=== PATIENT | female | born 1980 | race Caucasian/White ===

== ENCOUNTER 2019-11-26 17:20 | Inpatient (IN) | payer BC, SELFPAY ==
[2019-11-26 17:28] VITALS: BP 163/97; PULSE 96; RESP 16; TEMP 36.8; O2SAT 98; BMI 27.4
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
--- NOTE | 2019-11-26 18:23 | PC.NURSE ---
nurse oriented to ER room. Sitter at bedside
[2019-11-26 18:30] LABS: Basophils % 0.5 %; Eosinophils # 0.1 10^3/uL (0.0-0.8); Eosinophils % 1.7 %; Hematocrit 43.5 % (37.0-47.0); Hemoglobin 14.2 g/dL (11.5-15.3); Lymphocytes # 2.4 10^3/uL (0.8-4.8); Lymphocytes % 30.9 %; Mean Corpuscular HGB Conc 32.6 g/dL (30.0-36.0); Mean Corpuscular Hemoglobin 28.6 pg (28.0-34.0); Mean Corpuscular Volume 87.5 fL (81-99); Mean Platelet Volume 10.1 fL (7.4-10.4); Monocytes # 0.8 10^3/uL (0.2-0.9); Monocytes % 9.7 %; Neutrophils # 4.5 10^3/uL (1.8-7.7); Neutrophils % 57.1 %; Nucleated Red Blood Cells % 0 %; Platelet Count 377 10^3/cmm (130-400); Red Blood Count 4.97 10^6/uL (4.1-5.3); Red Cell Distribution Width 13.1 % (12.1-15.1); White Blood Count 7.9 10^3/uL (4.0-10.0)
[2019-11-26 18:53] LABS: Alanine Aminotransferase 25 U/L (0-33); Albumin Level 4.2 g/dL (3.5-5.2); Alkaline Phosphatase 94 IU/L (35-105); Anion Gap 16.6 (5-19); Aspartate Amino Transferase 22 U/L (0-32); Blood Urea Nitrogen 7 mg/dL (6-20); Calcium 9.9 mg/Dl (8.6-10.0); Carbon Dioxide 24 mmol/L (22-29); Chloride 104 mmol/L (98-107); Globulin 3.6 g/dL (1.3-4.6); Glomerular Filtration Rate 80.3 mL/min (90-130); Glucose 95 mg/dL (74-109); Potassium 3.6 mmol/L (3.5-5.1); Sodium 141 mmol/L (136-145); Thyroid Stimulating Hormone 2.33 uIU/mL (0.27-4.20); Total Bilirubin 0.2 mg/dL (0.15-1.2); Total Protein 7.8 g/dL (6.6-8.7)
[2019-11-26 18:58] LABS: Add Urine Microscopic? YES; Bilirubin Urine Neg (NEGATIVE); Blood Urine 2+ (Negative); Glucose Urine UA Norm (Normal); HCG Qualitative Urine. Negative (Negative); Ketones Urine Negative (Negative); Leukocyte Esterase Urine Negative (Negative); Nitrate Urine Positive (Negative); Protein Urine Neg (Negative); Sulfosalicylic Acid Urine Trace; Urine Appearance Cloudy (CLEAR); Urine Color Brown (Yellow); Urobilinogen Urine Norm (Negative); pH Urine 8 (5-7)
[2019-11-26 19:00] LABS: Bacteria Urine 2+; Mucus Urine 1+; RBC Urine 15-25 /hpf (0-2); WBC Urine 0-4 /hpf (0-5)
[2019-11-26 19:00] LABS: Acetaminophen < 5.0 ug/mL (10-30); Alcohol Level < 10 mg/dL (0-10); Salicylate < 0.3 mg/dL (3-10)
[2019-11-26 19:12] LABS: Barbiturates Screen Urine Positive (Negative); Benzodiazepines Screen Urine Negative (Negative); Cocaine Screen Urine Negative (Negative); Opiate Screen Urine Negative (Negative); PCP Screen Urine Negative (Negative); THC Screen Urine Positive (Negative)
--- NOTE | 2019-11-26 19:24 | PC.NURSE ---
REPORT RECEIVED FROM TORITO MANZO AND CARE TRANSFERRED TO TORITO JACK
[2019-11-26 19:27] VITALS: RESP 14
--- NOTE | 2019-11-26 19:27 | PC.NURSE ---
1:1 SITTER AT DOORWAY
[2019-11-26 19:28] VITALS: RESP 14
--- NOTE | 2019-11-26 19:29 | PC.NURSE ---
HCP PROVIDER IN ROOM FOR EVALUATION
[2019-11-26 19:30] LABS: Amphetamines Screen Urine Positive (Negative)
[2019-11-26 20:07] VITALS: BP 167/99; PULSE 81; RESP 16; O2SAT 100
--- NOTE | 2019-11-26 22:47 | PC.NURSE ---
PHARMACY BRINGING MEDICATIONS FOR PATIENT
[2019-11-26] MEDS: nitrofurantoin SR (BID) 100 mg Capsule PO (23:17)
[2019-11-26] MEDS: gabapentin 400 mg Capsule PO (23:17)
[2019-11-26] MEDS: metoprolol succinate ER (24 HR) 50 mg Tablet PO (23:17)
[2019-11-26 23:20] VITALS: BP 168/110; PULSE 84; RESP 16; O2SAT 100
[2019-11-26 23:56] VITALS: BP 162/102; PULSE 78; RESP 22; TEMP 36.9; O2SAT 100
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
[2019-11-27] MEDS: gabapentin 400 mg Capsule PO ×5 (06:38→21:57)
[2019-11-27] MEDS: nitrofurantoin SR (BID) 100 mg Capsule PO ×2 (09:35→17:31)
[2019-11-27] MEDS: metoprolol succinate ER (24 HR) 50 mg Tablet PO (09:37)
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
[2019-11-27] MEDS: nicotine 21 mg Patch 1 PATCH TRANSDERMA (12:41)
[2019-11-27 13:58] VITALS: BP 145/94; PULSE 73; RESP 18; TEMP 37; O2SAT 100
[2019-11-27 20:41] VITALS: BP 129/83; PULSE 66; RESP 16; TEMP 36.9; O2SAT 100
[2019-11-28] MEDS: gabapentin 400 mg Capsule PO ×2 (05:37→11:18)
[2019-11-28 06:00] VITALS: BP 107/69; PULSE 85; RESP 19; TEMP 36.6; O2SAT 100
[2019-11-28] MEDS: nitrofurantoin SR (BID) 100 mg Capsule PO (08:37)
[2019-11-28] MEDS: metoprolol succinate ER (24 HR) 50 mg Tablet PO (08:38)
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
--- NOTE | 2019-11-28 11:15 | P.CONIM_ITS ---
Providers/Reason for Consult Attending Physician: Art Stephen MD Primary Care Provider: Sammy Desai APN Psych Consult HPI History of Present Illness Sejal Lance is a 39 year old female Meds Current Medications: Current Medications Generic Name Dose Route Start Last Admin Trade Name Freq PRN Reason Stop Dose Admin Gabapentin 400 mg 11/26/19 22:00 11/28/19 05:37 Neurontin PO 400 mg 5XD JORGE Administration Metoprolol Succina te 50 mg 11/26/19 22:00 11/28/19 08:38 Toprol Xl PO 50 mg DAILY JORGE Administration Nicotine 1 patch 11/26/19 19:40 11/27/19 12:41 Nicoderm 21 Mg P atch TRANSDERMA 1 patch DAILY PRN Administration NICOTINE WITHDRAW AL Nitrofurantoin Mac rocrystals 100 mg 11/26/19 22:00 11/28/19 08:37 Macrobid PO 100 mg BID JORGE Administration PFSH NPU PFSH: Statuses (acute, chronic, etc) shown below reflect problem list status as previously entered and may not be historically accurate Medical History (Updated 11/26/19 @ 19:49 by Katarina Palacio MD, [facility] [place]) Chronic back pain (Acute) Chronic headache (Acute) Depression (Acute) Surgical History (Updated 11/26/19 @ 18:26 by Veronica Crowder) H/O oophorectomy (Acute) History of hysterectomy (Acute) Social History Smoking and tobacco status: current every day smoker Vitals/I&O/Wt Last Vital Signs Temp 97.8 F 11/28/19 06:00 Pulse 85 11/28/19 06:00 Resp 19 H 11/28/19 06:00 BP 107/69 11/28/19 06:00 Pulse Ox 100 11/28/19 06:00 Weight last 48 hrs Weight 74.843 kg Involuntary Hold Information 96 Hour Hold: 96 Hour Involuntary Admission: Yes Coding Level of Care Code Acute English Composition Teacher for Efren Lebron
[2019-11-28] MEDS: buPROPion XL (24 HR) 300 mg Tablet PO (11:17)
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
== END 2019-11-28 12:15 | disposition home or self-care (01) | DRG 881 ==
LOC: ER 19:52 → NP 20:43
PROVIDERS: Admitting Provider Psychiatry & Neurology Psychiatry; Emergency Provider Family Medicine; Family Provider Nurse Practitioner Family; PCP Nurse Practitioner Family; Visit Provider Psychiatry & Neurology Psychiatry
DX: F32.9 Major depressive disorder, single episode, unspecified (principal); G89.29 Other chronic pain; F17.210 Nicotine dependence, cigarettes, uncomplicated; M54.9 Dorsalgia, unspecified; R51 Headache
CPT/HCPCS: 12345; 36415; 80053; 80307; 81003; 81025; 84443; 85025; 99284; A9270

== ENCOUNTER 2020-04-20 17:29 | Emergency (ER) | payer MEDICAID, SELFPAY ==
[2020-04-20 17:51] VITALS: BP 107/68; PULSE 82; RESP 14; TEMP 36.8; O2SAT 99; BMI 26.6
--- NOTE | 2020-04-20 18:03 | XR_ITS ---
WS: [id number] XR shoulder RT min 2V* [id number] REASON FOR EXAM: fall FINDINGS: The clavicle is found to be intact no definite fractures are seen. The acromioclavicular joint was normal. The glenoid humeral articulations normal. The body of the scapula is normal. XR/XR shoulder RT min 2V* [id number] IMPRESSION: Negative right shoulder.
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
== END 2020-04-20 19:26 | disposition home or self-care (01) ==
PROVIDERS: Emergency Provider Nurse Practitioner Family; PCP Nurse Practitioner Family
DX: S43.491A Other sprain of right shoulder joint, initial encounter (principal); X50.9XXA Other and unspecified overexertion or strenuous movements or postures, initial encounter
CPT/HCPCS: 12345; 73030; 99281; 99282

== ENCOUNTER → 2020-11-08 12:45 | Outpatient (BNVA) | payer MEDICAID, SELFPAY | PROVIDERS: PCP Nurse Practitioner Family; Visit Provider Nurse Practitioner Family | DX: Z20.828 Contact with and (suspected) exposure to other viral communicable diseases (principal) | CPT/HCPCS: 87635 ==

== ENCOUNTER 2021-06-25 15:09 | Emergency (ER) | payer BC, MEDICAID, SELFPAY ==
[2021-06-25 15:29] VITALS: BP 159/82; PULSE 72; RESP 18; TEMP 37.1; O2SAT 99; BMI 24.1
--- NOTE | 2021-06-25 15:41 | W.ED.COVID ---
HPI - COVID General: Chief Complaint: Chest Pain Stated Complaint: CHEST PAIN Time Seen by Provider: 06/25/21 15:40 Source: patient Mode of arrival: ambulatory Limitations: no limitations Triage information: Has fever, cough or shortness of breath. Exposure to COVID + person last 14 days History of Present Illness: HPI Narrative: Patient is a 40-year-old female who presents to ED today on day 8 of COVID. Patient states she tested positive on 06/17 at [facility]. She states since that time she has had intermittent episodes of shortness of breath, difficulty breathing, and chest tightness. She feels like she gets winded easily. She is not running fevers. Has had a mild cough. She has been treated with Levaquin and steroids. MD complaint: known COVID positive Prior covid testing: yes, results known Prior testing date: 06/17/21 COVID 19 common symptoms: positive non-productive cough, dyspnea, loss of sense of smell and/or taste and chest tightness; negative fever(s), chills, fatigue, body aches, headache(s), throat pain, nasal congestion, nausea, vomiting or diarrhea COVID 19 other sytmptoms: positive chest pain Onset (ago): day(s) Severity: moderate Treatment prior to arrival: antibiotics and steroids COVID Results: SARS-CoV-2 RNA (RT-PCR) Not detected (NOT DETECTED) 11/08/20 12:45 11/08/20 Review of Systems Const: Denies: fever(s), chills, body aches, fatigue or malaise Eyes: Denies: change in vision or blurry vision ENMT: Denies: throat pain, odynophagia, nasal discharge or nasal congestion Card: Reports: chest pain and dyspnea on exertion; Denies: palpitations, irregular heart rhythm, edema, swelling of feet/ankles, lightheadedness, syncope, pre-syncope, orthopnea, leg pain with exertion or acrocyanosis Resp: Reports: dyspnea, non-productive cough and pain on inspiration; Denies: wheezing, stridor, hemoptysis or chest congestion GI: Denies: abdominal pain, nausea, vomiting or diarrhea Musc: Denies: neck pain or back pain Neuro: Denies: headache(s), numbness in extremities, weakness in extremities or sensory changes PFSH ED PFSH: Medical History Chronic back pain Chronic headache Depression Surgical History H/O oophorectomy History of hysterectomy Social History Smoking and tobacco status: never smoked Female Reproductive History: Spontaneous abortions: No Physical Exam Const: COMMON NORMALS: no acute distress, patient oriented x3, no limitations and alert HENMT: COMMON NORMALS: normocephalic and atraumatic HEAD & SCALP: normocephalic and atraumatic Resp: COMMON NORMALS: normal respiratory effort and clear to auscultation bilaterally AUSCULTATION: clear to auscultation bilaterally Cardio: COMMON NORMALS: regular rate and regular rhythm RATE: regular rate RHYTHM: regular rhythm Extremity: COMMON NORMALS: capillary refill normal, no clubbing, cyanosis or edema, no calf tenderness and no pedal edema Neuro: COMMON NORMALS: patient oriented x3 SENSORIUM/ORIENTATION: Yes alert Skin: COMMON NORMALS: no rashes or lesions noted GENERAL SKIN EXAM: no rashes or lesions noted Course Vital Signs: Vital signs: Vital Signs Temperature 98.7 F 06/25/21 15:29 Pulse Rate 72 06/25/21 15:29 Respiratory Rate 18 06/25/21 15:29 Blood Pressure 159/82 06/25/21 15:29 Pulse Oximetry 98 06/25/21 16:29 MDM - COVID MDM Narrative: Medical decision making narrative: Patient is non-ill and nontoxic appearing. Her vital signs are stable. She is satting normal on room air. Home O2 evaluation performed and she satted at 98% the entire time. CXR normal. EKG normal. At this time patient is stable for DC. She is on day 8. She's got no risk factors for severe progression and wouldn't qualify for MCA. By the time we got her information placed with CM and they got scheduled she would be past day 10 anyway and unlikely to get any benefit from it. Recommend continuing to treat conservatively at home-patient is agreeable to this plan. Return to ED precautions given. EKG Data: EKG 1: EKG interpretation date: 06/25/21 EKG interpretation time: 15:44 Interpretation: Sinus rhythm Rate [address] elevation or depression changes noted COVID Results: SARS-CoV-2 RNA (RT-PCR) Not detected (NOT DETECTED) 11/08/20 12:45 11/08/20 Monoclonal Antibody - ED Inclusion/Exclusion Criteria age >/= 12 years, weight >/= 40kg /88lbs, symptom onset less than 10 days ago and + direct Sars-Cov-2 test less than 7-10 days ago not requiring hospitalization, not requiring oxygen (if not chronically on oxygen) and no increase oxygen requirement (if chronically on oxygen) Plan for treatment Does not meet criteria (DO NOT GIVE) Discharge Plan Discharge Patient Disposition: Home Clinical Impression: COVID-19 Condition: Stable Prescriptions: No Action albuterol sulfate [ProAir HFA] 90 mcg/actuation HFA aerosol inhaler 2 puff inhalation Q6H PRNRF: 0 pseudoephedrine-acetaminophen 30-325 mg capsule PO RF: 0 Discharge Orders: Discharge ED (Routine); Ordered 06/25/21 Ordered By: Teresita Gao Referrals: Giselle Christianson APN [Primary Care Provider] - Activity Restrictions/Additional Instructions: As we discussed continue to treat conservatively at home. You may return to the emergency department for severe shortness of breath or difficulty breathing. I hope you begin to feel better soon. Coding Level of Care Code ED High Density Press Operator for Efren Fwd Exam Detailed
--- NOTE | 2021-06-25 15:53 | XRR_ITS ---
PROCEDURE INFORMATION: Exam: XR Chest Exam date and time: 06/25/2021 3:53 PM Age: 40 years old Clinical indication: Pain; Chest pressure; Additional info: Chest pain TECHNIQUE: Imaging protocol: XR of the chest. Views: 1 view. COMPARISON: CR Chest 2 views* [id number] 07/04/2016 1:42 PM FINDINGS: Lungs: Unremarkable. No consolidation. Pleural spaces: Unremarkable. No pleural effusion. No pneumothorax. Heart/Mediastinum: Unremarkable. No cardiomegaly. Bones/joints: Unremarkable. XR/XR chest 1V portable [id number] IMPRESSION: Negative for infiltrate
[2021-06-25 16:29] VITALS: O2SAT 98
[2021-06-25 17:56] VITALS: BP 148/88; PULSE 80; RESP 16; O2SAT 96
--- NOTE | 2021-09-26 18:14 | XR_ITS ---
WS: [id number] RIGHT RIBS, MULTIPLE VIEWS HISTORY: pain after injury COMPARISON: None available. Ribs: No rib fractures or bone destruction identified. Lungs and mediastinum: No pneumothorax or pulmonary contusion.
== END 2021-06-25 17:57 | disposition home or self-care (01) ==
PROVIDERS: Emergency Provider Physician Assistant; PCP Nurse Practitioner Family
DX: U07.1 COVID-19 (principal)
CPT/HCPCS: 71045; 71100; 99283

== ENCOUNTER 2021-09-26 06:00 | Outpatient (CLI) | payer BC, MEDICAID, SELFPAY ==
--- NOTE | 2021-09-26 18:14 | XR_ITS ---
WS: [id number] RIGHT RIBS, MULTIPLE VIEWS HISTORY: pain after injury COMPARISON: None available. Ribs: No rib fractures or bone destruction identified. Lungs and mediastinum: No pneumothorax or pulmonary contusion. XR/XR ribs RT 2V* [id number] IMPRESSION: No RIGHT rib fractures identified.
== END 2021-09-26 06:01 | disposition home or self-care (01) ==
LOC: RAD 11-17 10:06
PROVIDERS: PCP Nurse Practitioner Family; Visit Provider Nurse Practitioner
DX: R07.81 Pleurodynia (principal)
CPT/HCPCS: 71100

== ENCOUNTER 2022-10-11 11:44 | Emergency (ER) | payer OTHER, BC, MEDICAID, SELFPAY ==
[2022-10-11 12:10] VITALS: BP 136/79; PULSE 65; RESP 13; TEMP 37.1; O2SAT 100
--- NOTE | 2022-10-11 12:21 | CT_ITS ---
WS: [id number] CT NECK WITH CONTRAST HISTORY: Left lower dental infection, concerns for Marcos's angina TECHNIQUE: Contiguous 5 mm axial images are performed through the neck with intravenous contrast. Sag ittal and coronal reformats are also submitted. All CT scans at [facility] use at least one o f these dose optimization techniques: automated exposure control; mA and/or kV adjustment per patient size (includes targeted exams where dose is matched to clinical indication); or iterative reconstruc tion. CONTRAST: CONTRAST: Omnipaque 350; 100 mL IV. DLP: 228.82 mGy.cm COMPARISON: None available. Nasopharynx, oropharynx, hypopharynx and larynx are unremarkable. No soft tissue masses or abnormal e nhancement. Torus tubarius and fossa of Rosenmuller and parapharyngeal fat are normal. No significant lymphadenopathy is identified. There are small benign-appearing lymph nodes in the lev el 1, level 2 and level 3 regions. Thyroid gland and salivary glands are normally enhancing with no masses. Absent LEFT mandibular molar. There is a very tiny amount of increased soft tissue but no abscess. Th ere is air at the site of the tooth extraction. No abscess. No significant cellulitis. Visualized portions of the skull base demonstrate no abnormalities. Orbits and globes are within norm al limits. No soft tissue masses. Visualized paranasal sinuses and mastoid air cells are normal. Lung apices are clear. CT/CT neck w con* [id number] IMPRESSION: 1. No significant cellulitis and no abscess identified associated with the man dible or maxilla. 2. No adenopathy.
[2022-10-11 12:41] LABS: Basophils % 0.2 %; Eosinophils # 0.1 10^3/uL (0.0-0.8); Eosinophils % 0.8 %; Hematocrit 46.8 % (37.0-47.0); Hemoglobin 15.5 g/dL (11.5-15.3); Lymphocytes % 22.8 %; Mean Corpuscular HGB Conc 33.1 g/dL (30.0-36.0); Mean Corpuscular Hemoglobin 29.4 pg (28.0-34.0); Mean Corpuscular Volume 88.6 fl (81-99); Mean Platelet Volume 9.6 fL (7.4-10.4); Monocytes # 0.5 10^3/uL (0.2-0.9); Monocytes % 5.7 %; Neutrophils # 6.19 10^3/uL (1.8-7.7); Neutrophils % 70.3 %; Nucleated Red Blood Cells % 0 %; Platelet Count 337 10^3/cmm (130-400); Red Blood Count 5.28 10^6/uL (4.1-5.3); Red Cell Distribution Width 13.2 % (12.1-15.1); White Blood Count 8.8 10^3/uL (4.0-10.0)
[2022-10-11] MEDS: morphine 4 mg/mL SDV 1 mL IVP (12:52)
--- NOTE | 2022-10-11 12:52 | ED_ITS ---
HPI - Dental/Oral General: Chief complaint: Dental/Oral Stated complaint: jaw/tooth infection Time Seen by Provider: 10/11/22 12:16 History of Present Illness: Patient is a 42-year-old female comes to the ED with dental pain. Patient was seen by Dr. Gaspar at urgent care and sent over here for CT scan because of concerns for Yuko's angina. she has been dealing with this dental pain now for approximately 2 months. She has a impacted left lower wisdom tooth has been causing her pain. She has been on 2 rounds of antibiotics and took clindamycin for strep. Just finished taking Augmentin approximately a week ago. She is still having a lot of pain in her left lower jaw. It radiates up into the left side of her face. She also feels like she is having some swelling on the left side of her neck. She is able to eat but states that it is painful when she does. She rates the pain currently a 6 out of 10. She has an appointment with a dentist in November. Associated symptoms: Denies fever(s) or odynophagia Review of Systems Const: Denies: fever(s), chills or fatigue Eyes: Denies: change in vision or eye discomfort ENMT: Reports: dental pain (Left lower jaw); Denies: throat pain, odynophagia, nasal discharge or nasal congestion Card: Denies: chest pain, palpitations, edema, swelling of feet/ankles, dyspnea on exertion or orthopnea Resp: Denies: dyspnea, productive cough or non-productive cough GI: Denies: abdominal pain, nausea, vomiting, diarrhea, constipation or hematochezia : Denies: flank pain, dysuria or hematuria Musc: Denies: neck pain, back pain or extremity swelling Skin/Breast: Denies: rash or new lesions Neuro: Denies: headache(s), numbness in extremities or weakness in extremities PFSH ED PFSH: Medical History Chronic back pain Chronic headache Depression Surgical History H/O oophorectomy History of hysterectomy Social History Smoking and tobacco status: current every day smoker Female Reproductive History: Spontaneous abortions: No Physical Exam Const: COMMON NORMALS: patient oriented x3 and alert GENERAL APPEARANCE: cooperative HENMT: COMMON NORMALS: normocephalic HEAD & SCALP: normocephalic MOUTH: Normal oral and palatal mucosa present, lip normal and tongue normal THROAT: posterior oropharynx normal and uvula midline Neck/C-Spine: COMMON NORMALS: supple GENERAL: Yes normal visual inspection Resp: COMMON NORMALS: normal respiratory effort, No retractions, No use of accessory muscles and clear to auscultation bilaterally AUSCULTATION: clear to auscultation bilaterally Cardio: COMMON NORMALS: regular rate, regular rhythm, S1 normal heart sound p resent, S2 normal heart sound present, No gallops present (Cardio), No clicks present (Cardio), No murmurs present (Cardio) and Peripheral pulses 2+ throughout RATE: regular rate RHYTHM: regular rhythm HEART SOUNDS: S1 normal heart sound present and S2 normal heart sound present PERIPHERAL PULSES: Peripheral pulses 2+ throughout GI: COMMON NORMALS: Normal to inspection, nondistended, normoactive bowel sounds present, Soft to palpation, non-tender and no masses PALPATION: Yes Soft to palpation : COMMON NORMALS: Yes no CVA tenderness BLADDER/KIDNEY EXAM: Yes no CVA tenderness Back/Pelvis: COMMON NORMALS: no CVA tenderness Extremity: COMMON NORMALS: normal to inspection Neuro: COMMON NORMALS: patient oriented x3 SENSORIUM/ORIENTATION: Yes alert GAIT: Yes Normal gait present Skin: GENERAL SKIN EXAM: dry skin Course Vital Signs: Vital signs: Vital Signs Temperature 98.7 F 10/11/22 12:10 Pulse Rate 65 10/11/22 12:10 Respiratory Rate 13 10/11/22 12:10 Blood Pressure 136/79 10/11/22 12:10 Pulse Oximetry 100 10/11/22 12:10 Oxygen Delivery Me thod 10/11/22 12:10 [facility] - Dental/Oral Medical Decision Making Patient is a 42-year-old female comes to the ED with dental pain. Patient was seen by Dr. Gaspar at urgent care and sent over here for CT scan because of concerns for Yuko's angina. she has been dealing with this dental pain now for approximately 2 months. She has a impacted left lower wisdom tooth has been causing her pain. Vitals are stable. Exam of patient is benign and she appears nontoxic in no acute distress. Patient's labs are unremarkable. CT of neck shows no significant cellulitis no abscess identified with mandible or maxilla. Patient was stable for discharge home and diagnosed with dental pain. She was told to follow-up with her dentist at her neck scheduled appointment. Return ED precautions given. Patient understood and agreed with plan. Lab Data I reviewed the patient's lab results. 10/11/22 12:36 10/11/22 12:[address] 10/11/22 12:21 IMPRESSION: 1. No significant cellulitis and no abscess identified associated with the mandible or maxilla. 2. No adenopathy. Laboratory Results WBC 8.8 10^3/uL (4.0-10.0) 10/11/22 12:36 RBC 5.28 10^6/uL (4.1-5.3) 10/11/22 12:36 Hgb 15.5 g/dL (11.5-15.3) H 10/11/22 12:36 Hct 46.8 % (37.0-47.0) 10/11/22 12:36 MCV 88.6 fl (81-99) 10/11/22 12:36 MCH 29.4 pg (28.0-34.0) 10/11/22 12:36 MCHC 33.1 g/dL (30.0-36.0) 10/11/22 12:36 RDW 13.2 % (12.1-15.1) 10/11/22 12:36 Plt Count 337 10^3/cmm (130-400) 10/11/22 12:36 MPV 9.6 fL (7.4-10.4) 10/11/22 12:36 Neut % (Auto) 70.3 % 10/11/22 12:36 Lymph % (Auto) 22.8 % 10/11/22 12:36 [place] % (Auto) 5.7 % 10/11/22 12:36 Eos % (Auto) 0.8 % 10/11/22 12:36 Baso % (Auto) 0.2 % 10/11/22 12:36 Neut # (Auto) 6.19 10^3/uL (1.8-7.7) 10/11/22 12:36 Lymph # (Auto) 2.0 10^3/uL (0.8-4.8) 10/11/22 12:36 [place] # (Auto) 0.5 10^3/uL (0.2-0.9) 10/11/22 12:36 Eos # (Auto) 0.1 10^3/uL (0.0-0.8) 10/11/22 12:36 Baso # (Auto) 0.0 10^3/uL (0.0-0.1) 10/11/22 12:36 Nucleated RBC % (auto) 0 % 10/11/22 12:36 Nucleated RBCs # 0.0 /100WBC 10/11/22 12:36 Sodium 135 mmol/L (136-145) L 10/11/22 12:36 Potassium 4.5 mmol/L (3.5-5.1) 10/11/22 12:36 Chloride 99 mmol/L (98-107) 10/11/22 12:36 Carbon Dioxide 25 mmol/L (22-29) 10/11/22 12:36 Anion Gap 15.5 (5-19) 10/11/22 12:36 BUN 12 mg/dL (6-20) 10/11/22 12:36 Creatinine 0.6 mg/dL (0.5-0.9) 10/11/22 12:36 GFR Calculation 110.2 mL/min (90-130) 10/11/22 12:36 Glucose 95 mg/dL (65-115) 10/11/22 12:36 Calculated Osmolality 280 mOsm/kg (285-295) L 10/11/22 12:36 Calcium 9.9 mg/dL (8.5-10.5) 10/11/22 12:36 Total Bilirubin 0.3 mg/dL (0.15-1.2) 10/11/22 12:36 AST 21 U/L (0-32) 10/11/22 12:36 ALT 23 U/L (0-33) 10/11/22 12:36 Alkaline Phosphatase 81 U/L (35-105) 10/11/22 12:36 C-Reactive Protein 3.2 mg/L (0.0-4.9) 10/11/22 12:36 Total Protein 8.3 g/dL (6.6-8.7) 10/11/22 12:36 Albumin 4.3 g/dL (3.5-5.2) 10/11/22 12:36 Globulin 4.0 g/dL (1.3-4.6) 10/11/22 12:36 Discharge Plan Discharge Patient Disposition: Home Clinical Impression: Pain, dental Condition: Stable Prescriptions: No Action albuterol sulfate [ProAir HFA] 90 mcg/actuation HFA aerosol inhaler 2 puff inhalation Q6H PRN gabapentin 300 mg capsule 600 mg PO TID estradiol [Estrace] 2 mg tablet 2 mg PO DAILY metoprolol tartrate 50 mg tablet 50 mg PO DAILY pantoprazole [Protonix] 40 mg tablet,delayed release (DR/EC) 40 mg PO DAILY Discharge Orders: Discharge ED (Routine); Ordered 10/11/22 Ordered By: Vik Mahoney Referrals: Giselle Christianson APN [Primary Care Provider] - Discharge Diet: Regular Discharge Activity: Increase activity as tolerated Patient Instructions: Toothache (ED), Opioid Safety Coding Level of Care Code ED Senior Infrastructure Architect for Chg Fwd Exam Comprehensive
[2022-10-11] MEDS: ondansetron 2 mg/ML SDV 2 mL 4 MG IVP (12:54)
[2022-10-11 13:03] LABS: Alanine Aminotransferase 23 U/L (0-33); Albumin Level 4.3 g/dL (3.5-5.2); Alkaline Phosphatase 81 U/L (35-105); Anion Gap 15.5 (5-19); Aspartate Amino Transferase 21 U/L (0-32); Blood Urea Nitrogen 12 mg/dL (6-20); C Reactive Protein 3.2 mg/L (0.0-4.9); Calcium 9.9 mg/dL (8.5-10.5); Carbon Dioxide 25 mmol/L (22-29); Chloride 99 mmol/L (98-107); Glomerular Filtration Rate 110.2 mL/min (90-130); Glucose 95 mg/dL (65-115); Osmolality Calculated 280 mOsm/kg (285-295); Potassium 4.5 mmol/L (3.5-5.1); Sodium 135 mmol/L (136-145); Total Bilirubin 0.3 mg/dL (0.15-1.2); Total Protein 8.3 g/dL (6.6-8.7)
[2022-10-11] MEDS: iohexol 350 mg/mL 500 mL Btl (per mL) IV (13:58)
== END 2022-10-11 15:48 | disposition home or self-care (01) ==
PROVIDERS: Emergency Provider Physician Assistant; PCP Nurse Practitioner Family
DX: K08.89 Other specified disorders of teeth and supporting structures (principal); F17.210 Nicotine dependence, cigarettes, uncomplicated
CPT/HCPCS: 70491; 80053; 85025; 86140; 96374; 96375; 99285; J2270; J2405; J2930; Q9967

== ENCOUNTER 2023-02-27 16:07 | Emergency (ER) | payer OTHER, BC, MEDICAID, SELFPAY ==
[2023-02-27 16:10] VITALS: BP 179/81; PULSE 89; RESP 16; TEMP 36.6; O2SAT 100
[2023-02-27 17:31] VITALS: BP 145/80; PULSE 82; RESP 16; O2SAT 100
--- NOTE | 2023-02-27 18:08 | USR_ITS ---
PROCEDURE INFORMATION: Exam: US Abdomen, Limited; Right Upper Quadrant Exam date and time: 02/27/2023 6:36 PM Age: 42 years old Clinical indication: Other: Migraine headache x 5 days, mild ruq pain, worse after eating with n+v; Additional info: Right upper quadrant abdominal pain after eating. TECHNIQUE: Imaging protocol: Real time ultrasound of the abdomen with image documentation. Limited exam focused on the right upper quadrant. COMPARISON: US abdomen complete* [id number] 08/28/2017 4:43 PM FINDINGS: Liver: The liver is unremarkable. Gallbladder: The gallbladder is unremarkable. No gallstones or intraluminal sludge. No gallbladder wall thickening. No pericholecystic fluid. Sonographic Pickens's sign is negative per report from the electro mechanical technologist. Biliary ducts: Normal. No stones. No dilation. Pancreas: The pancreas is unremarkable. No pancreatic ductal dilatation. Right kidney: The right kidney is unremarkable. Aorta: Visualized aorta is unremarkable. Inferior vena cava: Visualized IVC is unremarkable. Portal venous: Hepatopetal flow in the portal vein. Hepatic veins: Visualized hepatic veins are patent. Intraperitoneal space: No ascites. US/US gall bladder [id number] IMPRESSION: Unremarkable right upper quadrant ultrasound.
--- NOTE | 2023-02-27 18:08 | CTR_ITS ---
PROCEDURE INFORMATION: Exam: CT Head Without Contrast Exam date and time: 02/27/2023 7:04 PM Age: 42 years old Clinical indication: Pain; Headache; Migraine; Aura effect not specified; Additional info: Worst migraine ever TECHNIQUE: Imaging protocol: Computed tomography of the head without contrast. Sagittal and coronal reformatted images were created and reviewed. Radiation optimization: All CT scans at this facility use at least one of these dose optimization techniques: automated exposure control; mA and/or kV adjustment per patient size (includes targeted exams where dose is matched to clinical indication); or iterative reconstruction. REPORTING DATA: Count of CT and Cardiac NM exams in prior 12 months: This patient has received [address] and 0 known cardiac nuclear medicine studies in the 12 months prior to the current study. COMPARISON: CT neck w con* [id number] 10/11/2022 1:22 PM RADIATION DOSE METRICS: Total DLP (mGy-cm): 998.33 FINDINGS: Brain: No acute intracranial hemorrhage. No acute infarct. No intra-axial or extra-axial masses. Robles-white matter differentiation is preserved. No cerebral edema. No extra-axial fluid collections. No midline shift. No evidence for Chiari 1 malformation. Cerebral ventricles: No hydrocephalus. Paranasal sinuses: Visualized paranasal sinuses are clear. Mastoid air cells: Mastoid air cells are clear bilaterally. Auditory system: The patient has bilateral ear piercings. Orbital cavities: No acute abnormality in the visualized orbits. Bones/joints: No acute fracture. Soft tissues: The extracranial soft tissues are unremarkable. CT/CT head wo con* [id number] IMPRESSION: 1. No acute abnormality of the brain. 2. Incidental/nonacute findings are listed in the report.
--- NOTE | 2023-02-27 18:11 | W.ED.ABDPA2 ---
HPI - Abdominal Pain General: Chief Complaint: Abdominal Pain Stated Complaint: abd pains Time Seen by Provider: 02/27/23 17:40 History of Present Illness: Patient is a 42-year-old female comes to the ED with a migraine and abdominal pain. Migraine started approximately 5 days ago. She has a history of migraines but says this is the worst migraine she has ever had. Headache is generalized throughout the entire head and she rates it a 9 out of 10. Endorses nausea and vomiting. Loud noises or bright lights make headache worse. Denies any vision changes, numbness tingling or weakness to face or 1 side of body. Patient's other complaint is abdominal pain in the right upper quadrant. Symptoms worsen whenever she eats or drinks anything. Her abdominal pain symptoms are mild currently here in the ED. Denies any fevers, bladder or bowel symptoms. Associated Symptoms: Reports nausea and vomiting; Denies chills, constipation, diarrhea, dysuria, fever(s), hematochezia and hematuria Review of Systems Const: Denies: fever(s), chills or fatigue Eyes: Reports: photophobia; Denies: change in vision or eye discomfort ENMT: Denies: throat pain, odynophagia, nasal discharge or nasal congestion Card: Denies: chest pain, palpitations, edema, swelling of feet/ankles, dyspnea on exertion or orthopnea Resp: Denies: dyspnea, productive cough or non-productive cough GI: Reports: abdominal pain, nausea and vomiting; Denies: diarrhea, constipation or hematochezia : Denies: flank pain, dysuria or hematuria Musc: Denies: neck pain, back pain or extremity swelling Skin/Breast: Denies: rash or new lesions Neuro: Reports: headache(s); Denies: numbness in extremities or weakness in extremities [facility] ED PFSH: Medical History Chronic back pain Chronic headache Depression Surgical History H/O oophorectomy History of hysterectomy Social History Smoking and tobacco status: current every day smoker Female Reproductive History: Spontaneous abortions: No Physical Exam Const: COMMON NORMALS: no acute distress, patient oriented x3 and alert HENMT: COMMON NORMALS: normocephalic HEAD & SCALP: normocephalic MOUTH: Normal oral and palatal mucosa present THROAT: posterior oropharynx normal and uvula midline Neck/C-Spine: COMMON NORMALS: supple GENERAL: Yes normal visual inspection Resp: COMMON NORMALS: normal respiratory effort, No retractions, No use of accessory muscles and clear to auscultation bilaterally AUSCULTATION: clear to auscultation bilaterally Cardio: COMMON NORMALS: regular rate, regular rhythm, S1 normal heart sound present, S2 normal heart sound present, No gallops present (Cardio), No clicks present (Cardio), No murmurs present (Cardio) and Peripheral pulses 2+ throughout RATE: regular rate RHYTHM: regular rhythm HEART SOUNDS: S1 normal heart sound present and S2 normal heart sound present PERIPHERAL PULSES: Peripheral pulses 2+ throughout GI: COMMON NORMALS: Normal to inspection, nondistended, normoactive bowel sounds present, Soft to palpation and no masses PALPATION: Yes Soft to palpation and Yes Tenderness to palpation present (GI) Details: RUQ : COMMON NORMALS: Yes no CVA tenderness BLADDER/KIDNEY EXAM: Yes no CVA tenderness Back/Pelvis: COMMON NORMALS: no CVA tenderness Extremity: COMMON NORMALS: normal to inspection Neuro: COMMON NORMALS: patient oriented x3 SENSORIUM/ORIENTATION: Yes alert GAIT: Yes Normal gait present Skin: GENERAL SKIN EXAM: dry skin Course Vital Signs: Vital signs: Vital Signs Temperature 97.9 F 02/27/23 16:10 Pulse Rate 65 02/27/23 20:23 Respiratory Rate 16 02/27/23 20:23 Blood Pressure 110/75 02/27/23 20:23 Pulse Oximetry 98 02/27/23 20:23 Oxygen Delivery Me thod Room Air 02/27/23 20:12 MDM - Abdominal Pain Medical Decision Making Patient is a 42-year-old female comes to the ED with a migraine and abdominal pain. Migraine started approximately 5 days ago. She has a history of migraines but says this is the worst migraine she has ever had. Headache is generalized throughout the entire head and she rates it a 9 out of 10. Endorses nausea and vomiting. Loud noises or bright lights make headache worse. Denies any vision changes, numbness tingling or weakness to face or 1 side of body. Patient's other complaint is abdominal pain in the right upper quadrant. Symptoms worsen whenever she eats or drinks anything. Her abdominal pain symptoms are mild currently here in the ED. Denies any fevers, bladder or bowel symptoms. Vitals are stable. Patient appears nontoxic in no acute distress. She has some right upper quadrant abdominal tenderness but rest of exam is benign. Labs are all unremarkable. Ultrasound gallbladder shows no acute findings. Head CT shows no acute findings. Patient was given IV fluids, Toradol, Benadryl, Decadron, Reglan and Pepcid while here in the ED. Symptoms improved greatly and she was stable for discharge home. She was diagnosed with migraine and abdominal pain told to follow-up with her PCP in the next week for reevaluation. Return ED precautions given. Patient understood agree with plan. Lab Data I reviewed the patient's lab results. 02/27/23 18:40 02/27/23 18:40 Labs/Radiology: Radiology Impressions Gallbladder Ultrasound 02/27/23 18:08 IMPRESSION: Unremarkable right upper quadrant ultrasound. Head CT 02/27/23 18:08 IMPRESSION: 1. No acute abnormality of the brain. 2. Incidental/nonacute findings are listed in the report. Laboratory Results WBC 7.8 10^3/uL (4.0-10.0) 02/27/23 18:40 RBC 4.51 10^6/uL (4.1-5.3) 02/27/23 18:40 Hgb 13.0 g/dL (11.5-15.3) 02/27/23 18:40 Hct 39.5 % (37.0-47.0) 02/27/23 18:40 MCV 87.6 fl (81-99) 02/27/23 18:40 MCH 28.8 pg (28.0-34.0) 02/27/23 18:40 MCHC 32.9 g/dL (30.0-36.0) 02/27/23 18:40 RDW 13.6 % (12.1-15.1) 02/27/23 18:40 Plt Count 275 10^3/cmm (130-400) 02/27/23 18:40 MPV 9.7 fL (7.4-10.4) 02/27/23 18:40 Neut % (Auto) 51.2 % 02/27/23 18:40 Lymph % (Auto) 36.9 % 02/27/23 18:40 [place] % (Auto) 10.6 % 02/27/23 18:40 Eos % (Auto) 0.9 % 02/27/23 18:40 Baso % (Auto) 0.3 % 02/27/23 18:40 Neut # (Auto) 4.01 10^3/uL (1.8-7.7) 02/27/23 18:40 Lymph # (Auto) 2.9 10^3/uL (0.8-4.8) 02/27/23 18:40 [place] # (Auto) 0.8 10^3/uL (0.2-0.9) 02/27/23 18:40 Eos # (Auto) 0.1 10^3/uL (0.0-0.8) 02/27/23 18:40 Baso # (Auto) 0.0 10^3/uL (0.0-0.1) 02/27/23 18:40 Nucleated RBC % (auto) 0 % 02/27/23 18:40 Nucleated RBCs # 0.0 /100WBC 02/27/23 18:40 Sodium 142 mmol/L (136-145) 02/27/23 18:40 Potassium 3.7 mmol/L (3.5-5.1) 02/27/23 18:40 Chloride 105 mmol/L (98-107) 02/27/23 18:40 Carbon Dioxide 24 mmol/L (22-29) 02/27/23 18:40 Anion Gap 16.7 (5-19) 02/27/23 18:40 BUN 10 mg/dL (6-20) 02/27/23 18:40 Creatinine 0.5 mg/dL (0.5-0.9) 02/27/23 18:40 GFR Calculation 136.0 mL/min (90-130) H 02/27/23 18:40 Glucose 82 mg/dL (65-115) 02/27/23 18:40 Calculated Osmolality 292 mOsm/kg (285-295) 02/27/23 18:40 Calcium 8.8 mg/dL (8.5-10.5) 02/27/23 18:40 Total Bilirubin 0.2 mg/dL (0.15-1.2) 02/27/23 18:40 AST 23 U/L (0-32) 02/27/23 18:40 ALT 18 U/L (0-33) 02/27/23 18:40 Alkaline Phosphatase 71 U/L (35-105) 02/27/23 18:40 Total Protein 7.2 g/dL (6.6-8.7) 02/27/23 18:40 Albumin 4.1 g/dL (3.5-5.2) 02/27/23 18:40 Globulin 3.1 g/dL (1.3-4.6) 02/27/23 18:40 Lipase 20 U/L (13-60) 02/27/23 18:40 HCG, Qual Negative (Negative) 02/27/23 18:40 Urine Color Yellow (Yellow) 02/27/23 17:34 Urine Appearance Clear (CLEAR) 02/27/23 17:34 Urine pH 6 (5-7) 02/27/23 17:34 Ur Specific [place] 1.010 (1.005-1.030) 02/27/23 17:34 Urine Protein Neg (Negative) 02/27/23 17:34 Urine Glucose (UA) Norm (Normal) 02/27/23 17:34 Urine Ketones Negative (Negative) 02/27/23 17:34 Urine Blood Neg (Negative) 02/27/23 17:34 Urine Nitrate Negative (Negative) 02/27/23 17:34 Urine Bilirubin Neg (Negative) 02/27/23 17:34 Urine Urobilinogen Norm mg/dL (Negative) 02/27/23 17:34 Ur Leukocyte Esterase Negative (Negative) 02/27/23 17:34 Discharge Plan Discharge Patient Disposition: Home Clinical Impression: Migraine Qualifiers: Migraine type: without aura Status migrainosus presence: with status migrainosus Intractability: not intractable Qualified Code(s): G43.001 - Migraine without aura, not intractable, with status migrainosus Abdominal pain Qualifiers: Abdominal location: right upper quadrant Qualified Code(s): R10.11 - Right upper quadrant pain Condition: Stable Prescriptions: No Action albuterol sulfate [ProAir HFA] 90 mcg/actuation HFA aerosol inhaler 2 puff inhalation Q6H PRN (Reason: Shortness Of Breath) gabapentin 300 mg capsule 600 mg PO TID estradiol [Estrace] 2 mg tablet 2 mg PO DAILY pantoprazole [Protonix] 40 mg tablet,delayed release (DR/EC) 40 mg PO DAILY loratadine 10 mg tablet 10 mg PO DAILY Qty: 30 0RF metoprolol succinate 50 mg tablet extended release 24 hr 50 mg PO DAILY vyfeiomdsr-vafqpwlqxxddd-vpag 50-325-40 mg tablet 1 tab PO Q4H PRN (Reason: Migraine Headache) Flonase Allergy Relief 50 mcg/actuation spray,suspension 2 spray intranasal DAILY PRN (Reason: Nasal Congestion) Rx Instructions: administer into each nostril Discharge Orders: Discharge ED (Routine); Ordered 02/27/23 Ordered By: Vik Mahoney Referrals: Giselle Christianson APN [Primary Care Provider] - Discharge Diet: Regular Discharge Activity: Increase activity as tolerated Patient Instructions: Headache - Migraine (Adult), Abdominal Pain (ED) Activity Restrictions/Additional Instructions: Follow-up with medical provider as directed in the next 5 to 7 days for reevaluation. Continue taking all home medications as previously prescribed. return to the ER or your medical provider if condition worsens. Please read and understand discharge instructions. Thank you for choosing [facility] for your healthcare needs today. Please realize this is an emergency room and that we are providing you with a medical screening exam and this may not be complete and all inclusive of all the testing and or work up that you may need to determine your ailment or severity of your illness. It is very important that you follow up as instructed or that you return to the Emergency Department should you have concerns or if your condition changes or worsens in any way. Coding Level of Care Code ED Learning Support Assistant for Efren Lebron
[2023-02-27 18:22] LABS: Add Urine Microscopic? NO; Charge for UA Resulting for Rev
[2023-02-27 18:38] LABS: Bilirubin Urine Neg (Negative); Blood Urine Neg (Negative); Glucose Urine UA Norm (Normal); Ketones Urine Negative (Negative); Leukocyte Esterase Urine Negative (Negative); Nitrate Urine Negative (Negative); Protein Urine Neg (Negative); Urine Appearance Clear (CLEAR); Urine Color Yellow (Yellow); Urobilinogen Urine Norm (Negative); pH Urine 6 (5-7)
[2023-02-27 18:52] LABS: Basophils % 0.3 %; Eosinophils # 0.1 10^3/uL (0.0-0.8); Eosinophils % 0.9 %; Hematocrit 39.5 % (37.0-47.0); Lymphocytes # 2.9 10^3/uL (0.8-4.8); Lymphocytes % 36.9 %; Mean Corpuscular HGB Conc 32.9 g/dL (30.0-36.0); Mean Corpuscular Hemoglobin 28.8 pg (28.0-34.0); Mean Corpuscular Volume 87.6 fl (81-99); Mean Platelet Volume 9.7 fL (7.4-10.4); Monocytes # 0.8 10^3/uL (0.2-0.9); Monocytes % 10.6 %; Neutrophils # 4.01 10^3/uL (1.8-7.7); Neutrophils % 51.2 %; Nucleated Red Blood Cells % 0 %; Platelet Count 275 10^3/cmm (130-400); Red Blood Count 4.51 10^6/uL (4.1-5.3); Red Cell Distribution Width 13.6 % (12.1-15.1); White Blood Count 7.8 10^3/uL (4.0-10.0)
[2023-02-27] MEDS: famotidine 20 mg/2 mL INJ 40 MG IVP (18:52)
[2023-02-27] MEDS: diphenhydrAMINE 50 mg/mL SDV 1mL 25 MG IVP (18:52)
[2023-02-27] MEDS: dexamethasone 10 mg/mL INJ IVP (18:52)
[2023-02-27] MEDS: ketorolac 30 mg/mL INJ IVP (18:53)
[2023-02-27] MEDS: sodium chloride 0.9% 1,000 ML 999 ML IV (18:53)
[2023-02-27] MEDS: metoclopramide 5 mg/mL SDV 2 mL 10 MG IVP (18:53)
[2023-02-27 19:09] LABS: HCG, Serum Qual Negative (Negative)
[2023-02-27 19:15] LABS: Alanine Aminotransferase 18 U/L (0-33); Albumin Level 4.1 g/dL (3.5-5.2); Alkaline Phosphatase 71 U/L (35-105); Blood Urea Nitrogen 10 mg/dL (6-20); Calcium 8.8 mg/dL (8.5-10.5); Carbon Dioxide 24 mmol/L (22-29); Chloride 105 mmol/L (98-107); Globulin 3.1 g/dL (1.3-4.6); Glucose 82 mg/dL (65-115); Lipase 20 U/L (13-60); Osmolality Calculated 292 mOsm/kg (285-295); Sodium 142 mmol/L (136-145); Total Bilirubin 0.2 mg/dL (0.15-1.2); Total Protein 7.2 g/dL (6.6-8.7)
[2023-02-27 19:25] LABS: Anion Gap 16.7 (5-19); Potassium 3.7 mmol/L (3.5-5.1)
[2023-02-27 19:26] LABS: Aspartate Amino Transferase 23 U/L (0-32)
[2023-02-27 20:12] VITALS: BP 130/82; PULSE 69; RESP 15; O2SAT 99
[2023-02-27 20:23] VITALS: BP 110/75; PULSE 65; RESP 16; O2SAT 98
== END 2023-02-27 20:19 | disposition home or self-care (01) ==
PROVIDERS: Emergency Provider Physician Assistant; PCP Nurse Practitioner Family
DX: G43.001 Migraine without aura, not intractable, with status migrainosus (principal); R10.11 Right upper quadrant pain
CPT/HCPCS: 36415; 70450; 76705; 80053; 81003; 83690; 84703; 85025; 96374; 96375; 99285; J1100; J1200; J1885; J2765; J3490; J7030

== ENCOUNTER 2023-06-22 14:35 | Outpatient (CLI) | payer OTHER, BC, MEDICAID, SELFPAY ==
--- NOTE | 2023-06-22 14:46 | MM_ITS ---
WS: [id number] BILATERAL 3D TOMOSYNTHESIS DIGITAL SCREENING MAMMOGRAPHY WITH CAD CLINICAL INFORMATION: SCREENING HISTORY: Screening mammogram. No current complaints. COMPARISON: Unilateral RIGHT mammography 2017 and 2009 TECHNIQUE: Bilateral CC and MLO views. FINDINGS: The breasts are composed of heterogeneous fibroglandular density tissue, which can limit the detectio n of small underlying mass lesions. No suspicious mass, asymmetry, calcifications, or architectural d istortion. No evidence of malignancy. Incidental punctate subareolar calcifications RIGHT breast. MM/[place] [id number] IMPRESSION: BI-RADS: 2-Benign FOLLOW UP: 1 Year Follow-up Recommend return to annual screening mammography.
== END 2023-06-22 14:36 | disposition home or self-care (01) ==
LOC: RAD 14:37 → MOBLMAM 14:42
PROVIDERS: PCP Nurse Practitioner Family; Visit Provider Nurse Practitioner Family
DX: Z12.31 Encounter for screening mammogram for malignant neoplasm of breast (principal)
CPT/HCPCS: 77063; 77067

== ENCOUNTER 2023-10-19 14:49 | Emergency (ER) | payer OTHER, MEDICAID, SELFPAY ==
[2023-10-19 14:50] VITALS: BP 172/90; PULSE 88; RESP 18; TEMP 36.7; O2SAT 100; BMI 32.5
--- NOTE | 2023-10-19 14:56 | XRR_ITS ---
PROCEDURE INFORMATION: Exam: XR Chest Exam date and time: 10/19/2023 3:21 PM Age: 43 years old Clinical indication: Pain; Angina pectoris; Additional info: Chest pain TECHNIQUE: Imaging protocol: Radiologic exam of the chest. Views: 1 view. COMPARISON: CR XR chest 1V portable [id number] 06/25/2021 4:28 PM FINDINGS: Lungs: Unremarkable. No consolidation. Pleural spaces: Unremarkable. No pleural effusion. No pneumothorax. Heart/Mediastinum: Unremarkable. No cardiomegaly. Bones/joints: Minimal thoracic scoliosis. Visualized osseous structures show no acute abnormality. Other findings: No significant change with prior exam. XR/XR chest 1V portable [id number] IMPRESSION: No acute cardiopulmonary abnormality.
--- NOTE | 2023-10-19 14:57 | ECG_ITS ---
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 Measurements Intervals [place] Rate: 80 P: 70 RI: 141 QRS: 58 QRSD: 81 T: 42 QT: 382 QTc: 442 Interpretive Statements SINUS RHYTHM Compared to ECG 01/27/2018 18:36:17 T-wave abnormality no longer present Electronically Signed On 10-20-2023 5:57:44 SYNTHETIC PLASTERER by Maria Del Carmen Bernstein M.D. [id number]
[2023-10-19 15:13] LABS: Basophils % 0.4 %; Eosinophils # 0.1 10^3/uL (0.0-0.8); Eosinophils % 0.8 %; Hematocrit 41.3 % (36-47); Lymphocytes # 2.8 10^3/uL (0.8-4.8); Lymphocytes % 30.6 %; Mean Corpuscular HGB Conc 32.9 g/dL (30-55); Mean Corpuscular Hemoglobin 29.3 pg (27-33); Mean Platelet Volume 9.9 fL (7.4-10.4); Monocytes # 0.6 10^3/uL (0.2-0.9); Neutrophils # 5.65 10^3/uL (1.8-7.7); Nucleated Red Blood Cells % 0 %; Platelet Count 366 10^3/cmm (157-399); Red Blood Count 4.64 10^6/uL (3.85-5.65); Red Cell Distribution Width 13.6 % (12.1-15.1); White Blood Count 9.12 10^3/uL (3.29-11.43)
[2023-10-19 15:33] LABS: Troponin(5th) Baseline < 6 ng/L (0-10)
--- NOTE | 2023-10-19 16:09 | ED_ITS ---
HPI - Chest Pain 2 General: Chief Complaint: Chest Pain Stated Complaint: chest pain Time Seen by Provider: 10/19/23 14:56 History of Present Illness: Patient presents to the ER with complaints of right-sided chest pain/pressure since about 1030 today. 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 Patient states the pain then was a 9 out of 10 and that it now is just more dull ache and is about a 3 out of 10. Patient does state that pressure is worse when she gets up and walks and moves around and/or takes a big deep breath. Patient has no cardiac history. Has never had discomfort like this before. Patient does have high blood pressure. MD complaint: chest pain and chest heaviness Onset (ago): hour(s) (About 6 hours ago) Timing of current episode: constant (But improving) Prior episodes: No Pain location: right chest Pain radiation: right scapula Severity: mild Quality: tightness Relieving factors: remaining still Exacerbating factors: inspiration and movement Review of Systems 2 General: Reports: 10 or more systems reviewed and unremarkable except in HPI and below PFSH ED 2 PFSH: Medical History Chronic back pain Chronic headache Depression Surgical History H/O oophorectomy History of hysterectomy Social History Smoking and tobacco/nicotine status: current every day tobacco/nicotine user Female Reproductive History: Spontaneous abortions: No Physical Exam 2 Const: COMMON NORMALS: no acute distress, average body habitus, patient oriented x3, no limitations, healthy appearing, alert and well nourished HENMT: COMMON NORMALS: normocephalic, atraumatic, hearing grossly normal bilaterally, external ears normal, Normal external nose present, moist oral mucous membranes and oropharynx normal HEAD & SCALP: normocephalic and atraumatic NOSE: Normal external nose present EXTERNAL EAR: Yes external ears normal Neck/C-Spine: COMMON NORMALS: full ROM, no lymphadenopathy, supple, no meningeal signs, no JVD and Thyroid normal THYROID: Thyroid normal Chest: COMMONS NORMALS: normal inspection of the chest; negative for normal palpation of entire chest wall (Tenderness with palpation of the right anterior chest wall.) Resp: COMMON NORMALS: normal respiratory effort, No retractions, No use of accessory muscles and clear to auscultation bilaterally AUSCULTATION: clear to auscultation bilaterally Cardio: COMMON NORMALS: no JVD, regular rate, regular rhythm, S1 normal heart sound present, S2 normal heart sound present, No gallops present (Cardio), No clicks present (Cardio), No murmurs present (Cardio) and No rub (Cardio) R ATE: regular rate RHYTHM: regular rhythm HEART SOUNDS: S1 normal heart sound present and S2 normal heart sound present GI: COMMON NORMALS: Normal to inspection, nondistended, normoactive bowel sounds present, Soft to palpation, non-tender, No hepatosplenomegaly present and no masses PALPATION: Yes Soft to palpation and Yes No hepatosplenomegaly present : COMMON NORMALS: Yes no CVA tenderness BLADDER/KIDNEY EXAM: Yes no CVA tenderness Back/Pelvis: COMMON NORMALS: no CVA tenderness Neuro: COMMON NORMALS: patient oriented x3 SENSORIUM/ORIENTATION: Yes alert MENINGEAL SIGNS: Yes no meningeal signs Course 2 Vital Signs: Vital signs: Vital Signs Temperature 98.1 F 10/19/23 14:50 Pulse Rate 88 10/19/23 14:50 Respiratory Rate 18 10/19/23 14:50 Blood Pressure 172/90 10/19/23 14:50 Pulse Oximetry 100 10/19/23 14:50 Oxygen Delivery Me thod Room Air 10/19/23 14:50 MDM - Chest Pain Medical Decision Making patient presents to the ER with left chest wall pain which sounds more like a strain while she was lifting. This is reproducible with palpation. She was worked up in a typical cardiac fashion. No acute causes of cardiac chest pain was found. Patient be discharged with chest wall pain. Patient should follow- up with her PCP on an as-needed basis. Differential Diagnosis Unlikely acute massive pulmonary embolism, acute respiratory failure, acute myocardial infarction, cardiac arrest or sudden cardiac Medical Records I reviewed the patient's medical records. Lab Data I reviewed the patient's lab results. 10/19/23 15:02 10/19/23 15:46 Radiology Impressions Chest X-Ray 10/19/23 14:56 IMPRESSION: No acute cardiopulmonary abnormality. Laboratory Results WBC 9.12 10^3/uL (3.29-11.43) 10/19/23 15:02 RBC 4.64 10^6/uL (3.85-5.65) 10/19/23 15:02 Hgb 13.60 g/dL (11.27-16.99) 10/19/23 15:02 Hct 41.3 % (36-47) 10/19/23 15:02 MCV 89.0 fl (85-98) 10/19/23 15:02 MCH 29.3 pg (27-33) 10/19/23 15:02 MCHC 32.9 g/dL (30-55) 10/19/23 15:02 RDW 13.6 % (12.1-15.1) 10/19/23 15:02 Plt Count 366 10^3/cmm (157-399) 10/19/23 15:02 MPV 9.9 fL (7.4-10.4) 10/19/23 15:02 Neut % (Auto) 62.0 % 10/19/23 15:02 Lymph % (Auto) 30.6 % 10/19/23 15:02 [place] % (Auto) 6.0 % 10/19/23 15:02 Eos % (Auto) 0.8 % 10/19/23 15:02 Baso % (Auto) 0.4 % 10/19/23 15:02 Neut # (Auto) 5.65 10^3/uL (1.8-7.7) 10/19/23 15:02 Lymph # (Auto) 2.8 10^3/uL (0.8-4.8) 10/19/23 15:02 [place] # (Auto) 0.6 10^3/uL (0.2-0.9) 10/19/23 15:02 Eos # (Auto) 0.1 10^3/uL (0.0-0.8) 10/19/23 15:02 Baso # (Auto) 0.0 10^3/uL (0.0-0.1) 10/19/23 15:02 Nucleated RBC % (auto) 0 % 10/19/23 15:02 Nucleated RBCs # 0.0 /100WBC 10/19/23 15:02 Sodium 138 mmol/L (136-145) 10/19/23 15:46 Potassium 3.6 mmol/L (3.5-5.1) 10/19/23 15:46 Chloride 104 mmol/L (98-107) 10/19/23 15:46 Carbon Dioxide 23 mmol/L (22-29) 10/19/23 15:46 Anion Gap 14.6 (5-19) 10/19/23 15:46 BUN 8 mg/dL (6-20) 10/19/23 15:46 Creatinine 0.6 mg/dL (0.5-0.9) 10/19/23 15:46 GFR Calculation 109.6 mL/min (90-130) 10/19/23 15:46 Glucose 86 mg/dL (65-115) 10/19/23 15:46 Calculated Osmolality 284 mOsm/kg (285-295) L 10/19/23 15:46 Calcium 8.9 mg/dL (8.5-10.5) 10/19/23 15:46 Total Bilirubin 0.2 mg/dL (0.15-1.2) 10/19/23 15:46 AST 22 U/L (0-32) 10/19/23 15:46 ALT 25 U/L (0-33) 10/19/23 15:46 Alkaline Phosphatase 86 U/L (35-105) 10/19/23 15:46 Troponin T Baseline < 6 ng/L (0-10) 10/19/23 15:02 Total Protein 7.0 g/dL (6.6-8.7) 10/19/23 15:46 Albumin 3.8 g/dL (3.5-5.2) 10/19/23 15:46 Globulin 3.2 g/dL (1.3-4.6) 10/19/23 15:46 All radiology interpretation(s) finalized by discharge EKG Data EKG 1: I personally reviewed and interpreted this EKG as follows: EKG interpretation date: 10/19/23 EKG interpretation time: 14:54 Prior EKG tracings: not available for review Interpretation: EKG showed ventricular rate 80 bpm, SD interval 141, QRS duration 81, QTc of 418, sinus rhythm, EKG 2: I personally reviewed and interpreted this EKG as follows: EKG interpretation date: 10/19/23 EKG interpretation time: 16:59 Prior EKG tracings: available for review Interpretation: EKG showed ventricular rate 55 bpm, SD interval 152, QRS duration 86, QTc of 418, sinus bradycardia Discharge Plan Discharge Patient Disposition: Home Clinical Impression: Acute chest wall pain Condition: Stable Prescriptions: No Action albuterol sulfate [ProAir HFA] 90 mcg/actuation HFA aerosol inhaler 2 puff inhalation Q6H PRN (Reason: Shortness Of Breath) gabapentin 300 mg capsule 600 mg PO TID estradiol [Estrace] 2 mg tablet 2 mg PO DAILY pantoprazole [Protonix] 40 mg tablet,delayed release (DR/EC) 40 mg PO DAILY metoprolol succinate 50 mg tablet extended release 24 hr 50 mg PO DAILY dzlakefzhz-guwqermwoesqx-obxw 50-325-40 mg tablet 1 tab PO Q4H PRN (Reason: Migraine Headache) Discharge Orders: Discharge ED (Routine); Ordered 10/19/23 Ordered By: Vance Euceda Referrals: Giselle Christianson APN [Primary Care Provider] - 1 week Patient Instructions: Chest Pain - Chest Wall Activity Restrictions/Additional Instructions: your workup in the ER was essentially benign for acute cardiac type chest pain. Is thought that you have chest wall pain or a muscle strain in your chest. If your pain returns or worsens please feel free to return to the ER otherwise please follow-up with your family practice doctor Coding Level of Care Code ED Big Data Engineer for Efren Lebron
[2023-10-19 16:30] LABS: Alanine Aminotransferase 25 U/L (0-33); Albumin Level 3.8 g/dL (3.5-5.2); Alkaline Phosphatase 86 U/L (35-105); Anion Gap 14.6 (5-19); Aspartate Amino Transferase 22 U/L (0-32); Blood Urea Nitrogen 8 mg/dL (6-20); Calcium 8.9 mg/dL (8.5-10.5); Carbon Dioxide 23 mmol/L (22-29); Chloride 104 mmol/L (98-107); Globulin 3.2 g/dL (1.3-4.6); Glomerular Filtration Rate 109.6 mL/min (90-130); Glucose 86 mg/dL (65-115); Osmolality Calculated 284 mOsm/kg (285-295); Potassium 3.6 mmol/L (3.5-5.1); Sodium 138 mmol/L (136-145); Total Bilirubin 0.2 mg/dL (0.15-1.2)
--- NOTE | 2023-10-19 16:57 | ECG_ITS ---
[facility] Test Date: 2023-10-19 Pat Name: Sejal Lance Department: Room: Gender: Female Graphics Editor: : 1980 Requested By: Vance Euceda Order Number: [id number] Burt MD: Maira Del Carmen Bernstein M.D. Measurements Intervals [place] Rate: 55 P: 68 IL: 152 QRS: 61 QRSD: 86 T: 37 QT: 430 QTc: 412 Interpretive Statements SINUS BRADYCARDIA Compared to ECG 01/27/2018 18:36:17 Sinus rhythm no longer present T-wave abnormality no longer present Electronically Signed On 10-20-2023 6:10:03 CABLE SPLICER APPRENTICE by Maria Del Carmen Bernstein M.D. [id number]
[2023-10-19 18:11] LABS: Add Urine Microscopic? NO; Charge for UA Resulting for Rev
[2023-10-19 18:21] LABS: Urine Appearance Clear (CLEAR); Urine Color Colorless (Yellow)
[2023-10-19 18:22] LABS: Bilirubin Urine Neg (Negative); Blood Urine Neg (Negative); Glucose Urine UA Norm (Normal); Ketones Urine Negative (Negative); Leukocyte Esterase Urine Negative (Negative); Nitrate Urine Negative (Negative); Protein Urine Neg (Negative); Specific Gravity, Urine 1.005 (1.005-1.030); Sulfosalicylic Acid Urine Negative (Negative); Urobilinogen Urine Neg (Negative); pH Urine 8 (5-7)
[2023-10-19 18:42] LABS: Troponin 5 2HR Delta 0.00001 ABS# (0-10)
== END 2023-10-19 18:31 | disposition home or self-care (01) ==
PROVIDERS: Emergency Provider Emergency Medicine; PCP Nurse Practitioner Family
DX: R07.89 Other chest pain (principal); Z72.0 Tobacco use
CPT/HCPCS: 36415; 71045; 80053; 81003; 84484; 85025; 93005; 99285

== ENCOUNTER → 2023-12-31 12:29 | Outpatient (BNVA) | payer OTHER, SELFPAY | PROVIDERS: PCP Nurse Practitioner Family; Referring Provider Nurse Practitioner Family; Visit Provider Internal Medicine | DX: R07.9 Chest pain, unspecified (principal); R94.31 Abnormal electrocardiogram [ECG] [EKG] | CPT/HCPCS: 93005 ==

== ENCOUNTER 2024-01-08 06:34 | Outpatient (CLI) | payer OTHER, SELFPAY ==
--- NOTE | 2024-01-08 07:00 | USCV_ITS ---
Sejal Arias Age: 43 Gender: F : 1980 Exam Date: 01/08/2024 06:59 Ordering Phys: Jerry Aaron M.D ([email or web address]) Technologist: MOE Exam Location: [facility] Indication: CHEST PAIN AND SHORTNESS OF BREATH BP: 136 / 80 HR: 60 Rhythm: Sinus Technical Quality: Adequate MEASUREMENTS (Male / Female) Normal Values 2D ECHO LV Diastolic Diameter PLAX 4.4 cm 4.2 - 5.9 / 3.9 - 5.3 cm IVS Diastolic Thickness 1.0 cm 0.6 - 1.0 / 0.6 - 0.9 cm IVS Systolic Thickness 1.5 cm LVPW Diastolic Thickness 1.5 cm 0.6 - 1.0 / 0.6 - 0.9 cm LVPW Systolic Thickness 1.9 cm LVOT Diameter 1.9 cm LV Ejection Fraction 2D Teich 66.3 % LV Ejection Fraction MOD 2C 59.4 % Aorta at Sinotubular Diameter 2.1 cm IVC Diameter 1.4 cm M-MODE LA Ao Ratio MM 0.8 AV Cusp Separation MM 1.7 cm DOPPLER AV Peak Velocity 130.0 cm/s LVOT Peak Velocity 106.0 cm/s AV Area Cont Eq vti 2.3 cm squared AV Area Cont Eq pk 2.3 cm squared MV Area PHT 4.4 cm squared Mitral E to A Ratio 1.2 TR Peak Velocity 145.0 cm/s TR Peak Gradient 8.4 mmHg PV Peak Velocity 103.0 cm/s FINDINGS Left Ventricle Left ventricle is normal in size. LV systolic function is normal with EF of 60 to 65%. No regional wall motion abnormalities are seen. Diastolic function is normal. Right Ventricle Normal in size and function Right Atrium Normal in size Left Atrium Normal in size Mitral Valve Structurally normal mitral valve. Trace mitral regurgitation Aortic Valve Structurally normal aortic valve. No significant stenosis or regurgitation. Tricuspid Valve Trace tricuspid regurgitation. Insufficient TR jet to calculate RVSP. Pulmonic Valve Not well visualized Pericardium Normal Aorta Appears to be normal IVC Not well visualized CONCLUSIONS LV systolic function is normal with EF of 60 to 65%. Diastolic function is normal. Trace mitral regurgitation Trace tricuspid regurgitation No comaprison studies are available. Jerry Aaron MD (Electronically Signed) Final Date: 12 January 2024 12:41 S
== END 2024-01-08 06:35 | disposition home or self-care (01) ==
LOC: RAD 06:34
PROVIDERS: PCP Nurse Practitioner Family; Visit Provider Internal Medicine
DX: R07.9 Chest pain, unspecified (principal); R06.02 Shortness of breath
CPT/HCPCS: 93306

== ENCOUNTER 2024-01-09 08:39 | Outpatient (CLI) | payer OTHER, SELFPAY ==
--- NOTE | 2024-01-09 | ECG_ITS ---
[facility] Test Date: 2024-01-09 Pat Name: Sejal Arias Department: Room: Gender: Female Juice Weigher: : 1980 Requested By: Jerry Aaron Order Number: [id number] [place] MD: Jerry Aaron M.D. Interpretive Statements NAME OF STUDY: EXERCISE SESTAMIBI STRESS TEST INDICATION: [Chest Pain; Shortness of Breath] EXERCISE DATA: The patient was exercised by Ajay protocol. Baseline heart rate was 85 beats per minute. Baseline blood pressure was 145/82 millimeters of mercury. Maximal predicted heart rate was 178 beats per minute. Maximum heart rate achieved was 164 with, which was 92% of the maximum predicted heart rate. Maximum blood pressure was 161/89 millimeters of mercury. Total exercise time was 6 minutes 30 seconds. Maximum METs achieved was 10.2. The reason for ending the test was completion of protocol. The patient complained of shortness of breath during the stress test, which then resolved at the end of the test. ELECTROCARDIOGRAM: BASELINE: Showed sinus rhythm, normal axis, no significant ST-T changes at the baseline noted. [] EXERCISE: At the peak exercise level, [] No significant ST-T changes suggestive of ischemia noted. [] RECOVERY: During the recovery period, heart rate dropped appropriately. No significant ST-T changes in the recovery suggestive of ischemia noted. [] CONCLUSION: 1. Exercise capacity is good. 2. Heart rate response was appropriate 3. Blood pressure response was appropriate 4. Symptoms not suggestive of ischemia. 5. Electrocardiogram portion of the stress test was not suggestive of ischemia. 6. Nuclear scan will be documented separately. Electronically Signed On 01-11-2024 12:25:53 SUMMER INTERNSHIP by Jerry Aaron M.D. [id number]
[2024-01-09 09:33] VITALS: BMI 32.5
--- NOTE | 2024-01-09 09:34 | NMCV_ITS ---
NM deann perf SPECT r/s* [id number] Sejal Arias Age: 43 Gender: F : 1980 Exam Date: 01/09/2024 09:52 Ordering Phys: Jerry Aaron M.D ([email or web address]) Technologist: ABEL Montiel Exam Location: [facility] Indications: CHEST PAIN STRESS TEST [facility] IMAGE PROTOCOL Rest/Stress 1 Exercise Day Radiopharmaceutical Dose (mCi) Administration Site Administered by Rest: Tc-99m 10.9 IV ABEL Zheng Sestamiaidee Stress:Tc-99m 32.2 IV ABEL Zheng Sestamiaidee Rest: 09-Jan-2024 60 Discovery 630 Stress: 09-Jan-2024 15 Discovery 630 Radiopharmaceutical was injected at 85 % maximum heart rate. Images obtained in supine and prone position. SPECT RESULTS Technical Quality: Excellent Raw Data Analysis: Normal Image Corrections: No attenuation or motion correction applied Summed Stress Score: 0 Summed Rest Score: 0 Summed Difference Score: 0 PERFUSION FINDINGS SPECT images demonstrate homogeneous tracer distribution throughout the myocardium. FUNCTIONAL RESULTS (calculated via Gated SPECT) Stress Image LV EF (%): 80 Stress EDV (mL):93 TID: 0.78 Stress ESV (mL):19 FUNCTIONAL FINDINGS: There is normal left ventricular systolic function. IMPRESSIONS 1. Normal myocardial perfusion imaging with no evidence of ischemia 2. LV systolic function is normal Jerry Aaron MD (Electronically Signed) Final Date: 11 January 2024 12:53 S
[2024-01-09 11:37] VITALS: BP 145/84; PULSE 102
== END 2024-01-09 08:40 | disposition home or self-care (01) ==
LOC: CDL 08:40
PROVIDERS: PCP Nurse Practitioner Family; Visit Provider Internal Medicine
DX: R07.9 Chest pain, unspecified (principal); R06.02 Shortness of breath
CPT/HCPCS: 36415; 78452; 93017; A9500

== ENCOUNTER 2024-03-11 07:23 | Outpatient (CLI) | payer OTHER, SELFPAY ==
[2024-03-11 07:50] LABS: Basophils % 0.6 %; Eosinophils # 0.1 10^3/uL (0.0-0.8); Eosinophils % 1.4 %; Hematocrit 41.1 % (36-47); Lymphocytes # 2.2 10^3/uL (0.8-4.8); Lymphocytes % 30.7 %; Mean Corpuscular HGB Conc 32.8 g/dL (30-55); Mean Corpuscular Hemoglobin 29.6 pg (27-33); Mean Corpuscular Volume 90.1 fl (85-98); Monocytes # 0.6 10^3/uL (0.2-0.9); Monocytes % 7.9 %; Neutrophils # 4.19 10^3/uL (1.8-7.7); Neutrophils % 59.1 %; Nucleated Red Blood Cells % 0 %; Platelet Count 289 10^3/cmm (157-399); Red Blood Count 4.56 10^6/uL (3.85-5.65); Red Cell Distribution Width 13.6 % (12.1-15.1); White Blood Count 7.09 10^3/uL (3.29-11.43)
[2024-03-11 08:04] LABS: INR 0.93 (0.83-1.21); Prothrombin Time (Patient) 12.7 Seconds (12.0-15.1)
[2024-03-11 08:22] LABS: Anion Gap 13.7 (5-19); Blood Urea Nitrogen 12 mg/dL (6-20); Calcium 8.8 mg/dL (8.5-10.5); Carbon Dioxide 23 mmol/L (22-29); Chloride 103 mmol/L (98-107); Glomerular Filtration Rate 109.6 mL/min (90-130); Glucose 112 mg/dL (65-115); Osmolality Calculated 283 mOsm/kg (285-295); Potassium 3.7 mmol/L (3.5-5.1); Sodium 136 mmol/L (136-145)
== END 2024-03-11 07:24 | disposition home or self-care (01) ==
LOC: LAB 07:25
PROVIDERS: PCP Nurse Practitioner Family; Visit Provider Internal Medicine
DX: R07.9 Chest pain, unspecified (principal); R58 Hemorrhage, not elsewhere classified; Z79.899 Other long term (current) drug therapy
CPT/HCPCS: 36415; 80048; 85025; 85610

== ENCOUNTER 2024-03-18 05:51 | Outpatient (CLI) | payer OTHER, SELFPAY ==
--- NOTE | 2024-03-18 06:00 | XACV_ITS ---
Exam Room: 2 Ht: 163 cm Wt: 88 kg BSA: 2.03 m2 Gender: Female : 1980 Any Known Allergies: No known allergies Exam Priority: Routine Procedure(s): Procedure Description: Diagnostic procedure Procedure Description: Left Heart Catheterization Procedure Description: Left ventriculography Procedure Description: Coronary Angiography Diagnostic Cath Status: Elective Diagnostic Findings * No significant disease noted in the Left Main, Left Anterior Descending, Right, or Circumflex coronary arteries. * 1st Diagonal is a medium sized vessel and has a significant 80% stenosis in ostial to proximal location, MERRITT: 3 flow. * Coronary angiography shows right dominance. Conclusions 1. No significant disease noted in the Left Main, Left Anterior Descending, Right, or Circumflex coronary arteries. 2. First diagonal artery has significant 80% stenosis. We will medically manage it and uptitrate antianginal medicines. Preference to not stent it as lesion starts very close to ostium and flow in the LAD can get compromised with the ostial diagonal artery stent. However if with up titration of medical therapy, she continues having chest pain, will consider PCI. 3. Normal left ventricular systolic function. Ejection fraction of 55%. Recommendations * Will uptitrate antianginal medications. If despite of maximal tolerated therapy, she continues having lifestyle limiting anginal symptoms or worsening angina, can consider PCI of diagonal artery. * Outpatient cardiology follow up in 2-4 weeks. Interventional RX Recommendation: medical therapy and/or counseling Diagnostic RX Recommendation: medical therapy and/or counseling Ventriculography Ejection Fraction: 55.0 % Pressures Phase:Rest AO : 103 / 70 ( 87 ) @ 8:40:00 AM 151 / 85 ( 115 ) @ 8:48:00 AM 152 / 85 ( 115 ) @ 8:48:00 AM LV : 156 / -2 / 25 @ 8:47:00 AM 162 / 3 / 30 @ 8:48:00 AM 159 / 3 / 30 @ 8:48:00 AM Valves Phase:DefaultPhase AV : 7.0 @ 7:55:49 AM 7.0 @ 7:55:49 AM AV Mean Gradient: 10.0 @ 7:55:49 AM 10.0 @ 7:55:49 AM Clinical Evaluation EBL: 5mL-10mL Procedural Details Pre-Procedure Time Out. Identified patient by full name and date of as verbalized by the patient/guarantor. Does the consent match the physician's order: Yes. Accurate & Complete Informed Consent: Yes. Inpatient/Outpatient History & Physical on Chart: Yes. If H&P is completed, is and addenduem needed: No; If yes, is the addendum complete: N/A. Visualize and Verify Site with Patient/Guarantor: N/A. Relevant Radiology Images available: Yes. Pre-op teaching completed and patient verbalized understanding. The risks, benefits, and alternatives of sedation and/or procedure were discussed by physician. The patient agrees to continue. Procedure started. [facility] Clinical Fraility Score: 3: Managing Well. Bisque Placer Indications: Worsening Angina. Chest Pain Symptom Assessment: Typical Angina Symptoms. Current diagnosis: Chest Pain. PERRLA. Strong, equal hand ordnance mechanic bilaterally. Lungs clear x 5 lobes. Physician arrived. Current Diagnosis : Chest Pain. IV Site on Arrival: 20 gauge in the right anticubital. IV Fluids: 0.9% NaCl at KVO. 0 mL infused prior to solar lab technician. Pre Procedural Pulses: right dorsalis pedis was 2+. Pre Procedural Pulses: left dorsalis pedis was Doppled. Pre Procedural Pulses: right posterior tibial was 1+. Pre Procedural Pulses: left posterior tibial was 2+. Pre Procedural Pulses: bilateral radial was 3+. Oxygen started at 2liters/min via nasal canula. right groin was prepped with chloroprep then draped in the usual sterile fashion. right radial was prepped with chloroprep then draped in the usual sterile fashion. Baseline sample Acquired. HR: 67 BPM. Physician scrubbed in. Immediate Pre-Procedure Time Out. Correct Patient: Yes; Correct Procedure: Yes; Correct Site: Yes; Correct Patient Position: Yes; Correct Supplies: Yes; Dried Flammable Prep: Yes; Blood Products Available: N/A;. Lidocaine 1% infiltrated to the right radial. Ultrasound being used to obtained access. Arterial access obtained. A 5 italian TIG catheter in over wire. Multiple views taken of left coronary artery. Catheter redirected to the RCA. Multiple views taken of right coronary artery. Catheter removed over the exchange wire. A 5 italian Angled Pig catheter in over wire. EDP Sample taken: LV 156/-3,25; HR: 73 BPM; SpO2: 100%. LV gram performed in SHARMA @ 10 mL/second for a total of 30 mL. EDP Sample taken: LV 162/3,30; HR: 70 BPM; SpO2: 100%. Pullback taken: LV 159/3,30; AO 151/85(115); Mean: 10mmHg, Peak to Peak: 7mmHg, SEP: 23sec/min; HR: 69 BPM; SpO2: 100%. Physician review of cine films. Catheter removed over the exchange wire. A TR Band was successful obtaining hemostatsis at the Right Radial artery insertion site. Post Procedure: Pulses reassessed and unchanged. PERRLA. Strong, equal hand ordnance mechanic bilaterally. No VTE prophylaxis required. Medication's Wasted: Lidocaine 1% = 18 mL. Medication's Wasted: Nitro = 49.8 mg. Medication's Wasted: Heparin = 1000 units. Medication's Wasted: Other = Versed 1 mg. Total IV fluids: 50 mL. Vital chart was stopped. Post-op diagnosis: Significant Diag stenosis- medical management. Complications: None. Estimated blood loss: 5mL-10mL. Responsiveness - Normal response to verbal stimuli; alert and oriented, PERRLA. Airway - Unaffected, no intervention required; spontaneous ventilation. Circulation: W/N/L, pulses unchanged. Nausea/Vomiting: No. Procedure completed. Patient transferred by wheelchair to CPRU. Access Site Site: Right Radial artery Sheath Size: 6 Fr Hemostasis Method: TR Band Hemostasis Success: Successful Procedure Medications Start: 7:13 AM Stop: 7:13 AM Medication: Versed Amount: 1 mg Route: I.V. Start: 7:14 AM Stop: 7:14 AM Medication: Fentanyl Amount: 25 mcg Route: I.V. Start: 7:19 AM Stop: 7:19 AM Medication: Versed Amount: 1 mg Route: I.V. Start: 7:21 AM Stop: 7:21 AM Medication: Fentanyl Amount: 25 mcg Route: I.V. Start: 7:26 AM Stop: 7:26 AM Medication: Versed Amount: 1 mg Route: I.V. Start: 7:27 AM Stop: 7:27 AM Medication: Fentanyl Amount: 25 mcg Route: I.V. Start: 7:34 AM Stop: 7:34 AM Medication: Fentanyl Amount: 25 mcg Route: I.V. Start: 7:36 AM Stop: 7:36 AM Medication: Nitrogylcerin Amount: 200 mcg Route: I.A. Start: 7:38 AM Stop: 7:38 AM Medication: Versed Amount: 1 mg Route: I.V. Start: 7:39 AM Stop: 7:39 AM Medication: Heparin Amount: 5000 units Route: I.V. Start: 7:47 AM Stop: 7:47 AM Medication: Versed Amount: 1 mg Route: I.V. I, the attending physician, have reviewed and verified all procedure medications. Yes, all medications given per verbal order History/Risk Factors Hypertension: Yes Dyslipidemia: No Peripheral Arterial Disease (PAD): No Myocardial Infarction (ND): No Obesity: No Renal Disease: No Tobacco Use: Current/Recent(w/in 1 year) Prior Interventions PCI: No CABG: No Valve Surgery: No Report Signatures Finalized by Jerry Aaron MD on 03/23/2024 08:03 PM
[2024-03-18] MEDS: aspirin 325 mg Tablet PO (06:15)
[2024-03-18] MEDS: diphenhydrAMINE 50 mg Capsule PO (06:15)
[2024-03-18 06:36] VITALS: BP 174/91; PULSE 72; RESP 18; TEMP 37.1; O2SAT 98
[2024-03-18 08:00] VITALS: BP 138/66; PULSE 62; RESP 16; O2SAT 98
--- NOTE | 2024-03-18 08:00 | SUR.EXTENDED ---
Received the patient back from the label operator via wheelchair s/p Diagnostic [facility]. Patient ambulated to the cot without difficulty. A & 0 x 3. quality assurance monitor final placed and vital signs obtained. TR band intact to the right wrist. No bleeding or hematoma noted. Palpable radial pulse. No other assessment changes noted from pre cath assessment. Family at bedside. No concerns voiced at this time. Will transfer to ICU 1 as an OF after recovery.
[2024-03-18 08:15] VITALS: BP 137/65; PULSE 63; RESP 18; O2SAT 96
--- NOTE | 2024-03-18 08:30 | SUR.EXTENDED ---
Patient transferred via wheelchair to ICU 1 as an OF by Bobbi Laureano RN. Family at bedside.
[2024-03-18 08:45] VITALS: PULSE 58; RESP 18; O2SAT 98
[2024-03-18 09:00] VITALS: PULSE 57; RESP 16; O2SAT 98
--- NOTE | 2024-03-18 12:58 | PC.NURSE ---
TR band removed and dressing in place
--- NOTE | 2024-03-23 19:48 | W.PM.OPSUD ---
Surgery/Procedure H&P Update DATE OF PROCEDURE: March 18, 2024 DATE H&P PERFORMED: 02/28/24 H&P UPDATE INFORMATION: I have reviewed H&P completed within last 30 days, I have examined patient prior to procedure and No changes to prior documentation PREOP DIAGNOSIS: Worsening angina PRIMARY INDICATION FOR PROCEDURE: Worsening angina PLANNED PROCEDURE: Operation Date: 03/18/24 07:00 Proposed Procedures p Cardiac Catheterization(Left) - Jerry Aaron M.D Possible percutaneous coronary intervention PATIENT REASSESSED PRIOR TO SEDATION, WITH NO CHANGE NOTED: Yes PHYSICAL EXAM: alert, oriented x 3, clear to auscultation bilaterally and regular rate & rhythm AIRWAY EVAL/ANESTHESIA PLAN: normal airway, ASA III, Local Anesthesia, Risks, benefits & alternatives of sedation and/or procedure discussed and Patient agrees to continue as planned ADDITIONAL INFORMATION: Moderate sedation
== END 2024-03-18 13:10 | disposition home or self-care (01) ==
LOC: CCL 05:54 → ICU 08:14
PROVIDERS: PCP Nurse Practitioner Family; Visit Provider Internal Medicine
DX: I25.110 Atherosclerotic heart disease of native coronary artery with unstable angina pectoris (principal); I10 Essential (primary) hypertension; Z82.49 Family history of ischemic heart disease and other diseases of the circulatory system; F17.200 Nicotine dependence, unspecified, uncomplicated
CPT/HCPCS: 36415; 93458; 96374; 96375; 99152; 99153; C1769; C1887; C1894; J1644; J2250; J3010; J3490; J7030; Q0163; Q9967

== ENCOUNTER → 2024-04-01 09:53 | Outpatient (BNVA) | payer OTHER, SELFPAY | PROVIDERS: PCP Nurse Practitioner Family; Visit Provider Nurse Practitioner Family | DX: I25.118 Atherosclerotic heart disease of native coronary artery with other forms of angina pectoris (principal) | CPT/HCPCS: 36415; 80048 ==

== ENCOUNTER 2024-04-24 11:32 | Emergency (ER) | payer OTHER, SELFPAY ==
--- NOTE | 2024-04-24 11:33 | ECG_ITS ---
[facility] Test Date: 2024-04-24 Pat Name: Sejal Arias Department: Room: Gender: Female Senior Information Security Engineer: : 1980 Requested By: Chris Wang Order Number: [id number] Burt MD: Jerry Aaron M.D. Measurements Intervals [place] Rate: 75 P: 79 NV: 138 QRS: 86 QRSD: 86 T: 56 QT: 392 QTc: 439 Interpretive Statements SINUS RHYTHM WITH SINUS ARRHYTHMIA Compared to ECG 12/31/2023 12:36:25 T-wave abnormality no longer present Electronically Signed On 04-24-2024 12:20:56 CDT by Jerry Aaron M.D. [id number]
--- NOTE | 2024-04-24 11:33 | XRR_ITS ---
PROCEDURE INFORMATION: Exam: XR Chest Exam date and time: 04/24/2024 11:47 AM Age: 43 years old Clinical indication: Pain; Angina pectoris; Additional info: Cp TECHNIQUE: Imaging protocol: Radiologic exam of the chest. Views: 1 view. COMPARISON: CR XR chest 1V portable [id number] 10/19/2023 3:21 PM FINDINGS: Lungs: No acute airspace disease. Pleural spaces: No pleural effusion. Heart/Mediastinum: Normal configuration of the heart. Bones/joints: Degenerative change. XR/XR chest 1V portable [id number] IMPRESSION: No acute airspace disease.
[2024-04-24 11:43] VITALS: BP 132/85; PULSE 71; RESP 16; O2SAT 100
--- NOTE | 2024-04-24 12:27 | ED_ITS ---
HPI - Chest Pain 2 General: Chief Complaint: Chest Pain Stated Complaint: Chest Pain Time Seen by Provider: 04/24/24 12:27 Source: patient Mode of arrival: ambulatory History of Present Illness: 43-year-old female presents emergency ro om with complaints of chest pain. She has had this for the last several weeks. She had a cardiac cath there was a lesion that was not intervened on as a branch of the LAD. It was felt to be risky to stent of this 80% lesion of the first marginal branch and they recommended maximizing medical therapy. Last week they increased her isosorbide because she was continuing to have symptoms. She states despite this with minimal exertion just walking at home or at work she will develop chest discomfort radiating to her neck jaw and back. It resolves with rest. She has only had 1 or 2 episodes while at rest those have been very short-lived and she has not had to take any extra medication to resolve them. MD complaint: chest pain Associated symptoms: Deny abdominal pain, dyspnea or fever(s) Review of Systems 2 Const: Denies: fever(s) or chills Card: Denies: chest pain Resp: Denies: dyspnea GI: Denies: abdominal pain : Denies: dysuria, urinary frequency or urinary urgency Musc: Denies: neck pain or back pain Skin/Breast: Denies: rash PFSH ED 2 PFSH: Medical History Coronary artery disease Chronic back pain Chronic headache Depression Surgical History H/O oophorectomy History of hysterectomy Social History Smoking and tobacco/nicotine status: current every day tobacco/nicotine user Female Reproductive History: Spontaneous abortions: No Physical Exam 2 Const: COMMON NORMALS: no acute distress GENERAL APPEARANCE: cooperative and comfortable ORIENTATION/CONSCIOUSNESS: Yes awake, Yes oriented to person, Yes oriented to place and Yes oriented to time HENMT: COMMON NORMALS: normocephalic, atraumatic and hearing grossly normal bilaterally HEAD & SCALP: normocephalic and atraumatic Resp: COMMON NORMALS: normal respiratory effort, No retractions, No use of accessory muscles and clear to auscultation bilaterally AUSCULTATION: clear to auscultation bilaterally Cardio: COMMON NORMALS: regular rate, regular rhythm and No murmurs present (Cardio) RATE: regular rate RHYTHM: regular rhythm GI: COMMON NORMALS: Soft to palpation and No hepatosplenomegaly present A USCULTATION: Yes normoactive bowel sounds PALPATION: Yes Soft to palpation, No Tenderness to palpation present (GI), No Guarding due to palpation present (GI) and Yes No hepatosplenomegaly present Extremity: COMMON NORMALS: normal to inspection, capillary refill normal, no clubbing, cyanosis or edema, no calf tenderness and no pedal edema Neuro: SENSORIUM/ORIENTATION: Yes oriented to person, Yes oriented to place and Yes oriented to time Skin: COMMON NORMALS: no rashes or lesions noted GENERAL SKIN EXAM: no rashes or lesions noted Course 2 Vital Signs: Vital signs: Vital Signs Pulse Rate 62 04/24/24 15:29 Respiratory Rate 17 04/24/24 13:33 Blood Pressure 122/68 04/24/24 15:29 Pulse Oximetry 99 04/24/24 15:29 Oxygen Delivery Me thod Room Air 04/24/24 13:33 MDM - Chest Pain Medical Decision Making Conversation with the patient as well as with Dr. Tiwari who is on-call for cardiology. She does have the ostial lesion on the diagonal branch Dr. Tiwari reviewed the cardiology Warp Knitting Machine Operator films and did not feel that this was amenable to intervention. He recommends continued titration of her medications. We had discussed possible admission with the patient since we are just going to be titrating medications she prefers to go home her cardiac enzymes did not have any change in her EKGs did not show any acute changes. Discussed the risks and benefits. Since we are increasing her isosorbide we will have her hold on her losartan for now. She should follow-up with cardiology early next week to reevaluate her blood pressure and her symptoms. She is aware that if she has further symptoms she should return to the emergency room. She is pain-free at the time of discharge with a normal EKG. Medical Records I reviewed the patient's medical records. Lab Data I reviewed the patient's lab results. 04/24/24 12:21 04/24/24 12:29 Radiology Impressions Chest X-Ray 04/24/24 11:33 IMPRESSION: No acute airspace disease. Laboratory Results WBC 6.33 10^3/uL (3.29-11.43) 04/24/24 12:21 RBC 4.83 10^6/uL (3.85-5.65) 04/24/24 12:21 Hgb 14.20 g/dL (11.27-16.99) 04/24/24 12:21 Hct 46.6 % (36-47) 04/24/24 12:21 MCV 96.5 fl (85-98) 04/24/24 12:21 MCH 29.4 pg (27-33) 04/24/24 12:21 MCHC 30.5 g/dL (30-55) 04/24/24 12:21 RDW 13.8 % (12.1-15.1) 04/24/24 12:21 Plt Count 298 10^3/cmm (157-399) 04/24/24 12:21 MPV 9.5 fL (7.4-10.4) 04/24/24 12:21 Neut % (Auto) 64.7 % 04/24/24 12:21 Lymph % (Auto) 28.0 % 04/24/24 12:21 Harnett % (Auto) 4.9 % 04/24/24 12:21 Eos % (Auto) 1.6 % 04/24/24 12:21 Baso % (Auto) 0.5 % 04/24/24 12:21 Neut # (Auto) 4.10 10^3/uL (1.8-7.7) 04/24/24 12:21 Lymph # (Auto) 1.8 10^3/uL (0.8-4.8) 04/24/24 12:21 Harnett # (Auto) 0.3 10^3/uL (0.2-0.9) 04/24/24 12:21 Eos # (Auto) 0.1 10^3/uL (0.0-0.8) 04/24/24 12:21 Baso # (Auto) 0.0 10^3/uL (0.0-0.1) 04/24/24 12:21 Nucleated RBC % (auto) 0 % 04/24/24 12:21 Nucleated RBCs # 0.0 /100WBC 04/24/24 12:21 Sodium 140 mmol/L (136-145) 04/24/24 12:29 Potassium 3.9 mmol/L (3.5-5.1) 04/24/24 12:29 Chloride 106 mmol/L (98-107) 04/24/24 12:29 Carbon Dioxide 23 mmol/L (22-29) 04/24/24 12:29 Anion Gap 14.9 (5-19) 04/24/24 12:29 BUN 10 mg/dL (6-20) 04/24/24 12:29 Creatinine 0.6 mg/dL (0.5-0.9) 04/24/24 12:29 GFR Calculation 109.6 mL/min (90-130) 04/24/24 12:29 Glucose 109 mg/dL (65-115) 04/24/24 12:29 Calculated Osmolality 290 mOsm/kg (285-295) 04/24/24 12:29 Calcium 9.0 mg/dL (8.5-10.5) 04/24/24 12:29 Total Bilirubin 0.2 mg/dL (0.15-1.2) 04/24/24 12:29 AST 20 U/L (0-32) 04/24/24 12:29 ALT 23 U/L (0-33) 04/24/24 12:29 Alkaline Phosphatase 112 U/L (35-105) H 04/24/24 12:29 Troponin T Baseline < 6 ng/L (0-10) 04/24/24 12:29 Troponin T 120 Minute 6.00 ng/L (0-10) 04/24/24 14:21 Delta Troponin T 0.93825 ABS# (0-10) 04/24/24 14:21 Total Protein 6.7 g/dL (6.6-8.7) 04/24/24 12:29 Albumin 3.9 g/dL (3.5-5.2) 04/24/24 12:29 Globulin 2.8 g/dL (1.3-4.6) 04/24/24 12:29 Lipase 28 U/L (13-60) 04/24/24 12:29 All radiology interpretation(s) finalized by discharge Discharge Plan Discharge Patient Disposition: Home Clinical Impression: Stable angina Condition: Stable Prescriptions: Changed isosorbide mononitrate 30 mg tablet extended release 24 hr 90 mg PO DAILY Qty: 90 0RF Discontinued estradiol [Estrace] 2 mg tablet 2 mg PO DAILY losartan 25 mg Tablet 25 mg PO DAILY No Action albuterol sulfate [ProAir HFA] 90 mcg/actuation HFA aerosol inhaler 2 puff inhalation Q6H PRN (Reason: Shortness Of Breath) gabapentin 300 mg capsule 600 mg PO TID pantoprazole [Protonix] 40 mg tablet,delayed release (DR/EC) 40 mg PO BID buspirone 10 mg tablet 5 mg PO BID venlafaxine 37.5 mg capsule,extended release 24hr 37.5 mg PO DAILY ipratropium-albuterol 0.5 mg-3 mg(2.5 mg base)/3 mL solution for nebulization 3 ml INHALATION Q6H PRN (Reason: Shortness Of Breath) rizatriptan 10 mg tablet,disintegrating See Rx Instructions .ROUTE .COMPLEX Rx Instructions: DISSOLVE 1 TABLET IN MOUTH ONCE DAILY NEEDED FOR MIGRAINE metoprolol succinate 50 mg tablet extended release 24 hr 50 mg PO DAILY cicsvutaku-abiedvsjrhjsv-fpym 50-325-40 mg tablet 1 tab PO Q4H PRN (Reason: Migraine Headache) Discharge Orders: Discharge ED (Routine); Ordered 04/24/24 Ordered By: Narciso Harris Referrals: Giselle Christianson APN [Primary Care Provider] - Discharge Diet: Usual diet Discharge Activity: Limit activity as instructed Patient Instructions: Opioid Safety, Pain Management Activity Restrictions/Additional Instructions: Thank you for choosing [facility] for your healthcare needs today. It is very important that you follow up as instructed or that you return to the Emergency Department should you have concerns or if your condition changes or worsens in any way. You were seen today for chest pain with activity (angina). I reviewed your previous angiography and discussed with the on-call buffer machine. They recommended continuing to uptitrate your medications. After we had discussed you wish to increase your medications and follow-up as an outpatient. This is a reasonable approach. If you have further symptoms you should return to the emergency room. I would recommend that you stop the estradiol. Additionally you should stop the losartan. Will increase her isosorbide to 90 mg daily. You should follow-up with the cardiology clinic next week and they can reassess your symptoms and your blood pressure. Coding Level of Care Code ED Coin Rolling Machine Operator for Efren Lebron
[2024-04-24 12:41] LABS: Basophils % 0.5 %; Eosinophils # 0.1 10^3/uL (0.0-0.8); Eosinophils % 1.6 %; Hematocrit 46.6 % (36-47); Lymphocytes # 1.8 10^3/uL (0.8-4.8); Mean Corpuscular HGB Conc 30.5 g/dL (30-55); Mean Corpuscular Hemoglobin 29.4 pg (27-33); Mean Corpuscular Volume 96.5 fl (85-98); Mean Platelet Volume 9.5 fL (7.4-10.4); Monocytes # 0.3 10^3/uL (0.2-0.9); Monocytes % 4.9 %; Neutrophils % 64.7 %; Nucleated Red Blood Cells % 0 %; Platelet Count 298 10^3/cmm (157-399); Red Blood Count 4.83 10^6/uL (3.85-5.65); Red Cell Distribution Width 13.8 % (12.1-15.1); White Blood Count 6.33 10^3/uL (3.29-11.43)
[2024-04-24 13:02] LABS: Alanine Aminotransferase 23 U/L (0-33); Albumin Level 3.9 g/dL (3.5-5.2); Alkaline Phosphatase 112 U/L (35-105); Anion Gap 14.9 (5-19); Aspartate Amino Transferase 20 U/L (0-32); Blood Urea Nitrogen 10 mg/dL (6-20); Carbon Dioxide 23 mmol/L (22-29); Chloride 106 mmol/L (98-107); Creatinine Clr Calc Pharmacy 131.5068; Globulin 2.8 g/dL (1.3-4.6); Glomerular Filtration Rate 109.6 mL/min (90-130); Glucose 109 mg/dL (65-115); Lipase 28 U/L (13-60); Osmolality Calculated 290 mOsm/kg (285-295); Potassium 3.9 mmol/L (3.5-5.1); Sodium 140 mmol/L (136-145); Total Bilirubin 0.2 mg/dL (0.15-1.2); Total Protein 6.7 g/dL (6.6-8.7)
[2024-04-24 13:05] LABS: Troponin(5th) Baseline < 6 ng/L (0-10)
[2024-04-24] MEDS: aspirin 81 mg Chew Tablet 324 MG PO (13:08)
[2024-04-24 13:09] VITALS: BP 176/98; PULSE 71
[2024-04-24] MEDS: nitroglycerin 1 gm/inch oint Pkt 0.5 INCH TOPICAL (13:09)
[2024-04-24 13:33] VITALS: BP 134/77; PULSE 63; RESP 17; O2SAT 98
--- NOTE | 2024-04-24 13:33 | ECG_ITS ---
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 Measurements Intervals Picher Rate: 55 P: 73 OK: 148 QRS: 75 QRSD: 89 T: 68 QT: 424 QTc: 408 Interpretive Statements SINUS BRADYCARDIA Compared to ECG 04/24/2024 11:37:04 Sinus rhythm no longer present Sinus arrhythmia no longer present Electronically Signed On 04-24-2024 16:14:56 CDT by Jerry Aaron M.D. [id number]
[2024-04-24 15:02] LABS: Troponin 5 2HR Delta 0.00001 ABS# (0-10)
[2024-04-24 15:29] VITALS: BP 122/68; PULSE 62; O2SAT 99
== END 2024-04-24 15:31 | disposition home or self-care (01) ==
PROVIDERS: Emergency Medicine; Emergency Provider Family Medicine; PCP Nurse Practitioner Family
DX: I25.118 Atherosclerotic heart disease of native coronary artery with other forms of angina pectoris (principal); Z72.0 Tobacco use
CPT/HCPCS: 36415; 71045; 80053; 83690; 84484; 85025; 93005; 99285

== ENCOUNTER → 2024-05-23 10:28 | Outpatient (BNVA) | payer OTHER, SELFPAY | PROVIDERS: PCP Nurse Practitioner Family; Visit Provider Emergency Medicine | DX: J02.9 Acute pharyngitis, unspecified (principal); J06.9 Acute upper respiratory infection, unspecified | CPT/HCPCS: 87071; 87426; 87880 ==

== ENCOUNTER 2024-06-23 09:35 | Observation (INO) | payer OTHER, SELFPAY ==
[2024-06-23] VITALS (25 sets, daily range): BP systolic 113–163; BP diastolic 62–103; PULSE 53–87; RESP 11–25; TEMP 36.8–37.5; O2SAT 95–100; BMI 34.3; BMI 33.5
--- NOTE | 2024-06-23 06:00 | XACV_ITS ---
Exam Room: 2 Ht: 163 cm Wt: 91 kg BSA: 2.06 m2 Gender: Female : 1980 Any Known Allergies: No known allergies Exam Priority: Routine Procedure(s): Procedure Description: Diagnostic procedure Procedure Description: PCI procedure Procedure Description: Drug Eluting Coronary Stent Procedure Description: PTCA Procedure Description: Miscellaneous Procedure Description: ACT Procedure Description: Coronary Angiography Procedure Description: Pressure Wire Diagnostic Cath Status: Elective Diagnostic Findings * Indication: Patient had coronary angiogram with typical chest pain few months back. She was found to have significant diagonal artery stenosis. Had moderate appearing LAD and left circumflex artery stenoses. Patient continued having worsening chest pain symptoms with minimal exertion. Plan for coronary angiogram with PCI of diagonal artery and reevaluation of LAD and left circumflex arteries. * Left Main has no significant disease. * Right Coronary Artery has mild luminal irregularities. * Mid Left Anterior Descending: obstructive 70% stenosis, MERRITT: 3 flow. * Distal Circumflex: Significant 70% stenosis, MERRITT: 3 flow. * 1st Diagonal: obstructive 90% stenosis, MERRITT: 3 flow. * Coronary angiography shows right dominance. PCI Status: Elective Interventional Findings * 1st Diagonal: 90% stenosis treated with a MDT R CRISTINA 2.25X12 BERTIN. * Procedure detail: We engaged left main artery with XB 3.0 guide catheter. IV heparin was administered to maintain anticoagulation. After normalization, IFR wire was advanced into the distal vessel. We obtained an IFR value of 0.84 that was significant. We then attempted to perform IFR of left circumflex artery however it was a distal vessel lesion and wire could not be advanced at an optimal distance from the stenosis. Angiographically looked severe. We proceeded with PCI of left circumflex artery first and placed 2.75 x 22 mm resolute [place] drug-eluting stent. There was underexpansion noted in the mid segment. We postdilated the stent with 2.75 x 12 mm NC balloon. We then predilated the mid LAD stenosis with 2.5 x 8 mm semicompliant balloon. This was followed by placement of 2.5 x 12 resolute [place] drug-eluting stent. The guidewire was then placed in diagonal artery. We used the same 2.5 x 12 mm stent balloon from LAD to predilated diagonal artery stenosis. This caused dissection of diagonal artery. We then placed 2.25 x 12 mm resolute [place] drug-eluting stent in diagonal artery. At this time final angiogram was performed that showed excellent stent expansion, MERRITT-3 flow and no residual stenosis.. * Mid Left Anterior Descendin% stenosis treated with a AB TREK 2.50X8 RX BALLOON, and MDT R CRISTINA 2.5X12 BERTIN. * Distal Circumflex: 70% stenosis treated with a MDT R CRISTINA 2.75X22 BERTIN, and MDT NC EUPHORA RX 2.41R77SQ BALLOON. Conclusions 1. Severe stenosis of mid LAD status post successful revascularization with 1 stent. Severe stenosis of distal left circumflex artery status post successful revascularization with 1 stent. Severe stenosis of diagonal artery status post successful revascularization with 1 stent. 2. 1st Diagonal was treated with a balloon and Drug Eluting Stent. 3. Mid Left Anterior Descending was treated with a Balloon, and Drug Eluting Stent. 4. Distal Circumflex was treated with a Drug Eluting Stent, and Balloon. Recommendations * Dual antiplatelet therapy with aspirin and plavix for at least 1 year. * High intensity statin therapy. * Outpatient cardiology follow up in 4 weeks. Interventional RX Recommendation: PCI w/o planned CABG Diagnostic RX Recommendation: PCI w/o planned CABG Anticoagulation: Heparin Pressures Phase:Rest AO : 89 / 43 ( 58 ) @ 8:44:00 AM 118 / 80 ( 96 ) @ 8:54:00 AM 145 / 94 ( 118 ) @ 9:09:00 AM Clinical Evaluation EBL: 5mL-10mL Procedural Details Procedure Consent Obtained. Admit Source: Out Patient. Pre-Procedure Time Out. Identified patient by full name and date of as verbalized by the patient/guarantor. Does the consent match the physician's order: Yes. Accurate & Complete Informed Consent: Yes. Inpatient/Outpatient History & Physical on Chart: Yes. If H&P is completed, is and addenduem needed: No; If yes, is the addendum complete: N/A. Visualize and Verify Site with Patient/Guarantor: N/A. Relevant Radiology Images available: Yes. The risks, benefits, and alternatives of sedation and/or procedure were discussed by physician. The patient agrees to continue. Procedure started. [facility] Clinical Fraility Score: 3: Managing Well. Hat Conditioner Indications: Worsening Angina. Chest Pain Symptom Assessment: Typical Angina Symptoms. Correct patient, site and procedure confirmed by cath team. Current diagnosis: Chest Pain. PERRLA. 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 Lungs clear x 5 lobes. IV Site on Arrival: 20 gauge in the left hand. IV Fluids: 0.9% NaCl at 75ml/hr. 0 mL infused prior to recyclable materials sorter. Pre Procedural Pulses: bilateral dorsalis pedis was 3+. Pre Procedural Pulses: bilateral posterior tibial was 3+. Pre Procedural Pulses: bilateral radial was 3+. Oxygen started at 2liters/min via nasal canula. right radial was prepped with chloroprep then draped in the usual sterile fashion. right groin was prepped with chloroprep then draped in the usual sterile fashion. Physician notified. Baseline sample Acquired. HR: 61 BPM. Physician arrived. Physician scrubbed in. Immediate Pre-Procedure Time Out. Correct Patient: Yes; Correct Procedure: Yes; Correct Site: Yes; Correct Patient Position: Yes; Correct Supplies: Yes; Dried Flammable Prep: Yes; Blood Products Available: No. Lidocaine 1% infiltrated to the right radial. Arterial access obtained. A 5 [place] TIG catheter in over wire. Multiple views taken of left coronary artery. Catheter redirected to the RCA. Multiple views taken of right coronary artery. Catheter removed over the exchange wire. Add inventory: Co-forestry pilot, Endoflator. 6 [place] XB 3 guide catheter was inserted over the wire. iFR pressure wire in through guide catheter to lesion in mid LAD. Wire advanced acrossed lesion in mid LAD. iFR measurement taken of mid LAD: 0.84mmHg. iFR wire redirected to lesion in the distal circumflex. Guidewire advanced across lesion. iFR measurement taken of distal circumflex: 0.93mmHg. Stent inserted to lesion in the distal Circ. Inflation Number : 1 A MDT R CRISTINA 2.75X22 BERTIN -Lot Number# [id number] EXP 10-18-2024 was prepped and advanced across the Dist CX. The stent was deployed at 12 TEDDY for 0:23 seconds. Stent balloon out over wire. Inflation number : 2 A MDT NC EUPHORA RX 2.74L81IN BALLOON was prepped and advanced across the Dist CX , then inflated to 16 TEDDY for 0:14 seconds. Inflation number: 3 The MDT NC EUPHORA RX [id number] BALLOON was reinflated across the Dist CX, to 16 TEDDY for 0:08 seconds. Balloon out. iFR wire out. Results checked. ACT drawn. Results of of range high results. Therapeutic limits - pre-heparin administration 90-150 seconds and monitoring heparin during a vascular procedure >250 seconds. Runthrough guidewire was advanced through the guide catheter to lesion in the mid LAD. Guidewire advanced across lesion. Inflation number : 1 A AB TREK 2.50X8 RX BALLOON was prepped and advanced across the Mid LAD , then inflated to 12 TEDDY for 0:14 seconds. Inflation number: 2 The AB TREK 2.50X8 RX BALLOON was reinflated across the Mid LAD, to 12 TEDDY for 0:07 seconds. Balloon inserted to lesion in the mid LAD. Balloon out. Stent inserted to lesion in the mid LAD. Inflation Number : 3 A MDT R CRISTINA 2.5X12 BERTIN -Lot Number# [id number] EXP 10-18-2026 was prepped and advanced across the Mid LAD. The stent was deployed at 12 TEDDY for 0:20 seconds. Balloon out. Runthrough wire redirected to diagonal artery. Inflation number: 1 The stent balloon was then re-inflated across the 1st Diag to 8 TEDDY for 0:13 seconds. Stent balloon out over wire. Stent balloon in over wire to lesion in diagonal artery. ACT drawn. Results out of range high resuls. Therapeutic limits - pre-heparin administration 90-150 seconds and monitoring heparin during a vascular procedure >250 seconds. Results checked. Inflation Number : 1 A MDT Ilda CRISTINA 2.25X12 BERTIN -Lot Number#[id number] EXP 01-15-2025 was prepped and advanced across the 1st Diag1. The stent was deployed at 12 TEDDY for 0:17 seconds. Stent balloon and wire out. Results checked. Wire out. ACT drawn. Results - out of range high results. Therapeutic limits - pre-heparin administration 90-150 seconds and monitoring heparin during a vascular procedure >250 seconds. Guide catheter out. Post Procedure: Pulses reassessed and unchanged. PERRLA. 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 No VTE prophylaxis required. Medication's Wasted: Lidocaine 1% = 18 mL. Medication's Wasted: Nitro = 49.4 mg. Medication's Wasted: Heparin = 2000 units. Total IV fluids: 100 mL. Post-op diagnosis: Severe stenosis of distal circumflex, mid LAD, and Diagonal stenosis status post PCI placement of 3 stents. Complications: None. Estimated blood loss: 5mL-10mL. Responsiveness - Normal response to verbal stimuli; alert and oriented, PERRLA. Airway - Unaffected, no intervention required; spontaneous ventilation. Circulation: W/N/L, pulses unchanged. Nausea/Vomiting: No. ACT drawn. Results 283 seconds. Therapeutic limits - pre-heparin administration 90-150 seconds and monitoring heparin during a vascular procedure >250 seconds. A TR Band was successful obtaining hemostatsis at the Right Radial artery insertion site. Procedure completed. Patient transferred by bed to CPRU. Vital chart was stopped. Access Site Site: Right Radial artery Sheath Size: 6 Fr Hemostasis Method: TR Band Hemostasis Success: Successful Procedure Medications Start: 7:28 AM Stop: 7:28 AM Medication: Versed Amount: 1 mg Route: I.V. Start: 7:28 AM Stop: 7:28 AM Medication: Fentanyl Amount: 50 mcg Route: I.V. Start: 7:31 AM Stop: 7:31 AM Medication: Versed Amount: 1 mg Route: I.V. Start: 7:39 AM Stop: 7:39 AM Medication: Fentanyl Amount: 50 mcg Route: I.V. Start: 7:42 AM Stop: 7:42 AM Medication: Nitrogylcerin Amount: 200 mcg Route: I.A. Start: 7:43 AM Stop: 7:43 AM Medication: Heparin Amount: 5000 units Route: I.V. Start: 7:45 AM Stop: 7:45 AM Medication: Diphendryamine Amount: 50 mg Route: I.V. Start: 7:48 AM Stop: 7:48 AM Medication: Versed Amount: 1 mg Route: I.V. Start: 7:51 AM Stop: 7:51 AM Medication: Nitrogylcerin Amount: 200 mcg Route: I.A. Start: 7:51 AM Stop: 7:51 AM Medication: Heparin Amount: 4000 units Route: I.V. Start: 8:06 AM Stop: 8:06 AM Medication: Versed Amount: 1 mg Route: I.V. Start: 8:07 AM Stop: 8:07 AM Medication: Fentanyl Amount: 50 mcg Route: I.V. Start: 8:08 AM Stop: 8:08 AM Medication: Zofran (ondansetron) Amount: 4 mg Route: I.V. Start: 8:29 AM Stop: 8:29 AM Medication: Nitrogylcerin Amount: 200 mcg Route: I.C. Start: 8:37 AM Stop: 8:37 AM Medication: Fentanyl Amount: 50 mcg Route: I.V. Start: 8:40 AM Stop: 8:40 AM Medication: Brilinta Amount: 180 mg Route: P.O. Start: 8:44 AM Stop: 8:44 AM Medication: Nitrogylcerin Amount: 2 Sprays Route: S.L. I, the attending physician, have reviewed and verified all procedure medications. Yes, all medications given per verbal order History/Risk Factors Hypertension: No Dyslipidemia: No Peripheral Arterial Disease (PAD): No Myocardial Infarction (CA): No Obesity: Yes Renal Disease: No Prior Interventions PCI: No CABG: No Valve Surgery: No Report Signatures Finalized by Jerry Aaron MD on 07/04/2024 02:42 PM
[2024-06-23] MEDS: diphenhydrAMINE 50 mg Capsule PO (06:22)
[2024-06-23 06:29] LABS: Basophils % 0.6 %; Eosinophils # 0.1 10^3/uL (0.0-0.8); Eosinophils % 1.7 %; Hematocrit 42.8 % (36-47); Lymphocytes # 2.7 10^3/uL (0.8-4.8); Lymphocytes % 37.8 %; Mean Corpuscular HGB Conc 33.2 g/dL (30-55); Mean Corpuscular Hemoglobin 29.2 pg (27-33); Mean Corpuscular Volume 87.9 fl (85-98); Mean Platelet Volume 9.6 fL (7.4-10.4); Monocytes # 0.6 10^3/uL (0.2-0.9); Monocytes % 8.8 %; Neutrophils # 3.57 10^3/uL (1.8-7.7); Neutrophils % 50.8 %; Nucleated Red Blood Cells % 0 %; Platelet Count 330 10^3/cmm (157-399); Red Blood Count 4.87 10^6/uL (3.85-5.65); Red Cell Distribution Width 13.8 % (12.1-15.1); White Blood Count 7.03 10^3/uL (3.29-11.43)
[2024-06-23 06:57] LABS: Anion Gap 16.7 (5-19); Blood Urea Nitrogen 14 mg/dL (6-20); Calcium 8.9 mg/dL (8.5-10.5); Carbon Dioxide 23 mmol/L (22-29); Chloride 100 mmol/L (98-107); Creatinine Clr Calc Pharmacy 114.2188; Glomerular Filtration Rate 91.8 mL/min (90-130); Glucose 101 mg/dL (65-115); Osmolality Calculated 283 mOsm/kg (285-295); Potassium 3.7 mmol/L (3.5-5.1); Sodium 136 mmol/L (136-145)
--- NOTE | 2024-06-23 07:25 | W.PM.OPSUD ---
Surgery/Procedure H&P Update DATE OF PROCEDURE: June 23, 2024 DATE H&P PERFORMED: 06/10/24 H&P UPDATE INFORMATION: I have reviewed H&P completed within last 30 days and I have examined patient prior to procedure CHANGES TO PREVIOUS DOCUMENTATION: Patient had significant diagonal artery stenosis on prior cath, we decided to proceed with medical therapy. She continues having chest pain symptoms with typical features that are worsening. Had ER visit too. Plan for repeat coronary angiogram with PCI of diagonal artery. PREOP DIAGNOSIS: Worsening angina/CCS Class 3-4 PRIMARY INDICATION FOR PROCEDURE: Worsening angina/CCS Class 3-4 PLANNED PROCEDURE: Operation Date: 06/23/24 07:00 Proposed Procedures p Cardiac Catheterization - C w/wo LV & Coros(Left) - Jerry Aaron M.D Percutaenous coronary intervention of diagonal artery PATIENT REASSESSED PRIOR TO SEDATION, WITH NO CHANGE NOTED: Yes PHYSICAL EXAM: alert, oriented x 3, clear to auscultation bilaterally and regular rate & rhythm AIRWAY EVAL/ANESTHESIA PLAN: normal airway, ASA III, Local Anesthesia, Risks, benefits & alternatives of sedation and/or procedure discussed and Patient agrees to continue as planned ADDITIONAL INFORMATION: Moderate sedation
[2024-06-23] MEDS: sodium chloride 0.9% 1,000 ML 100 ML IV ×2 (12:16→19:49)
[2024-06-23] MEDS: gabapentin 300 mg Capsule 600 MG PO ×2 (16:11→21:13)
[2024-06-23] MEDS: BuSPIRONE 10 mg Tablet 5 MG PO (17:40)
[2024-06-23] MEDS: ticagrelor 90 mg Tablet PO (17:41)
[2024-06-23] MEDS: pantoprazole DR 40 mg Tablet PO (17:41)
[2024-06-23] MEDS: atorvastatin 40 mg Tablet 80 MG PO (21:13)
[2024-06-24] VITALS (13 sets, daily range): BP systolic 130–152; BP diastolic 67–93; PULSE 59–77; RESP 12–25; TEMP 36.2–37; O2SAT 97–100; BMI 33.5
[2024-06-24] MEDS: sodium chloride 0.9% 1,000 ML 100 ML IV (05:49)
[2024-06-24 05:53] LABS: Basophils % 0.5 %; Eosinophils # 0.1 10^3/uL (0.0-0.8); Eosinophils % 1.6 %; Hematocrit 38.9 % (36-47); Lymphocytes % 27.3 %; Mean Corpuscular HGB Conc 31.9 g/dL (30-55); Mean Corpuscular Hemoglobin 29.1 pg (27-33); Mean Corpuscular Volume 91.3 fl (85-98); Mean Platelet Volume 9.9 fL (7.4-10.4); Monocytes # 0.6 10^3/uL (0.2-0.9); Monocytes % 8.6 %; Neutrophils # 4.58 10^3/uL (1.8-7.7); Neutrophils % 61.7 %; Nucleated Red Blood Cells % 0 %; Platelet Count 266 10^3/cmm (157-399); Red Blood Count 4.26 10^6/uL (3.85-5.65); White Blood Count 7.43 10^3/uL (3.29-11.43)
[2024-06-24 06:15] LABS: Anion Gap 14.4 (5-19); Blood Urea Nitrogen 11 mg/dL (6-20); Calcium 8.2 mg/dL (8.5-10.5); Carbon Dioxide 24 mmol/L (22-29); Chloride 104 mmol/L (98-107); Creatinine Clr Calc Pharmacy 131.5068; Glomerular Filtration Rate 109.6 mL/min (90-130); Glucose 130 mg/dL (65-115); Osmolality Calculated 287 mOsm/kg (285-295); Potassium 4.4 mmol/L (3.5-5.1); Sodium 138 mmol/L (136-145)
[2024-06-24] MEDS: metoprolol succinate ER (24 HR) 50 mg Tablet PO (08:10)
[2024-06-24] MEDS: venlafaxine ER (24HR) 75 mg Capsule PO (08:10)
[2024-06-24] MEDS: isosorbide mononitrate ER 30 mg Tablet 90 MG PO (08:10)
[2024-06-24] MEDS: aspirin 81 mg Chew Tablet PO (08:10)
[2024-06-24] MEDS: gabapentin 300 mg Capsule 600 MG PO (08:11)
[2024-06-24] MEDS: BuSPIRONE 10 mg Tablet 5 MG PO (08:11)
[2024-06-24] MEDS: pantoprazole DR 40 mg Tablet PO (08:11)
[2024-06-24] MEDS: ticagrelor 90 mg Tablet PO (08:11)
--- NOTE | 2024-06-24 08:27 | PM.DCS ---
Discharge Providers Date of Admission: 06/23/24 09:35 Date of Discharge: June 24, 2024 Attending Provider at Admission: Jerry Aaron M.D Attending Provider at Discharge: Jerry Aaron M.D Primary Care Provider: Giselle Christianson APN Reason for Visit Reason for Visit: I25.118 Brief History: 43-year-old woman who has been having worsening anginal symptoms. Had a prior cath few months ago that showed significant diagonal artery stenosis that was medically treated at that time. Given worsening chest pain symptoms, we decided to proceed with repeat coronary angiogram. Hospital Course Hospital Course Coronary angiogram demonstrated moderate to severe mid LAD stenosis. iFR was performed that was significantly abnormal. She underwent successful revascularization with 1 stent. Also was found to have severe circumflex artery stenosis and had 1 stent placement. Diagonal artery was treated with 1 stent. Patient was observed overnight and stayed stable. Discharged home on dual antiplatelet therapy with aspirin and brilinta Physical Exam Narrative: GENERAL: Patient is alert, awake and oriented x3. [] NECK: No jugular vein distension. [] HEENT: No cyanosis. No icterus. No pallor. [] HEART: Regular S1 and S2. No murmur, rub or gallop. [] LUNGS: Clear to auscultate bilaterally. [] CENTRAL NERVOUS SYSTEM: Grossly nonfocal. [] EXTREMITIES: Lower extremities with 1+ edema bilaterally. 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 Routine Exams 06/23/24 06:00 Taken Laboratory Results WBC 7.43 10^3/uL (3.29-11.43) 06/24/24 05:09 RBC 4.26 10^6/uL (3.85-5.65) 06/24/24 05:09 Hgb 12.40 g/dL (11.27-16.99) 06/24/24 05:09 Hct 38.9 % (36-47) 06/24/24 05:09 MCV 91.3 fl (85-98) 06/24/24 05:09 MCH 29.1 pg (27-33) 06/24/24 05:09 MCHC 31.9 g/dL (30-55) 06/24/24 05:09 RDW 14.0 % (12.1-15.1) 06/24/24 05:09 Plt Count 266 10^3/cmm (157-399) 06/24/24 05:09 MPV 9.9 fL (7.4-10.4) 06/24/24 05:09 Neut % (Auto) 61.7 % 06/24/24 05:09 Lymph % (Auto) 27.3 % 06/24/24 05:09 Lane % (Auto) 8.6 % 06/24/24 05:09 Eos % (Auto) 1.6 % 06/24/24 05:09 Baso % (Auto) 0.5 % 06/24/24 05:09 Neut # (Auto) 4.58 10^3/uL (1.8-7.7) 06/24/24 05:09 Lymph # (Auto) 2.0 10^3/uL (0.8-4.8) 06/24/24 05:09 Lane # (Auto) 0.6 10^3/uL (0.2-0.9) 06/24/24 05:09 Eos # (Auto) 0.1 10^3/uL (0.0-0.8) 06/24/24 05:09 Baso # (Auto) 0.0 10^3/uL (0.0-0.1) 06/24/24 05:09 Nucleated RBC % (auto) 0 % 06/24/24 05:09 Nucleated RBCs # 0.0 /100WBC 06/24/24 05:09 Sodium 138 mmol/L (136-145) 06/24/24 05:09 Potassium 4.4 mmol/L (3.5-5.1) 06/24/24 05:09 Chloride 104 mmol/L (98-107) 06/24/24 05:09 Carbon Dioxide 24 mmol/L (22-29) 06/24/24 05:09 Anion Gap 14.4 (5-19) 06/24/24 05:09 BUN 11 mg/dL (6-20) 06/24/24 05:09 Creatinine 0.6 mg/dL (0.5-0.9) 06/24/24 05:09 GFR Calculation 109.6 mL/min (90-130) 06/24/24 05:09 Glucose 130 mg/dL (65-115) H 06/24/24 05:09 Calculated Osmolality 287 mOsm/kg (285-295) 06/24/24 05:09 Calcium 8.2 mg/dL (8.5-10.5) L 06/24/24 05:09 Vitals Last Vital Signs Temp 97.2 F L 06/24/24 08:00 Pulse 59 L 06/24/24 08:00 Resp 21 H 06/24/24 08:00 BP 149/88 06/24/24 08:00 Pulse Ox 98 06/24/24 08:00 O2 Del Method Room Air 06/24/24 05:00 Discharge Plan Discharge Patient Disposition: Home Condition: Stable Prescriptions: New atorvastatin 40 mg Tablet 80 mg PO BEDTIME Qty: 90 2RF Continued albuterol sulfate [ProAir HFA] 90 mcg/actuation HFA aerosol inhaler 2 puff inhalation Q6H PRN (Reason: Shortness Of Breath) gabapentin 300 mg capsule 600 mg PO TID pantoprazole [Protonix] 40 mg tablet,delayed release (DR/EC) 40 mg PO BID buspirone 10 mg tablet 5 mg PO BID venlafaxine 37.5 mg capsule,extended release 24hr 75 mg PO DAILY rizatriptan 10 mg tablet,disintegrating See Rx Instructions .ROUTE .COMPLEX Rx Instructions: DISSOLVE 1 TABLET IN MOUTH ONCE DAILY NEEDED FOR MIGRAINE isosorbide mononitrate 30 mg tablet extended release 24 hr 90 mg PO DAILY Qty: 90 0RF metoprolol succinate 50 mg tablet extended release 24 hr 50 mg PO DAILY aspirin 81 mg Tablet 81 mg PO DAILY Discontinued ibuprofen 600 mg tablet 600 mg PO Q8H PRN (Reason: pain) Qty: 30 0RF nlvgsbpczx-uthnzzzfphhxo-exbl 50-325-40 mg tablet 1 tab PO Q4H PRN (Reason: Migraine Headache) No Action Brilinta 90 mg tablet 90 mg PO BID Qty: 180 3RF Discharge Orders: Discharge Order (Routine); Ordered 06/24/24 Ordered By: Jerry Aaron Referrals: Tasha Fuentes FNP [Nurse Practitioner] - 7-10 days (Follow up appointment 07/08/24 at 1:00pm with Tasha Fuentes) Discharge Diet: Cardiac Patient Instructions: Coronary Angioplasty (DC), Opioid Safety Discharge Attestations Time Spent in Discharge Care*: less than 30 min Quality Metrics Clinical Quality Measures [ No reported AMI, CVA or VTE this stay] Coding Level of Care Code Acute Code for Chg Fwd
--- NOTE | 2024-06-24 10:10 | PC.NURSE ---
Patient received discharge orders. All prescriptions sent to patients pharmacy. All IVs removed. All follow up appointments made, discharge instructions and activity restrictions given to patient and patient verbalized understanding. Patient will exit to main exit via w/c assisted by staff when ride arrives.
--- NOTE | 2024-06-24 10:37 | PC.NURSE ---
Patient d/c at 1495
== END 2024-06-24 10:35 | disposition home or self-care (01) ==
LOC: ICU 06-24 08:01
PROVIDERS: Admitting Provider Internal Medicine; PCP Nurse Practitioner Family; Visit Provider Internal Medicine
DX: I25.118 Atherosclerotic heart disease of native coronary artery with other forms of angina pectoris (principal); I10 Essential (primary) hypertension; Z82.49 Family history of ischemic heart disease and other diseases of the circulatory system; F32.A Depression, unspecified; F17.200 Nicotine dependence, unspecified, uncomplicated; E66.9 Obesity, unspecified; Z68.33 Body mass index [BMI] 33.0-33.9, adult
CPT/HCPCS: 36415; 80048; 85025; 85347; 92929; 93454; 93571; 93572; 96374; 96375; 96376; 99152; 99153; C1725; C1769; C1874; C1887; C1894; C9600; G0378; J1200; J1644; J2250; J2405; J3010; J3490; J7030; Q0163; Q9967

== ENCOUNTER 2024-06-30 15:33 | Emergency (ER) | payer OTHER, SELFPAY ==
--- NOTE | 2024-06-30 15:37 | USR_ITS ---
PROCEDURE INFORMATION: Exam: US Duplex Right Upper Extremity Veins, Limited Exam date and time: 06/30/2024 3:41 PM Age: 43 years old Clinical indication: Swelling (edema) of limb; Upper extremity, right; Additional info: Dvt TECHNIQUE: Imaging protocol: Real-time duplex ultrasound of the right Upper Extremity with 2-D hammond scale, color Doppler flow and spectral waveform analysis with image documentation. Limited exam focused on the right upper extremity veins. COMPARISON: CT neck w con* [id number] 10/11/2022 1:22 PM FINDINGS: Right deep veins: Unremarkable. Axillary and brachial veins are patent throughout without thrombus. Normal Doppler waveforms. Normal compressibility and/or augmentation response. Visualized internal jugular and subclavian veins are patent. Superficial veins: Unremarkable. Visualized cephalic and basilic veins are patent without thrombus. Soft tissues: Unremarkable. US/[place] [id number] IMPRESSION: No evidence of deep vein thrombosis.
[2024-06-30 16:28] VITALS: BP 153/80; PULSE 86; RESP 18; TEMP 36.7; O2SAT 98; BMI 34.3
[2024-06-30 16:36] VITALS: PULSE 85; RESP 16; O2SAT 99
--- NOTE | 2024-06-30 17:09 | XRR_ITS ---
PROCEDURE INFORMATION: Exam: XR Right Elbow Exam date and time: 06/30/2024 5:17 PM Age: 43 years old Clinical indication: Pain; Elbow; Right; Additional info: Lifting injury/felt a pop TECHNIQUE: Imaging protocol: Radiologic exam of the right elbow. Views: 3 or more views. COMPARISON: [place] [id number] 06/30/2024 3:41 PM FINDINGS: Bones/joints: Normal. Soft tissues: Normal. XR/XR elbow RT min 3V* [id number] IMPRESSION: No acute findings.
--- NOTE | 2024-06-30 17:20 | ED_ITS ---
HPI - Extremity Problem General: Chief complaint: Extremity Injury, Upper Stated complaint: Possible blood clot right arm Time Seen by Provider: 06/30/24 16:39 Source: patient Mode of arrival: ambulatory Limitations: no limitations History of Present Illness: Patient is a 43-year-old female presenting to the emergency department planing of right elbow pain onset prior to arrival. Patient was at work lifting heavy boxes when she felt sudden pop to the lateral aspect of her right arm, associated with bruising and pain worse with extension of the right arm. She has a history of recent angiogram and stent placement in the right arm on the fifth of this month, was told to come to the emergency department for evaluation by primary care provider. No distal neurovascular deficits reported. No distal numbness, weakness, or tingling. She does have full range of motion, and there is obvious bruising to the lateral aspect with palpable hematoma. Has not taken anything for pain. She states that she thinks she returned to work too early and overdid it today. She notes proximal radiation up to the right shoulder along the lateral aspect. MD Complaint: joint swelling Onset (ago): hour(s) Pain Consistency: constant Location: right Radiation: proximal Exacerbating factors: range of motion and palpation Associated symptoms: Reports no associated symptoms; Deny chest pain, fever(s) or rash Context: other (Recent stent placement on June 23) Related Data Home Medications Medication Instructions Recorded Confirmed albuterol sulfate 90 mcg/actuation 2 puff inhalation Q6H PRN 11/08/20 06/20/24 aerosol inhaler (ProAir HFA) Shortness Of Breath gabapentin 300 mg capsule 600 mg PO TID 10/11/22 06/20/24 metoprolol succinate 50 mg 50 mg PO DAILY 02/27/23 06/23/24 tablet,extended release 24 hr buspirone 10 mg tablet 5 mg PO BID 02/28/24 06/20/24 pantoprazole 40 mg tablet,delayed 40 mg PO BID 04/01/24 06/20/24 release (Protonix) rizatriptan 10 mg disintegrating See Rx Instructions .Route .COMPLEX 04/24/24 06/20/24 tablet venlafaxine 37.5 mg 75 mg PO DAILY 04/24/24 06/20/24 capsule,extended release 24 hr aspirin 81 mg tablet 81 mg PO DAILY 06/20/24 06/20/24 Previous Rx's Medication Instructions Recorded isosorbide mononitrate 30 mg 90 mg (3 x 30 mg) PO DAILY #90 tabs 04/24/24 tablet,extended release 24 hr atorvastatin 40 mg tablet 80 mg (2 x 40 mg) PO BEDTIME #90 06/24/24 tabs ticagrelor 90 mg tablet (Brilinta) 90 mg PO BID 180 days #90 tabs 06/24/24 methocarbamol 750 mg tablet 750 mg PO Q8H 5 days #15 tabs 06/30/24 Allergies Allergy/AdvReac Type Severity Reaction Status Date / Time No Known Allergies Allergy Verified 06/30/24 16:31 Review of Systems General: Reports: 10 or more systems reviewed and unremarkable except in HPI and below Const: Denies: fever(s) or chills Card: Denies: chest pain Resp: Denies: dyspnea or productive cough GI: Denies: abdominal pain, nausea, vomiting or diarrhea : Denies: flank pain Musc: Reports: extremity pain, joint pain and joint swelling; Denies: neck pain, back pain, extremity swelling, joint redness, joint warmth, limited range of motion or muscle weakness Skin/Breast: Denies: rash Neuro: Denies: headache(s), numbness in extremities or weakness in extremities PFSH ED PFSH: Medical History Coronary artery disease Chronic back pain Chronic headache Depression Surgical History H/O oophorectomy History of hysterectomy Social History Smoking and tobacco/nicotine status: current every day tobacco/nicotine user Female Reproductive History: Spontaneous abortions: No Physical Exam Const: COMMON NORMALS: no acute distress, patient oriented x3, no limitations, healthy appearing, alert and well nourished HENMT: COMMON NORMALS: normocephalic and atraumatic HEAD & SCALP: normocephalic and atraumatic Neck/C-Spine: COMMON NORMALS: full ROM, supple and no meningeal signs Resp: COMMON NORMALS: normal respiratory effort, No use of accessory muscles and clear to auscultation bilaterally AUSCULTATION: clear to auscultation bilaterally Cardio: COMMON NORMALS: regular rate and regular rhythm RATE: regular rate RHYTHM: regular rhythm Extremity: COMMON NORMALS: full ROM, capillary refill normal, no joint enlargement and no clubbing, cyanosis or edema NARRATIVE EXTREMITY EXAM: Tenderness to palpation of the lateral right elbow joint with mild amount of circumferential bruising and palpable hematoma. Full range of motion, pain with extension. No distal neurovascular deficits. Radial pulse 2+. The tenderness is reproducible approximately at the lateral right arm, however no obvious deformity noted. Neuro: COMMON NORMALS: patient oriented x3, moves all extremities, no focal motor deficits and no sensory deficits noted SENSORIUM/ORIENTATION: Yes alert MENINGEAL SIGNS: Yes no meningeal signs Skin: COMMON NORMALS: no rashes or lesions noted GENERAL SKIN EXAM: no rashes or lesions noted Course Vital Signs: Vital signs: Vital Signs Temperature 98.1 F 06/30/24 16:28 Pulse Rate 85 06/30/24 16:36 Respiratory Rate 16 06/30/24 16:36 Blood Pressure 153/80 06/30/24 16:28 Pulse Oximetry 99 06/30/24 16:36 Oxygen Delivery Me thod Room Air 06/30/24 16:28 MDM - Extremity (Nontraumatic) Medical Decision Making Patient presented for evaluation of lateral right elbow pain after lifting something heavy at work. Recently had angiogram and stent placed in her right arm, was sent by primary care to rule out a blood clot. Her vitals were stable on arrival. Physical exam did find her to have some bruising to the lateral aspect of the right elbow, reproducible tenderness to palpation, and a palpable/possible hematoma. No trauma. Ultrasound of the arm did not reveal any signs of DVT. Additionally an x-ray did not demonstrate any acute structural findings. Due to patient's presentation and proximal extension of the pain, I do believe her pain to be musculoskeletal strain, cannot rule out a tear at this time. Because of this I will have her follow-up with her primary care provider if her pain persists to obtain an MRI, and will treat with muscle relaxers and other conservative therapies at this time. Patient agrees with discharge home and did give her return precautions and told her to avoid any heavy lifting at work for the time being. Lab Data Radiology Impressions Venous Duplex 06/30/24 15:37 IMPRESSION: No evidence of deep vein thrombosis. Elbow X-Ray 06/30/24 17:09 IMPRESSION: No acute findings. All radiology interpretation(s) finalized by discharge Discharge Plan Discharge Patient Disposition: Home Clinical Impression: Strain of elbow, right Qualifiers: Encounter type: initial encounter Qualified Code(s): S56.911A - Strain of unspecified muscles, fascia and tendons at forearm level, right arm, initial encounter Condition: Stable Prescriptions: New methocarbamol 750 mg tablet 750 mg PO Q8H 5 Days Qty: 15 0RF No Action albuterol sulfate [ProAir HFA] 90 mcg/actuation HFA aerosol inhaler 2 puff inhalation Q6H PRN (Reason: Shortness Of Breath) gabapentin 300 mg capsule 600 mg PO TID pantoprazole [Protonix] 40 mg tablet,delayed release (DR/EC) 40 mg PO BID buspirone 10 mg tablet 5 mg PO BID venlafaxine 37.5 mg capsule,extended release 24hr 75 mg PO DAILY rizatriptan 10 mg tablet,disintegrating See Rx Instructions .ROUTE .COMPLEX Rx Instructions: DISSOLVE 1 TABLET IN MOUTH ONCE DAILY NEEDED FOR MIGRAINE isosorbide mononitrate 30 mg tablet extended release 24 hr 90 mg PO DAILY Qty: 90 0RF metoprolol succinate 50 mg tablet extended release 24 hr 50 mg PO DAILY aspirin 81 mg Tablet 81 mg PO DAILY Brilinta 90 mg Tablet 90 mg PO BID 180 Days Qty: 90 3RF atorvastatin 40 mg Tablet 80 mg PO BEDTIME Qty: 90 2RF Discharge Orders: Discharge ED (Routine); Ordered 06/30/24 Ordered By: [place]as [place] Referrals: Giselle Christianson APN [Primary Care Provider] - Discharge Diet: Usual diet Discharge Activity: Increase activity as tolerated Patient Instructions: Elbow Strain (ED) Activity Restrictions/Additional Instructions: Range of motion exercises as tolerated. Take muscle relaxers. Ice to the elbow. Please follow-up with your primary care provider for further evaluation, potentially MRI, as discussed. Return with any new or concerning symptoms you may have. Coding Level of Care Code ED [employer] [place] for Efren Lebron
[2024-06-30 18:22] VITALS: PULSE 86; RESP 16; O2SAT 99
== END 2024-06-30 18:23 | disposition home or self-care (01) ==
PROVIDERS: Emergency Provider Physician Assistant; PCP Nurse Practitioner Family
DX: S56.911A Strain of unspecified muscles, fascia and tendons at forearm level, right arm, initial encounter (principal); I25.10 Atherosclerotic heart disease of native coronary artery without angina pectoris; Z79.82 Long term (current) use of aspirin; Z72.0 Tobacco use; X50.0XXA Overexertion from strenuous movement or load, initial encounter
CPT/HCPCS: 73080; 93971; 99284

== ENCOUNTER → 2024-07-08 13:41 | Outpatient (BNVA) | payer OTHER, SELFPAY | PROVIDERS: PCP Nurse Practitioner Family; Visit Provider Nurse Practitioner Family | DX: R07.9 Chest pain, unspecified (principal); I25.118 Atherosclerotic heart disease of native coronary artery with other forms of angina pectoris | CPT/HCPCS: 80048 ==

== ENCOUNTER → 2024-08-08 17:48 | Outpatient (BNVA) | payer OTHER, SELFPAY | PROVIDERS: PCP Nurse Practitioner Family; Visit Provider Nurse Practitioner | DX: Z20.822 Contact with and (suspected) exposure to COVID-19 (principal) | CPT/HCPCS: 87426 ==

== ENCOUNTER 2024-08-13 12:20 | Emergency (ER) | payer OTHER, SELFPAY ==
--- NOTE | 2024-08-13 12:21 | XRR_ITS ---
PROCEDURE INFORMATION: Exam: XR Chest Exam date and time: 08/13/2024 12:37 PM Age: 43 years old Clinical indication: Shortness of breath; Prior surgery; Surgery date: <1 month; Patient HX: PT states she is covid positive. PT had heart stents placed less than one month ago. ; Additional info: SOB TECHNIQUE: Imaging protocol: Radiologic exam of the chest. Views: 1 view. COMPARISON: CR XR chest 1V portable [id number] 04/24/2024 11:47 AM FINDINGS: Lungs: Unremarkable. No consolidation. Pleural spaces: Unremarkable. No pleural effusion. No pneumothorax. Heart/Mediastinum: Unremarkable. No cardiomegaly. Bones/joints: Unremarkable. XR/XR chest 1V portable [id number] IMPRESSION: No acute findings.
--- NOTE | 2024-08-13 12:22 | ECG_ITS ---
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 Measurements Intervals [place] Rate: 90 P: 80 SC: 135 QRS: 82 QRSD: 74 T: 76 QT: 344 QTc: 421 Interpretive Statements SINUS RHYTHM Compared to ECG 04/24/2024 13:37:22 Sinus bradycardia no longer present Electronically Signed On 08-13-2024 23:01:56 CDT by Galina Muller M.D. [email or web address] [email or web address] hospitalShang[facility]/store/[id number]
[2024-08-13 12:44] LABS: Basophils % 0.3 %; Eosinophils # 0.1 10^3/uL (0.0-0.8); Hematocrit 41.9 % (36-47); Lymphocytes # 3.5 10^3/uL (0.8-4.8); Lymphocytes % 33.8 %; Mean Corpuscular HGB Conc 33.2 g/dL (30-55); Mean Corpuscular Hemoglobin 28.8 pg (27-33); Mean Corpuscular Volume 86.7 fl (85-98); Mean Platelet Volume 9.5 fL (7.4-10.4); Monocytes # 0.6 10^3/uL (0.2-0.9); Monocytes % 5.6 %; Neutrophils # 6.18 10^3/uL (1.8-7.7); Neutrophils % 59.1 %; Nucleated Red Blood Cells % 0 %; Platelet Count 341 10^3/cmm (157-399); Red Blood Count 4.83 10^6/uL (3.85-5.65); Red Cell Distribution Width 13.6 % (12.1-15.1); White Blood Count 10.46 10^3/uL (3.29-11.43)
[2024-08-13 12:50] VITALS: BP 133/84; PULSE 88; RESP 18; TEMP 36.9; O2SAT 98; BMI 33.5
[2024-08-13 13:04] LABS: Troponin(5th) Baseline < 6 ng/L (0-10)
[2024-08-13 13:10] LABS: Alanine Aminotransferase 37 U/L (0-33); Alkaline Phosphatase 132 U/L (35-105); Anion Gap 17.7 (5-19); Aspartate Amino Transferase 29 U/L (0-32); Blood Urea Nitrogen 8 mg/dL (6-20); Calcium 8.8 mg/dL (8.5-10.5); Carbon Dioxide 21 mmol/L (22-29); Chloride 103 mmol/L (98-107); Creatinine Clr Calc Pharmacy 157.8081; Globulin 2.8 g/dL (1.3-4.6); Glomerular Filtration Rate 135.3 mL/min (90-130); Glucose 125 mg/dL (65-115); Lipase 33 U/L (13-60); NT Pro B Type Natriuretic Pept 376 pg/mL (0-125); Osmolality Calculated 286 mOsm/kg (285-295); Potassium 3.7 mmol/L (3.5-5.1); Sodium 138 mmol/L (136-145); Total Bilirubin 0.3 mg/dL (0.15-1.2); Total Protein 6.8 g/dL (6.6-8.7)
--- NOTE | 2024-08-13 13:14 | W.ED.COVID ---
HPI - COVID General: Chief Complaint: COVID symptoms Stated Complaint: CP/SOB Time Seen by Provider: 08/13/24 13:02 Source: patient Mode of arrival: ambulatory Limitations: no limitations History of Present Illness: Patient is a 43-year-old female who presents the emergency department complaining of upper respiratory symptoms beginning Sunday. She worksin an [employer] and states that she began feeling sick so she went and tested her cell for COVID on Sunday at [facility]. This was positive and since she has had worsening symptoms. This includes onset of left-sided chest pain with radiation to her back today, in which she states she recently had 3 stents placed at the beginning of June. This pain has been intermittent and associated with shortness of breath. She does note that the chest pain seems to be pleuritic as it worsens with a deep breath. Noting some palpitations. She is also noting onset of diarrhea today and has had subjective fevers. She states she is been drinking plenty of water and appetite has not been affected. She is currently on a blood thinner. She has no other pertinent past medical history to report. States that she has continued to work despite being ill. At this time she is afebrile and breathing comfortably on room air, 98 to 100%. MD complaint: other (COVID-positive on Sunday) Prior covid testing: yes, results known COVID 19 common symptoms: positive fever(s), dyspnea and diarrhea; negative chills, productive cough, fatigue, headache(s), throat pain, nausea or vomiting COVID 19 other sytmptoms: positive chest pain Onset (ago): day(s) Severity: slowly worsening Pertinent comorbid conditions: other (Coronary artery disease, 3 stents placed at the beginning of June) COVID Results: SARS-CoV-2 Antigen (Rapid) Negative (Negative) 08/08/24 17:48 SARS-CoV-2 RNA (RT-PCR) Not detected (NOT DETECTED) 11/08/20 12:45 Related Data Home Medications Medication Instructions Recorded Confirmed gabapentin 300 mg capsule 600 mg PO BID 10/11/22 08/13/24 metoprolol succinate 50 mg 50 mg PO DAILY 02/27/23 08/13/24 tablet,extended release 24 hr pantoprazole 40 mg tablet,delayed 40 mg PO BID 05/14/24 09/25/24 release (Protonix) albuterol sulfate 90 mcg/actuation 1 - 2 puff inhalation .Q4-6H PRN 08/13/24 08/13/24 aerosol inhaler Shortness Of Breath Or Wheezing aspirin 81 mg tablet,delayed 81 mg PO DAILY 08/13/24 08/13/24 release fluticasone propionate 50 2 spray intranasal BID 08/13/24 08/13/24 mcg/actuation nasal spray,suspension venlafaxine 75 mg capsule,extended 75 mg PO DAILY 08/13/24 08/13/24 release 24 hr Previous Rx's Medication Instructions Recorded isosorbide mononitrate 30 mg 90 mg (3 x 30 mg) PO DAILY #90 tabs 04/24/24 tablet,extended release 24 hr atorvastatin 40 mg tablet 80 mg (2 x 40 mg) PO BEDTIME #90 06/24/24 tabs ticagrelor 90 mg tablet (Brilinta) 90 mg PO BID #180 tabs 07/08/24 Allergies Allergy/AdvReac Type Severity Reaction Status Date / Time No Known Allergies Allergy Verified 08/08/24 17:39 Review of Systems General: Reports: 10 or more systems reviewed and unremarkable except in HPI and below Const: Reports: fever(s); Denies: chills or fatigue Eyes: Denies: change in vision ENMT: Denies: throat pain, ear or mastoid pain or nasal discharge Card: Reports: chest pain and palpitations; Denies: swelling of feet/ankles or lightheadedness Resp: Reports: dyspnea; Denies: productive cough or wheezing GI: Reports: diarrhea; Denies: abdominal pain, nausea, vomiting or constipation : Denies: flank pain, difficulty voiding, dysuria or urinary frequency Musc: Denies: neck pain, back pain or joint pain Skin/Breast: Denies: rash Neuro: Denies: headache(s), numbness in extremities or weakness in extremities PFSH ED PFSH: Medical History Coronary artery disease Chronic back pain Chronic headache Depression Surgical History H/O oophorectomy History of hysterectomy Social History Smoking and tobacco/nicotine status: never used tobacco/nicotine Female Reproductive History: Spontaneous abortions: No Physical Exam Const: COMMON NORMALS: no acute distress, patient oriented x3 and no limitations GENERAL APPEARANCE: cooperative, comfortable and well developed ORIENTATION/CONSCIOUSNESS: Yes awake HENMT: COMMON NORMALS: normocephalic, atraumatic, hearing grossly normal bilaterally, moist oral mucous membranes and oropharynx normal HEAD & SCALP: normocephalic and atraumatic Eye: COMMON NORMALS: Equal, round and reactive pupils present, EOMs intact bilaterally and conjunctivae normal CONJUNCTIVA: Yes conjunctivae normal PUPIL: Yes Equal, round and reactive pupils present Neck/C-Spine: COMMON NORMALS: full ROM, no lymphadenopathy, supple and no JVD Chest: COMMONS NORMALS: normal inspection of the chest and normal palpation of entire chest wall Resp: COMMON NORMALS: normal respiratory effort, No retractions, No use of accessory muscles and clear to auscultation bilaterally AUSCULTATION: clear to auscultation bilaterally Cardio: COMMON NORMALS: no JVD, regular rate, regular rhythm, No clicks present (Cardio), No murmurs present (Cardio) and No rub (Cardio) RATE: regular rate RHYTHM: regular rhythm GI: COMMON NORMALS: Normal to inspection, nondistended, normoactive bowel sounds present, Soft to palpation and non-tender AUSCULTATION: Yes normoactive bowel sounds PALPATION: Yes Soft to palpation RECTAL EXAM: deferred Extremity: COMMON NORMALS: normal to inspection, full ROM, capillary refill normal and no clubbing, cyanosis or edema Neuro: COMMON NORMALS: patient oriented x3, moves all extremities, no focal motor deficits and no sensory deficits noted Skin: COMMON NORMALS: no rashes or lesions noted GENERAL SKIN EXAM: no rashes or lesions noted Course Vital Signs: Vital signs: Vital Signs Temperature 98.4 F 08/13/24 12:50 Pulse Rate 75 08/13/24 15:32 Respiratory Rate 18 08/13/24 12:50 Blood Pressure 117/91 08/13/24 15:32 Pulse Oximetry 98 08/13/24 15:32 Oxygen Delivery Me thod Room Air 08/13/24 15:01 [facility] - COVID Medical Decision Making Patient reportedly diagnosed with COVID on Sunday, symptoms began Sunday. Also states she was concerned with symptoms she was having of chest pain, palpitations, and shortness of breath, as she recently had stents placed following blockages found on coronary cath. Her troponin and repeat troponin were negative. EKG showed normal sinus rhythm rate of 66, reviewed with ED physician. No acute ST segment changes noted or other arrhythmias or abnormalities. Lab work all unremarkable, BNP and diagnostic in terms of CHF evaluation. Patient is notably anxious and noted to be checking her portal in between labs, I do believe this is potentially playing a role in her symptoms as well as from COVID. In addition to this, her occupation does result in long-term exposure to potential harmful fumes, and she will be given off work to recover as well as for contact cautions. Also encouraged to continue Tylenol for fevers/body aches, and to drink plenty of fluids and rest. Reasons to return were discussed, and did tell patient that if she continues to having issues to return for reevaluation. Lab Data 08/13/24 12:37 08/13/24 12:37 Radiology Impressions Chest X-Ray 08/13/24 12:21 IMPRESSION: No acute findings. Laboratory Results WBC 10.46 10^3/uL (3.29-11.43) 08/13/24 12:37 RBC 4.83 10^6/uL (3.85-5.65) 08/13/24 12:37 Hgb 13.90 g/dL (11.27-16.99) 08/13/24 12:37 Hct 41.9 % (36-47) 08/13/24 12:37 MCV 86.7 fl (85-98) 08/13/24 12:37 MCH 28.8 pg (27-33) 08/13/24 12:37 MCHC 33.2 g/dL (30-55) 08/13/24 12:37 RDW 13.6 % (12.1-15.1) 08/13/24 12:37 Plt Count 341 10^3/cmm (157-399) 08/13/24 12:37 MPV 9.5 fL (7.4-10.4) 08/13/24 12:37 Neut % (Auto) 59.1 % 08/13/24 12:37 Lymph % (Auto) 33.8 % 08/13/24 12:37 [place] % (Auto) 5.6 % 08/13/24 12:37 Eos % (Auto) 1.0 % 08/13/24 12:37 Baso % (Auto) 0.3 % 08/13/24 12:37 Neut # (Auto) 6.18 10^3/uL (1.8-7.7) 08/13/24 12:37 Lymph # (Auto) 3.5 10^3/uL (0.8-4.8) 08/13/24 12:37 [place] # (Auto) 0.6 10^3/uL (0.2-0.9) 08/13/24 12:37 Eos # (Auto) 0.1 10^3/uL (0.0-0.8) 08/13/24 12:37 Baso # (Auto) 0.0 10^3/uL (0.0-0.1) 08/13/24 12:37 Nucleated RBC % (auto) 0 % 08/13/24 12:37 Nucleated RBCs # 0.0 /100WBC 08/13/24 12:37 Sodium 138 mmol/L (136-145) 08/13/24 12:37 Potassium 3.7 mmol/L (3.5-5.1) 08/13/24 12:37 Chloride 103 mmol/L (98-107) 08/13/24 12:37 Carbon Dioxide 21 mmol/L (22-29) L 08/13/24 12:37 Anion Gap 17.7 (5-19) 08/13/24 12:37 BUN 8 mg/dL (6-20) 08/13/24 12:37 Creatinine 0.5 mg/dL (0.5-0.9) 08/13/24 12:37 GFR Calculation 135.3 mL/min (90-130) H 08/13/24 12:37 Glucose 125 mg/dL (65-115) H 08/13/24 12:37 Calculated Osmolality 286 mOsm/kg (285-295) 08/13/24 12:37 Calcium 8.8 mg/dL (8.5-10.5) 08/13/24 12:37 Total Bilirubin 0.3 mg/dL (0.15-1.2) 08/13/24 12:37 AST 29 U/L (0-32) 08/13/24 12:37 ALT 37 U/L (0-33) H 08/13/24 12:37 Alkaline Phosphatase 132 U/L (35-105) H 08/13/24 12:37 Troponin T Baseline < 6 ng/L (0-10) 08/13/24 12:37 Troponin T 120 Minute 6.00 ng/L (0-10) 08/13/24 14:37 Delta Troponin T 0.11022 ABS# (0-10) 08/13/24 14:37 NT-Pro-B Natriuret Pep 376 pg/mL (0-125) H 08/13/24 12:37 Total Protein 6.8 g/dL (6.6-8.7) 08/13/24 12:37 Albumin 4.0 g/dL (3.5-5.2) 08/13/24 12:37 Globulin 2.8 g/dL (1.3-4.6) 08/13/24 12:37 Lipase 33 U/L (13-60) 08/13/24 12:37 SARS-CoV-2 Antigen (Rapid) Negative (Negative) 08/08/24 17:48 SARS-CoV-2 RNA (RT-PCR) Not detected (NOT DETECTED) 11/08/20 12:45 All radiology interpretation(s) finalized by discharge Discharge Plan Discharge Patient Disposition: Home Clinical Impression: COVID-19 Condition: Stable Prescriptions: No Action gabapentin 300 mg capsule 600 mg PO BID pantoprazole [Protonix] 40 mg tablet,delayed release (DR/EC) 40 mg PO BID Brilinta 90 mg tablet 90 mg PO BID Qty: 180 3RF isosorbide mononitrate 30 mg tablet extended release 24 hr 90 mg PO DAILY Qty: 90 0RF metoprolol succinate 50 mg tablet extended release 24 hr 50 mg PO DAILY atorvastatin 40 mg Tablet 80 mg PO BEDTIME Qty: 90 2RF Aspir-81 81 mg Tablet,Delayed Release (Dr/Ec) 81 mg PO DAILY albuterol sulfate 90 mcg/actuation HFA aerosol inhaler 1 - 2 puff INHALATION .Q4-6H PRN (Reason: Shortness Of Breath Or Wheezing) fluticasone propionate 50 mcg/actuation spray,suspension 2 spray INTRANASAL BID venlafaxine 75 mg capsule,extended release 24hr 75 mg PO DAILY Discharge Orders: Discharge ED (Routine); Ordered 08/13/24 Ordered By: Rosas Hill Referrals: Christianson,Giselle, FILM COMPOSER [Primary Care Provider] - Discharge Diet: As Directed Discharge Activity: Increase activity as tolerated Patient Instructions: COVID-19 (Coronavirus Disease 2019) (ED), Opioid Safety, Pain Management Activity Restrictions/Additional Instructions: Contact precautions as discussed. Tylenol for any fevers or bodyaches. Continue drinking plenty of fluids. Please follow-up with your primary care provider in the next couple of days as discussed for reevaluation. If your condition worsens, or you develop any new or concerning symptoms, please return immediately to the emergency department. Stand Alone Forms: Work/School Release Coding Level of Care Code ED Flow Worker for Efren Lebron
[2024-08-13 13:29] VITALS: O2SAT 98
[2024-08-13 13:32] VITALS: BP 156/94; PULSE 74; O2SAT 98
--- NOTE | 2024-08-13 14:21 | ECG_ITS ---
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 Measurements Intervals [place] Rate: 66 P: 59 [place]: 151 QRS: 63 QRSD: 93 T: 62 QT: 402 QTc: 423 Interpretive Statements SINUS RHYTHM Compared to ECG 08/13/2024 12:22:02 No significant changes Electronically Signed On 08-13-2024 23:10:34 CDT by Galina Muller M.D. [email or web address] [id number]
[2024-08-13 14:29] VITALS: BP 131/85; PULSE 70; O2SAT 99
[2024-08-13 15:01] VITALS: BP 117/91; PULSE 70; O2SAT 99
[2024-08-13 15:13] LABS: Troponin 5 2HR Delta 0.00001 ABS# (0-10)
[2024-08-13 15:32] VITALS: BP 117/91; PULSE 75; O2SAT 98
== END 2024-08-13 15:33 | disposition home or self-care (01) ==
PROVIDERS: Emergency Medicine; Emergency Provider Physician Assistant; PCP Nurse Practitioner Family
DX: U07.1 COVID-19 (principal); R07.89 Other chest pain; R06.02 Shortness of breath; R19.7 Diarrhea, unspecified
CPT/HCPCS: 36415; 71045; 80053; 83690; 83880; 84484; 85025; 93005; 99285

== ENCOUNTER → 2024-09-11 15:37 | Outpatient (BNVA) | payer OTHER, SELFPAY | PROVIDERS: PCP Nurse Practitioner Family; Visit Provider Internal Medicine Cardiovascular Disease | DX: I49.8 Other specified cardiac arrhythmias (principal); R07.9 Chest pain, unspecified | CPT/HCPCS: 93005 ==

== ENCOUNTER 2024-09-11 17:16 | Inpatient (IN) | payer OTHER, SELFPAY ==
[2024-09-11 17:30] VITALS: BMI 34.3
[2024-09-11] MEDS: aspirin 325 mg Tablet PO (18:35)
[2024-09-11] MEDS: nicotine 21 mg Patch 1 PATCH TRANSDERMA (18:47)
[2024-09-11] MEDS: sodium chloride 0.9% 1,000 ML 50 ML IV (18:49)
[2024-09-11 19:05] LABS: Basophils % 0.3 %; Eosinophils # 0.1 10^3/uL (0.0-0.8); Hematocrit 35.4 % (36-47); Lymphocytes # 2.5 10^3/uL (0.8-4.8); Lymphocytes % 25.8 %; Mean Corpuscular HGB Conc 32.5 g/dL (30-55); Mean Corpuscular Hemoglobin 28.5 pg (27-33); Mean Corpuscular Volume 87.6 fl (85-98); Mean Platelet Volume 9.4 fL (7.4-10.4); Monocytes # 0.7 10^3/uL (0.2-0.9); Monocytes % 7.2 %; Neutrophils # 6.36 10^3/uL (1.8-7.7); Neutrophils % 65.4 %; Nucleated Red Blood Cells % 0 %; Platelet Count 310 10^3/cmm (157-399); Red Blood Count 4.04 10^6/uL (3.85-5.65); Red Cell Distribution Width 14.2 % (12.1-15.1); White Blood Count 9.73 10^3/uL (3.29-11.43)
[2024-09-11 19:33] LABS: Anion Gap 14.3 (5-19); Blood Urea Nitrogen 8 mg/dL (6-20); Calcium 8.6 mg/dL (8.5-10.5); Carbon Dioxide 24 mmol/L (22-29); Chloride 104 mmol/L (98-107); Glomerular Filtration Rate 91.8 mL/min (90-130); Glucose 115 mg/dL (65-115); Osmolality Calculated 287 mOsm/kg (285-295); Potassium 3.3 mmol/L (3.5-5.1); Sodium 139 mmol/L (136-145)
[2024-09-11 20:00] VITALS: BP 143/81; PULSE 70; RESP 18; TEMP 36.8; O2SAT 98
[2024-09-11] MEDS: atorvastatin 40 mg Tablet 80 MG PO (20:34)
--- NOTE | 2024-09-11 20:54 | PM.HP ---
Providers/Chief Complaint Admitting Physician: Georgina Gill MD Primary Care Provider: Giselle Christianson APN Chief Complaint: unstable angina History of Present Illness Sejal Arias is a 43 year old female past medical history significant for recent PCI to mid LAD circumflex and balloon angioplasty to diagonal branch in June 2024 for premature coronary artery disease came to our clinic with worsening of shortness of breath and chest pain according to the patient she did fine for 1 month however for the past couple of weeks she has noticed similar kind of symptoms which she had before the stents, occasionally she started noticing chest pain at rest, she ran out of her nitroglycerin. Whenever she walks and perform task which require mild to moderate exertion she experiences chest pain or shortness of breath she has to sit down to get over . She is scared thinks that she may end up in a heart attack. Review of Systems Eyes: Reports: photophobia Musc: Denies: joint warmth Skin/Breast: Denies: surgical incision Medications/Allergies Home Medications Medication Instructions Recorded Confirmed Last Taken Type gabapentin 300 mg capsule 600 mg PO BID 10/11/22 09/11/24 08/13/24 History metoprolol succinate 50 mg 50 mg PO DAILY 02/27/23 09/11/24 08/13/24 History tablet,extended release 24 hr pantoprazole 40 mg tablet,delayed 40 mg PO BID 04/01/24 09/11/24 08/13/24 History release (Protonix) atorvastatin 40 mg tablet 80 mg (2 x 40 mg) PO BEDTIME #90 06/24/24 09/11/24 08/13/24 Rx tabs ticagrelor 90 mg tablet (Brilinta) 90 mg PO BID #180 tabs 07/08/24 09/11/24 08/13/24 Rx albuterol sulfate 90 mcg/actuation 1 - 2 puff inhalation .Q4-6H PRN 08/13/24 09/11/24 Unknown History aerosol inhaler Shortness Of Breath Or Wheezing aspirin 81 mg tablet,delayed 81 mg PO DAILY 08/13/24 09/11/24 08/13/24 History release venlafaxine 75 mg capsule,extended 75 mg PO DAILY 08/13/24 09/11/24 08/13/24 History release 24 hr isosorbide mononitrate 30 mg 30 mg PO DAILY #90 tabs 09/11/24 09/11/24 Unknown Rx tablet,extended release 24 hr losartan 25 mg tablet 25 mg PO DAILY #90 tabs 09/11/24 09/11/24 Unknown Rx nitroglycerin 0.4 mg sublingual 0.4 mg sublingual Q5M PRN chest 09/11/24 09/11/24 Unknown Rx tablet pain #25 tabs Allergies Allergy/AdvReac Type Severity Reaction Status Date / Time No Known Allergies Allergy Verified 09/11/24 15:31 PFSH Acute PFSH: Medical History Coronary artery disease Chronic back pain Chronic headache Depression Surgical History H/O oophorectomy History of hysterectomy Social History Smoking and tobacco/nicotine status: never used tobacco/nicotine Female Reproductive History: Spontaneous abortions: No Vitals/I&O/Wt Last Vital Signs Temp 98.2 F 09/11/24 20:00 Pulse 70 09/11/24 20:00 Resp 18 09/11/24 20:00 BP 143/81 09/11/24 20:00 Pulse Ox 98 09/11/24 20:00 O2 Del Method Room Air 09/11/24 20:00 Weight last 48 hrs Weight 200 lb 3.2 oz Physical Exam Const: OTHER: GENERAL: Patient is alert, awake and oriented x3. HEART: Regular S1 and S2. No murmur, rub or gallop. LUNGS: Clear to auscultate bilaterally. ABDOMEN: Soft, nontender and nondistended. Positive bowel sounds. No guarding, rebound or tenderness. CENTRAL NERVOUS SYSTEM: Grossly nonfocal. EXTREMITIES: Lower extremities with out edema bilaterally. Data 09/11/24 18:56 09/11/24 18:56 A&P Assessment and plan (1) Chest pain: Patient chest pain with history of drug-eluting stent premature coronary artery disease continues tobacco abuse is suspicious for unstable angina therefore we will admit patient to the hospital, she will monitor on the telemetry, I would like to proceed with left heart cath given high suspicion for unstable angina. Continue current medications. Qualifiers: Chest pain type: precordial pain Qualified Code(s): R07.2 - Precordial pain (2) Coronary artery disease: Patient is status post PCI to mid LAD distal circumflex and balloon angioplasty to diagonal branch, continue aspirin statin clopidogrel isosorbide mononitrate and beta-amanda. With the suspicion of unstable angina we will proceed with left heart cath in the morning. Qualifiers: Coronary Disease-Associated Artery/Lesion type: [place] artery [place] vs. transplanted heart: [place] heart Associated angina: with stable angina Qualified Code(s): I25.118 - Atherosclerotic heart disease of [place] coronary artery with other forms of angina pectoris (3) Tobacco abuse: Unfortunately patient continues to smoke, advised to quit smoking, patient has not given any clear-cut answer, Attestations Medical Necessity Statement*: Patient will be admitted for observation under observation status with suspicion of unstable angina for possible left heart cath tomorrow morning Coding Level of Care Code Acute Code for [facility] Fwd Diagnoses Precordial pain R07.2 Chest pain type: precordial pain Coronary artery disease of [place] artery of [place] heart with stable angina pectoris I25.118 Coronary Disease-Associated Artery/Lesion type: [place] artery [place] vs. transplanted heart: [place] heart Associated angina: with stable angina Tobacco abuse Z72.0
[2024-09-12] VITALS (16 sets, daily range): BP systolic 112–138; BP diastolic 63–81; PULSE 60–76; RESP 13–22; TEMP 36.5–36.9; O2SAT 93–99
[2024-09-12 05:48] LABS: Basophils % 0.6 %; Eosinophils # 0.1 10^3/uL (0.0-0.8); Eosinophils % 2.1 %; Hematocrit 34.2 % (36-47); Lymphocytes # 2.1 10^3/uL (0.8-4.8); Mean Corpuscular HGB Conc 32.5 g/dL (30-55); Mean Corpuscular Hemoglobin 29.1 pg (27-33); Mean Corpuscular Volume 89.8 fl (85-98); Mean Platelet Volume 9.3 fL (7.4-10.4); Monocytes # 0.6 10^3/uL (0.2-0.9); Monocytes % 9.2 %; Neutrophils # 3.68 10^3/uL (1.8-7.7); Neutrophils % 55.8 %; Nucleated Red Blood Cells % 0 %; Platelet Count 282 10^3/cmm (157-399); Red Blood Count 3.81 10^6/uL (3.85-5.65); Red Cell Distribution Width 14.3 % (12.1-15.1)
[2024-09-12 06:16] LABS: Anion Gap 11.6 (5-19); Blood Urea Nitrogen 11 mg/dL (6-20); Calcium 8.1 mg/dL (8.5-10.5); Carbon Dioxide 23 mmol/L (22-29); Chloride 107 mmol/L (98-107); Creatinine Clr Calc Pharmacy 133.3255; Glomerular Filtration Rate 109.6 mL/min (90-130); Glucose 109 mg/dL (65-115); Osmolality Calculated 286 mOsm/kg (285-295); Potassium 3.6 mmol/L (3.5-5.1); Sodium 138 mmol/L (136-145)
[2024-09-12] MEDS: ticagrelor 90 mg Tablet PO ×2 (08:40→17:22)
[2024-09-12] MEDS: gabapentin 300 mg Capsule 600 MG PO ×2 (08:40→17:22)
[2024-09-12] MEDS: pantoprazole DR 40 mg Tablet PO ×2 (08:40→17:22)
[2024-09-12] MEDS: venlafaxine ER (24HR) 75 mg Capsule PO (08:41)
[2024-09-12] MEDS: metoprolol succinate ER (24 HR) 50 mg Tablet PO (08:41)
[2024-09-12] MEDS: isosorbide mononitrate ER 30 mg Tablet PO (08:41)
[2024-09-12] MEDS: losartan 50 mg Tablet 25 MG PO (08:41)
--- NOTE | 2024-09-12 11:06 | PC.CHAP ---
Pastoral Care Encounter/Spiritual Assessment Type of Contact [x] Declined parking enforcement officer visit [] Patient/Family/Request visit [] Outpatient visit [] Follow-up visit [] Physician referral [] Code/Alert [] Routine visit [] Staff referral [] Actively dying [] Patient sleeping [] Family support [] [] Out of room [] Palliative care [] [] Receiving care in room [] Pre-surgical visit [] Trauma [] Long length of stay [] ICU visit [] Other: Relational/Emotional Strength [] Patient feels connected with others/family/visitors/staff [] Distress [] Loneliness/isolation [] Abandonment Spirituality of Patient [] Person of Kait [] Attends Jainism of their Kait [] Believes in Prayer [] Reads Bible or Jainism materials [] There are Spiritual issues to be addressed Assistant Center Director Interventions [] Prayer [] Active listening [] Non-anxious presence [] Spiritual/emotional support [] Crisis/trauma care [] Spiritual counseling [] Bereavement support [] Provided bereavement packet [] Provided Bible/devotional materials [] Provided toy/stuffed animal, coloring book to patient or family member [] Provided Communion [] Anointing/[place] [] Salvation [] Completed spiritual assessment [] Other: Impact on Illness or Injury [] Angry [] Fearful [] Anxious [] Often cries [] Exhaustion [] Unable to work [] Unable to attend holiness [] Unable to walk/stand [] Unable to read [] Unable to drive [] Unable to eat/drink [] Unable to sleep [] Unable to be with family [] Patient intubated [] Other: Summary Time spent with patient
[2024-09-12] MEDS: diphenhydrAMINE 50 mg Capsule PO (11:49)
--- NOTE | 2024-09-12 12:43 | PC.NURSE ---
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
--- NOTE | 2024-09-12 13:02 | W.PM.OPSUD ---
Surgery/Procedure H&P Update DATE OF PROCEDURE: September 12, 2024 DATE H&P PERFORMED: 09/11/24 H&P UPDATE INFORMATION: I have reviewed H&P completed within last 30 days, I have examined patient prior to procedure and No changes to prior documentation PREOP DIAGNOSIS: Unstable angina PLANNED PROCEDURE: Operation Date: 09/12/24 12:30 Proposed Procedures p Cardiac Catheterization(Left) - Georgina Gill MD PATIENT REASSESSED PRIOR TO SEDATION, WITH NO CHANGE NOTED: Yes PHYSICAL EXAM: alert, oriented x 3, clear to auscultation bilaterally and regular rate & rhythm AIRWAY EVAL/ANESTHESIA PLAN: ASA II, Risks, benefits & alternatives of sedation and/or procedure discussed and Patient agrees to continue as planned
--- NOTE | 2024-09-12 14:17 | PC.NURSE ---
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
[2024-09-12] MEDS: nicotine 21 mg Patch 1 PATCH TRANSDERMA (17:22)
--- NOTE | 2024-09-12 18:43 | PC.NURSE ---
Patient's right radial TR-band was removed. Air was removed slowly 2ml's at a time. TR-band was removed and a dressing of a 2 x 2 and tegaderm was placed. Patient tolerated well. No hemotoma noted. Patient was reeducated not to use her hand/wrist for the next 24 hours.
[2024-09-12] MEDS: atorvastatin 40 mg Tablet 80 MG PO (20:38)
[2024-09-12] MEDS: temazepam 15 mg Capsule PO (22:05)
[2024-09-13] VITALS (7 sets, daily range): BP systolic 104–141; BP diastolic 63–87; PULSE 60–75; RESP 14–16; TEMP 36.6–37; O2SAT 94–100
[2024-09-13 03:53] LABS: Basophils % 0.7 %; Eosinophils # 0.1 10^3/uL (0.0-0.8); Eosinophils % 1.3 %; Hematocrit 34.2 % (36-47); Lymphocytes # 1.9 10^3/uL (0.8-4.8); Lymphocytes % 31.5 %; Mean Corpuscular HGB Conc 31.9 g/dL (30-55); Mean Corpuscular Hemoglobin 28.9 pg (27-33); Mean Corpuscular Volume 90.7 fl (85-98); Mean Platelet Volume 9.6 fL (7.4-10.4); Monocytes # 0.5 10^3/uL (0.2-0.9); Monocytes % 8.4 %; Neutrophils # 3.49 10^3/uL (1.8-7.7); Neutrophils % 57.8 %; Nucleated Red Blood Cells % 0 %; Platelet Count 265 10^3/cmm (157-399); Red Blood Count 3.77 10^6/uL (3.85-5.65); Red Cell Distribution Width 14.4 % (12.1-15.1); White Blood Count 6.04 10^3/uL (3.29-11.43)
[2024-09-13 04:15] LABS: Anion Gap 9.6 (5-19); Blood Urea Nitrogen 10 mg/dL (6-20); Carbon Dioxide 26 mmol/L (22-29); Chloride 107 mmol/L (98-107); Creatinine Clr Calc Pharmacy 114.2188; Glomerular Filtration Rate 91.8 mL/min (90-130); Glucose 98 mg/dL (65-115); Osmolality Calculated 287 mOsm/kg (285-295); Potassium 3.6 mmol/L (3.5-5.1); Sodium 139 mmol/L (136-145)
[2024-09-13] MEDS: metoprolol succinate ER (24 HR) 50 mg Tablet PO (08:32)
[2024-09-13] MEDS: gabapentin 300 mg Capsule 600 MG PO (08:32)
[2024-09-13] MEDS: ticagrelor 90 mg Tablet PO (08:32)
[2024-09-13] MEDS: venlafaxine ER (24HR) 75 mg Capsule PO (08:32)
[2024-09-13] MEDS: losartan 50 mg Tablet 25 MG PO (08:32)
[2024-09-13] MEDS: pantoprazole DR 40 mg Tablet PO (08:32)
[2024-09-13] MEDS: nicotine 21 mg Patch 1 PATCH TRANSDERMA (08:33)
[2024-09-13] MEDS: isosorbide mononitrate ER 30 mg Tablet PO (08:33)
--- NOTE | 2024-09-13 14:29 | P.DS_ITS ---
Discharge Providers Date of Admission: 09/12/24 13:54 Date of Discharge: September 13, 2024 Attending Provider at Admission: Georgina Gill MD Attending Provider at Discharge: Georgina Gill MD Consults: Patient past medical history significant for hypertension hyperlipidemia history of drug-eluting stent underwent left heart catheterization for unstable angina. She was noted to have mid diagonal significant stenosis distal to previously placed stent treated with overlapping drug eluting stent post dilated with NC balloon, excellent angigraphic result with MERRITT 3 flow was confirmed at the end of the case, there was no overnight event. Patient tolerated procedure well. This morning she is walking around without any difficulty. We will discharge her today. We will see her back in 1 week the cardiology clinic. Primary Care Provider: Giselle Christianson APN Diagnoses at Discharge Discharge Diagnosis (1) Chest pain: Status: Acute Qualifiers: Chest pain type: precordial pain Qualified Code(s): R07.2 - Precordial pain (2) Coronary artery disease: Details from hospital stay: Post PCI Status: Acute Qualifiers: Coronary Disease-Associated Artery/Lesion type: [place] artery [place] vs. transplanted heart: [place] heart Associated angina: with stable angina Qualified Code(s): I25.118 - Atherosclerotic heart disease of [place] coronary artery with other forms of angina pectoris (3) Tobacco abuse: Status: Acute Reason for Visit Reason for Visit: unstable angina Physical Exam Const: OTHER: GENERAL: Patient is alert, awake and oriented x3. HEART: Regular S1 and S2. No murmur, rub or gallop. LUNGS: Clear to auscultate bilaterally. ABDOMEN: Soft, nontender and nondistended. Positive bowel sounds. No guarding, rebound or tenderness. CENTRAL NERVOUS SYSTEM: Grossly nonfocal. EXTREMITIES: Lower extremities with out edema bilaterally. Pulses palpable in the lower extremities, both dorsalis pedis and posterior tibial. Discharge Data Studies Completed and Pending Pending at discharge Category Date Time Status SQL BI DEVELOPER request for service Routine Exams 09/12/24 07:29 Taken Basic Metabolic Panel AM LABS Lab 09/14/24 04:00 Ordered Complete Blood Count w/Auto AM LABS Lab 09/14/24 04:00 Ordered Laboratory Results WBC 6.04 10^3/uL (3.29-11.43) 09/13/24 03:21 RBC 3.77 10^6/uL (3.85-5.65) L 09/13/24 03:21 Hgb 10.90 g/dL (11.27-16.99) L 09/13/24 03:21 Hct 34.2 % (36-47) L 09/13/24 03:21 MCV 90.7 fl (85-98) 09/13/24 03:21 MCH 28.9 pg (27-33) 09/13/24 03:21 MCHC 31.9 g/dL (30-55) 09/13/24 03:21 RDW 14.4 % (12.1-15.1) 09/13/24 03:21 Plt Count 265 10^3/cmm (157-399) 09/13/24 03:21 MPV 9.6 fL (7.4-10.4) 09/13/24 03:21 Neut % (Auto) 57.8 % 09/13/24 03:21 Lymph % (Auto) 31.5 % 09/13/24 03:21 [place] % (Auto) 8.4 % 09/13/24 03:21 Eos % (Auto) 1.3 % 09/13/24 03:21 Baso % (Auto) 0.7 % 09/13/24 03:21 Neut # (Auto) 3.49 10^3/uL (1.8-7.7) 09/13/24 03:21 Lymph # (Auto) 1.9 10^3/uL (0.8-4.8) 09/13/24 03:21 [place] # (Auto) 0.5 10^3/uL (0.2-0.9) 09/13/24 03:21 Eos # (Auto) 0.1 10^3/uL (0.0-0.8) 09/13/24 03:21 Baso # (Auto) 0.0 10^3/uL (0.0-0.1) 09/13/24 03:21 Nucleated RBC % (auto) 0 % 09/13/24 03:21 Nucleated RBCs # 0.0 /100WBC 09/13/24 03:21 Sodium 139 mmol/L (136-145) 09/13/24 03:21 Potassium 3.6 mmol/L (3.5-5.1) 09/13/24 03:21 Chloride 107 mmol/L (98-107) 09/13/24 03:21 Carbon Dioxide 26 mmol/L (22-29) 09/13/24 03:21 Anion Gap 9.6 (5-19) 09/13/24 03:21 BUN 10 mg/dL (6-20) 09/13/24 03:21 Creatinine 0.7 mg/dL (0.5-0.9) 09/13/24 03:21 GFR Calculation 91.8 mL/min (90-130) 09/13/24 03:21 Glucose 98 mg/dL (65-115) 09/13/24 03:21 Calculated Osmolality 287 mOsm/kg (285-295) 09/13/24 03:21 Calcium 8.0 mg/dL (8.5-10.5) L 09/13/24 03:21 Vitals Last Vital Signs Temp 98.6 F 09/13/24 12:33 Pulse 67 09/13/24 12:33 Resp 14 09/13/24 12:33 BP 141/82 09/13/24 12:33 Pulse Ox 98 09/13/24 12:33 O2 Del Method Room Air 09/13/24 07:44 Discharge Plan Discharge Patient Disposition: Home Condition: Stable Prescriptions: New nicotine 21 mg/24 hr patch 24 hour 1 patch transdermal DAILY Qty: 14 2RF Continued gabapentin 300 mg capsule 600 mg PO BID pantoprazole [Protonix] 40 mg tablet,delayed release (DR/EC) 40 mg PO BID Brilinta 90 mg tablet 90 mg PO BID Qty: 180 3RF losartan 25 mg tablet 25 mg PO DAILY Qty: 90 3RF isosorbide mononitrate 30 mg tablet extended release 24 hr 30 mg PO DAILY Qty: 90 3RF nitroglycerin 0.4 mg tablet, sublingual 0.4 mg sublingual Q5M PRN (Reason: chest pain) Qty: 25 2RF Rx Instructions: do not exceed 3 doses per episode metoprolol succinate 50 mg tablet extended release 24 hr 50 mg PO DAILY atorvastatin 40 mg Tablet 80 mg PO BEDTIME Qty: 90 2RF aspirin [Aspir-81] 81 mg Tablet,Delayed Release (Dr/Ec) 81 mg PO DAILY albuterol sulfate 90 mcg/actuation HFA aerosol inhaler 1 - 2 puff INHALATION .Q4-6H PRN (Reason: Shortness Of Breath Or Wheezing) venlafaxine 75 mg capsule,extended release 24hr 75 mg PO DAILY Referrals: Tasha Fuentes FNP [Nurse Practitioner] - Christianson,MARILEE Desai [Primary Care Provider] - Discharge Diet: Cardiac Discharge Activity: Increase activity as tolerated Patient Instructions: Nicotine (Absorbed through the skin), How to Stop Smoking (DC), Angiography (DC), Coronary Intravascular Stent Placement (DC), Opioid Safety, Post Angiogram Home Care Instructions, Quitting Smoking Activity Restrictions/Additional Instructions: Patient can follow up with cardiology 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 transplanted heart: [place] heart Associated angina: with stable angina Tobacco abuse Z72.0
--- NOTE | 2024-09-13 15:31 | PC.NURSE ---
Discharge Note Patient discharged to home via POV accompanied by spouse. Discharge instructions reviewed with patient and/or patient representative. Mobile pharmacy medications and/or prescriptions provided. Belongings/home medications returned.
== END 2024-09-13 15:31 | disposition home or self-care (01) | DRG 229 ==
LOC: MEDSURG 09-12 07:39 → CSU 09-12 07:39
PROVIDERS: Admitting Provider Internal Medicine Cardiovascular Disease; PCP Nurse Practitioner Family; Visit Provider Internal Medicine Cardiovascular Disease
PROC: 027004Z Dilation of Coronary Artery, One Artery with Drug-eluting Intraluminal Device, Open Approach (ICD-10-PCS; principal; 2024-09-12 12:30)
PROC: 027004Z Dilation of Coronary Artery, One Artery with Drug-eluting Intraluminal Device, Open Approach (ICD-10-PCS; 2024-09-12 12:30)
DX: I25.110 Atherosclerotic heart disease of native coronary artery with unstable angina pectoris (principal); F17.200 Nicotine dependence, unspecified, uncomplicated; Z79.82 Long term (current) use of aspirin; G89.29 Other chronic pain; M54.9 Dorsalgia, unspecified; I10 Essential (primary) hypertension; E78.5 Hyperlipidemia, unspecified; Z79.02 Long term (current) use of antithrombotics/antiplatelets; Z90.710 Acquired absence of both cervix and uterus; Z90.722 Acquired absence of ovaries, bilateral
CPT/HCPCS: 36415; 80048; 85025; 85347; 93454; 96374; 99152; 99153; C1725; C1769; C1874; C1887; C1894; C9600; G0378; G0379; J1644; J2250; J2405; J3010; J3490; J7030; J7050; Q0163; Q9967

== ENCOUNTER 2024-11-12 18:46 | Observation (INO) | payer OTHER, SELFPAY ==
[2024-11-12 18:57] VITALS: BP 158/99; PULSE 70; RESP 21; O2SAT 100; BMI 32.5
--- NOTE | 2024-11-12 18:59 | XRR_ITS ---
PROCEDURE INFORMATION: Exam: XR Chest Exam date and time: 11/12/2024 7:16 PM Age: 44 years old Clinical indication: Chest wall pain; Additional info: Chest pain TECHNIQUE: Imaging protocol: Radiologic exam of the chest. Views: 1 view. COMPARISON: CR XR chest 1V portable [id number] 08/13/2024 12:37 PM FINDINGS: Lungs: Unremarkable. No consolidation. Pleural spaces: Unremarkable. No pleural effusion. No pneumothorax. Heart/Mediastinum: Unremarkable. No cardiomegaly. Bones/joints: Unremarkable. XR/XR chest 1V portable [id number] IMPRESSION: No acute findings.
[2024-11-12 19:07] LABS: Basophils % 0.3 %; Eosinophils # 0.1 10^3/uL (0.0-0.8); Eosinophils % 1.2 %; Hematocrit 39.3 % (36-47); Lymphocytes # 3.2 10^3/uL (0.8-4.8); Lymphocytes % 35.1 %; Mean Corpuscular HGB Conc 32.6 g/dL (30-55); Mean Corpuscular Hemoglobin 28.8 pg (27-33); Mean Corpuscular Volume 88.5 fl (85-98); Mean Platelet Volume 9.7 fL (7.4-10.4); Monocytes # 0.6 10^3/uL (0.2-0.9); Neutrophils # 5.11 10^3/uL (1.8-7.7); Nucleated Red Blood Cells % 0 %; Platelet Count 364 10^3/cmm (157-399); Red Blood Count 4.44 10^6/uL (3.85-5.65); Red Cell Distribution Width 13.5 % (12.1-15.1); White Blood Count 9.14 10^3/uL (3.29-11.43)
[2024-11-12 19:25] LABS: Troponin(5th) Baseline < 6 ng/L (0-10)
--- NOTE | 2024-11-12 19:25 | ED_ITS ---
HPI - Chest Pain 2 General: Chief Complaint: Chest Pain Stated Complaint: chest pain Time Seen by Provider: 11/12/24 18:55 History of Present Illness: 44-year-old female with history of coron leyla artery disease and stents who presents the emergency room with chest pain. This started about an hour ago. She has taken a couple nitroglycerin. They have helped some. She says she has a tightness in her chest and shortness of breath. She had a similar episode couple days ago that resolved. No nausea or vomiting. No lower extremity swelling. No abdominal pain. No fevers. No cough. Related Data Home Medications Medication Instructions Recorded Confirmed gabapentin 300 mg capsule 600 mg PO BID 10/11/22 10/08/24 pantoprazole 40 mg tablet,delayed 40 mg PO BID 04/01/24 10/08/24 release (Protonix) albuterol sulfate 90 mcg/actuation 1 - 2 puff inhalation .Q4-6H PRN 08/13/24 10/08/24 aerosol inhaler Shortness Of Breath Or Wheezing aspirin 81 mg tablet,delayed 81 mg PO DAILY 08/13/24 10/08/24 release venlafaxine 75 mg capsule,extended 75 mg PO DAILY 08/13/24 10/08/24 release 24 hr Previous Rx's Medication Instructions Recorded ticagrelor 90 mg tablet (Brilinta) 90 mg PO BID #180 tabs 07/08/24 losartan 25 mg tablet 25 mg PO DAILY #90 tabs 09/11/24 nitroglycerin 0.4 mg sublingual 0.4 mg sublingual Q5M PRN chest 09/11/24 tablet pain #25 tabs nicotine 21 mg/24 hr daily 1 patch transdermal DAILY #14 ea 09/13/24 transdermal patch isosorbide mononitrate 30 mg 30 mg PO BID #180 tabs 09/24/24 tablet,extended release 24 hr amlodipine 2.5 mg tablet 2.5 mg PO DAILY #90 tabs 10/08/24 metoprolol succinate 50 mg 50 mg PO BID #180 tabs 10/08/24 tablet,extended release 24 hr atorvastatin 40 mg tablet See Rx Instructions .Route 11/03/24 .COMPLEX #90 tabs Allergies Allergy/AdvReac Type Severity Reaction Status Date / Time No Known Allergies Allergy Verified 10/08/24 09:28 Review of Systems 2 Narrative: Constitutional symptoms: Negative except as documented in HPI. Skin symptoms: Negative except as documented in HPI. Eye symptoms: Negative except as documented in HPI. ENMT symptoms: Negative except as documented in HPI. Respiratory symptoms: Negative except as documented in HPI. Cardiovascular symptoms: Negative except as documented in HPI. Gastrointestinal symptoms: Negative except as documented in HPI. Genitourinary symptoms: Negative except as documented in HPI. Musculoskeletal symptoms: Negative except as documented in HPI. Neurologic symptoms: Negative except as documented in HPI. Psychiatric symptoms: Negative except as documented in HPI. Endocrine symptoms: Negative except as documented in HPI. PFSH ED 2 PFSH: Medical History (Updated 11/12/24 @ 21:52 by Alicia Skelton MD) HTN (hypertension), benign Coronary artery disease Chronic back pain Chronic headache Depression Surgical History H/O oophorectomy History of hysterectomy Social History Smoking and tobacco/nicotine status: former use of tobacco/nicotine Female Reproductive History: Spontaneous abortions: No Physical Exam 2 Narrative: EXAM NARRATIVE: General: Alert, no acute distress. Skin: Warm, dry. Head: Normocephalic, atraumatic. Neck: Supple, trachea midline. Eye: Extraocular movements are intact. Ears, nose, mouth and throat: mucosa moist. Cardiovascular: Regular, Normal peripheral perfusion. Respiratory: Lungs are clear to auscultation, respirations are non-labored, breath sounds are equal, Symmetrical chest wall expansion. Gastrointestinal: Soft, Nontender, Non distended Musculoskeletal: Normal ROM, no deformity. Neurological: Alert and oriented, No focal neurological deficit observed. Psychiatric: Cooperative, appropriate mood & affect. Course 2 Vital Signs: Vital signs: Vital Signs Pulse Rate 61 11/12/24 21:58 Respiratory Rate 21 H 11/12/24 18:57 Blood Pressure 124/80 11/12/24 21:58 Pulse Oximetry 100 11/12/24 21:58 Oxygen Delivery Me thod Room Air 11/12/24 21:58 MDM - Chest Pain Medical Decision Making Differential diagnosis for patient with chest pain includes but is not limited to and based on the above HPI, review of systems and physical exam: Pneumonia. unstable angina. angina. Acute coronary syndrome / [place]. Pulmonary embolism. Costochondritis / musculoskeletal. Pleurisy. Pericarditis. Esophageal spasm. Pancreatis. Cholecystitis. Orders placed to evaluate differential diagnosis based on the above differential, HPI and physical exam EKG: Time 1853. Rate 68. Normal sinus rhythm, No ST-T changes, no ectopy, normal WA & QRS intervals, This was reviewed and interpreted by myself the ER physician at 1857. Chest x-ray: No acute process. No infiltrate. No pneumothorax. This was reviewed and interpreted by myself the emergency room physician. I also reviewed the radiology report. Lab Review: Laboratory results were reviewed and interpreted by myself the emergency room physician. Lab work is unremarkable. No leukocytosis. No anemia. No renal failure. Serial troponins are negative thus far. HEART Pathway for Early Discharge in Acute Chest Pain from [place] on 11/12/2024 All calculations should be rechecked by clinician prior to use RESULT SUMMARY: 4 points HEART Pathway Score High risk 12-65% 30-day MACE Admit to hospital or observation. Further testing indicated. INPUTS: History ?> 2 = Highly suspicious EKG ?> 0 = Normal Age ?> 0 = <45 Risk factors ?> 2 = >= risk factors or history of atherosclerotic disease Initial troponin ?> 0 = <=ormal limit I reviewed the patient's medical record. Reexamination: Patient remained stable. No increased work of breathing. No altered mental status. No focal motor deficits. Patient says that in previous episodes she had this exact same pain and all of her workup was normal including cardiac markers and stress test but she ended up having blockages that required stents. Consultation: I spoke with Dr. Cervantes who agrees to admission to observation. Giving aspirin and Brilinta. Assessment and plan: Chest pain Coronary artery disease Heart score recommends admission. Patient requests admission. I agree. -I discussed the patient with the hospitalist on-call who is admitting the patient. - Discussed findings and plan with patient. Answered any questions. - All laboratory values were reviewed and interpreted personally by myself, the ER physician - All imaging was reviewed and interpreted personally by myself, the ER physician. - Evaluation and treatment of this problem were appropriate in the emergency setting Lab Data 11/12/24 19:00 11/12/24 19:00 Radiology Impressions Chest X-Ray 11/12/24 18:59 IMPRESSION: No acute findings. Laboratory Results WBC 9.14 10^3/uL (3.29-11.43) 11/12/24 19:00 RBC 4.44 10^6/uL (3.85-5.65) 11/12/24 19:00 Hgb 12.80 g/dL (11.27-16.99) 11/12/24 19:00 Hct 39.3 % (36-47) 11/12/24 19:00 MCV 88.5 fl (85-98) 11/12/24 19:00 MCH 28.8 pg (27-33) 11/12/24 19:00 MCHC 32.6 g/dL (30-55) 11/12/24 19:00 RDW 13.5 % (12.1-15.1) 11/12/24 19:00 Plt Count 364 10^3/cmm (157-399) 11/12/24 19:00 MPV 9.7 fL (7.4-10.4) 11/12/24 19:00 Neut % (Auto) 56.0 % 11/12/24 19:00 Lymph % (Auto) 35.1 % 11/12/24 19:00 [place] % (Auto) 7.0 % 11/12/24 19:00 Eos % (Auto) 1.2 % 11/12/24 19:00 Baso % (Auto) 0.3 % 11/12/24 19:00 Neut # (Auto) 5.11 10^3/uL (1.8-7.7) 11/12/24 19:00 Lymph # (Auto) 3.2 10^3/uL (0.8-4.8) 11/12/24 19:00 [place] # (Auto) 0.6 10^3/uL (0.2-0.9) 11/12/24 19:00 Eos # (Auto) 0.1 10^3/uL (0.0-0.8) 11/12/24 19:00 Baso # (Auto) 0.0 10^3/uL (0.0-0.1) 11/12/24 19:00 Nucleated RBC % (auto) 0 % 11/12/24 19:00 Nucleated RBCs # 0.0 /100WBC 11/12/24 19:00 Sodium 140 mmol/L (136-145) 11/12/24 19:00 Potassium 3.9 mmol/L (3.5-5.1) 11/12/24 19:00 Chloride 106 mmol/L (98-107) 11/12/24 19:00 Carbon Dioxide 22 mmol/L (22-29) 11/12/24 19:00 Anion Gap 15.9 (5-19) 11/12/24 19:00 BUN 15 mg/dL (6-20) 11/12/24 19:00 Creatinine 1.0 mg/dL (0.5-0.9) H 11/12/24 19:00 GFR Calculation 60.5 mL/min (90-130) L 11/12/24 19:00 Glucose 98 mg/dL (65-115) 11/12/24 19:00 Calculated Osmolality 291 mOsm/kg (285-295) 11/12/24 19:00 Calcium 9.2 mg/dL (8.5-10.5) 11/12/24 19:00 Total Bilirubin 0.3 mg/dL (0.15-1.2) 11/12/24 19:00 AST 15 U/L (0-32) 11/12/24 19:00 ALT 16 U/L (0-33) 11/12/24 19:00 Alkaline Phosphatase 121 U/L (35-105) H 11/12/24 19:00 Troponin T Baseline < 6 ng/L (0-10) 11/12/24 19:00 Troponin T 120 Minute 6.00 ng/L (0-10) 11/12/24 21:11 Delta Troponin T 0.49495 ABS# (0-10) 11/12/24 21:11 NT-Pro-B Natriuret Pep 93 pg/mL (0-125) 11/12/24 19:00 Total Protein 7.3 g/dL (6.6-8.7) 11/12/24 19:00 Albumin 4.2 g/dL (3.5-5.2) 11/12/24 19:00 Globulin 3.1 g/dL (1.3-4.6) 11/12/24 19:00 All radiology interpretation(s) finalized by discharge Clincial Decision Support The following clinical decision support tools were used to aid in care of the patient HEART Score -> History: Highly Suspicious, EKG: Normal, Age: Less than 45 yrs, Risk Factors: >/=3 Risk Factors, Troponin: Baseline Trop <16 ng/L. Resulting HEART Score: 4. Discharge Plan Discharge Patient Disposition: Placed in Observation Clinical Impression: Chest pain Coronary artery disease Qualifiers: Coronary Disease-Associated Artery/Lesion type: [place] artery [place] vs. transplanted heart: de[place] heart Associated angina: with stable angina Qualified Code(s): I25.118 - Atherosclerotic heart disease of [place] coronary artery with other forms of angina pectoris Coding Level of Care Code ED [employer] Processing Supervisor for Efren Lebron
[2024-11-12 19:32] LABS: Alanine Aminotransferase 16 U/L (0-33); Albumin Level 4.2 g/dL (3.5-5.2); Alkaline Phosphatase 121 U/L (35-105); Anion Gap 15.9 (5-19); Aspartate Amino Transferase 15 U/L (0-32); Blood Urea Nitrogen 15 mg/dL (6-20); Calcium 9.2 mg/dL (8.5-10.5); Carbon Dioxide 22 mmol/L (22-29); Chloride 106 mmol/L (98-107); Creatinine Clr Calc Pharmacy 77.0601; Globulin 3.1 g/dL (1.3-4.6); Glomerular Filtration Rate 60.5 mL/min (90-130); Glucose 98 mg/dL (65-115); NT Pro B Type Natriuretic Pept 93 pg/mL (0-125); Osmolality Calculated 291 mOsm/kg (285-295); Potassium 3.9 mmol/L (3.5-5.1); Sodium 140 mmol/L (136-145); Total Bilirubin 0.3 mg/dL (0.15-1.2); Total Protein 7.3 g/dL (6.6-8.7)
[2024-11-12 19:49] VITALS: BP 126/70; PULSE 61; O2SAT 100
--- NOTE | 2024-11-12 20:59 | ECG_ITS ---
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 Measurements Intervals [place] Rate: 68 P: 62 [place]: 139 QRS: 53 QRSD: 84 T: 55 QT: 401 QTc: 428 Interpretive Statements SINUS RHYTHM Compared to ECG 09/11/2024 15:41:15 No significant changes Electronically Signed On 11-14-2024 18:41:52 CHIEF PETROLEUM ENGINEER by Jerry Aaron M.D. [email or web address]
[2024-11-12 21:39] LABS: Troponin 5 2HR Delta 0.00001 ABS# (0-10)
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
[2024-11-12 21:58] VITALS: BP 124/80; PULSE 61; O2SAT 100
[2024-11-12] MEDS: aspirin 325 mg Tablet PO (21:59)
[2024-11-12] MEDS: ticagrelor 90 mg Tablet PO (21:59)
[2024-11-12 23:19] VITALS: BP 150/70; PULSE 61; O2SAT 98
[2024-11-13] VITALS (10 sets, daily range): BP systolic 103–150; BP diastolic 56–89; PULSE 60–76; RESP 14–17; TEMP 36.6–37.2; O2SAT 98–100
--- NOTE | 2024-11-13 00:09 | PC.NURSE ---
Patient describes current pain as a burning in her stomach. Patient states she has a history of ulcers.
--- NOTE | 2024-11-13 00:17 | PC.NURSE ---
Patient states she wants PNE vaccine and that she has had it before but she is due for it again. Patient does not meet recommendations for PNE vaccine, so PNE vaccine was not ordered.
--- NOTE | 2024-11-13 00:37 | PC.NURSE ---
Addendum entered by Eulalia Hernandez RN 11/13/24 01:25: Patient states her nurse practitioner discontinued her Losartan and put her on Metoprolol instead because the Losartan was making her feel weird. Dr. Gannon notified of this. Original Note: Dr. Gannon notified that patient's home medicaiton list has been updated. Notified that patient states that she does not take Losartan anymore. Notified that patient has Losartan ordered. Ask if she would like this to be given or discontinued.
[2024-11-13] MEDS: atorvastatin 40 mg Tablet 80 MG PO ×2 (00:47→21:00)
--- NOTE | 2024-11-13 00:59 | ECG_ITS ---
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 Measurements Intervals [place] Rate: 64 P: 74 [place]: 169 QRS: 53 QRSD: 93 T: 53 QT: 417 QTc: 433 Interpretive Statements SINUS RHYTHM NONSPECIFIC T-WAVE ABNORMALITY Compared to ECG 11/12/2024 18:53:07 T-wave abnormality now present Electronically Signed On 11-14-2024 18:41:11 CASH MANAGEMENT OFFICER by Jerry Aaron M.D. [email or web address]
[2024-11-13 01:15] LABS: Bilirubin Urine Negative (Negative); Blood Urine Negative (Negative); Glucose Urine UA Negative (Normal); Ketones Urine Negative (Negative); Leukocyte Esterase Urine Negative (Negative); Nitrate Urine Negative (Negative); Protein Urine Negative (Negative); Specific Gravity, Urine 1.029 (1.005-1.030); Urine Appearance Clear (CLEAR); Urine Color Yellow (Yellow); pH Urine 5.5 (5-7)
[2024-11-13 01:20] LABS: Add Urine Microscopic? YES; Bacteria Urine None Seen /hpf; Hyaline Casts Urine 0-4 /lpf; Squamous Epithelial Cell Urine 0-5 /hpf (0-5); WBC Urine 0-5 /hpf (0-5)
[2024-11-13 01:32] LABS: Troponin 5 6HR Delta 0.00001 ng/L (0-12)
--- NOTE | 2024-11-13 01:34 | USCV_ITS ---
Sejal Arias Age: 44 Gender: F : 1980 Exam Date: 11/13/2024 02:06 Ordering Phys: Kena Cervantes MD Technologist: VAUGHN [place] [facility] [place]: hx CAD s/p stenting, now CP, SOB BP: 150 / 70 HR: 59 Rhythm: Sinus Technical Quality: Adequate MEASUREMENTS (Male / Female) Normal Values 2D ECHO LV Diastolic Diameter PLAX 4.7 cm 4.2 - 5.9 / 3.9 - 5.3 cm IVS Diastolic Thickness 1.2 cm 0.6 - 1.0 / 0.6 - 0.9 cm IVS Systolic Thickness 1.4 cm LVPW Diastolic Thickness 1.2 cm 0.6 - 1.0 / 0.6 - 0.9 cm LVPW Systolic Thickness 1.4 cm LVOT Diameter 2.0 cm LV Ejection Fraction 2D Teich 61.6 % LV Ejection Fraction MOD 4C 62.3 % LV Ejection Fraction MOD 2C 59.9 % LV Ejection Fraction 2C AL 62.1 % LA Diameter 3.3 cm LA Sys Volume AL 63.3 cm cubed LA Sys Volume Index AL 30.5 cm cubed/m squared Aorta at Sinotubular Diameter 2.4 cm IVC Diameter 1.6 cm M-MODE LA Ao Ratio MM 1.4 AV Cusp Separation MM 2.0 cm DOPPLER AV Peak Velocity 134.0 cm/s LVOT Peak Velocity 119.0 cm/s AV Area Cont Eq vti 2.9 cm squared AV Area Cont Eq pk 2.9 cm squared MV Peak Velocity 118.0 cm/s MV Area PHT 3.2 cm squared Mitral E to A Ratio 1.6 TV Peak E Velocity 86.0 cm/s PV Peak Velocity 101.0 cm/s FINDINGS Left Ventricle Left ventricle is normal in size. LV systolic function is normal with EF of 55 to 60%. No regional wall motion abnormalities are seen Right Ventricle Normal in size and function. Right Atrium Normal in size. Left Atrium Normal in size. Mitral Valve Structurally normal mitral valve. Mild mitral regurgitation. Aortic Valve Structurally normal aortic valve. No significant stenosis or regurgitation. Tricuspid Valve Insufficient TR jet to calculate RVSP Pulmonic Valve Not well visualized Pericardium Normal Aorta Normal in size IVC Appears to be normal CONCLUSIONS LV systolic function is normal with EF of 55 to 60%. Mild mitral regurgitation Compared to prior echocardiogram from 12/2023, no significant changes seen Jerry Aaron MD (Electronically Signed) Final Date: 13 November 2024 08:27 S
[2024-11-13 01:42] LABS: Amphetamines Screen Urine Negative (Negative); Barbiturates Screen Urine Negative (Negative); Benzodiazepines Screen Urine Negative (Negative); Cocaine Screen Urine Negative (Negative); Opiate Screen Urine Negative (Negative); PCP Screen Urine Negative (Negative); THC Screen Urine Negative (Negative)
[2024-11-13] MEDS: sodium chloride 0.9% 1,000 ML 200 ML IV ×2 (01:44→06:32)
[2024-11-13] MEDS: enoxaparin 100 mg/mL Syringe 90 MG SUBCUT (01:57)
[2024-11-13 02:03] LABS: Free T4 Free Thyroxine 1.25 ng/dL (0.82-1.77); Thyroid Stimulating Hormone 3.28 uIU/mL (0.27-4.20)
[2024-11-13 02:54] LABS: Estmated Average Glucose 108; Hemoglobin A1C 5.4 % (4.0-6.0)
[2024-11-13] MEDS: pantoprazole DR 40 mg Tablet PO ×2 (06:32→17:56)
--- NOTE | 2024-11-13 06:37 | PC.NURSE ---
Kitchen notified of patient's allergy to citrus.
[2024-11-13] MEDS: ticagrelor 90 mg Tablet PO ×2 (09:12→17:55)
[2024-11-13] MEDS: aspirin 81 mg EC Tablet PO (09:12)
--- NOTE | 2024-11-13 11:56 | P.CONIM_ITS ---
Providers/Reason For Consult 2 Consulting Physician/Specialty*: Jerry Aaron MD/ Cardiology Reason for Consult*: Chest pain Requesting Physician: Dr Mathew Attending Physician: Robin Mathew MD Primary Care Provider: Giselle Christianson APN History of Present Illness History of Present Illness Sejal Arias is a 44 year old female with past medical history of CAD with multiple stents who presented to hospital with symptoms of shortness of breath and chest discomfort. Patient had initial stenting to left circumflex artery, LAD and diagonal performed in June 2024. 2 months later she had PCI of diagonal artery again. Per cardiology office notes, her symptoms did not resolve even after that. She says she suddenly feels short of breath. That is her main complaint. No active chest pain at this time. Troponins are negative. EKG not showing ischemic changes. Echo shows normal LV systolic function Review of Systems 2 Card: Reports: chest pain and dyspnea on exertion Resp: Reports: dyspnea Medications/Allergies Home Medications Medication Instructions Recorded Confirmed Last Taken Type gabapentin 300 mg capsule 600 mg PO BID 10/11/22 11/13/24 11/13/24 History pantoprazole 40 mg tablet,delayed 40 mg PO BID 04/01/24 11/13/24 11/13/24 History release (Protonix) ticagrelor 90 mg tablet (Brilinta) 90 mg PO BID #180 tabs 07/08/24 11/13/24 11/13/24 Rx albuterol sulfate 90 mcg/actuation 1 - 2 puff inhalation .Q4-6H PRN 08/13/24 11/13/24 09/11/24 History aerosol inhaler Shortness Of Breath Or Wheezing aspirin 81 mg tablet,delayed 81 mg PO DAILY 08/13/24 11/13/24 11/13/24 History release venlafaxine 75 mg capsule,extended 75 mg PO DAILY 08/13/24 11/13/24 11/13/24 History release 24 hr nitroglycerin 0.4 mg sublingual 0.4 mg sublingual Q5M PRN chest 09/11/24 11/13/24 Unknown Rx tablet pain #25 tabs isosorbide mononitrate 30 mg 30 mg PO BID #180 tabs 09/24/24 11/13/24 11/13/24 Rx tablet,extended release 24 hr amlodipine 2.5 mg tablet 2.5 mg PO DAILY #90 tabs 10/08/24 11/13/24 11/13/24 Rx metoprolol succinate 50 mg 50 mg PO BID #180 tabs 10/08/24 11/13/24 11/13/24 Rx tablet,extended release 24 hr atorvastatin 40 mg tablet See Rx Instructions .Route 11/03/24 11/13/24 1 Day Ago Rx .COMPLEX #90 tabs ~11/12/24 Allergies Allergy/AdvReac Type Severity Reaction Status Date / Time [place] And Derivatives Allergy Severe ALGY-Anaphy Verified 11/13/24 01:48 laxis grapefruit Allergy ALGY-Anaphy Verified 11/13/24 01:48 laxis orange Allergy ALGY-Anaphy Verified 11/13/24 01:48 laxis pineapple Allergy ALGY-Anaphy Verified 11/13/24 01:48 laxis Current Medications Generic Name Dose Route Start Last Admin Trade Name Freq PRN Reason Stop Dose Admin Aspirin 81 mg 11/13/24 09:00 11/13/24 09:12 Aspirin 81 Mg Ec Tablet PO 81 mg DAILY JORGE Administration Atorvastatin Calcium 80 mg 11/13/24 00:25 11/13/24 00:47 Atorvastatin 40 Mg Tablet PO 80 mg BEDTIME JORGE Administration Metoprolol Succinate 50 mg 11/13/24 09:00 11/13/24 11:31 Metoprolol Succinate Er (24 Hr) 50 Mg Tablet PO Not Given BID JORGE Pantoprazole Sodium 40 mg 11/13/24 07:00 11/13/24 06:[address] 40 Mg Tablet PO 40 mg BIDAC JORGE Administration Ticagrelor 90 mg 11/13/24 09:00 11/13/24 09:12 Ticagrelor 90 Mg Tablet PO 90 mg BID JORGE Administration PFSH Acute 2 PFSH: Medical History Suicidal ideation History of nephrolithiasis The patient has never needed a surgical procedure, because she has always passed the kidney stones. Migraine HTN (hypertension), benign Coronary artery disease Chronic back pain Depression Patient states that it was Depression Surgical History History of percutaneous coronary intervention three BERTIN to the mid LAD, Left circumflex and diagnonal one artery in 06/2024. Restenting of the diagonal artery in 08/2024. H/O oophorectomy one ovary. History of hysterectomy Family History Mother CAD (coronary artery disease) Heart disease has one stent Father CAD (coronary artery disease) Heart disease has had 5 heart attacks and has a defibrillator Social History Smoking and tobacco/nicotine status: former use of tobacco/nicotine Alcohol intake: never Substance/Drug Use: never Additional social history: started smoking in 2019, after her divorce Female Reproductive History: Spontaneous abortions: No Vitals/I&O/Wt Last Vital Signs Temp 97.9 F 11/13/24 08:00 Pulse 68 11/13/24 08:00 Resp 14 11/13/24 08:00 BP 103/66 11/13/24 08:00 Pulse Ox 98 11/13/24 08:00 O2 Del Method Room Air 11/13/24 08:00 11/12/24 11/13/24 11/13/24 22:59 06:59 14:59 Intake Total 960 / 960 1000 / 1000 Balance 960 / 960 1000 / 1000 Weight last 48 hrs Weight 202 lb Weight 202 lb Weight 190 lb Physical Exam 2 Narrative: GENERAL: Patient is alert, awake and oriented x3. [] NECK: No jugular vein distension. [] HEENT: No cyanosis. No icterus. No pallor. [] HEART: Regular S1 and S2. No murmur, rub or gallop. [] LUNGS: Clear to auscultate bilaterally. [] CENTRAL NERVOUS SYSTEM: Grossly nonfocal. [] EXTREMITIES: Lower extremities with 1+ edema bilaterally. Data 11/14/24 04:23 11/14/24 04:23 A&P Assessment and plan (1) Chest pain: (2) HTN (hypertension), benign: (3) Coronary artery disease: Qualifiers: Coronary Disease-Associated Artery/Lesion type: [place] artery [place] vs. transplanted heart: [place] heart Associated angina: with stable angina Qualified Code(s): I25.118 - Atherosclerotic heart disease of [place] coronary artery with other forms of angina pectoris (4) Tobacco abuse: (5) Dyspnea on exertion: Plan Patient's symptoms are atypical. No EKG changes or troponin elevation. Echo shows normal LV systolic function. She had recent coronary angiogram. Given her persistent symptoms, we will proceed with stress test. If no large area of ischemia seen, will continue with medical therapy. Shortness of breath can be a side effect from Brilinta. We will switch Brilinta to Effient. High intensity statin therapy Will need outpatient PFTs to assess for pulmonary cause of shortness of breath Thank you for involving us with care of this patient. We will continue to follow. please call with questions. Consult Attestations 2 Medical Necessity Statement: Care expected to cross 2 midnights. Coding Level of Care Code Acute Code for Chg Fwd Diagnoses Chest pain R07.9 HTN (hypertension), benign I10 Coronary artery disease of [place] artery of [place] heart with stable angina pectoris I25.118 Coronary Disease-Associated Artery/Lesion type: [place] artery [place] vs. transplanted heart: [place] heart Associated angina: with stable angina Tobacco abuse Z72.0 Dyspnea on exertion R06.09
[2024-11-13 12:27] LABS: Basophils % 0.6 %; Eosinophils # 0.1 10^3/uL (0.0-0.8); Eosinophils % 1.1 %; Hematocrit 37.4 % (36-47); Lymphocytes # 1.7 10^3/uL (0.8-4.8); Lymphocytes % 31.8 %; Mean Corpuscular HGB Conc 32.4 g/dL (30-55); Mean Corpuscular Hemoglobin 28.7 pg (27-33); Mean Corpuscular Volume 88.6 fl (85-98); Mean Platelet Volume 9.4 fL (7.4-10.4); Monocytes # 0.4 10^3/uL (0.2-0.9); Neutrophils # 3.07 10^3/uL (1.8-7.7); Neutrophils % 58.1 %; Nucleated Red Blood Cells % 0 %; Platelet Count 289 10^3/cmm (157-399); Red Blood Count 4.22 10^6/uL (3.85-5.65); Red Cell Distribution Width 13.3 % (12.1-15.1); White Blood Count 5.28 10^3/uL (3.29-11.43)
[2024-11-13 12:47] LABS: Alanine Aminotransferase 13 U/L (0-33); Albumin Level 3.6 g/dL (3.5-5.2); Alkaline Phosphatase 109 U/L (35-105); Aspartate Amino Transferase 13 U/L (0-32); Blood Urea Nitrogen 11 mg/dL (6-20); Calcium 8.5 mg/dL (8.5-10.5); Carbon Dioxide 21 mmol/L (22-29); Chloride 105 mmol/L (98-107); Chol HDL Ratio 3.71 mg/dL (0.0-4.40); Cholesterol 126 mg/dL (0-200); Creatinine Clr Calc Pharmacy 159.1065; Glomerular Filtration Rate 134.7 mL/min (90-130); Glucose 94 mg/dL (65-115); HDL Cholesterol 34 mg/dL (60-100); LDL Cholesterol Calculated 72 mg/dL (50-129); Osmolality Calculated 281 mOsm/kg (285-295); Sodium 136 mmol/L (136-145); Total Bilirubin 0.5 mg/dL (0.15-1.2); Total Protein 6.6 g/dL (6.6-8.7); Triglycerides 98 mg/dL (0-150); VLDL Cholestrol Calculation 20 mg/dL (0-30)
--- NOTE | 2024-11-13 16:31 | PM.PN ---
Vitals/I&O/Wt Last Vital Signs Temp 98.3 F 11/13/24 15:32 Pulse 63 11/13/24 15:32 Resp 14 11/13/24 15:32 BP 146/83 11/13/24 15:32 Pulse Ox 99 11/13/24 15:32 O2 Del Method Room Air 11/13/24 15:32 11/13/24 11/13/24 11/13/24 06:59 14:59 22:59 Intake Total 960 / 960 1000 / 1000 Balance 960 / 960 1000 / 1000 Weight last 48 hrs Weight 91.626 kg Weight 91.626 kg Weight 86.183 kg Data 11/13/24 12:06 11/13/24 12:06 A&P Assessment and plan (1) Unstable angina: Concerns unstable angina. Had recent PCI to first diagonal with BERTIN on 09/11. Troponin cycle negative. Echocardiogram negative for regional wall motion abnormality, EF of 55 to 60%. Discussed in detail with patient that chances of ACS is very low. Patient is adamant that she has had normal results in the past and her symptoms are very much similar to the past when she had ACS. Could be in setting of bronchospasm as patient is on Brilinta. Care discussed in detail with cardiology on-call. Plan for Lexiscan stress test in AM. Continue with aspirin, statin, Brilinta 90 mg tonight. Will plan to load with prasugrel 60 mg in a.m. on 11/14 and stop Brilinta and transition to prasugrel 10 mg daily from 11/15. Continue with home dose of statin, Imdur, metoprolol. (2) Coronary artery disease: Qualifiers: Coronary Disease-Associated Artery/Lesion type: [place] artery [place] vs. transplanted heart: [place] heart Associated angina: with stable angina Qualified Code(s): I25.118 - Atherosclerotic heart disease of [place] coronary artery with other forms of angina pectoris (3) HTN (hypertension), benign: Goal blood pressure less than 140/90 mmHg. Continue with home dose of Imdur, metoprolol. Uptitrate as for goal blood pressure. (4) Sleep apnea: Plan Patient symptoms of chest pressure could be in setting of sleep apnea. She has been diagnosed with sleep apnea but is not compliant with CPAP. Discussed in detail with the patient. She verbalizes understanding and is agreeable to restart CPAP as at home. Will order CPAP tonight. Restart other home medications. Full code Cardiac diet, n.p.o. after midnight Protonix OPD prophylaxis Lovenox for DVT prophylaxis. Attestations Medical Necessity Statement*: Requires further hospitalization for management of unstable angina in setting of recent CAD while patient awaits Lexiscan stress test is bridged from Brilinta to prasugrel Diagnoses Unstable angina I20.0 Coronary artery disease of [place] artery of [place] heart with stable angina pectoris I25.118 Coronary Disease-Associated Artery/Lesion type: [place] artery [place] vs. transplanted heart: [place] heart Associated angina: with stable angina HTN (hypertension), benign I10 Sleep apnea G47.30
--- NOTE | 2024-11-13 16:33 | ECG_ITS ---
[facility] [facility] [employer] Test Date: 2024-11-14 Pat Name: Sejal Arias Department: Room: 256 Gender: Female Network Support Analyst: : 1980 Requested By: Robin Mathew Order Number: [id number] [place] MD: Jerry Aaron M.D. Interpretive Statements LEXISCAN: Procedure: At the baseline, the blood pressure was 147/81 mmHg with a heart rate of 111 bpm. The electrocardiogram showed normal sinus rhythm, normal axis with normal ST and T's. The Lexiscan was infused over a period of 20 seconds. A total of 0.4 mg of Lexiscan was infused. The stress phase was continued for a total of 5 minutes. Heart rate was at the end of stress phase was 78 bpm and a blood pressure of 134/77 mmHg. The EKG at the peak infusion revealed normal sinus rhythm with no significant ST-T wave changes. Sestamibi was injected 20 seconds after the Lexiscan infusion. Blood pressure at the end of recovery phase was 134/75 mmHg with a heart rate of 72 bpm. Conclusion: 1. Normal EKG response to Lexiscan infusion 2. No Lexiscan induced chest pain or cardiac arrhythmia. 3. Normal blood pressure and heart rate response. 4. Sestamibi/sestamibi perfusion scan pending; see separate report. Electronically Signed On 11-16-2024 21:04:46 INFECTION CONTROL RN by Jerry Aaron M.D. [id number]
[2024-11-13] MEDS: gabapentin 300 mg Capsule 600 MG PO (17:55)
[2024-11-13] MEDS: isosorbide mononitrate ER 30 mg Tablet PO (17:55)
[2024-11-13] MEDS: enoxaparin 40 mg/0.4 mL Syringe SUBCUT (17:55)
[2024-11-13] MEDS: metoprolol succinate ER (24 HR) 50 mg Tablet PO (17:56)
[2024-11-13] MEDS: sennosides 8.6 mg Tablet 17.2 MG PO (21:00)
[2024-11-14] VITALS: BP 126/55; PULSE 64; RESP 16; TEMP 36.7; O2SAT 98
[2024-11-14 04:00] VITALS: BP 113/63; PULSE 66; RESP 16; TEMP 37; O2SAT 99
[2024-11-14 05:27] LABS: Basophils % 0.3 %; Eosinophils # 0.1 10^3/uL (0.0-0.8); Eosinophils % 1.5 %; Hematocrit 35.8 % (36-47); Lymphocytes # 2.3 10^3/uL (0.8-4.8); Lymphocytes % 33.5 %; Mean Corpuscular HGB Conc 32.4 g/dL (30-55); Mean Corpuscular Volume 89.5 fl (85-98); Mean Platelet Volume 9.8 fL (7.4-10.4); Monocytes # 0.6 10^3/uL (0.2-0.9); Monocytes % 8.1 %; Neutrophils # 3.84 10^3/uL (1.8-7.7); Neutrophils % 56.3 %; Nucleated Red Blood Cells % 0 %; Platelet Count 309 10^3/cmm (157-399); Red Cell Distribution Width 13.5 % (12.1-15.1); White Blood Count 6.81 10^3/uL (3.29-11.43)
[2024-11-14 05:50] VITALS: PULSE 69
[2024-11-14 05:52] LABS: Alanine Aminotransferase 14 U/L (0-33); Albumin Level 3.3 g/dL (3.5-5.2); Alkaline Phosphatase 101 U/L (35-105); Anion Gap 13.5 (5-19); Aspartate Amino Transferase 15 U/L (0-32); Blood Urea Nitrogen 11 mg/dL (6-20); Calcium 8.3 mg/dL (8.5-10.5); Carbon Dioxide 22 mmol/L (22-29); Chloride 108 mmol/L (98-107); Creatinine Clr Calc Pharmacy 113.6475; Globulin 2.7 g/dL (1.3-4.6); Glomerular Filtration Rate 91.3 mL/min (90-130); Glucose 124 mg/dL (65-115); Osmolality Calculated 291 mOsm/kg (285-295); Potassium 3.5 mmol/L (3.5-5.1); Sodium 140 mmol/L (136-145); Total Bilirubin 0.2 mg/dL (0.15-1.2)
[2024-11-14] MEDS: pantoprazole DR 40 mg Tablet PO (06:21)
[2024-11-14] MEDS: regadenoson 0.4 Mg/5 ml Syringe IVP (07:55)
[2024-11-14] MEDS: ondansetron 2 mg/ML SDV 2 mL 4 MG IVP (07:55)
[2024-11-14 08:15] VITALS: BP 134/75; PULSE 69
--- NOTE | 2024-11-14 08:20 | PM.PN ---
Subjective Subjective: Patient is chest pain free. Had stress test not showing significant ischemia Vitals/I&O/Wt Last Vital Signs Temp 98.6 F 11/14/24 04:00 Pulse 69 11/14/24 08:15 Resp 16 11/14/24 04:00 BP 134/75 11/14/24 08:15 Pulse Ox 99 11/14/24 04:00 O2 Del Method Room Air 11/14/24 04:00 11/13/24 11/14/24 11/14/24 22:59 06:59 14:59 Intake Total 600 / 1600 Balance 600 / 1600 Weight last 48 hrs Weight 202 lb Weight 202 lb Weight 202 lb Weight 190 lb Physical Exam Narrative: GENERAL: Patient is alert, awake and oriented x3. [] NECK: No jugular vein distension. [] HEENT: No cyanosis. No icterus. No pallor. [] HEART: Regular S1 and S2. No murmur, rub or gallop. [] LUNGS: Clear to auscultate bilaterally. [] CENTRAL NERVOUS SYSTEM: Grossly nonfocal. [] EXTREMITIES: Lower extremities with 1+ edema bilaterally. Data 11/14/24 04:23 11/14/24 04:23 A&P Assessment and plan (1) Chest pain: (2) HTN (hypertension), benign: (3) Coronary artery disease: Qualifiers: Coronary Disease-Associated Artery/Lesion type: [place] artery [place] vs. transplanted heart: [place] heart Associated angina: with stable angina Qualified Code(s): I25.118 - Atherosclerotic heart disease of [place] coronary artery with other forms of angina pectoris (4) Tobacco abuse: (5) Dyspnea on exertion: Plan Stress test not showing significant ischemia. Medical therapy. Brilinta switched to effient High intensity statin therapy Will need outpatient PFTs to assess for pulmonary cause of shortness of breath Thank you for involving us with care of this patient. Patient is stable to be discharged from cardiology standpoint. please call with questions. Attestations Medical Necessity Statement*: Care expected to cross 2 midnights. Coding Level of Care Code Acute Code for [facility] Diagnoses Chest pain R07.9 HTN (hypertension), benign I10 Coronary artery disease of [place] artery of [place] heart with stable angina pectoris I25.118 Coronary Disease-Associated Artery/Lesion type: [place] artery [place] vs. transplanted heart: [place] heart Associated angina: with stable angina Tobacco abuse Z72.0 Dyspnea on exertion R06.09
--- NOTE | 2024-11-14 08:55 | PC.CHAP ---
Pastoral Care Encounter/Spiritual Assessment Type of Contact [] Declined mobile heavy equipment mechanic visit [] Patient/Family/Request visit [] Outpatient visit [] Follow-up visit [] Physician referral [] Code/Alert [x] Routine visit [] Staff referral [] Actively dying [] Patient sleeping [] Family support [] [X] Out of room [] Palliative care [] [] Receiving care in room [] Pre-surgical visit [] Trauma [] Long length of stay [] ICU visit [] Other: Gone for testing Relational/Emotional Strength [] Patient feels connected with others/family/visitors/staff [] Distress [] Loneliness/isolation [] Abandonment Spirituality of Patient [] Person of Kait [] Attends Religion of their Kait [] Believes in Prayer [] Reads Bible or Mosque materials [] There are Spiritual issues to be addressed Television Writer Interventions [] Prayer [] Active listening [] Non-anxious presence [] Spiritual/emotional support [] Crisis/trauma care [] Spiritual counseling [] Bereavement support [] Provided bereavement packet [] Provided Bible/devotional materials [] Provided toy/stuffed animal, coloring book to patient or family member [] Provided Communion [] Anointing/[place] [] Salvation [] Completed spiritual assessment [] Other: Impact on Illness or Injury [] Angry [] Fearful [] Anxious [] Often cries [] Exhaustion [] Unable to work [] Unable to attend episcopal [] Unable to walk/stand [] Unable to read [] Unable to drive [] Unable to eat/drink [] Unable to sleep [] Unable to be with family [] Patient intubated [] Other: Summary Time spent with patient
--- NOTE | 2024-11-14 09:48 | PC.NURSE ---
pt to stress test at approx 0715 and back in room at approx 0945
[2024-11-14] MEDS: gabapentin 300 mg Capsule 600 MG PO (09:52)
[2024-11-14] MEDS: metoprolol succinate ER (24 HR) 50 mg Tablet PO (09:52)
[2024-11-14] MEDS: aspirin 81 mg EC Tablet PO (09:53)
[2024-11-14] MEDS: venlafaxine ER (24HR) 75 mg Capsule PO (09:53)
[2024-11-14] MEDS: isosorbide mononitrate ER 30 mg Tablet PO (09:53)
[2024-11-14] MEDS: prasugrel 10 MG Tablet 60 MG PO (09:56)
--- NOTE | 2024-11-14 10:24 | PM.DCS ---
Discharge Providers Date of Admission: 11/13/24 00:05 Date of Discharge: November 14, 2024 Attending Provider at Admission: Kena Cervantes MD Attending Provider at Discharge: Robin Mathew MD Primary Care Provider: Giselle Christianson APN Diagnoses at Discharge Discharge Diagnosis (1) Chest pain: Status: Acute (2) HTN (hypertension), benign: Status: Acute (3) Coronary artery disease: Status: Acute Qualifiers: Associated angina: with stable angina Coronary Disease-Associated Artery/Lesion type: [place] artery [place] vs. transplanted heart: [place] heart Qualified Code(s): I25.118 - Atherosclerotic heart disease of [place] coronary artery with other forms of angina pectoris (4) Tobacco abuse: Status: Acute (5) Dyspnea on exertion: Status: Acute Reason for Visit Reason for Visit: chest pain Brief History: History as per HPI: Sejal Arias is a 44 year old female w/ migraine headaches, tobacco use until CAD s/p BERTIN x 3 to the mid LAD, LCx, and the first diagonal artery, in 06/2024 s/p [facility] for persistent CP/SOB, resulting in another stent distal to the first diagonal artery on 09/12/2024, who presents to [facility] on 11/12/2024 with complaints of chest pain (CP) that began on 11/09/2024. The patient states that after her collapsed stent in 08/2024 that required restenting, she felt great until 11/09/2024, when she began to experience CP that lasted for 2 hours despite 3 tabs of NTG while at work. The next day, the patient stated that she experienced chest tightness and shortness of breath, especially if she walked more than 2 feet, all day, but she did not take any NTG. Today, while walking from her house to her truck, a distance of about 15 feet, the patient experienced substernal chest pain, that felt like a vice was squeezing her, associated with SOB. In addition, she endorses that her CP radiated to her right jaw. She endorses dizziness, lightheadedness, trembling, and palpitations. She took 2 tabs of NTG five mins apart. She then noticed that her L. arm arm started tingling, then her R. arm started tingling, so she had her son drive her here to the ED. She states that in the lobby, while checking in, she complained of feeling dizzy, and she believes that she lost consciousness, because she does not remember being brought into the room in the ED. She remembers waking up and noticing a IV line in her arm. She denies fevers, chills, visual disturbances, abdominal pain, nausea, vomiting, nasal congestion, nasal discharge, melena, hematochezia, dysuria, hematuria. She does endorse that she started noticing that she had brown urine, yesterday 11/11, and given that she has a kidney stones, and leftover antibiotics, from previous genitourinary infections that she did not complete, she started self treating with Bactrim yesterday. In the ED, her vitals were significant for BP of 158/99 mmHg and RR of 21. Her EKG showed NSR w/ no ST changes and her Trop T were neg x 2. Her renal fx was concerning for an TIAGO. Her CXR was negative. She was given full dose aspirin and her evening dose of Brilinta prior to admission. Hospital Course Hospital Course Patient was admitted for further evaluation and management of possible chest pain. She underwent Lexiscan stress test on 11/14 which was negative for any acute ischemia. Echocardiogram was done which showed normal EF without regional wall motion abnormality. Patient troponin cycled during hospitalization remained unremarkable. It is believed patient symptoms could be in setting of allergic reaction to Brilinta hence she was transitioned over to Effient. Patient last dose of Brilinta was on 11/13. She received full dose loading for Effient on 11/14 and morning. Patient is also advised to follow-up with the PCP as an outpatient for possible sleep study and pulmonary function test. Discharge plan were discussed in detail with the patient all the questions were answered. Physical Exam Const: GENERAL APPEARANCE: cooperative and comfortable NUTRITIONAL APPEARANCE: overweight ORIENTATION/CONSCIOUSNESS: Yes awake, Yes oriented to person, Yes oriented to place and Yes oriented to time HENMT: COMMON NORMALS: normocephalic, atraumatic, external ears normal and Normal external nose present HEAD & SCALP: normocephalic and atraumatic NOSE: Normal external nose present EXTERNAL EAR: Yes external ears normal MOUTH: Normal oral and palatal mucosa present THROAT: posterior oropharynx normal Eye: COMMON NORMALS: Equal, round and reactive pupils present and conjunctivae normal CONJUNCTIVA: Yes conjunctivae normal PUPIL: Yes Equal, round and reactive pupils present EOM: No EOM abnormal Neck/C-Spine: COMMON NORMALS: Thyroid normal GENERAL: Yes normal visual inspection and Yes trachea midline THYROID: Thyroid normal CAROTIDS: No bruit CERVICAL SPINE: Yes cervical ROM normal Lymph: OTHER: No cervical or supraclavicular LAD. Resp: OTHER: CTAB w/ no w/r/r. Cardio: OTHER: RRR, no m/r/g GI: OTHER: BS+, NT, ND, no rigidity, no guarding, no rebound tenderness, no hepatosplenomegaly. Extremity: GENERAL: No clubbing, No cyanosis and No edema Neuro: SENSORIUM/ORIENTATION: Yes oriented to person, Yes oriented to place and Yes oriented to time CRANIAL NERVES: Yes CN normal except as noted SPEECH: speech normal SENSORY EXAM: No sensory level loss detected MOTOR EXAM: 5/5 motor strength present throughout and Normal motor muscle tone present throughout Psych: COMMON NORMALS: Normal thought process present and speech normal APPEARANCE: Yes grossly normal ATTITUDE: Yes calm and Yes engaged ACTIVITY/MOTOR BEHAVIOR: Yes appropriate eye contact SPEECH: Yes normal speech MOOD & AFFECT: Yes euthymic mood THOUGHT PROCESS: Normal thought process present THOUGHT CONTENT: Yes Normal thought content present ATTENTION/CONCENTRATION: Yes attention grossly intact MEMORY/COGNITION: Yes memory grossly intact Skin: COMMON NORMALS: no rashes or lesions noted GENERAL SKIN EXAM: no rashes or lesions noted Discharge Data Studies Completed and Pending Completed Studies During Hospitalization Category Date Time Status Sestamibi Stress Test Request Routine Exams 11/13/24 16:33 Draft XR chest 1V portable [id number] Stat Exams 11/12/24 18:59 Completed NM deann perf SPECT r/s* [id number] Routine Nuc Med 11/14/24 16:33 Completed CV. echo complete* [id number] Routine Ultrasound 11/13/24 01:34 Completed Pending at discharge Category Date Time Status Complete Blood Count w/Auto AM LABS Lab 11/15/24 04:00 Ordered Comprehensive Metabolic Panel AM LABS Lab 11/15/24 04:00 Ordered Radiology Impressions Chest X-Ray 11/12/24 18:59 IMPRESSION: No acute findings. Lexiscan stress test: PERFUSION FINDINGS SPECT images demonstrate homogeneous tracer distribution throughout the myocardium. FUNCTIONAL RESULTS (calculated via Gated SPECT) Stress Image LV EF (%): 68 Stress EDV (mL):111 TID: 1.34 Stress ESV (mL):35 FUNCTIONAL FINDINGS: There is normal left ventricular systolic function. TID ratio is elevated. IMPRESSIONS 1. Normal myocardial perfusion imaging with no evidence of ischemia. 2. LV systolic function is normal 3. TID ratio is elevated but in absence of significant perfusion abnormalities, significance of this finding is equivocal. Jerry Aaron MD (Electronically Signed) Final Date: 14 November 2024 09:44 Echocardiogram: CONCLUSIONS LV systolic function is normal with EF of 55 to 60%. Mild mitral regurgitation Compared to prior echocardiogram from 12/2023, no significant changes seen Jerry Aaron MD (Electronically Signed) Final Date: 13 November 2024 Laboratory Results WBC 6.81 10^3/uL (3.29-11.43) 11/14/24 04:23 RBC 4.00 10^6/uL (3.85-5.65) 11/14/24 04:23 Hgb 11.60 g/dL (11.27-16.99) 11/14/24 04:23 Hct 35.8 % (36-47) L 11/14/24 04:23 MCV 89.5 fl (85-98) 11/14/24 04:23 MCH 29.0 pg (27-33) 11/14/24 04:23 MCHC 32.4 g/dL (30-55) 11/14/24 04:23 RDW 13.5 % (12.1-15.1) 11/14/24 04:23 Plt Count 309 10^3/cmm (157-399) 11/14/24 04:23 MPV 9.8 fL (7.4-10.4) 11/14/24 04:23 Neut % (Auto) 56.3 % 11/14/24 04:23 Lymph % (Auto) 33.5 % 11/14/24 04:23 [place] % (Auto) 8.1 % 11/14/24 04:23 Eos % (Auto) 1.5 % 11/14/24 04:23 Baso % (Auto) 0.3 % 11/14/24 04:23 Neut # (Auto) 3.84 10^3/uL (1.8-7.7) 11/14/24 04:23 Lymph # (Auto) 2.3 10^3/uL (0.8-4.8) 11/14/24 04:23 [place] # (Auto) 0.6 10^3/uL (0.2-0.9) 11/14/24 04:23 Eos # (Auto) 0.1 10^3/uL (0.0-0.8) 11/14/24 04:23 Baso # (Auto) 0.0 10^3/uL (0.0-0.1) 11/14/24 04:23 Nucleated RBC % (auto) 0 % 11/14/24 04:23 Nucleated RBCs # 0.0 /100WBC 11/14/24 04:23 Sodium 140 mmol/L (136-145) 11/14/24 04:23 Potassium 3.5 mmol/L (3.5-5.1) 11/14/24 04:23 Chloride 108 mmol/L (98-107) H 11/14/24 04:23 Carbon Dioxide 22 mmol/L (22-29) 11/14/24 04:23 Anion Gap 13.5 (5-19) 11/14/24 04:23 BUN 11 mg/dL (6-20) 11/14/24 04:23 Creatinine 0.7 mg/dL (0.5-0.9) 11/14/24 04:23 GFR Calculation 91.3 mL/min (90-130) 11/14/24 04:23 Glucose 124 mg/dL (65-115) H 11/14/24 04:23 Estimat Average Glucose 108 11/12/24 19:00 Hemoglobin A1c 5.4 % (4.0-6.0) 11/12/24 19:00 Calculated Osmolality 291 mOsm/kg (285-295) 11/14/24 04:23 Calcium 8.3 mg/dL (8.5-10.5) L 11/14/24 04:23 Total Bilirubin 0.2 mg/dL (0.15-1.2) 11/14/24 04:23 AST 15 U/L (0-32) 11/14/24 04:23 ALT 14 U/L (0-33) 11/14/24 04:23 Alkaline Phosphatase 101 U/L (35-105) 11/14/24 04:23 Troponin T Baseline < 6 ng/L (0-10) 11/12/24 19:00 Troponin T 120 Minute 6.00 ng/L (0-10) 11/12/24 21:11 Delta Troponin T 0.94758 ABS# (0-10) 11/12/24 21:11 Troponin T Hi Sens 6Hr 6.00 ng/L (0-10) 11/13/24 01:05 Troponin T Hi Sens 6Hr Delta 0.98319 ng/L (0-12) 11/13/24 01:05 NT-Pro-B Natriuret Pep 93 pg/mL (0-125) 11/12/24 19:00 Total Protein 6.0 g/dL (6.6-8.7) L 11/14/24 04:23 Albumin 3.3 g/dL (3.5-5.2) L 11/14/24 04:23 Globulin 2.7 g/dL (1.3-4.6) 11/14/24 04:23 Triglycerides 98 mg/dL (0-150) 11/13/24 12:06 Cholesterol 126 mg/dL (0-200) 11/13/24 12:06 LDL Cholesterol, Calc 72 mg/dL (50-129) 11/13/24 12:06 Total VLDL Cholesterol 20 mg/dL (0-30) 11/13/24 12:06 HDL Cholesterol 34 mg/dL (60-100) L 11/13/24 12:06 Cholesterol/HDL Ratio 3.71 mg/dL (0.0-4.40) 11/13/24 12:06 TSH 3.28 uIU/mL (0.27-4.20) 11/13/24 01:05 Free T4 1.25 ng/dL (0.82-1.77) 11/13/24 01:05 Urine Color Yellow (Yellow) 11/13/24 01:03 Urine Appearance Clear (CLEAR) 11/13/24 01:03 Urine pH 5.5 (5-7) 11/13/24 01:03 Ur Specific [place] 1.029 (1.005-1.030) 11/13/24 01:03 Urine Protein Negative (Negative) 11/13/24 01:03 Urine Glucose (UA) Negative (Normal) 11/13/24 01:03 Urine Ketones Negative (Negative) 11/13/24 01:03 Urine Blood Negative (Negative) 11/13/24 01:03 Urine Nitrate Negative (Negative) 11/13/24 01:03 Urine Bilirubin Negative (Negative) 11/13/24 01:03 Urine Urobilinogen 1.0 mg/dL (Negative) 11/13/24 01:03 Ur Leukocyte Esterase Negative (Negative) 11/13/24 01:03 Urine RBC 3-5 /hpf (0-2) 11/13/24 01:03 Urine WBC 0-5 /hpf (0-5) 11/13/24 01:03 Ur Squamous Epith Cells 0-5 /hpf (0-5) 11/13/24 01:03 Amorphous Sediment Not Reportable 11/13/24 01:03 Urine Bacteria None seen /hpf (NONE) 11/13/24 01:03 Hyaline Casts 0-4 /lpf H 11/13/24 01:03 Urine Opiates Screen Negative ng/mL (Negative) 11/13/24 01:03 Ur Barbiturates Screen Negative ng/mL (Negative) 11/13/24 01:03 Ur Phencyclidine Scrn Negative ng/mL (Negative) 11/13/24 01:03 Ur Amphetamines Screen Negative ng/mL (Negative) 11/13/24 01:03 U Benzodiazepines Scrn Negative ng/mL (Negative) 11/13/24 01:03 Urine Cocaine Screen Negative ng/mL (Negative) 11/13/24 01:03 U Marijuana (THC) Screen Negative ng/mL (Negative) 11/13/24 01:03 Vitals Last Vital Signs Temp 98.6 F 11/14/24 04:00 Pulse 69 11/14/24 08:15 Resp 16 11/14/24 04:00 BP 134/75 11/14/24 08:15 Pulse Ox 99 11/14/24 04:00 O2 Del Method Room Air 11/14/24 04:00 Discharge Plan Discharge Patient Disposition: Home Condition: Stable Prescriptions: New prasugrel [Effient] 10 mg tablet 10 mg PO DAILY Qty: 30 3RF Continued gabapentin 300 mg capsule 600 mg PO BID pantoprazole [Protonix] 40 mg tablet,delayed release (DR/EC) 40 mg PO BID metoprolol succinate 50 mg tablet extended release 24 hr 50 mg PO BID Qty: 180 5RF nitroglycerin 0.4 mg tablet, sublingual 0.4 mg sublingual Q5M PRN (Reason: chest pain) Qty: 25 2RF Rx Instructions: do not exceed 3 doses per episode isosorbide mononitrate 30 mg tablet extended release 24 hr 30 mg PO BID Qty: 180 3RF atorvastatin 40 mg tablet See Rx Instructions .ROUTE .COMPLEX Qty: 90 3RF Dose Instruction: TAKE 2 TABLETS BY MOUTH AT BEDTIME Rx Instructions: TAKE 2 TABLETS BY MOUTH AT BEDTIME (totally 80 mg) aspirin 81 mg Tablet,Delayed Release (Dr/Ec) 81 mg PO DAILY albuterol sulfate 90 mcg/actuation HFA aerosol inhaler 1 - 2 puff INHALATION .Q4-6H PRN (Reason: Shortness Of Breath Or Wheezing) venlafaxine 75 mg capsule,extended release 24hr 75 mg PO DAILY Discontinued Brilinta 90 mg tablet 90 mg PO BID Qty: 180 3RF amlodipine 2.5 mg tablet 2.5 mg PO DAILY Qty: 90 1RF Discharge Orders: Discharge Order (Routine); Ordered 11/14/24 Ordered By: Robin Mathew Other Ambulatory Orders: Pulmonary Function Screen with Bronchodilator (Routine) Timeframe: 1 Week Facility: [facility] - Location: Respiratory Therapy Ordered By: Robin Mathew Sleep Study W Sleep Stage (Routine) Timeframe: 1 Week Facility: [facility] - Location: [facility] Ordered By: Robin Mathew Referrals: Teresita Laureano FLIGHT CONTROL MANAGER [Nurse Practitioner] - 7-10 days (We have notified your physician's clinic of the need for a follow-up appointment to be scheduled. If you have not heard from them within the next 2 business days, please call them directly. ) Giselle Christianson APN [Primary Care Provider] - 11/24/24 9:40 am Discharge Diet: Cardiac Discharge Activity: Resume usual activity and Increase activity as tolerated Patient Instructions: Prasugrel (By mouth) (Effient), Angina (DC), Opioid Safety Activity Restrictions/Additional Instructions: Goal blood pressure less than 140/90 mmHg. Please check your blood pressure daily at home maintain a blood pressure diary. Do not take Brilinta anymore. Instead take prasugrel 10 mg oral daily. Follow-up with a primary care provider on set appointment and nurse practitioner on cardiology office within next 2 weeks. You should have an outpatient sleep study and pulmonary function test at the earliest. Discharge Attestations Time Spent in Discharge Care*: greater than 30 min Specific Discharge Activities: educating patient, discussing with pcp/other providers, discussing with case filler/social workers/dc planners, documenting/other paperwork and evaluating patient/reviewing data Status at Discharge: Cognitive status at discharge: cognitively intact, Behavioral status at discharge: cooperative, Functional status at discharge: independent ambulation, Overall status at discharge: patient is back to baseline Quality Metrics Clinical Quality Measures [ No reported AMI, CVA or VTE this stay] Coding Level of Care Code 70324 Total time (in minutes) for Discharge: 60 Diagnoses Chest pain R07.9 HTN (hypertension), benign I10 Coronary artery disease of [place] artery of [place] heart with stable angina pectoris I25.118 Associated angina: with stable angina Coronary Disease-Associated Artery/Lesion type: [place] artery [place] vs. transplanted heart: [place] heart Tobacco abuse Z72.0 Dyspnea on exertion R06.09
[2024-11-14 11:06] VITALS: BP 163/68; PULSE 63; RESP 15; TEMP 37.1; O2SAT 99
--- NOTE | 2024-11-14 16:33 | NMCV_ITS ---
NM deann perf SPECT r/s* [id number] Sejal Arias Age: 44 Gender: F : 1980 Exam Date: 11/14/2024 16:33 Ordering Phys: Robin Mathew MD Technologist: ABEL Epperson Exam Location: [facility] Indications: cp STRESS TEST Please see separate stress test report in [facility] for full findings IMAGE PROTOCOL Rest/Stress 1 Lexiscan Day Radiopharmaceutical Dose (mCi) Administration Site Administered by Rest: Tc-99m 10.7 IV Yoli Valentino, QUANTITATIVE DEVELOPER Sestamibi Stress:Tc-99m 32.9 IV Yoli Duckworthgle, QUANTITATIVE DEVELOPER Sestamibi Rest: 14-Nov-2024 60 Discovery 630 Stress: 14-Nov-2024 30 Discovery 630 0.4mg Lexiscan. Images obtained in supine and prone position. SPECT RESULTS Technical Quality: Good Raw Data Analysis: Bowel uptake, Image Corrections: No attenuation or motion correction applied Summed Stress Score: 0 Summed Rest Score: 0 Summed Difference Score: 0 PERFUSION FINDINGS SPECT images demonstrate homogeneous tracer distribution throughout the myocardium. FUNCTIONAL RESULTS (calculated via Gated SPECT) Stress Image LV EF (%): 68 Stress EDV (mL):111 TID: 1.34 Stress ESV (mL):35 FUNCTIONAL FINDINGS: There is normal left ventricular systolic function. TID ratio is elevated. IMPRESSIONS 1. Normal myocardial perfusion imaging with no evidence of ischemia. 2. LV systolic function is normal 3. TID ratio is elevated but in absence of significant perfusion abnormalities, significance of this finding is equivocal. Jerry Aaron MD (Electronically Signed) Final Date: 14 November 2024 09:44 S
== END 2024-11-14 12:30 | disposition home or self-care (01) ==
LOC: ER 21:52 → MEDSURG 11-13 00:05
PROVIDERS: Admitting Provider Internal Medicine; Emergency Provider Emergency Medicine; PCP Nurse Practitioner Family; Visit Provider Student in an Organized Health Care Education/Training Program
DX: I25.118 Atherosclerotic heart disease of native coronary artery with other forms of angina pectoris (principal); G43.001 Migraine without aura, not intractable, with status migrainosus; I10 Essential (primary) hypertension; Z95.5 Presence of coronary angioplasty implant and graft; E78.5 Hyperlipidemia, unspecified; K21.9 Gastro-esophageal reflux disease without esophagitis; N17.9 Acute kidney failure, unspecified; F17.210 Nicotine dependence, cigarettes, uncomplicated; G47.30 Sleep apnea, unspecified
CPT/HCPCS: 36415; 71045; 78452; 80053; 80061; 80306; 81001; 83036; 83880; 84439; 84443; 84484; 85025; 93005; 93017; 93306; 96361; 96372; 96374; 96375; 99285; A9500; G0378; J1650; J2405; J2785; J7030

== ENCOUNTER → 2024-11-27 11:49 | Outpatient (BNVA) | payer OTHER, SELFPAY | PROVIDERS: PCP Nurse Practitioner Family; Visit Provider Nurse Practitioner Family | DX: M79.671 Pain in right foot (principal) | CPT/HCPCS: 73630 ==

== ENCOUNTER 2024-12-03 06:55 | Outpatient (CLI) | payer OTHER, SELFPAY ==
[2024-12-03 07:30] VITALS: PULSE 60; RESP 18; O2SAT 98
[2024-12-03] MEDS: albuterol 2.5 mg/3 mL Neb INHALATION (07:30)
[2024-12-03 07:35] VITALS: PULSE 66
== END 2024-12-03 06:56 | disposition home or self-care (01) ==
LOC: RT 06:55
PROVIDERS: PCP Nurse Practitioner Family; Visit Provider Nurse Practitioner Family
DX: Z72.0 Tobacco use (principal)
CPT/HCPCS: 94060; J7613

== ENCOUNTER 2025-05-23 15:24 | Emergency (ER) | payer SELFPAY ==
--- OUTSIDE RECORDS SUMMARY | 2025-05-23 15:34 | XMS_ITS | Patient Health Record ---
Author Organization [facility] Address [address] [place] [address] Care Team Providers Care Learning Consultant Name Role Phone [facility] Primary Care Provider [facility] Unavailable Unavailable Allergies No Known Allergies Results Component Value Reference Range Notes RA Factor 96899, 17758 Reviewed date:03/30/2025 12:32:52 PM Interpretation: Performing Lab: Notes/Report: Diagnosis Description: Pain in unspecified joint RA Factor <3.5 .0-14.0 IU/mL Result less th an 10 Iu/ml will be considered as Negative. [place] 52116 Reviewed date:03/30/2025 12:32:37 PM Interpretation: Performing Lab: Notes/Report: Diagnosis Description: Pain in unspecified joint CRP <0.5 .40-1.00 MG/DL Uric Acid (B) 27715 Reviewed date:03/30/2025 12:33:06 PM Interpretation: Performing Lab: Notes/Report: Diagnosis Description: Pain in unspecified joint Uric Acid 5.1 2.6-6.0 MG/DL Thyroid Stimulating Hormone (TSH) 58571 Reviewed date:03/30/2025 12:31:15 PM Interpretation: Performing Lab: Notes/Report: Diagnosis Description: Encounter for screening for other suspected endocrine disorder TSH 1.099 .358-3.740 MlU/ML Sedimentation Rate 28506 Reviewed date:03/30/2025 12:33:22 PM Interpretation: Performing Lab: Notes/Report: Diagnosis Description: Pain in unspecified joint Sed Rate 10 0-20 MM/HR Lipid Panel Reflex DLDL 8006 1, 10900 Reviewed date:03/30/2025 12:31:46 PM Interpretation: Performing Lab: Notes/Report: Diagnosis Description: Encounter for screening for lipoid disorders Trig 116 Very high >=500 Desirable <150 Children: Female 10-14 yr 37-131 5-9 yr 30-101 0-4 yr 22-99 15-19 yr 37-148 5-9 yr 32-105 0-4 yr 34-112 15-19 yr 39-132 High 200-499 Adults: >20yrs Classification Guidelines:Triglycerides 10-14 yr 32-125 Borderline High 150-199 Children: Male Chol 164 <=200 MG/DL HDL 53 39-96 MG/DL Male: 15-19y 30-63 5-9y 36-73 Female: Reference Ranges:HDL 10-14y 37-74 15-19y 35-74 10-14y 37-70 >=20y 40-59 >=20y 40-59 5-9y 38-75 CH/HDL 3.1 0.0-4.9 RATIO LDL 88 0-130 MG/DL LDL result is i naccurate , if Trig is >400 mg/dl. See DLDL result. Hemoglobin A1c 60100 Reviewed date:03/30/2025 12:32:23 PM Interpretation: Performing Lab: Notes/Report: Diagnosis Description: Hyperglycemia, unspecified Hgb A1c 5.4 3.8-6.4 % Interpretation Of Hgb A1c: 4.5-6.2 % nondiabetics. >7.0 % diabetics. EAG 108 Estimated [place] Glucose(EAG). Comprehensive Metabolic Pane l (CMP) 83596 Reviewed date:03/30/2025 12:31:32 PM Interpretation: Performing Lab: Notes/Report: Diagnosis Description: Essential (primary) hypertension Glucose Serum 98 71-110 MG/DL Testing perfor med at [facility], [address] [place] [address] [place] [address]. CLIA ID#: [id number] BUN 13 7-21 MG/DL Creat .61 .51-1.17 MG/DL Use of this assay is not recommended for patients undergoing treatment with phenindione, due to the potential for falsely depressed results. R-dotdhg-q-benzoquinone imine (NAPQI) is a metabolite of acetaminophen, NAPQI concentrations of apparoximately 10 mg/L correlation to toxic levels of acetaminophen demonstrates a greater than or equil to 10% change in results. NAPQI concentrations greater than this may lead to falsely depressed results for patient samples. GFR 113.1 Calculation per formed from GFR calculator provided by the [employer]. Glomerular Filtration rate(GRF) is the best overall index of kidney function. Normal GFR varies according to age,sex, body size, and declines with age. The National Kidney Foundation recommends using the CKD-EPI Creatinine Equation(2020) to estimate GFR. BUN/Creat Ratio 21.3 12.0-20.0 % Total Protein 7.3 5.8-8.0 G/DL Albumin 4.5 3.2-4.8 G/DL Globulin 2.8 2.3-3.5 G/DL Alb/Glob 1.6 0.8-2.2 Calcium 9.2 8.7-10.4 MG/DL Sodium 140 136-145 MMOL/L Potassium 4.4 3.5-5.1 MMOL/L Chloride 106 98-107 MMOL/L CO2 28.2 20.0-31.0 MMOL/L Anion Gap 10 5-15 Alk Phos 132 46-116 Bili Total .4 .3-1.2 MG/DL Use of this ass ay is not recommended for patients undergoing treatment with eltrombopag due to the potential for falsely elevated results. AST/SGOT 39 15-37 UNIT/L ALT/SGPT 54 12-78 UNIT/L Osmo Serum,Calculated 290 280-300 MOSM/KG CBC w\ Auto Diff 73877 Reviewed date:03/30/2025 12:32:06 PM Interpretation: Performing Lab: Notes/Report: Diagnosis Description: Essential (primary) hypertension WBC 5.5 4.5-11.0 X10'3 RBC 4.48 4.00-5.20 X10'6 Hgb 12.7 12.0-16.0 G/DL Hct 41.3 36.0-46.0 % MCV 92.2 80.0-100.0 FL MCH 28.3 27.0-31.0 PG MCHC 30.8 31.0-37.0 G/DL Platelet 300 150-400 X10'3 RDW-SD 48.8 35.0-49.0 FL RDW-CV 14.3 12.2-15.6 % MPV 9.9 9.2-12.0 FL Neutro Auto% 57.1 40.0-70.0 % Lymph Auto% 31.8 22.0-44.0 % Banks Auto% 9.1 3.0-7.0 % Eos Auto% 1.3 2.0-4.0 % Baso Auto% 0.5 0.0-1.0 % Imm Gran% .2 .0-.4 % Neutro Abs 3.13 .80-7.70 Absolute Neutrophil Count 3130 Lymph Abs 1.74 .10-4.10 Banks Abs .50 .20-1.00 Eos Abs .07 .00-.40 Baso Abs .03 .00-.20 Imm Gran Abs .01 .00-.10 NRBC# .00 .00-.20 X10'3 NRBC% .00 .00-.20 /100 int act WBC's Influenza A/B - 18567 Reviewed date:12/25/2024 03:52:21 PM Interpretation: Performing Lab: Notes/Report: A neg B neg RA Factor 31386, 65735 Reviewed date:12/05/2024 04:14:49 PM Interpretation: Performing Lab: Notes/Report: Diagnosis Description: Pain in unspecified joint RA Factor <3.5 .0-14.0 IU/mL Result less th an 10 Iu/ml will be considered as Negative. [place] 39005 Reviewed date:12/05/2024 04:15:20 PM Interpretation: Performing Lab: Notes/Report: Diagnosis Description: Pain in unspecified joint CRP .56 .40-1.00 MG/DL Vitamin D Total (B) 23748 Reviewed date:12/05/2024 04:14:30 PM Interpretation: Performing Lab: Notes/Report: Diagnosis Description: Other snf (current) drug therapy Vitamin D Total 31.8 30.0-100.0 ng/mL Insufficiency: 20? 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 [id number] 282 211-911 pg/mL Uric Acid (B) 85978 Reviewed date:12/05/2024 04:15:30 PM Interpretation: Performing Lab: Notes/Report: Diagnosis Description: Pain in unspecified joint Uric Acid 4.5 2.6-6.0 MG/DL Thyroid Stimulating Hormone (TSH) 81561 Reviewed date:12/05/2024 04:14:20 PM Interpretation: Performing Lab: Notes/Report: Diagnosis Description: Encounter for screening for other suspected endocrine disorder TSH 1.377 .358-3.740 MlU/ML Sedimentation Rate 78431 Reviewed date:12/05/2024 04:14:40 PM Interpretation: Performing Lab: Notes/Report: Diagnosis Description: Pain in unspecified joint Sed Rate 12 0-20 MM/HR Lipid Panel Reflex DLDL 8006 1, 07252 Reviewed date:12/05/2024 04:16:05 PM Interpretation: Performing Lab: Notes/Report: Diagnosis Description: Hyperlipidemia, unspecified Trig 129 Children: Male Children: Female 15-19 yr 37-148 10-14 yr 32-125 0-4 yr 22-99 High 200-499 15-19 yr 39-132 Borderline High 150-199 0-4 yr 34-112 Classification Guidelines:Triglycerides Desirable <150 Very high >=500 10-14 yr 37-131 5-9 yr 32-105 Adults: >20yrs 5-9 yr 30-101 Chol 151 <=200 MG/DL HDL 42 39-96 MG/DL >=20y 40-59 5-9y 38-75 10-14y 37-74 Reference Ranges:HDL Male: >=20y 40-59 10-14y 37-70 5-9y 36-73 15-19y 30-63 15-19y 35-74 Female: CH/HDL 3.6 0.0-4.9 RATIO LDL 83 0-130 MG/DL LDL result is i naccurate , if Trig is >400 mg/dl. See DLDL result. Comprehensive Metabolic Pane l (CMP) 54726 Reviewed date:12/05/2024 04:15:55 PM Interpretation: Performing Lab: Notes/Report: Diagnosis Description: Essential (primary) hypertension Glucose Serum 86 71-110 MG/DL Testing perfor med at [facility], [address] [place] [address] [place] [address]. CLIA ID#: [id number] BUN 10 7-21 MG/DL Creat .70 .51-1.17 MG/DL I-cbibxa-o-benzoquinone imine (NAPQI) is a metabolite of acetaminophen, NAPQI concentrations of apparoximately 10 mg/L correlation to toxic levels of acetaminophen demonstrates a greater than or equil to 10% change in results. NAPQI concentrations greater than this may lead to falsely depressed results for patient samples. Use of this assay is not recommended for patients undergoing treatment with phenindione, due to the potential for falsely depressed results. GFR 109.7 Calculation per formed from GFR calculator provided by the National Kidney Foundation. Glomerular Filtration rate(GRF) is the best overall index of kidney function. Normal GFR varies according to age,sex, body size, and declines with age. The National Kidney Foundation recommends using the CKD-EPI Creatinine Equation(2020) to estimate GFR. BUN/Creat Ratio 14.3 12.0-20.0 % Total Protein 6.9 5.8-8.0 G/DL Albumin 4.3 3.2-4.8 G/DL Globulin 2.6 2.3-3.5 G/DL Alb/Glob 1.7 0.8-2.2 Calcium 9.6 8.7-10.4 MG/DL Sodium 138 136-145 MMOL/L Potassium 4.1 3.5-5.1 MMOL/L Chloride 105 98-107 MMOL/L CO2 28.4 20.0-31.0 MMOL/L Anion Gap 9 5-15 Alk Phos 117 46-116 Bili Total .3 .3-1.2 MG/DL Use of this ass ay is not recommended for patients undergoing treatment with eltrombopag due to the potential for falsely elevated results. AST/SGOT 18 15-37 UNIT/L ALT/SGPT 22 12-78 UNIT/L Osmo Serum,Calculated 284 280-300 MOSM/KG CBC w\ Auto Diff 08152 Reviewed date:12/05/2024 04:15:44 PM Interpretation: Performing Lab: Notes/Report: Diagnosis Description: Essential (primary) hypertension WBC 6.5 4.5-11.0 X10'3 RBC 4.45 4.00-5.20 X10'6 Hgb 12.5 12.0-16.0 G/DL Hct 40.1 36.0-46.0 % MCV 90.1 80.0-100.0 FL MCH 28.1 27.0-31.0 PG MCHC 31.2 31.0-37.0 G/DL Platelet 311 150-400 X10'3 RDW-SD 43.7 35.0-49.0 FL RDW-CV 13.2 12.2-15.6 % MPV 10.2 9.2-12.0 FL Neutro Auto% 59.7 40.0-70.0 % Lymph Auto% 30.9 22.0-44.0 % Banks Auto% 7.1 3.0-7.0 % Eos Auto% 1.5 2.0-4.0 % Baso Auto% 0.6 0.0-1.0 % Imm Gran% .2 .0-.4 % Neutro Abs 3.89 .80-7.70 Absolute Neutrophil Count 3890 Lymph Abs 2.01 .10-4.10 Banks Abs .46 .20-1.00 Eos Abs .10 .00-.40 Baso Abs .04 .00-.20 Imm Gran Abs .01 .00-.10 NRBC# .00 .00-.20 X10'3 NRBC% .00 .00-.20 /100 int act WBC's GABRIEL IGG SCREEN W/ RFX 22674 Reviewed date:12/05/2024 04:14:59 PM Interpretation: Performing Lab: Notes/Report: Diagnosis Description: Pain in unspecified joint GABRIEL IgG None Detected GABRIEL JONNY assays have been reported to have lower sensitivity than GABRIEL IFA for systemic autoimmune rheumatic diseases(SARD). Negative results do not necessarily rule out SARD. The GSD Antinuclear Antibody Screening test is qualitative enzyme immunoassay (EIA) intended to screen for the presence of antinuclear antibodies (GABRIEL) in human serum, against double stranded DNA (dsDNA,nDNA), histone, SS-A/Ro, SS-B/La, Sm, Sm/[employer] COMB[employer]ANT CREWMAN,SCL-70,Myran-1, and ecntromeric antigens, along with sera positive for immunofluorescent (IFA) HEp-2 GABRIEL. Reason For Referral No Information Medications Medication SIG (Take, Route, Frequency, Duration) Notes Start Date End Date Status Isosorbide Mononitrate ER 30 MG 1 tab Oral twice a day for 90 days Active busPIRone HCl 10 MG TAKE 1/2 TO 1 (ONE-HALF TO ONE) TABLET BY MOUTH TWICE DAILY FOR 30 DAYS Oral for 30 Days Active Gabapentin 300 MG 1 capsule Oral twice a day for 30 days Active Metoprolol Succinate ER 50 MG 1 tablet Oral twice a day for 90 days Active Estradiol 2 MG 1 tablet Orally Once a day for 30 days Not-Taking Atorvastatin Calcium 40 MG 2 tabs Oral O nce a day for 45 days Active Losartan Potassium 25 MG 1 tablet Orally Once a day in am for 30 days Not-Taking Nitroglycerin 0.4 MG DISSOLVE ONE TABLET UNDER THE TONGUE EVERY 5 MINUTES NEEDED FOR CHEST PAIN. DO NOT EXCEED A TOTAL OF 3 DOSES IN 15 MINUTES Sublingual for 15 Days Active Ondansetron HCl 4 MG TAKE 1 TABLET BY MO [facility] EVERY 4 HOURS NEEDED FOR NAUSEA Oral for 30 Days Active Venlafaxine HCl ER 75 MG 1 capsule with food Oral Once a day for 30 days Active Cefuroxime Axetil 250 MG Oral for 5 Days Not-Taking Pantoprazole Sodium 40 MG 1 tab Oral twi ce a day for 30 days Active Losartan Potassium 25 MG Oral for 30 Days Not-Taking Loratadine 10 MG TAKE 1 TABLET BY ROMEO ONCE DAILY Oral for 30 Days Active Losartan Potassium 25 MG Oral for 30 Days Not-Taking Prasugrel HCl 10 MG TAKE 1 TABLET BY ROMEO ONCE DAILY Oral for 30 Days Active Ytlbabyfrw-WFJI-Qpshqdss 50-325-40 MG TAKE 1 TABLET BY MOUTH EVERY 4 HOURS NEEDED FOR HEADACHE FOR 30 DAYS Orally every 4 hrs for 30 days Not-Taking Magnesium 400 MG as directed Orally Active amLODIPine Besylate 2.5 MG Oral for 90 Days Not-Taking Clindamycin HCl 300 MG Take 1 capsule by mouth three times daily for 10 days for 10 Not-Taking Vitamin B-12 5000 MCG as directed Orally Active Cefuroxime Axetil 250 MG TAKE 1 TABLET B Y MOUTH EVERY 12 HOURS FOR 5 DAYS Oral for 5 Days Not-Taking Calcium Citrate-Vitamin D 500-12.5 MG-MCG as directed Orally Active Rizatriptan Benzoate 10 MG Oral for 28 Days Not-Taking Cephalexin 500 MG TAKE 2 CAPSULES BY MOUTH TWICE DAILY FOR 10 DAYS for 10 Not-Taking Paxlovid (300/100) 20 x 150 MG & 10 x 100MG 300/100 Orally daily as directed for 5 08/14/2024 Not-Taking Nurtec 75 MG 1 tablet on the tong ue and allow to dissolve Orally daily prn migraine for 30 day(s) Not-Takin g Albuterol Sulfate HFA 108 (90 Base) MCG/ACT 2 puffs Inhalation four times a day prn for 30 days Active Aspirin Adult Low Dose 81 MG 1 tablet Orally Once a day Active 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 Orally Once a day prn migraine for 1 days 02/19/2024 Not-Taking Brilinta 90 MG 1 tablet Oral Twice a day for 45 days Not-Taking Immunizations Vaccine Route Administration Date Status Comme nts Flucelvax Quadrivalent IM Intramuscular 10/25/2023 Administered [facility] [id number] pt tolerated well/instructed to wait 20 min Flucelvax Trivalent, Syringe 0.5 mL, PF IM Intramuscular 12/04/2024 Administered supplied by [facility]/pt tolerated well/instructed to wait 20 min Prevnar 20 IM Intramuscular 10/25/2023 Administered [facility] [id number] pt tolerated well/instructed to wait 20 min Prevnar 20 IM Intramuscular 12/04/2024 Administered suppli ed by [facility]/pt tolerated well/instructed to wait 20 min Social History Tobacco Use: Social History Observation Description Date Details (start date - stop date) Former Smoker NA - NA Alcohol Screen (Audit-C) Question Answer Notes Did you have a drink containing alcohol in the p ast year? No Points 0 Interpretation Negative PHQ-9 Question Answer Notes Little interest or pleasure in doing things Not at all Feeling down, depressed, or hopeless Not at all Trouble falling or staying asleep, or sleeping t oo much Not at all Feeling tired or having little energy Not at all Poor appetite or overeating Not at all Feeling bad about yourself, or that you are a failure, or have let yourself or your family down Not at all Trouble concentrating on thi ngs, such as reading the newspaper or watching television Not at all Moving or speaking so slowly that other people could have noticed. Or the opposite ? being so fidgety or restless that you have been moving around a lot more than usual Not at all Thoughts that you would be b juan manuel off , or of hurting yourself in some way Not at all Total Score 0 Tobacco Control (Standard) Question Answer Notes Tobacco use: Former smoker How long has it been since you last smoked? 3-6 months Section Notes: 06/19/2022 06/19/2022 06/19/2022 Depression screen completed 02/19/2024 score 0 Depression screen completed 02/19/2024 score 0 Depression screen completed 02/19/2024 score 0 Depression screen completed 02/19/2024 score 0 Depression screen completed 03/24/2025 Depression screen completed 02/19/2024 score 0 06/19/2022 PHQ-9 Depression screen completed 02/19/2024 score 0 Depression screen completed 02/19/2024 score 0 06/19/2022 PHQ-9 Depression screen completed 02/19/2024 score 0 Depression screen completed 10/25/2023 score 0 06/19/2022 Depression screen completed 03/24/2025 Problems Problem Type SNOMED Code ICD Code Onset Dates Problem Status W/U Status Risk Notes Problem Hysterectomy (510394978) Absence of uterus (Z90.710) 11/24/19 25 Active confirmed Problem 60837068 Nicotine dependence, cigarettes, uncomplicated (F17.210) Active confirmed Problem 21196840 Wheezing (R06.2) Active confirmed Problem 28279307 Bronchitis (J40) Active confirmed Problem 306996728 Gastroesophageal reflux disease without esophagitis (K21.9) Active confirmed Problem Anxiety (96512515) Anxiety (F41.9) Active confirmed Problem Sinusitis (07486685) Sinusitis (J32.9) Active confirmed Problem 516339629 Moderate persist ent asthmatic bronchitis with acute exacerbation (J45.41) Active confirmed Problem 9934754 Migraine with au ra and without status migrainosus, not intractable (G43.109) Active confirmed Problem 899115904 Menopause (Z78.0) Active confirmed Problem Neuropathic pain (274121615) Neuropathic pain (M79.2) Active confirmed Problem Depression (16182285) Depression (F32.9) Active confirmed Problem 076573016 Febrile illness (R50.9) Active confirmed Problem 66956504 Wheezes (R06.2) Active confirmed Problem 156710735 Abscessed tooth (K04.7) Active confirmed Problem Osteoarthritis (321713058) Osteoarthritis (M19.90) Active confirmed Problem Coronary artery disease (88953085) CAD (coronary artery disease) (I25.10) Active confirmed Problem Hyperlipidemia (66124031) Hyperlipidemia (E78.5) Active confirmed Problem 457901046 Mouth pain (K13.79) Active confirmed Problem Tobacco dependence in remission (993898964) Tobacco dependence in remission (F17.201) Active confirmed Problem 4231879 Libido, decrease d (R68.82) Active confirmed Problem 40866013 Primary hypertension (I10) Active confirmed Problem 63469257 Acute cough (R05.1) Active confirmed Problem 566503147 Lumbar pain (M54.50) Active confirmed Vital Signs Heart Rate 68 /min 04/24/2025 Temperature 97.7 degrees Fahrenheit 04/24/2025 Respiratory Rate 18 /min 04/24/2025 Height-cm 162.56 cm 04/24/2025 Oximetry 99 % 04/24/2025 Blood pressure diastolic 83 mm Hg 04/24/2025 Weight-kg 91.63 kg 04/24/2025 Height 64 in 04/24/2025 Blood pressure systolic 139 mm Hg 04/24/2025 Weight 202 lbs 04/24/2025 BMI 34.67 kg/m2 04/24/2025 Encounters Encounter Location Date Provider Diagnosis [facility] [address] [address] 06/05/2024 Giselle Christianson Foot pain M79.673 ; Menopause Z78.0 ; Nicotine dependence, cigarettes, uncomplicated F17.210 and CAD (coronary artery disease) I25.10 [facility] [address] [address] 06/30/2024 Giselle Christianson CAD (coronary artery disease) I25.10 and Arm pain, right M79.[address] [address] 12/04/2024 Giselle Christianson Menopause Z78.0 ; Gastroesophageal reflux disease without esophagitis K21.9 ; Joint pain M25.50 ; Primary hypertension I10 ; Neuropathic pain M79.2 ; CAD (coronary artery disease) I25.10 ; Osteoarthritis M19.90 ; Encounter for immunization Z23 ; senior living use of drug Z79.899 ; Hyperlipidemia E78.5 ; Thyroid disorder screen Z13.29 ; Encounter for administration of vaccine Z23 ; Dyspnea R06.00 and Tobacco dependence in remission F17.201 [facility] [address] [place] [address] 12/25/2024 Giselle Christianson Body aches R52 ; Sin usitis J32.9 ; Primary hypertension I10 and CAD (coronary artery disease) I25.10 [facility] [address] [place] [address] 03/24/2025 Giselle Christianson Hyperglycemia R73.9 ; Primary hypertension I10 ; CAD (coronary artery disease) I25.10 ; Thyroid disorder screen Z13.29 ; Hyperlipidemia E78.5 ; Lipid screening Z13.220 ; Joint pain M25.50 ; Drug therapy continued Z79.899 and Depression screen Z13.31 [facility] [address] [place] [address] 03/27/2025 [facility] Christianson Joint pain M25.50 ; Primary hypertension I10 ; Hyperglycemia R73.9 ; Lipid screening Z13.220 and Thyroid disorder screen Z13.29 [facility] [address] [place] [address] 04/24/2025 Giselle Christianson CAD (coronary artery disease) I25.10 [facility] [address] [place] [address] 08/11/2024 [facility] Christianson COVID U07.1 [facility] [address] [place] [address] 08/14/2024 [facility] Christianson Anxiety F41.9 [facility] [address] [place] [address] 08/25/2024 Giselle Christianson [facility] [address] [place] [address] 11/03/2024 Giselle Christianson Menopause Z78.0 [facility] [address] [place] [address] 11/09/2024 [facility] Menopause Z78.0 [facility] [address] [place] [address] 11/24/2024 Giselle [place] Assessments Encounter Date Diagnosis (ICD Code) Assessment Notes Treatment Notes Treatment Clinical Notes Section Notes 06/30/2024 CAD (coronary artery disease) (ICD-10 - I25.10) continue meds; go to ER as dr otilia camargo 06/30/2024 Arm pain, right (ICD-10 - M79.601) 08/11/2024 COVID (ICD-10 - U07.1) 08/14/2024 Anxiety (ICD-10 - F41.9) 11/03/2024 Menopause (ICD-10 - Z78.0) 11/09/2024 Menopause (ICD-10 - Z78.0) 06/05/2024 Menopause (ICD-10 - Z78.0) increase effexor to 75 mg 06/05/2024 Foot pain (ICD-10 - M79.673) x rays bilateral feet 12/04/2024 Gastroesophageal reflux disease without esophagitis (ICD-10 - K21.9) pantoprazole 12/04/2024 Menopause (ICD-10 - Z78.0) effexor 12/25/2024 Body aches (ICD-10 - R52) flu swab; negative 12/25/2024 Sinusitis (ICD-10 - J32.9) amoxicillin depomedrol/deca dron 03/24/2025 Hyperglycemia (ICD-10 - R73.9) ha1c 03/24/2025 Primary hypertension (ICD-10 - I10) continue meds cbc cmp lipids 03/27/2025 Joint pain (ICD-10 - M25.50) 03/27/2025 Primary hypertension (ICD-10 - I10) 04/24/2025 CAD (coronary artery disease) (ICD-10 - I25.10) continue meds cardiology as planned 03/24/2025 CAD (coronary artery disease) (ICD-10 - I25.10) dr ospina 12/25/2024 Primary hypertension (ICD-10 - I10) continue meds 03/27/2025 Hyperglycemia (ICD-10 - R73.9) 12/04/2024 Joint pain (ICD-10 - M25.50) arthritis labs 06/05/2024 Nicotine dependence, cigarettes, uncomplicated (ICD-10 - F17.210) decrease 06/05/2024 CAD (coronary artery disease) (ICD-10 - I25.10) dr bingham 12/04/2024 Primary hypertension (ICD-10 - I10) cbc cmp continue meds 12/25/2024 CAD (coronary artery disease) (ICD-10 - I25.10) cardiology as planned continue meds 03/27/2025 Lipid screening (ICD-10 - Z13.220) 03/24/2025 Thyroid disorder screen (ICD-10 - Z13.29) tsh 03/24/2025 Hyperlipidemia (ICD-10 - E78.5) 03/27/2025 Thyroid disorder screen (ICD-10 - Z13.29) 12/04/2024 Neuropathic pain (ICD-10 - M79.2) gabapentin 12/04/2024 CAD (coronary artery disease) (ICD-10 - I25.10) cardiology 03/24/2025 Lipid screening (ICD-10 - Z13.220) lipids 03/24/2025 Joint pain (ICD-10 - M25.50) arthritis labs 12/04/2024 Osteoarthritis (ICD-10 - M19.90) arthritis labs 12/04/2024 Encounter for immunization (ICD-10 - Z23) flu vaccine pneumonia vaccine Immunization supplied by [employer]. 03/24/2025 Drug therapy continued (ICD-10 - Z79.899) 03/24/2025 Depression screen (ICD-10 - Z13.31) 12/04/2024 senior living use of drug (ICD-10 - Z79.899) vit d vit b12 12/04/2024 Hyperlipidemia (ICD-10 - E78.5) continue meds lipids 12/04/2024 Thyroid disorder screen (ICD-10 - Z13.29) tsh 12/04/2024 Encounter for administration of vaccine (ICD-10 - Z23) 12/04/2024 Dyspnea (ICD-10 - R06.00) 12/04/2024 Tobacco dependence in remission (ICD-10 - F17.201) 06/05/2024 Other Questions asked and answered; discharged to home. 06/30/2024 Other Questions asked and answered; discharged to go to ER 12/04/2024 Other Questions asked and answered; discharged to home. Venipuncture: Performed by:Margarita UGARTE Attempts: x1 Location: RAC Needle gauge: 21g Patient tolerated well. Give Flu vaccine as directed per provider 12/25/2024 Other Questions asked and answered; discharged to home. 03/24/2025 Other Questions asked and answered; discharged to home. 03/27/2025 Other Venipuncture: Performed by: Margarita UGARTE Attempts: x1 Location: RAC Needle gauge: 21g Patient tolerated well. 04/24/2025 Other Questions asked and answered; discharged to home. Plan Of Treatment Pending Test Test Name Order Date CT Chest w/ + w/o Contrast diagnostic-[id number] 12/04/2024 Foot Min 3V Bilateral-[id number] 06/05/2024 Mammogram Screen Jarad Richy w/CAD-[id number] GABRIEL IGG SCREEN W/ RFX [id number] 03/27/2025 Next Appt Details Provider Name:Giselle Christianson, 07/30/2025 09:00:00 AM, [address], [address], [place], [address], Insurance Providers Payer Name Payer Address Payer Phone Subscriber Number Group Number Insured Name Patient Relationship to Insured Coverage Start Date Coverage End Date [facility] Commercial [address] [place] [address] [phone] [id number] MILES Arias Self - patient is the insured Medications Administered Medication Instructions Date of Administration Dosage Notes Depo-Estradiol 03/13/2024 5 mg Patient br ought her own medication, given in left hip. Patien t tolerated well. DEPO-Medrol 09/22/2022 40 mg NDC: [id number] Patient tolerated well, advised to wait 20 min at clinic DEPO-Medrol 01/29/2023 40 mg ndc 17417-452 3-01 pt tolerated well/instructed to wait 20 min DEPO-Medrol 12/25/2024 40 mg ndc 37482-781 3-01 pt tolerated well/instructed to wait 20 min dexAMETHasone 09/22/2022 4 mg NDC: 23213-351-10 Patient tolerated well, advised to wait 20 in at clinic dexAMETHasone 01/29/2023 4 mg ndc 60939-8 423-00 pt tolerated well/instructed to wait 20 min dexAMETHasone 12/25/2024 4 mg ndc 73064-7 423-00 pt tolerated well/instructed to wait 20 min Rocephin 01/29/2023 1 g [facility] [id number] -11 pt tolerated well/instructed to wait 20 min Medical (General) History Medical History History ICD Code migraine headaches menopause Surgical History Surgery Date(Month/Year) hysterectomy, partial 2000 Hospitalization History Reason Date(Month/Year) hysterectomy 2000
[2025-05-23 15:40] VITALS: BP 144/86; PULSE 67; RESP 18; TEMP 37.1; O2SAT 99; BMI 34.3
[2025-05-23 16:16] LABS: Hematocrit 38.4 % (36-47); Hemoglobin 12.40 g/dL (11.27-16.99); Mean Corpuscular HGB Conc 32.3 g/dL (30-55); Mean Corpuscular Hemoglobin 28.4 pg (27-33); Mean Corpuscular Volume 88.1 fl (85-98); Nucleated Red Blood Cells % 0 %; Platelet Count 333 10^3/cmm (157-399); Red Blood Count 4.36 10^6/uL (3.85-5.65); White Blood Count 6.73 10^3/uL (3.29-11.43)
--- NOTE | 2025-05-23 18:14 | CTR_ITS ---
PROCEDURE INFORMATION: Exam: CT Head Without Contrast Exam date and time: 05/23/2025 6:25 PM Age: 44 years old Clinical indication: Pain; Headache; C/O LEDESMA TECHNIQUE: Imaging protocol: Computed tomography of the head without contrast. Radiation optimization: All CT scans at this facility use at least one of these dose optimization techniques: automated exposure control; mA and/or kV adjustment per patient size (includes targeted exams where dose is matched to clinical indication); or iterative reconstruction. COMPARISON: CT head wo con* [id number] 02/27/2023 7:04 PM RADIATION DOSE METRICS: Total DLP (mGy-cm): 986.63 FINDINGS: Brain: No acute intracranial hemorrhage, cerebral edema, or midline shift. Cerebral ventricles: No hydrocephalus. Paranasal sinuses: There is no acute sinusitis. Mastoid air cells: Visualized mastoid air cells are well aerated. Orbital cavities: The visualized orbits appear unremarkable. Bones: Unremarkable. No acute fracture. Soft tissues: Unremarkable. CT/CT head wo con* [id number] IMPRESSION: No acute intracranial abnormality.
[2025-05-23 19:32] VITALS: BP 125/75; PULSE 54; RESP 16; O2SAT 99
[2025-05-23 20:40] VITALS: BP 149/85; PULSE 49; RESP 16; O2SAT 100
--- NOTE | 2025-05-23 23:48 | ED_ITS ---
HPI - Epistaxis 2 General: Chief complaint: Epistaxis Stated complaint: nose bleed/headache Time Seen by Provider: 05/23/25 16:37 History of Present Illness: 44-year-old female patient presents to [facility] emergency department with a nosebleed. Patient states this started earlier and she is on a blood thinner. Patient states she been having a headache today patient states she has typical migraine headaches and this is no different than her typical migraine. Patient states she has recently stopped taking her medications because she was advised by her steel rigger to stop her migraine medications. Patient denies any dizziness or lightheadedness. Patient denies any injury or trauma. Related Data Home Medications ?Medication ?Instructions ?Recorded ?Confirmed gabapentin 300 mg capsule 600 mg PO BID 10/11/2202/20 pantoprazole 40 mg tablet,delayed 40 mg PO BID 4 02/20/25 release (Protonix) albuterol sulfate 90 mcg/actuation 1 - 2 puff inhalati on .Q4-6H PRN 08/13/24 02/20/25 aerosol inhaler Shortness Of Breath Or Wheez ing aspirin 81 mg tablet,delayed 81 mg PO DAILY 08/13/24 0 02/20/25 release venlafaxine 75 mg capsule,extended 75 mg PO DAILY 07/2102/20/25 release 24 hr Previous Rx's ?Medication ?Instructions ?Recorded nitroglycerin 0.4 mg sublingual 0.4 mg sublingual Q5M PRN chest 09/11/24 tablet pain #25 tabs isosorbide mononitrate 30 mg 30 mg PO BID #180 tabs tablet,extended release 24 hr metoprolol succinate 50 mg 50 mg PO BID #180 tabs 09/20 tablet,extended release 24 hr magnesium oxide 400 mg (241.3 mg 400 mg PO DAILY #90 t abs 02/20/25 magnesium) tablet prasugrel HCl 10 mg tablet 10 mg PO DAILY #90 tabs (Effient) atorvastatin 40 mg tablet See Rx Instructions .Route 0 04/29/25 .COMPLEX #90 tabs Allergies Allergy/AdvReac Type Severity Reaction Status Date / Time [place] And Derivatives Allergy Severe ALGY-Anaphy Verified 02/20/25 10:07 laxis grapefruit Allergy ALGY-Anaphy Verified 02/20/25 10:07 laxis orange Allergy ALGY-Anaphy Verified 02/20/25 10:07 laxis pineapple Allergy ALGY-Anaphy Verified 02/20/25 10:07 laxis Review of Systems 2 General: Reports: 10 or more systems reviewed and unremarkable except in HPI and below PFSH ED 2 PFSH: Medical History Suicidal ideation History of nephrolithiasis The patient has never needed a surgical procedure, because she has always passed the kidney stones. Migraine HTN (hypertension), benign Coronary artery disease Chronic back pain Depression Patient states that it was Depression Surgical History History of percutaneous coronary intervention three BERTIN to the mid LAD, Left circumflex and diagnonal one artery in 06/2024. Restenting of the diagonal artery in 08/2024. H/O oophorectomy one ovary. History of hysterectomy Family History Mother CAD (coronary artery disease) Heart disease has one stent Father CAD (coronary artery disease) Heart disease has had 5 heart attacks and has a defibrillator Social History Smoking and tobacco/nicotine status: current every day tobacco/nicotine user (vape) e-cigarettes E-Cigarette Details: vaporizer device Alcohol intake: never Substance/Drug Use: never Additional social history: started smoking in 2019, after her divorce Female Reproductive History: Spontaneous abortions: No Physical Exam 2 Const: ORIENTATION/CONSCIOUSNESS: Yes awake, Yes oriented to person, Yes oriented to place and Yes oriented to time HENMT: COMMON NORMALS: normocephalic, atraumatic, Normal external nose present and Normal nasal mucous membranes and turbinates present HEAD & SCALP: n ormocephalic and atraumatic NOSE: Normal external nose present, Normal nasal mucous membranes and turbinates present and No nasal discharge present (Scant amount of bleeding to the right nare) Resp: COMMON NORMALS: clear to auscultation bilaterally AUSCULTATION: clear to auscultation bilaterally Cardio: COMMON NORMALS: regular rhythm, S1 normal heart sound present, S2 normal heart sound present, No gallops present (Cardio), No murmurs present (Cardio) and No rub (Cardio) RHYTHM: regular rhythm HEART SOUNDS: S1 normal heart sound present and S2 normal heart sound present Neuro: COMMON NORMALS: no focal motor deficits SENSORIUM/ORIENTATION: Yes oriented to person, Yes oriented to place and Yes oriented to time Course 2 Vital Signs: Vital signs: Vital Signs Temperature 98.8 F 05/23/25 15:40 Pulse Rate 49 L 05/23/25 20:40 Respiratory Rate 16 05/23/25 20:40 Blood Pressure 149/85 05/23/25 20:40 Pulse Oximetry 100 05/23/25 20:40 Oxygen Delivery Me thod Room Air 05/23/25 19:32 MDM - Epistaxis Medical Decision Making Patient is well-appearing nontoxic and in no acute distress. 44-year-old female patient presents to the emergency department with a nosebleed. Patient states this started earlier and she is on a blood thinner. Patient states she been having a headache today patient states she has typical migraine headaches and this is no different than her typical migraine. Patient states she has recently stopped taking her medications because she was advised by her steel rigger to stop her migraine medications. Patient denies any dizziness or lightheadedness. Patient denies any injury or trauma. Upon examination of patient patient's nasal bleeding had stopped. Patient was monitored to ensure bleeding had stopped. There was no additional bleeding to the nare. Patient does not feel need for CT head patient states this feels like a typical migraine headache patient did not want anything for pain patient states that she would follow-up with her steel rigger to get restarted on her migraine medications. I discussed with patient return precautions as well as home care patient is medically cleared and appropriate for discharge Lab Data 05/23/25 16:[address] 05/23/25 18:14 IMPRESSION: No acute intracranial abnormality. Laboratory Results WBC 6.73 10^3/uL (3.29-11.43) 05/23/25 16:10 RBC 4.36 10^6/uL (3.85-5.65) 05/23/25 16:10 Hgb 12.40 g/dL (11.27-16.99) 05/23/25 16:10 Hct 38.4 % (36-47) 05/23/25 16:10 MCV 88.1 fl (85-98) 05/23/25 16:10 MCH 28.4 pg (27-33) 05/23/25 16:10 MCHC 32.3 g/dL (30-55) 05/23/25 16:10 RDW 13.0 % (12.1-15.1) 05/23/25 16:10 Plt Count 333 10^3/cmm (157-399) 05/23/25 16:10 MPV 9.7 fL (7.4-10.4) 05/23/25 16:10 Neut % (Auto) 57.7 % 05/23/25 16:10 Lymph % (Auto) 33.3 % 05/23/25 16:10 [place] % (Auto) 5.6 % 05/23/25 16:10 Eos % (Auto) 2.5 % 05/23/25 16:10 Baso % (Auto) 0.6 % 05/23/25 16:10 Neut # (Auto) 3.88 10^3/uL (1.8-7.7) 05/23/25 16:10 Lymph # (Auto) 2.2 10^3/uL (0.8-4.8) 05/23/25 16:10 [place] # (Auto) 0.4 10^3/uL (0.2-0.9) 05/23/25 16:10 Eos # (Auto) 0.2 10^3/uL (0.0-0.8) 05/23/25 16:10 Baso # (Auto) 0.0 10^3/uL (0.0-0.1) 05/23/25 16:10 Nucleated RBC % (auto) 0 % 05/23/25 16:10 Nucleated RBCs # 0.0 /100WBC 05/23/25 16:10 No radiology studies performed this visit Discharge Plan Discharge Patient Disposition: Home Clinical Impression: Epistaxis Headache Qualifiers: Headache type: unspecified Headache chronicity pattern: unspecified pattern I ntractability: intractable Qualified Code(s): R51.9 - Headache, unspecified Condition: Stable Prescriptions: No Action gabapentin 300 mg capsule 600 mg PO BID pantoprazole [Protonix] 40 mg tablet,delayed release (DR/EC) 40 mg PO BID metoprolol succinate 50 mg tablet extended release 24 hr 50 mg PO BID Qty: 180 5RF nitroglycerin 0.4 mg tablet, sublingual 0.4 mg sublingual Q5M PRN (Reason: chest pain) Qty: 25 2RF Rx Instructions: do not exceed 3 doses per episode isosorbide mononitrate 30 mg tablet extended release 24 hr 30 mg PO BID Qty: 180 3RF magnesium oxide 400 mg (241.3 mg magnesium) tablet 400 mg PO DAILY Qty: 90 3RF prasugrel HCl [Effient] 10 mg tablet 10 mg PO DAILY Qty: 90 3RF atorvastatin 40 mg tablet See Rx Instructions .ROUTE .COMPLEX Qty: 90 3RF Dose Instruction: TAKE 2 TABLETS BY MOUTH AT BEDTIME Rx Instructions: TAKE 2 TABLETS BY MOUTH AT BEDTIME (totally 80 mg) aspirin 81 mg Tablet,Delayed Release (Dr/Ec) 81 mg PO DAILY albuterol sulfate 90 mcg/actuation HFA aerosol inhaler 1 - 2 puff INHALATION .Q4-6H PRN (Reason: Shortness Of Breath Or Wheezing) venlafaxine 75 mg capsule,extended release 24hr 75 mg PO DAILY Discharge Orders: Discharge ED (Routine); Ordered 05/23/25 Ordered By: Keiko Delong Referrals: Christianson,Giselle, [employer] SALES REPRESENTATIVE [Primary Care Provider, Nurse Practitioner] Discharge Diet: Advance as tolerated Discharge Activity: Increase activity as tolerated Patient Instructions: Epistaxis - Adult, Opioid Safety, Pain Management, Patient Portal & Mahamed Instructions Activity Restrictions/Additional Instructions: Return to ER if fever bleeding that continues after pinching your nose for 15 minutes many nosebleeds in a short period of time dizziness, lightheadedness fainting rapid heartbeats or trouble breathing spitting up of bright, red blood vomiting bleeding following a head injury bleeding from anywhere else in the body a nosebleed and you take medications that increase the risk for bleeding Please do not blow your nose or put anything in your nose for the next 48 hours Print Language: Thai Coding Level of Care Code ED Core Inserter for Efren Lebron
== END 2025-05-23 20:33 | disposition home or self-care (01) ==
PROVIDERS: Family Medicine; Emergency Provider Registered Nurse; PCP Nurse Practitioner Family
DX: R04.0 Epistaxis (principal); R51.9 Headache, unspecified; Z79.82 Long term (current) use of aspirin; I25.10 Atherosclerotic heart disease of native coronary artery without angina pectoris; I10 Essential (primary) hypertension
CPT/HCPCS: 36415; 70450; 85025; 99284

== ENCOUNTER 2025-06-17 12:51 | Emergency (ER) | payer SELFPAY ==
[2025-06-17] VITALS (7 sets, daily range): BP systolic 122–156; BP diastolic 61–97; PULSE 66–67; RESP 14–16; TEMP 36.6; O2SAT 98–100; BMI 34.3
[2025-06-17 13:54] LABS: Hematocrit 39.8 % (36-47); Hemoglobin 13.10 g/dL (11.27-16.99); Mean Corpuscular HGB Conc 32.9 g/dL (30-55); Mean Corpuscular Hemoglobin 28.9 pg (27-33); Mean Corpuscular Volume 87.7 fl (85-98); Nucleated Red Blood Cells % 0 %; Platelet Count 331 10^3/cmm (157-399); Red Blood Count 4.54 10^6/uL (3.85-5.65); White Blood Count 7.60 10^3/uL (3.29-11.43)
[2025-06-17 14:10] LABS: Alanine Aminotransferase 17 U/L (0-33); Albumin Level 3.9 g/dL (3.5-5.2); Alkaline Phosphatase 128 U/L (35-105); Anion Gap 16.9 (5-19); Aspartate Amino Transferase 15 U/L (0-32); Blood Urea Nitrogen 13 mg/dL (6-20); Calcium 9.0 mg/dL (8.5-10.5); Carbon Dioxide 23 mmol/L (22-29); Chloride 103 mmol/L (98-107); Creatinine Clr Calc Pharmacy 131.8956; Globulin 3.6 g/dL (1.3-4.6); Glucose 97 mg/dL (65-115); Lipase 23 U/L (13-60); Osmolality Calculated 288 mOsm/kg (285-295); Potassium 3.9 mmol/L (3.5-5.1); Sodium 139 mmol/L (136-145); Total Protein 7.5 g/dL (6.6-8.7)
[2025-06-17 14:16] LABS: HCG, Serum Qual Negative (Negative)
[2025-06-17 14:51] LABS: Glucose Urine UA Negative (Normal); Nitrate Urine Negative (Negative); Specific Gravity, Urine 1.009 (1.005-1.030)
[2025-06-17 14:56] LABS: Add Urine Microscopic? YES
--- NOTE | 2025-06-17 15:28 | W.ED.NAVMDI ---
HPI - Nausea/Vomiting/Diarrhea General: Chief complaint: Nausea/Vomiting/Diarrhea Stated complaint: N/D 2 weeks stomach R ABD Pain History of Present Illness: 44-year-old female with history of CAD who presents to the ED with complaint of diarrhea, nausea, and epigastric abdominal pain over the past 2 weeks. Patient states that she has had about 11 episodes of watery diarrhea every day for the past 2 weeks that is not improving. She states that she is now passing almost clear water at this point and not much stool. She is not eating very much because of her intermittent pain. Denies any fever, chills, vomiting, or dysuria. Also denies any recent contact with anyone with similar symptoms or traveling. No known recent antibiotic use. No other complaints at this time. Associated nausea: Yes Associated symtoms: Reports nausea; Denies anxiety, chest pain, dysuria or headache(s) Related Data Home Medications ?Medication ?Instructions ?Recorded ?Confirmed gabapentin 300 mg capsule 600 mg PO BID 10/11/22 06/17/25 pantoprazole 40 mg tablet,delayed 40 mg PO BID 04/01/24 06/17/25 release (Protonix) albuterol sulfate 90 mcg/actuation 1 - 2 puff inhalation .Q4-6H PRN 08/13/24 06/17/25 aerosol inhaler Shortness Of Breath Or Wheezing aspirin 81 mg tablet,delayed 81 mg PO DAILY 08/13/24 06/17/25 release venlafaxine 75 mg capsule,extended 75 mg PO DAILY 08/13/24 06/17/25 release 24 hr Previous Rx's ?Medication ?Instructions ?Recorded nitroglycerin 0.4 mg sublingual 0.4 mg sublingual Q5M PRN chest 09/11/24 tablet pain #25 tabs isosorbide mononitrate 30 mg 30 mg PO BID #180 tabs 09/24/24 tablet,extended release 24 hr magnesium oxide 400 mg (241.3 mg 400 mg PO DAILY #90 tabs 02/20/25 magnesium) tablet prasugrel HCl 10 mg tablet 10 mg PO DAILY #90 tabs 03/13/25 (Effient) atorvastatin 40 mg tablet See Rx Instructions .Route 04/29/25 .COMPLEX #90 tabs metoprolol succinate 50 mg 75 mg (1.5 x 50 mg) PO BEDTIME 05/25/25 tablet,extended release 24 hr #135 tabs ondansetron 4 mg disintegrating 4 mg PO Q8H PRN nausea and 06/17/25 tablet vomiting 4 days #14 tabs Allergies Allergy/AdvReac Type Severity Reaction Status Date / Time [place] And Derivatives Allergy Severe ALGY-Anaphy Verified 06/17/25 12:23 laxis grapefruit Allergy ALGY-Anaphy Verified 06/17/25 12:23 laxis orange Allergy ALGY-Anaphy Verified 06/17/25 12:23 laxis pineapple Allergy ALGY-Anaphy Verified 06/17/25 12:23 laxis Review of Systems Const: Denies: fever(s) or chills ENMT: Denies: throat pain or mouth pain Card: Denies: chest pain Resp: Denies: dyspnea or non-productive cough GI: Reports: abdominal pain, nausea, diarrhea and hematochezia; Denies: vomiting, hematemesis or constipation : Denies: difficulty voiding or dysuria Musc: Denies: neck pain or extremity pain Skin/Breast: Denies: rash or pruritus Neuro: Denies: headache(s) or lack of coordination Psych: Denies: anxiety or depression PFSH ED PFSH: Medical History (Updated 06/17/25 @ 17:27 by CHARAN Hearn) Suicidal ideation History of nephrolithiasis The patient has never needed a surgical procedure, because she has always passed the kidney stones. Migraine HTN (hypertension), benign Coronary artery disease Chronic back pain Depression Patient states that it was Depression Surgical History History of percutaneous coronary intervention three BERTIN to the mid LAD, Left circumflex and diagnonal one artery in 06/2024. Restenting of the diagonal artery in 08/2024. H/O oophorectomy one ovary. History of hysterectomy Family History Mother CAD (coronary artery disease) Heart disease has one stent Father CAD (coronary artery disease) Heart disease has had 5 heart attacks and has a defibrillator Social History Smoking and tobacco/nicotine status: never used tobacco/nicotine Alcohol intake: never Substance/Drug Use: never Additional social history: started smoking in 2019, after her divorce Female Reproductive History: Spontaneous abortions: No Physical Exam Const: COMMON NORMALS: no acute distress, average body habitus, patient oriented x3 and alert GENERAL APPEARANCE: cooperative, comfortable, in distress and ill appearing HENMT: COMMON NORMALS: normocephalic and atraumatic HEAD & SCALP: normocephalic and atraumatic Lymph: LYMPHATIC: no lymphadenopathy noted Chest: COMMONS NORMALS: normal inspection of the chest Resp: COMMON NORMALS: normal respiratory effort, No retractions and clear to auscultation bilaterally AUSCULTATION: clear to auscultation bilaterally Cardio: COMMON NORMALS: regular rate and regular rhythm RATE: regular rate RHYTHM: regular rhythm GI: COMMON NORMALS: Soft to palpation and non-tender AUSCULTATION: Yes Hyperactive bowel sounds present and No High-pitched bowel sounds present PALPATION: Yes Soft to palpation PERCUSSION: tympanic to percussion : COMMON NORMALS: Yes no CVA tenderness BLADDER/KIDNEY EXAM: Yes no CVA tenderness Back/Pelvis: COMMON NORMALS: no CVA tenderness Extremity: COMMON NORMALS: normal to inspection, full ROM and capillary refill normal Neuro: COMMON NORMALS: patient oriented x3 SENSORIUM/ORIENTATION: Yes alert Psych: COMMON NORMALS: mental status grossly normal and Normal thought process present THOUGHT PROCESS: Normal thought process present Course Vital Signs: Vital signs: Vital Signs Temperature 97.9 F 06/17/25 13:03 Pulse Rate 67 06/17/25 17:37 Respiratory Rate 16 06/17/25 17:37 Blood Pressure 130/77 06/17/25 17:37 Pulse Oximetry 100 06/17/25 17:37 MDM - Nausea/Vomiting/Diarrhea Medical Decision Making 44-year-old female with ongoing diarrhea for 2 weeks with some incontinence. She has hyperactive bowel sounds on presentation. She has not had recent antibiotics. Stool studies were ordered, however patient was unable to reduce any stool. She would like to bring back stool at later juncture, and believes it is the comforts of an emergency room department. I have discussed with patient I am unaware if they will allow her to do this, however I have given her the material to collect it if this is indeed allowed. I have asked her to follow-up with her primary care physician for additional testing and ordering of stool culture, ova and parasites, C. difficile, WBCs. Differential is associated with gastroenteritis, infectious such as C. difficile, pseudomembranous colitis, autoimmune collangeal colitis, and oncological. She is not having any pain. There is no reason to perform a CT at this time. Laboratory data is in normal range. No red flags. She is asking be discharged home. Will discharge her home with close follow-up as discussed with patient. Medical Records I reviewed the patient's medical records. Lab Data I reviewed the patient's lab results. 06/17/25 13:32 06/17/25 13:32 Laboratory Results WBC 7.60 10^3/uL (3.29-11.43) 06/17/25 13:32 RBC 4.54 10^6/uL (3.85-5.65) 06/17/25 13:32 Hgb 13.10 g/dL (11.27-16.99) 06/17/25 13:32 Hct 39.8 % (36-47) 06/17/25 13:32 MCV 87.7 fl (85-98) 06/17/25 13:32 MCH 28.9 pg (27-33) 06/17/25 13:32 MCHC 32.9 g/dL (30-55) 06/17/25 13:32 RDW 13.2 % (12.1-15.1) 06/17/25 13:32 Plt Count 331 10^3/cmm (157-399) 06/17/25 13:32 MPV 9.5 fL (7.4-10.4) 06/17/25 13:32 Neut % (Auto) 65.9 % 06/17/25 13:32 Lymph % (Auto) 22.5 % 06/17/25 13:32 [place] % (Auto) 6.3 % 06/17/25 13:32 Eos % (Auto) 4.6 % 06/17/25 13:32 Baso % (Auto) 0.4 % 06/17/25 13:32 Neut # (Auto) 5.01 10^3/uL (1.8-7.7) 06/17/25 13:32 Lymph # (Auto) 1.7 10^3/uL (0.8-4.8) 06/17/25 13:32 [place] # (Auto) 0.5 10^3/uL (0.2-0.9) 06/17/25 13:32 Eos # (Auto) 0.4 10^3/uL (0.0-0.8) 06/17/25 13:32 Baso # (Auto) 0.0 10^3/uL (0.0-0.1) 06/17/25 13:32 Nucleated RBC % (auto) 0 % 06/17/25 13:32 Nucleated RBCs # 0.0 /100WBC 06/17/25 13:32 Sodium 139 mmol/L (136-145) 06/17/25 13:32 Potassium 3.9 mmol/L (3.5-5.1) 06/17/25 13:32 Chloride 103 mmol/L (98-107) 06/17/25 13:32 Carbon Dioxide 23 mmol/L (22-29) 06/17/25 13:32 Anion Gap 16.9 (5-19) 06/17/25 13:32 BUN 13 mg/dL (6-20) 06/17/25 13:32 Creatinine 0.6 mg/dL (0.5-0.9) 06/17/25 13:32 GFR Calculation 109.1 mL/min (90-130) 06/17/25 13:32 Glucose 97 mg/dL (65-115) 06/17/25 13:32 Calculated Osmolality 288 mOsm/kg (285-295) 06/17/25 13:32 Calcium 9.0 mg/dL (8.5-10.5) 06/17/25 13:32 Total Bilirubin 0.5 mg/dL (0.15-1.2) 06/17/25 13:32 AST 15 U/L (0-32) 06/17/25 13:32 ALT 17 U/L (0-33) 06/17/25 13:32 Alkaline Phosphatase 128 U/L (35-105) H 06/17/25 13:32 Total Protein 7.5 g/dL (6.6-8.7) 06/17/25 13:32 Albumin 3.9 g/dL (3.5-5.2) 06/17/25 13:32 Globulin 3.6 g/dL (1.3-4.6) 06/17/25 13:32 Lipase 23 U/L (13-60) 06/17/25 13:32 HCG, Qual Negative (Negative) 06/17/25 13:32 Urine Color Yellow (Yellow) 06/17/25 14:41 Urine Appearance Clear (CLEAR) 06/17/25 14:41 Urine pH 5.5 (5-7) 06/17/25 14:41 Ur Specific [place] 1.009 (1.005-1.030) 06/17/25 14:41 Urine Protein Negative (Negative) 06/17/25 14:41 Urine Glucose (UA) Negative (Normal) 06/17/25 14:41 Urine Ketones Negative (Negative) 06/17/25 14:41 Urine Blood Negative (Negative) 06/17/25 14:41 Urine Nitrate Negative (Negative) 06/17/25 14:41 Urine Bilirubin Negative (Negative) 06/17/25 14:41 Urine Urobilinogen 0.2 mg/dL (Negative) 06/17/25 14:41 Ur Leukocyte Esterase Negative (Negative) 06/17/25 14:41 Urine RBC 0-2 /hpf (0-2) 06/17/25 14:41 Urine WBC 0-5 /hpf (0-5) 06/17/25 14:41 Ur Squamous Epith Cells 0-5 /hpf (0-5) 06/17/25 14:41 Amorphous Sediment Not Reportable 06/17/25 14:41 Urine Bacteria None seen /hpf (NONE) 06/17/25 14:41 Hyaline Casts 0.40 /lpf 06/17/25 14:41 C. difficile (PCR) Negative (Negative) 06/17/25 20:00 No radiology studies performed this visit Discharge Plan Discharge Patient Disposition: Home Clinical Impression: Gastroenteritis Condition: Stable Prescriptions: New ondansetron 4 mg tablet,disintegrating 4 mg PO Q8H PRN (Reason: nausea and vomiting) 4 Days Qty: 14 0RF No Action gabapentin 300 mg capsule 600 mg PO BID pantoprazole [Protonix] 40 mg tablet,delayed release (DR/EC) 40 mg PO BID metoprolol succinate 50 mg tablet extended release 24 hr 75 mg PO BEDTIME Qty: 135 3RF nitroglycerin 0.4 mg tablet, sublingual 0.4 mg sublingual Q5M PRN (Reason: chest pain) Qty: 25 2RF Rx Instructions: do not exceed 3 doses per episode isosorbide mononitrate 30 mg tablet extended release 24 hr 30 mg PO BID Qty: 180 3RF magnesium oxide 400 mg (241.3 mg magnesium) tablet 400 mg PO DAILY Qty: 90 3RF prasugrel HCl [Effient] 10 mg tablet 10 mg PO DAILY Qty: 90 3RF atorvastatin 40 mg tablet See Rx Instructions .ROUTE .COMPLEX Qty: 90 3RF Dose Instruction: TAKE 2 TABLETS BY MOUTH AT BEDTIME Rx Instructions: TAKE 2 TABLETS BY MOUTH AT BEDTIME (totally 80 mg) aspirin 81 mg Tablet,Delayed Release (Dr/Ec) 81 mg PO DAILY albuterol sulfate 90 mcg/actuation HFA aerosol inhaler 1 - 2 puff INHALATION .Q4-6H PRN (Reason: Shortness Of Breath Or Wheezing) venlafaxine 75 mg capsule,extended release 24hr 75 mg PO DAILY Discharge Orders: Discharge ED (Routine); Ordered 06/17/25 Ordered By: Zarina Romero Referrals: Christianson,Giselle, PHYSICIAN EXECUTIVE [Primary Care Provider, Nurse Practitioner] Discharge Diet: Full LIquid Discharge Activity: Resume usual activity Patient Instructions: Gastroenteritis (ED), Patient Portal & [facility] Instructions Activity Restrictions/Additional Instructions: Zofran has been sent to the pharmacy to help with nausea, and does cause constipation. You can take this up to every 8 hours as needed for nausea and diarrhea Before you take any medications such as Lomotil, Imodium, you need to have a stool culture. You will need to follow-up with your doctor since the orders from the ED do not carry out to an outpatient basis. Utilize a full liquid diet until diarrhea stops. No alcohol. It is important to have follow-up. Call your primary doctor regarding your visit today. Stand Alone Forms: Work/School Release Print Language: Swazi Coding Level of Care Code ED Pharmacy Sales Assistant for Efren Lebron
[2025-06-17 22:53] LABS: C.Diff PCR (Lab) NEGATIVE (Negative)
== END 2025-06-17 17:38 | disposition home or self-care (01) ==
PROVIDERS: Emergency Medicine; Emergency Provider Physician Assistant; PCP Nurse Practitioner Family
DX: K52.9 Noninfective gastroenteritis and colitis, unspecified (principal); Z79.82 Long term (current) use of aspirin; I25.10 Atherosclerotic heart disease of native coronary artery without angina pectoris; I10 Essential (primary) hypertension
CPT/HCPCS: 36415; 80053; 81001; 83630; 83690; 84703; 85025; 87045; 87177; 87209; 87427; 87449; 87493; 99283

== ENCOUNTER → 2025-08-04 17:09 | Outpatient (BNVA) | payer OTHER, SELFPAY | PROVIDERS: PCP Nurse Practitioner Family; Visit Provider Emergency Medicine | DX: R30.0 Dysuria (principal) | CPT/HCPCS: 81000; 87086 ==

== ENCOUNTER → 2025-08-30 17:24 | Outpatient (BNVA) | payer OTHER, SELFPAY | PROVIDERS: PCP Nurse Practitioner Family; Visit Provider Registered Nurse Neonatal Intensive Care | DX: R50.9 Fever, unspecified (principal); W57.XXXA Bitten or stung by nonvenomous insect and other nonvenomous arthropods, initial encounter | CPT/HCPCS: 86618; 86666; 86757; 87400; 87426 ==

== ENCOUNTER 2025-09-21 10:42 | Emergency (ER) | payer OTHER, SELFPAY ==
--- OUTSIDE RECORDS SUMMARY | 2024-07-25 03:20 | XMS_ITS ---
Author Organization [facility] Address [address] [place] [address] Care Team Providers Care News Analyst Name Role Phone [facility] Primary Care Provider [phone] [facility] Unavailable Unavailable Allergies No Known Allergies REASON FOR VISIT 6 week follow up Medications Medication SIG (Take, Route, Frequency, Duration) Notes Start Date End Date Status Diclofenac Sodium 75 MG Tablet Delayed Release 1 tab Orally Twice a day pc prn inflammatory pain; Duration: 30 02/19/2024 09/16/2024 Not-Taking Losartan Potassium 25 MG Tablet 1 tablet Orally Once a day in am; Duration: 30 days Not-Taking Estradiol 2 MG Tablet 1 tablet Orally On ce a day; Duration: 30 days Not-Takin g Losartan Potassium 25 MG Tablet Oral; Duration: 30 Days Not-Taking Fzviexsvql-MEBY-Hxvbzwfz 50-325-40 MG Tablet TAKE 1 TABLET BY MOUTH EVERY 4 HOURS NEEDED FOR HEADACHE FOR 30 DAYS Orally every 4 hrs; Duration: 30 days Not-Taking Pantoprazole Sodium 40 MG Tablet Delayed Release Take 1 tablet by mouth twice daily for 90 days; Duration: 30 Active busPIRone HCl 10 MG Tablet TAKE 1/2 TO 1 (ONE-HALF TO ONE) TABLET BY MOUTH TWICE DAILY; Duration: 30 Active Ondansetron HCl 4 MG Tablet 1 tablet Orally q 4 hours prn nausea; Duration: 30 days Active Nurtec 75 MG Tablet Disintegrating 1 tablet on the tongue and allow to dissolve Orally daily prn migraine; Duration: 30 day(s) Active Gabapentin 300 MG Capsule TAKE 2 CAPSULES BY MOUTH THREE TIMES DAILY; Duration: 30 Active Albuterol Sulfate HFA 108 (90 Base) MCG/ACT Aerosol Solution 2 puffs Inhalation four times a day prn; Duration: 30 days Active Loratadine 10 MG Tablet Take 1 tablet by mouth once daily; Duration: 30 Active Maxalt-SCOW HAND 10 MG Tablet Disintegrating 1 tablet Orally Once a day prn migraine; Duration: 1 days 02/19/2024 Active Metoprolol Succinate ER 50 MG Tablet Extended Release 24 Hour 1 tablet Orally Once a day in the evening; Duration: 30 days Active Isosorbide Mononitrate ER 30 MG Tablet Extended Release 24 Hour 3 tabs Orally Once a day Active Aspirin Adult Low Dose 81 MG Tablet Delayed Release 1 tablet Orally Once a day Active Effexor XR 75 MG Capsule Extended Release 24 Hour 1 capsule with food Orally once a day in am; Duration: 30 days 02/19/2024 Active Brilinta 90 MG Tablet 1 tablet Oral Twic e a day; Duration: 45 days Active Atorvastatin Calcium 40 MG Tablet TAKE 2 TABLETS BY MOUTH AT BEDTIME Oral Once a day; Duration: 45 days Active Social History Tobacco Use: Social History Observation Description Date Details (start date - stop date) Current Smoker NA - NA Social History Tobacco Use: Social Info Question Answer Notes xTobacco Use/Smoking Are you a current smoker How often do you smoke cigarettes? every day How many cigarettes a day do you smoke? 6-10 Section Notes: Depression screen completed 02/19/2024 score 0 Encounters Encounter Location Date Provider Diagnosis [facility] Office [address] [place] [id number] 07/25/2024 [facility] Plan Of Treatment No Information Progress Notes * MILES ARIASDOB:[birth year] (45 yo F)Acc No.[id number]:07/25/2024 Progress Notes Patient: MILES Reza Provider: Laxmi Christianson CRAFT ARTIST :1980 A ge:43 Y S ex:Female Date:07/25/2024 Address:[address] [place], [place] [id number] Subjective: * Chief Complaints: * 6 week follow up * Medical History: Migraine headaches Menopause Medical History Verified * 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 * OB History: M iscarralbino(s) 3 . T otal living children 2 . T otal pregnancies 5 . * Surgical History: hysterectomy, partial 2000 Surgical History verified. * Hospitalization/Major Diagno stic Procedure: hysterectomy 2000 Hospitalization Verified. * Family History: F ather: alive 64 yrs, Heart attack. M other: alive 63 yrs, Heart attack, rheumatoid arthritis. F amily History Verified.. * Social History: T obacco Use: x Tobacco Use/Smoking A re you a c urrent smoker H ow often do you smoke cigarettes? e very day H ow many cigarettes a day do you smoke? 6 -10 S ocial History Verified. D epression screen completed 02/19/2024 score 0. * Medications: T akingAtorvastatin Calcium 40 MG Tablet TAKE 2 TABLETS BY MOUTH AT BEDTIME Oral Once a day Brilinta 90 MG Tablet 1 tablet Oral Twice a day Effexor XR 75 MG Capsule Extended Release 24 Hour 1 capsule with food Orally once a day in am Aspirin Adult Low Dose 81 MG Tablet Delayed Release 1 tablet Orally Once a day Isosorbide Mononitrate ER 30 MG Tablet Extended Release 24 Hour 3 tabs Orally Once a day Metoprolol Succinate ER 50 MG Tablet Extended Release 24 Hour 1 tablet Orally Once a day in the evening Maxalt-SCOW HAND 10 MG Tablet Disintegrating 1 tablet Orally Once a day prn migraine Loratadine 10 MG Tablet Take 1 tablet by mouth once daily Albuterol Sulfate HFA 108 (90 Base) MCG/ACT Aerosol Solution 2 puffs Inhalation four times a day prn Gabapentin 300 MG Capsule TAKE 2 CAPSULES BY MOUTH THREE TIMES DAILY Nurtec 75 MG Tablet Disintegrating 1 tablet on the tongue and allow to dissolve Orally daily prn migraine Ondansetron HCl 4 MG Tablet 1 tablet Orally q 4 hours prn nausea busPIRone HCl 10 MG Tablet TAKE 1/2 TO 1 (ONE-HALF TO ONE) TABLET BY MOUTH TWICE DAILY Pantoprazole Sodium 40 MG Tablet Delayed Release Take 1 tablet by mouth twice daily for 90 days Taking Atorvastatin Calcium 40 MG Tablet TAKE 2 TABLETS BY MOUTH AT BEDTIME Oral Once a day Taking Brilinta 90 MG Tablet 1 tablet Oral Twice a day Taking Effexor XR 75 MG Capsule Extended Release 24 Hour 1 capsule with food Orally once a day in am Taking Aspirin Adult Low Dose 81 MG Tablet Delayed Release 1 tablet Orally Once a day Taking Isosorbide Mononitrate ER 30 MG Tablet Extended Release 24 Hour 3 tabs Orally Once a day Taking Metoprolol Succinate ER 50 MG Tablet Extended Release 24 Hour 1 tablet Orally Once a day in the evening Taking Maxalt-SCOW HAND 10 MG Tablet Disintegrating 1 tablet Orally Once a day prn migraine Taking Loratadine 10 MG Tablet Take 1 tablet by mouth once daily Taking Albuterol Sulfate HFA 108 (90 Base) MCG/ACT Aerosol Solution 2 puffs Inhalation four times a day prn Taking Gabapentin 300 MG Capsule TAKE 2 CAPSULES BY MOUTH THREE TIMES DAILY Taking Nurtec 75 MG Tablet Disintegrating 1 tablet on the tongue and allow to dissolve Orally daily prn migraine Taking Ondansetron HCl 4 MG Tablet 1 tablet Orally q 4 hours prn nausea Taking busPIRone HCl 10 MG Tablet TAKE 1/2 TO 1 (ONE-HALF TO ONE) TABLET BY MOUTH TWICE DAILY Taking Pantoprazole Sodium 40 MG Tablet Delayed Release Take 1 tablet by mouth twice daily for 90 days Yev-RfiwgxElymtprvss-XAWW-Caffeine 50-325-40 MG Tablet TAKE 1 TABLET BY MOUTH EVERY 4 HOURS NEEDED FOR HEADACHE FOR 30 DAYS Orally every 4 hrs Losartan Potassium 25 MG Tablet Oral Estradiol 2 MG Tablet 1 tablet Orally Once a day Losartan Potassium 25 MG Tablet 1 tablet Orally Once a day in am Diclofenac Sodium 75 MG Tablet Delayed Release 1 tab Orally Twice a day pc prn inflammatory pain , stop date 09/16/2024Not-Taking Hkmeucmazy-PPOW-Ygzqysjr 50-325-40 MG Tablet TAKE 1 TABLET BY MOUTH EVERY 4 HOURS NEEDED FOR HEADACHE FOR 30 DAYS Orally every 4 hrs Not- Taking Losartan Potassium 25 MG Tablet Oral Not-Taking Estradiol 2 MG Tablet 1 tablet Orally Once a day Not-Taking Losartan Potassium 25 MG Tablet 1 tablet Orally Once a day in am Not-Taking Diclofenac Sodium 75 MG Tablet Delayed Release 1 tab Orally Twice a day pc prn inflammatory pain , stop date 09/16/2024iscontinuedClindamycin HCl 300 MG Capsule TAKE 1 CAPSULE BY MOUTH THREE TIMES DAILY FOR 10 DAYS Oral Clindamycin HCl 300 MG Capsule Take 1 capsule by mouth three times daily for 10 days Amoxicillin 500 MG Tablet Oral Discontinued Clindamycin HCl 300 MG Capsule TAKE 1 CAPSULE BY MOUTH THREE TIMES DAILY FOR 10 DAYS Oral Discontinued Clindamycin HCl 300 MG Capsule Take 1 capsule by mouth three times daily for 10 days Discontinued Amoxicillin 500 MG Tablet Oral * Allergies: N .K.D.A.yesAllergies Verified. Plan: * Preventive Medicine: Screenings: B REAST CANCER SCREENING: Date scheduled: p edelmira scheduling was for every 6 months due to sebaceous cyst in right breast Date of most recent screening: l ast one was 5 years ago, C ERVICAL CANCER SCREENING: Date of the last PAP Smear : 001, Normal C OLORECTAL CANCER SCREENING: Date of last colonoscopy H as never been done D EPRESSION SCREENING: Date of most recent screenin 02/19/2024 The patient denies: a nxiety, depressed mood, difficulty sleeping, lack of energy, lack of interest in things that were enjoyable, poor appetite, sadness, thoughts of harming him/herself, thought of harming someone else, trouble concentrating, weight gain, weight loss, any depressive symptoms at this time Suicidal ideation: h as never been expressed/considered Homicidal ideation: h as never been expressed/considered PHQ inventory: w ith score of 0-4 V ACCINATIONS: Completed vaccinations include: C ovid, Has never been doneNo flu vaccine Billing Information: * Procedure Codes: Care Plan Details* * Electronic signature of Lg Christianson APN on 09/21/2025 at 10:55 AM LICENSED PROSTHETIST Sign off status: Pending * Provider: Laxmi Christianson CRAFT ARTIST Date: 0 07/25/2024 Generated for Alejo vazquez/Randi/Lexy on: 11/21/2024 10:55 AM LICENSED PROSTHETIST
--- OUTSIDE RECORDS SUMMARY | 2025-07-13 09:40 | XMS_ITS ---
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 Primary Care Provider [phone] CHRISTIANSON, [facility] Unavailable Unavailable REASON FOR VISIT 3 WEEK F/U Medications Medication SIG (Take, Route, Frequency, Duration) Notes Start Date End Date Status Loratadine 10 MG Tablet TAKE 1 TABLET BY MOUTH ONCE DAILY Oral; Duration: 30 Days Active Prasugrel HCl 10 MG Tablet TAKE 1 TABLET BY MOUTH ONCE DAILY Oral; Duration: 30 Days Active Venlafaxine HCl ER 75 MG Capsule Extended Release 24 Hour 1 capsule with food Oral Once a day; Duration: 30 days Active Vitamin B-12 5000 MCG Tablet Disintegrating as directed Orally Active Calcium Citrate-Vitamin D 500-12.5 MG-MCG Tablet Chewable as directed Orally Active Magnesium 400 MG Tablet as directed Orally Active Pantoprazole Sodium 40 MG Tablet Delayed Release Take 1 tablet by mouth twice daily; Duration: 30 Active Diphenoxylate-Atropine 2.5-0.025 MG Tablet 1 tablet as needed Orally Four times a day prn diarrhea; Duration: 30 days 06/19/2025 09/17/2025 Active Famotidine 40 MG Tablet 1 tablet Orally Once a day at noon; Duration: 30 days 06/19/2025 Active Losartan Potassium 25 MG Tablet 1 tablet Orally Once a day in am; Duration: 30 days Not-Taking Losartan Potassium 25 MG Tablet Oral; Duration: 30 Days Not-Taking Vqfrgbimuc-RAXS-Nkcaurrt 50-325-40 MG Tablet TAKE 1 TABLET BY MOUTH EVERY 4 HOURS NEEDED FOR HEADACHE FOR 30 DAYS Orally every 4 hrs; Duration: 30 days Not-Taking Cefuroxime Axetil 250 MG Tablet Oral; Duration: 5 Days Not-Taking Losartan Potassium 25 MG Tablet Oral; Duration: 30 Days Not-Taking Estradiol 2 MG Tablet 1 tablet Orally On ce a day; Duration: 30 days Not-Taking Cefuroxime Axetil 250 MG Tablet TAKE 1 TABLET BY MOUTH EVERY 12 HOURS FOR 5 DAYS Oral; Duration: 5 Days Not-Taking Rizatriptan Benzoate 10 MG Tablet Disintegrating Oral; Duration: 28 Days Not-Taking amLODIPine Besylate 2.5 MG Tablet Oral; Duration: 90 Days Not-Taking Clindamycin HCl 300 MG Capsule Take 1 capsule by mouth three times daily for 10 days; Duration: 10 Not-Taking Cephalexin 500 MG Capsule TAKE 2 CAPSULE S BY MOUTH TWICE DAILY FOR 10 DAYS; Duration: 10 Not-Taking Nurtec 75 MG Tablet Disintegrating 1 tablet on the tongue and allow to dissolve Orally daily prn migraine; Duration: 30 day(s) Not-Taking Maxalt-EMERGENCY CARE TECH 10 MG Tablet Disintegrating 1 tablet Orally Once a day prn migraine; Duration: 1 days 02/19/2024 Not-Taking Brilinta 90 MG Tablet 1 tablet Oral Twic e a day; Duration: 45 days Not-Taking Albuterol Sulfate HFA 108 (90 Base) MCG/ACT Aerosol Solution 2 puffs Inhalation four times a day prn; Duration: 30 days Active Paxlovid (300/100) 20 x 150 MG & 10 x 100MG Tablet Therapy Pack 300/100 Orally daily as directed; Duration: 08/14/2024 Not-Taking Aspirin Adult Low Dose 81 MG Tablet Delayed Release 1 tablet Orally Once a day Active Gabapentin 300 MG Capsule 1 capsule Oral twice a day; Duration: 30 days Active Metoprolol Succinate ER 50 MG Tablet Extended Release 24 Hour 1 tablet Oral twice a day; Duration: 90 days Active Isosorbide Mononitrate ER 30 MG Tablet Extended Release 24 Hour 1 tab Oral twice a day; Duration: 90 days Active busPIRone HCl 10 MG Tablet TAKE 1/2 TO 1 (ONE-HALF TO ONE) TABLET BY MOUTH TWICE DAILY FOR 30 DAYS Oral; Duration: 30 Days Active Nitroglycerin 0.4 MG Tablet Sublingual DISSOLVE ONE TABLET UNDER THE TONGUE EVERY 5 MINUTES NEEDED FOR CHEST PAIN. DO NOT EXCEED A TOTAL OF 3 DOSES IN 15 MINUTES Sublingual; Duration: 15 Days Active Ondansetron HCl 4 MG Tablet TAKE 1 TABLET BY MOUTH EVERY 4 HOURS NEEDED FOR NAUSEA Oral; Duration: 30 Days Active Atorvastatin Calcium 40 MG Tablet 2 tabs Oral Once a day; Duration: 45 days Active Encounters Encounter Location Date Provider Diagnosis [facility] Office [address] [address] 07/13/2025 Giselle Christianson Plan Of Treatment No Information Progress Notes * ARIASMILESDOB:[birth year] (45 yo F)Acc No.[id number]:07/13/2025 Progress Notes Patient: MILES Reza Provider: Laxmi Christianson APRN :1980 A ge:44 Y S ex:Female Date:07/13/2025 Address:[address] [place], [place] [id number] Subjective: * Chief Complaints: * 3 WEEK F/U * Medications: T akingMagnesium 400 MG Tablet as directed Orally Calcium Citrate-Vitamin D 500- 12.5 MG-MCG Tablet Chewable as directed Orally Vitamin B-12 5000 MCG Tablet Disintegrating as directed Orally Venlafaxine HCl ER 75 MG Capsule Extended Release 24 Hour 1 capsule with food Oral Once a day Prasugrel HCl 10 MG Tablet TAKE 1 TABLET BY MOUTH ONCE DAILY Oral Loratadine 10 MG Tablet TAKE 1 TABLET BY MOUTH ONCE DAILY Oral Ondansetron HCl 4 MG Tablet TAKE 1 TABLET BY MOUTH EVERY 4 HOURS NEEDED FOR NAUSEA Oral Nitroglycerin 0.4 MG Tablet Sublingual DISSOLVE ONE TABLET UNDER THE TONGUE EVERY 5 MINUTES NEEDED FOR CHEST PAIN. DO NOT EXCEED A TOTAL OF 3 DOSES IN 15 MINUTES Sublingual Atorvastatin Calcium 40 MG Tablet 2 tabs Oral Once a day busPIRone HCl 10 MG Tablet TAKE 1/2 TO 1 (ONE-HALF TO ONE) TABLET BY MOUTH TWICE DAILY FOR 30 DAYS Oral Isosorbide Mononitrate ER 30 MG Tablet Extended Release 24 Hour 1 tab Oral twice a day Metoprolol Succinate ER 50 MG Tablet Extended Release 24 Hour 1 tablet Oral twice a day Gabapentin 300 MG Capsule 1 capsule Oral twice a day Aspirin Adult Low Dose 81 MG Tablet Delayed Release 1 tablet Orally Once a day Albuterol Sulfate HFA 108 (90 Base) MCG/ACT Aerosol Solution 2 puffs Inhalation four times a day prn Famotidine 40 MG Tablet 1 tablet Orally Once a day at noon Diphenoxylate- Atropine 2.5-0.025 MG Tablet 1 tablet as needed Orally Four times a day prn diarrhea , stop date 09/17/2025Pantoprazole Sodium 40 MG Tablet Delayed Release Take 1 tablet by mouth twice daily Taking Magnesium 400 MG Tablet as directed Orally Taking Calcium Citrate-Vitamin D 500-12.5 MG-MCG Tablet Chewable as directed Orally Taking Vitamin B-12 5000 MCG Tablet Disintegrating as directed Orally Taking Venlafaxine HCl ER 75 MG Capsule Extended Release 24 Hour 1 capsule with food Oral Once a day Taking Prasugrel HCl 10 MG Tablet TAKE 1 TABLET BY MOUTH ONCE DAILY Oral Taking Loratadine 10 MG Tablet TAKE 1 TABLET BY MOUTH ONCE DAILY Oral Taking Ondansetron HCl 4 MG Tablet TAKE 1 TABLET BY MOUTH EVERY 4 HOURS NEEDED FOR NAUSEA Oral Taking Nitroglycerin 0.4 MG Tablet Sublingual DISSOLVE ONE TABLET UNDER THE TONGUE EVERY 5 MINUTES NEEDED FOR CHEST PAIN. DO NOT EXCEED A TOTAL OF 3 DOSES IN 15 MINUTES Sublingual Taking Atorvastatin Calcium 40 MG Tablet 2 tabs Oral Once a day Taking busPIRone HCl 10 MG Tablet TAKE 1/2 TO 1 (ONE-HALF TO ONE) TABLET BY MOUTH TWICE DAILY FOR 30 DAYS Oral Taking Isosorbide Mononitrate ER 30 MG Tablet Extended Release 24 Hour 1 tab Oral twice a day Taking Metoprolol Succinate ER 50 MG Tablet Extended Release 24 Hour 1 tablet Oral twice a day Taking Gabapentin 300 MG Capsule 1 capsule Oral twice a day Taking Aspirin Adult Low Dose 81 MG Tablet Delayed Release 1 tablet Orally Once a day Taking Albuterol Sulfate HFA 108 (90 Base) MCG/ACT Aerosol Solution 2 puffs Inhalation four times a day prn Taking Famotidine 40 MG Tablet 1 tablet Orally Once a day at noon Taking Diphenoxylate-Atropine 2.5-0.025 MG Tablet 1 tablet as needed Orally Four times a day prn diarrhea , stop date 09/17/2025Taking Pantoprazole Sodium 40 MG Tablet Delayed Release Take 1 tablet by mouth twice daily Not-TakingBrilinta 90 MG Tablet 1 tablet Oral Twice a day Maxalt-EMERGENCY CARE TECH 10 MG Tablet Disintegrating 1 tablet Orally Once a day prn migraine Nurtec 75 MG Tablet Disintegrating 1 tablet on the tongue and allow to dissolve Orally daily prn migraine Paxlovid (300/100) 20 x 150 MG & 10 x 100MG Tablet Therapy Pack 300/100 Orally daily as directed Cephalexin 500 MG Capsule TAKE 2 CAPSULES BY MOUTH TWICE DAILY FOR 10 DAYS Clindamycin HCl 300 MG Capsule Take 1 capsule by mouth three times daily for 10 days amLODIPine Besylate 2.5 MG Tablet Oral Rizatriptan Benzoate 10 MG Tablet Disintegrating Oral Cefuroxime Axetil 250 MG Tablet TAKE 1 TABLET BY MOUTH EVERY 12 HOURS FOR 5 DAYS Oral Losartan Potassium 25 MG Tablet Oral Cefuroxime Axetil 250 MG Tablet Oral Hgtkqvjcwh-PXCS-Kstjezao 50-325-40 MG Tablet TAKE 1 TABLET BY MOUTH EVERY 4 HOURS NEEDED FOR HEADACHE FOR 30 DAYS Orally every 4 hrs Losartan Potassium 25 MG Tablet Oral Estradiol 2 MG Tablet 1 tablet Orally Once a day Losartan Potassium 25 MG Tablet 1 tablet Orally Once a day in am Not-Taking Brilinta 90 MG Tablet 1 tablet Oral Twice a day Not-Taking Maxalt-EMERGENCY CARE TECH 10 MG Tablet Disintegrating 1 tablet Orally Once a day prn migraine Not-Taking Nurtec 75 MG Tablet Disintegrating 1 tablet on the tongue and allow to dissolve Orally daily prn migraine Not-Taking Paxlovid (300/100) 20 x 150 MG & 10 x 100MG Tablet Therapy Pack 300/100 Orally daily as directed Not-Taking Cephalexin 500 MG Capsule TAKE 2 CAPSULES BY MOUTH TWICE DAILY FOR 10 DAYS Not-Taking Clindamycin HCl 300 MG Capsule Take 1 capsule by mouth three times daily for 10 days Not-Taking amLODIPine Besylate 2.5 MG Tablet Oral Not-Taking Rizatriptan Benzoate 10 MG Tablet Disintegrating Oral Not-Taking Cefuroxime Axetil 250 MG Tablet TAKE 1 TABLET BY MOUTH EVERY 12 HOURS FOR 5 DAYS Oral Not-Taking Losartan Potassium 25 MG Tablet Oral Not-Taking Cefuroxime Axetil 250 MG Tablet Oral Not-Taking Mbkqgadywh-GRYM-Zaygnneo 50-325-40 MG Tablet TAKE 1 TABLET BY MOUTH EVERY 4 HOURS NEEDED FOR HEADACHE FOR 30 DAYS Orally every 4 hrs Not-Taking Losartan Potassium 25 MG Tablet Oral Not-Taking Estradiol 2 MG Tablet 1 tablet Orally Once a day Not- Taking Losartan Potassium 25 MG Tablet 1 tablet Orally Once a day in am Plan: * Preventive Medicine: Screenings: B REAST CANCER SCREENING: Date of most recent screening: haresh ast one was 5 years ago, Provider recommendation: r epeat Orders sent to [facility] 06/19/2025 C ERVICAL CANCER SCREENING: Date of the last PAP Smear : 2 001, Normal C OLORECTAL CANCER SCREENING: Date of last colonoscopy H as never been done D EPRESSION SCREENING: Date of most recent screenin 03/24/2025 The patient denies: a nxiety, depressed mood, [...] w ith score of 0-4 V ACCINATIONS: Is patient's pneumococcal vaccine current? 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
--- NOTE | 2025-09-21 10:54 | XR_ITS ---
WS: [id number] Portable AP upright chest, 09/21/2025 Clinical Data: chest pain Comparison: Portable chest, 11/12/2024 Findings: No nodules, masses or effusions are seen. The heart is normal. The pulmonary vascularity is not increased. No pneumonia or pneumothorax is seen. XR/XR chest 1V portable [id number] Impression: Negative chest.
--- NOTE | 2025-09-21 10:54 | ECG_ITS ---
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 Measurements Intervals [place] Rate: 59 P: 68 DE: 149 QRS: 54 QRSD: 84 T: 61 QT: 416 QTc: 413 Interpretive Statements SINUS BRADYCARDIA Compared to ECG 11/13/2024 04:00:20 Sinus rhythm no longer present T-wave abnormality no longer present Electronically Signed On 09-22-2025 22:07:41 INVESTIGATIONS CONSULTANT by Galina Muller M.D. [email or web address]
--- OUTSIDE RECORDS SUMMARY | 2025-09-21 10:55 | XMS_ITS | Patient Health Record ---
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 Role Phone Sammy [facility] Primary Care Provider [facility] Unavailable Unavailable Allergies No Known Allergies Results Component Value Reference Range Flag Notes CRP [id number] Reviewed date:03/30/2025 12:32:37 PM Interpretation: Performing Lab: Notes/Report: Diagnosis Description: Pain in unspecified joint CRP <0.5 .40-1.00 MG/DL NA RA Factor 10797, 36054 Reviewed date:03/30/2025 12:32:52 PM Interpretation: Performing Lab: Notes/Report: Diagnosis Description: Pain in unspecified joint RA Factor <3.5 .0-14.0 IU/mL Result less than 10 Iu/ml will be considered as Negative. Sedimentation Rate 77059 Reviewed date:03/30/2025 12:33:22 PM Interpretation: Performing Lab: Notes/Report: Diagnosis Description: Pain in unspecified joint Sed Rate 10 0-20 MM/HR Uric Acid (B) 23409 Reviewed date:03/30/2025 12:33:06 PM Interpretation: Performing Lab: Notes/Report: Diagnosis Description: Pain in unspecified joint Uric Acid 5.1 2.6-6.0 MG/DL Hemoglobin A1c 02540 Reviewed date:03/30/2025 12:32:23 PM Interpretation: Performing Lab: Notes/Report: Diagnosis Description: Hyperglycemia, unspecified Hgb A1c 5.4 3.8-6.4 % Interpretation Of Hgb A1c: 4.5-6.2 % nondiabetics. >7.0 % diabetics. EAG 108 NA Estimated Aver age Glucose(EAG). CBC w\ Auto Diff 93174 Reviewed date:03/30/2025 12:32:06 PM Interpretation: Performing Lab: Notes/Report: Diagnosis Description: Essential (primary) hypertension WBC 5.5 4.5-11.0 X10'3 RBC 4.48 4.00-5.20 X10'6 Hgb 12.7 12.0-16.0 G/DL Hct 41.3 36.0-46.0 % MCV 92.2 80.0-100.0 FL MCH 28.3 27.0-31.0 PG MCHC 30.8 31.0-37.0 G/DL LOW Platelet 300 150-400 X10'3 RDW-SD 48.8 35.0-49.0 FL RDW-CV 14.3 12.2-15.6 % MPV 9.9 9.2-12.0 FL Neutro Auto% 57.1 40.0-70.0 % Lymph Auto% 31.8 22.0-44.0 % Maverick Auto% 9.1 3.0-7.0 % HI Eos Auto% 1.3 2.0-4.0 % LOW Baso Auto% 0.5 0.0-1.0 % Imm Gran% .2 .0-.4 % Neutro Abs 3.13 .80-7.70 Absolute Neutrophil Count 3130 NA Lymph Abs 1.74 .10-4.10 Maverick Abs .50 .20-1.00 Eos Abs .07 .00-.40 Baso Abs .03 .00-.20 Imm Gran Abs .01 .00-.10 NRBC# .00 .00-.20 X10'3 NRBC% .00 .00-.20 /100 intact WBC's Comprehensive Metabolic Pane l (CMP) 24732 Reviewed date:03/30/2025 12:31:32 PM Interpretation: Performing Lab: Notes/Report: Diagnosis Description: Essential (primary) hypertension Glucose Serum 98 71-110 MG/DL Testing p erformed at [facility], [address] [place] [address] [place] [address]. CLIA ID#: [id number] BUN 13 7-21 MG/DL Creat .61 .51-1.17 MG/DL U-bhjsfq-t-benzoquinone imine (NAPQI) is a metabolite of acetaminophen, [...] the potential for falsely depressed results. GFR 113.1 NA Calculation pe rformed from GFR calculator provided by the [employer]. Glomerular Filtration rate(GRF) is the best overall index of kidney function. Normal GFR varies according to age,sex, body size, and declines with age. The National [employer] recommends using the CKD-EPI Creatinine Equation(2020) to estimate GFR. BUN/Creat Ratio 21.3 12.0-20.0 % HI Total Protein 7.3 5.8-8.0 G/DL Albumin 4.5 3.2-4.8 G/DL Globulin 2.8 2.3-3.5 G/DL Alb/Glob 1.6 0.8-2.2 Calcium 9.2 8.7-10.4 MG/DL Sodium 140 136-145 MMOL/L Potassium 4.4 3.5-5.1 MMOL/L Chloride 106 98-107 MMOL/L CO2 28.2 20.0-31.0 MMOL/L Anion Gap 10 5-15 Alk Phos 132 46-116 HI Bili Total .4 .3-1.2 MG/DL Use of this assay is not recommended for patients undergoing treatment with eltrombopag due to the potential for falsely elevated results. AST/SGOT 39 15-37 UNIT/L HI ALT/SGPT 54 12-78 UNIT/L Osmo Serum,Calculated 290 280-300 MOSM/KG Lipid Panel Reflex DLDL 8006 1, 68186 Reviewed date:03/30/2025 12:31:46 PM Interpretation: Performing Lab: Notes/Report: Diagnosis Description: Encounter for screening for lipoid disorders Trig 116 NA Classification Guidelines:Triglycerides Adults: >20yrs Desirable <150 Borderline High 150-199 High 200-499 Very high >=500 Children: Male 0-4 yr 22-99 5-9 yr 30-101 10-14 yr 32-125 15-19 yr 37-148 Children: Female 0-4 yr 34-112 5-9 yr 32-105 10-14 yr 37-131 15-19 yr 39-132 Chol 164 <=200 MG/DL HDL 53 39-96 MG/DL Reference Ranges:HDL Male: 5-9y 38-75 10-14y 37-74 15-19y 30-63 >=20y 40-59 Female: 5-9y 36-73 10-14y 37-70 15-19y 35-74 >=20y 40-59 CH/HDL 3.1 0.0-4.9 RATIO LDL 88 0-130 MG/DL LDL result is inaccurate , if Trig is >400 mg/dl. See DLDL result. Thyroid Stimulating Hormone (TSH) 14324 Reviewed date:03/30/2025 12:31:15 PM Interpretation: Performing Lab: Notes/Report: Diagnosis Description: Encounter for screening for other suspected endocrine disorder TSH 1.099 .358-3.740 MlU/ML Influenza A/B - 26688 Reviewed date:12/25/2024 03:52:21 PM Interpretation: Performing Lab: Notes/Report: A neg B neg Thyroid Stimulating Hormone (TSH) 62901 Reviewed date:12/05/2024 04:14:20 PM Interpretation: Performing Lab: Notes/Report: Diagnosis Description: Encounter for screening for other suspected endocrine disorder TSH 1.377 .358-3.740 MlU/ML Vitamin D Total (B) 21038 Reviewed date:12/05/2024 04:14:30 PM Interpretation: Performing Lab: Notes/Report: Diagnosis Description: Other joint terminal attack controller (current) drug therapy Vitamin D Total 31.8 30.0-100.0 ng/mL Deficiency: < 20 ng/mL Insufficiency: 20? < 30 ng/mL Sufficiency: 30?100 ng/mL Performed on the Siemens Cianna MedicalllmiDrive IM Analyzer Sedimentation Rate 68248 Reviewed date:12/05/2024 04:14:40 PM Interpretation: Performing Lab: Notes/Report: Diagnosis Description: Pain in unspecified joint Sed Rate 12 0-20 MM/HR RA Factor 82401, 17206 Reviewed date:12/05/2024 04:14:49 PM Interpretation: Performing Lab: Notes/Report: Diagnosis Description: Pain in unspecified joint RA Factor <3.5 .0-14.0 IU/mL Result less than 10 Iu/ml will be considered as Negative. GABRIEL IGG SCREEN W/ RFX 05253 Reviewed date:12/05/2024 04:14:59 PM Interpretation: Performing Lab: [...] stranded DNA (dsDNA,nDNA), histone, SS-A/Ro, SS-B/La, Sm, Sm/CRIME SCENE ANALYST,SCL-70,Myrna-1, and ecntromeric antigens, along with sera positive for immunofluorescent (IFA) HEp-2 GABRIEL. Vitamin B12 (B) 87850 Reviewed date:12/05/2024 04:20:03 PM Interpretation: Performing Lab: Notes/Report: Diagnosis Description: Other joint terminal attack controller (current) drug therapy [id number] 282 211-911 pg/mL CRP 05764 Reviewed date:12/05/2024 04:15:20 PM Interpretation: Performing Lab: Notes/Report: Diagnosis Description: Pain in unspecified joint CRP .56 .40-1.00 MG/DL Uric Acid (B) 55302 Reviewed date:12/05/2024 04:15:30 PM Interpretation: Performing Lab: Notes/Report: Diagnosis Description: Pain in unspecified joint Uric Acid 4.5 2.6-6.0 MG/DL CBC w\ Auto Diff 93897 Reviewed date:12/05/2024 04:15:44 PM Interpretation: Performing Lab: [...] 40.0-70.0 % Lymph Auto% 30.9 22.0-44.0 % Maverick Auto% 7.1 3.0-7.0 % HI Eos Auto% 1.5 2.0-4.0 % LOW Baso Auto% 0.6 0.0-1.0 % Imm Gran% .2 .0-.4 % Neutro Abs 3.89 .80-7.70 Absolute Neutrophil Count 3890 NA Lymph Abs 2.01 .10-4.10 Maverick Abs .46 .20-1.00 Eos Abs .10 .00-.40 Baso Abs .04 .00-.20 Imm Gran Abs .01 .00-.10 NRBC# .00 .00-.20 X10'3 NRBC% .00 .00-.20 /100 intact WBC's Comprehensive Metabolic Pane l (CMP) 82904 Reviewed date:12/05/2024 04:15:55 PM Interpretation: Performing Lab: Notes/Report: Diagnosis Description: Essential (primary) hypertension Glucose Serum 86 71-110 MG/DL Testing p erformed at [facility], [address] [place] [address] [place] [address]. CLIA ID#: [id number] BUN 10 7-21 MG/DL Creat .70 .51-1.17 MG/DL Y-kbmhex-e-benzoquinone imine (NAPQI) is a metabolite of acetaminophen, [...] potential for falsely depressed results. GFR 109.7 NA Calculation pe rformed from GFR calculator provided by the National [...] Gap 9 5-15 Alk Phos 117 46-116 HI Bili Total .3 .3-1.2 MG/DL Use of this assay is not recommended for patients undergoing treatment with eltrombopag due to the potential for falsely elevated results. AST/SGOT 18 15-37 UNIT/L ALT/SGPT 22 12-78 UNIT/L Osmo Serum,Calculated 284 280-300 MOSM/KG Lipid Panel Reflex DLDL 8006 1, 43218 Reviewed date:12/05/2024 04:16:05 PM Interpretation: Performing Lab: Notes/Report: Diagnosis Description: Hyperlipidemia, unspecified Trig 129 NA Classification Guidelines:Triglycerides Adults: >20yrs Desirable <150 Borderline High 150-199 High 200-499 Very high >=500 Children: Male 0-4 yr 22-99 5-9 yr 30-101 10-14 yr 32-125 15-19 yr 37-148 Children: Female 0-4 yr 34-112 5-9 yr 32-105 10-14 yr 37-131 15-19 yr 39-132 Chol 151 <=200 MG/DL HDL 42 39-96 MG/DL Reference Ranges:HDL Male: 5-9y 38-75 10-14y 37-74 15-19y 30-63 >=20y 40-59 Female: 5-9y 36-73 10-14y 37-70 15-19y 35-74 >=20y 40-59 CH/HDL 3.6 0.0-4.9 RATIO LDL 83 0-130 MG/DL LDL result is inaccurate , if Trig is >400 mg/dl. See DLDL result. Reason For Referral No Information Medications Medication SIG (Take, Route, Frequency, Duration) Notes Start Date End Date Status Nitroglycerin 0.4 MG Tablet Sublingual DISSOLVE ONE TABLET UNDER THE TONGUE EVERY 5 MINUTES NEEDED FOR CHEST PAIN. DO NOT EXCEED A TOTAL OF 3 DOSES IN 15 MINUTES Sublingual; Duration: 15 Days Active Ondansetron HCl 4 MG Tablet TAKE 1 TABLET BY MOUTH EVERY 4 HOURS NEEDED FOR NAUSEA Oral; Duration: 30 Days Active Loratadine 10 MG Tablet TAKE 1 TABLET BY MOUTH ONCE DAILY Oral; Duration: 30 Days Active Losartan Potassium 25 MG Tablet Oral; Duration: 30 Days Not-Taking Prasugrel HCl 10 MG Tablet TAKE 1 TABLET BY MOUTH ONCE DAILY Oral; Duration: 30 Days Active Fursmjextd-IJUF-Esvvsequ 50-325-40 MG Tablet TAKE 1 TABLET BY MOUTH EVERY 4 HOURS NEEDED FOR HEADACHE FOR 30 DAYS Orally every 4 hrs; Duration: 30 days Not-Taking Cefuroxime Axetil 250 MG Tablet Oral; Duration: 5 Days Not-T aking Vitamin B-12 5000 MCG Tablet Disintegrating as directed Orally Active Losartan Potassium 25 MG Tablet Oral; Duration: 30 Days Not-Taking Calcium Citrate-Vitamin D 500-12.5 MG-MCG Tablet Chewable as directed Orally Active Cefuroxime Axetil 250 MG Tablet TAKE 1 TABLET BY MOUTH EVERY 12 HOURS FOR 5 DAYS Oral; Duration: 5 Days Not-Taking Magnesium 400 MG Tablet as directed Orally Active Rizatriptan Benzoate 10 MG Tablet Disintegrating Oral; Duration: 28 Days Not-Taking amLODIPine Besylate 2.5 MG Tablet Oral; Duration: 90 Days Not-Taking Clindamycin HCl 300 MG Capsule Take 1 capsule by mouth three times daily for 10 days; Duration: 10 Not-Taking Cephalexin 500 MG Capsule TAKE 2 CAPSULE S BY MOUTH TWICE DAILY FOR 10 DAYS; Duration: 10 Not-Taking Paxlovid (300/100) 20 x 150 MG & 10 x 100MG Tablet Therapy Pack 300/100 Orally daily as directed; Duration: 5 08/14/2024 Not-Taking Venlafaxine HCl ER 75 mg Capsule Extended Release 24 Hour take 1 capsule BY MOUTH EVERY DAY with food in THE morning; Duration: 30 Active Nurtec 75 MG Tablet Disintegrating 1 tablet on the tongue and allow to dissolve Orally daily prn migraine; Duration: 30 day(s) Not-Taking 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 Disintegrating 1 tablet Orally Once a day prn migraine; Duration: 1 days 02/19/2024 Not-Taking Brilinta 90 MG Tablet 1 tablet Oral Twic e a day; Duration: 45 days Not-Takin g Albuterol Sulfate HFA 108 (90 Base) MCG/ACT Aerosol Solution 2 puffs Inhalation four times a day prn; Duration: 30 days Active Aspirin Adult Low Dose [...] twice a day; Duration: 90 days Active Pantoprazole Sodium 40 MG Tablet Delayed Release Take 1 tablet by mouth twice daily; Duration: 30 Active busPIRone HCl 10 MG Tablet TAKE 1/2 TO 1 (ONE-HALF TO ONE) TABLET BY MOUTH TWICE DAILY FOR 30 DAYS Oral; Duration: 30 Days Active Atorvastatin Calcium 40 MG Tablet 2 tabs Oral Once a day; Duration: 45 days Active Famotidine 40 MG Tablet 1 tablet Orally Once a day at noon; Duration: 30 days 06/19/2025 Active Losartan Potassium 25 MG Tablet 1 tablet Orally Once a day in am; Duration: 30 days Not-Taking Estradiol 2 MG Tablet 1 tablet Orally On ce a day; Duration: 30 days Not-Takin g Immunizations Vaccine Route Administration Date Status Comme nts Flucelvax Quadrivalent IM Intramuscular 10/25/2023 Administered [facility] [id number] pt tolerated well/instructed to wait 20 min Flucelvax Trivalent, Syringe 0.5 mL, PF IM Intramuscular 12/04/2024 Administered supplied by [employer]/pt tolerated well/instructed to wait 20 min Prevnar 20 IM Intramuscular 10/25/2023 Administered [facility] [id number] pt tolerated well/instructed to wait 20 min Prevnar 20 IM Intramuscular 12/04/2024 Administered suppli ed by [facility] [employer]/pt tolerated well/instructed to wait 20 min Social History Tobacco Use: Social History Observation Description Date Details (start date - stop date) Former Smoker NA - NA Social History Depression Screening Social Info Question Answer Notes depression screening findings Findings Negative (0 -4) PHQ-9 Little interest or p olivia in doing things Not at all Feeling [...] way Not at all Total Score 0 Drugs/Alcohol: Social Info Question Answer Notes Alcohol Screen (Audit-C) Did you have a drink containing alcohol in the past year? No Points 0 Interpretation Negative Drugs Have you used drugs other than those for medical reasons in the past 12 months? No Tobacco Use: Social Info Question Answer Notes Tobacco Control (Standard) Tobacco use: Former smoker How long has it been since you last smoked? 3-6 months Additional Details Category Social Info Options Details Drugs/Alcohol: Do you smoke marijuana? De nies Do you drink alcohol? No Section Notes: 06/19/2022 06/19/2022 06/19/2022 Depression screen completed 02/19/2024 score 0 Depression screen completed 02/19/2024 score 0 Depression screen completed 02/19/2024 score 0 Depression screen completed 03/24/2025 06/19/2022 Depression screen completed 10/25/2023 score 0 Depression screen completed 02/19/2024 score 0 Depression screen completed 02/19/2024 score 0 Depression screen completed 02/19/2024 score 0 Depression screen completed 02/19/2024 score 0 06/19/2022 PHQ-9 06/19/2022 PHQ-9 Depression screen completed 03/24/2025 Depression screen completed 03/24/2025 Depression screen completed 02/19/2024 score 0 Problems Problem Type SNOMED Code ICD Code Onset Dates Problem Status W/U Status Risk Notes Problem Hysterectomy (235098185) Absence of uterus (Z90.710) 025 Active confirmed Problem Tobacco user (705435772) Nicotine dependence, cigarettes, uncomplicated (F17.210) Active confirmed Problem Wheezing (96690020) Wheezing (R06.2) Active con firmed Problem Bronchitis (73389947) Bronchitis (J40) Active confirmed Problem Gastroesophageal reflux disease without esophagitis (071154907) Gastroesophageal reflux disease without esophagitis (K21.9) Active confirmed Problem Anxiety (20774214) Anxiety (F41.9) Active confi rmed Problem Sinusitis (52188833) Sinusitis (J32.9) Active confirmed Problem Exacerbation of moderate persistent asthma (disorder) (200921830) Moderate persistent asthmatic bronchitis with acute exacerbation (J45.41) Active confirmed Problem Migraine with aura (1028712) Migraine with aura and without status migrainosus, not intractable (G43.109) Active confirmed Problem Menopause (785938193) Menopause (Z78.0) Active confirmed Problem Neuropathic pain (456714531) Neuropathic pain (M79.2) Active confirmed Problem Depression (553429410) Depression (F32.9) Active confirmed Problem Febrile illness (817603819) Febrile illness (R50.9) Active confirmed Problem Wheezing (34659963) Wheezes (R06.2) Active conf irmed Problem Dental abscess (disorder) (999914410) Abscessed tooth (K04.7) Active confirmed Problem Osteoarthritis (738630746) Osteoarthritis (M19.90) Active confirmed Problem Coronary artery disease (76049097) CAD (coronary artery disease) (I25.10) Active confirmed Problem Hyperlipidemia (54908301) Hyperlipidemia (E78.5) Active confirmed Problem Gastroesophageal reflux disease (618266747) GERD (gastroesophageal reflux disease) (K21.9) Active confirmed Problem Painful mouth (543125639) Mouth pain (K13.79) Active confirmed Problem Tobacco dependence in remission (503951201) Tobacco dependence in remission (F17.201) Active confirmed Problem Reduced libido (3493321) Libido, decreased (R68.82) Active confirmed Problem Primary hypertension (86684695) Primary hypertension (I10) Active confirmed Problem Acute cough (956462153904094527 ) Acute cough (R05.1) Active confirmed Problem Lumbar pain (530398628) Lumbar pain (M54.50) Active confirmed Vital Signs Heart Rate 72 /min 06/19/2025 Temperature 97.3 degrees Fahrenheit 06/19/2025 Respiratory Rate 18 /min 06/19/2025 Blood pressure diastolic 88 mm Hg 06/19/2025 Oximetry 98 % 06/19/2025 Height-cm 162.56 cm 06/19/2025 Weight-kg 90.27 kg 06/19/2025 Height 64 in 06/19/2025 Blood pressure systolic 127 mm Hg 06/19/2025 Weight 199 lbs 06/19/2025 BMI 34.15 kg/m2 06/19/2025 Encounters Encounter Location Date Provider Diagnosis [address] [address] 06/19/2025 [facility] Encounter for screen ing mammogram for breast cancer Z12.31 ; Abdominal pain R10.9 ; Diarrhea R19.7 ; GERD (gastroesophageal reflux disease) K21.9 and Gastroenteritis K52.[address] [address] 04/24/2025 [facility] CAD (coronary artery disease) I25.[address] [address] 03/24/2025 [facility] Hyperglycemia R73.9 ; Primary hypertension I10 ; CAD (coronary artery disease) I25.10 ; Thyroid disorder screen Z13.29 ; Hyperlipidemia E78.5 ; Lipid screening Z13.220 ; Joint pain M25.50 ; Drug therapy continued Z79.899 and Depression screen Z13.[address] [address] 12/25/2024 [facility] Body aches R52 ; Sinusitis J32.9 ; Primary hypertension I10 and CAD (coronary artery disease) I25.[address] [address] 12/04/2024 [facility] Menopause Z78.0 ; Gastroesophageal reflux disease without esophagitis K21.9 ; Joint pain M25.50 ; Primary hypertension I10 ; Neuropathic pain M79.2 ; CAD (coronary artery disease) I25.10 ; Osteoarthritis M19.90 ; Encounter for immunization Z23 ; 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 use 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 Z79.899 ; Hyperlipidemia E78.5 ; Thyroid disorder screen Z13.29 ; Encounter for administration of vaccine Z23 ; Dyspnea R06.00 and Tobacco dependence in remission F17.[address] [place] [address] 03/27/2025 [facility] Joint pain M25.50 ; Primary hypertension I10 ; Hyperglycemia R73.9 ; Lipid screening Z13.220 and Thyroid disorder screen Z13.29 [facility] [address] [place] [address] 11/24/2024 [facility] [address] [place] [address] 08/10/2025 [facility] [address] [place] [address] 08/04/2025 [facility] Painful urination R3 0.9 [facility] [address] [place] [address] 06/22/2025 [facility] [address] [place] [address] 11/09/2024 [facility] Menopause Z78.0 [facility] [address] [place] [address] 11/03/2024 [facility] Menopause Z78.0 Assessments Encounter Date Diagnosis (ICD Code) Assessment Notes Treatment Notes Treatment Clinical Notes Section Notes 11/03/2024 Menopause (ICD-10 - Z78.0) 12/04/2024 Gastroesophageal reflux disease without esophagitis (ICD-10 - K21.9) pantoprazole 12/04/2024 Menopause (ICD-10 - Z78.0) effexor 04/24/2025 CAD (coronary artery disease) (ICD-10 - I25.10) continue meds cardiology as planned 06/19/2025 Abdominal pain (ICD-10 - R10.9) ct abd pelvis 06/19/2025 Encounter for screening mammogram for breast cancer (ICD-10 - Z12.31) mammogram 08/04/2025 Painful urination (ICD-10 - R30.9) 12/25/2024 Body aches (ICD-10 - R52) flu swab; negative 12/25/2024 Sinusitis (ICD-10 - J32.9) amoxicillin depomedrol/deca dron 03/24/2025 Hyperglycemia (ICD-10 - R73.9) ha1c 03/24/2025 Primary hypertension (ICD-10 - I10) continue meds cbc cmp lipids 11/09/2024 Menopause (ICD-10 - Z78.0) 03/27/2025 Joint pain (ICD-10 - M25.50) 03/27/2025 Primary hypertension (ICD-10 - I10) 03/27/2025 Hyperglycemia (ICD-10 - R73.9) 03/24/2025 CAD (coronary artery disease) (ICD-10 - I25.10) dr ospina 12/25/2024 Primary hypertension (ICD-10 - I10) continue meds 06/19/2025 Diarrhea (ICD-10 - R19.7) lomotil 12/04/2024 Joint pain (ICD-10 - M25.50) arthritis labs 06/19/2025 GERD (gastroesophageal reflux disease) (ICD-10 - K21.9) pantoprazole pepcid 12/25/2024 CAD (coronary artery disease) (ICD-10 - I25.10) cardiology as planned continue meds 12/04/2024 Primary hypertension (ICD-10 - I10) cbc cmp continue meds 03/24/2025 Thyroid disorder screen (ICD-10 - Z13.29) tsh 03/27/2025 Lipid screening (ICD-10 - Z13.220) 03/27/2025 Thyroid disorder screen (ICD-10 - Z13.29) 03/24/2025 Hyperlipidemia (ICD-10 - E78.5) 06/19/2025 Gastroenteritis (ICD-10 - K52.9) cipro 12/04/2024 Neuropathic pain (ICD-10 - M79.2) gabapentin 12/04/2024 CAD (coronary artery disease) (ICD-10 - I25.10) cardiology 03/24/2025 Lipid screening (ICD-10 - Z13.220) lipids 03/24/2025 Joint pain (ICD-10 - M25.50) arthritis labs 12/04/2024 Osteoarthritis (ICD-10 - M19.90) arthritis labs 12/04/2024 Encounter for immunization (ICD-10 - Z23) flu vaccine pneumonia vaccine Immunization supplied by [employer]. 03/24/2025 Drug therapy continued (ICD-10 - Z79.899) 03/24/2025 Depression screen (ICD-10 - Z13.31) 12/04/2024 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 helper use of drug (ICD-10 - Z79.899) vit d vit b12 12/04/2024 Hyperlipidemia (ICD-10 - E78.5) continue meds lipids 12/04/2024 Thyroid disorder screen (ICD-10 - Z13.29) tsh 12/04/2024 Encounter for administration of vaccine (ICD-10 - Z23) 12/04/2024 Dyspnea (ICD-10 - R06.00) 12/04/2024 Tobacco dependence in remission (ICD-10 - F17.201) 12/04/2024 Other Questions asked and answered; discharged [...] Questions asked and answered; discharged to home. 06/19/2025 Other Questions asked and answered; discharged to home. Plan Of Treatment Pending Test Test Name Order Date CT Abdomen, Pelvis w/ + w/o Contrast-741 78 06/19/2025 CT Chest w/ + w/o Contrast diagnostic-71 270 12/04/2024 Foot Min 3V Bilateral-[id number] 06/05/2024 Mammogram Screen Jarad Richy w/CAD-[id number] Mammogram Screening Digital Breast Tomos ynthesis, bilateral - 82439 06/19/2025 GABRIEL IGG SCREEN W/ RFX 09387 03/27/2025 Future Test Test Name Order Date Culture Urine [id number] 08/05/2025 Insurance Providers Payer Name Payer Address Payer Phone Subscriber Number Group Number Insured Name Patient Relationship to Insured Coverage Start Date Coverage End Date [facility] [employer] [address] [place] [phone] [id number] MILES Arias Self - patient is the insured Medications Administered Medication Instructions Date of Administration Dosage Notes Depo-Estradiol 03/13/2024 5 mg Patient br ought her own medication, given in left hip. Patien t tolerated well. DEPO-Medrol 09/22/[address] [facility]: [id number] Patient tolerated well, advised to wait 20 min at clinic DEPO-Medrol 01/29/2023 40 mg [facility] 15159-223 3-01 pt tolerated well/instructed to wait 20 min DEPO-Medrol 12/25/2024 40 mg [facility] [phone] 3-01 pt tolerated well/instructed to wait 20 min dexAMETHasone 09/22/[address] [facility]: 68339-515-42 Patient tolerated well, advised to wait 20 in at clinic dexAMETHasone 01/29/2023 4 mg [facility] 24862-2 423-00 pt tolerated well/instructed to wait 20 min dexAMETHasone 12/25/2024 4 mg [facility] 42368-9 423-00 pt tolerated well/instructed to wait 20 min Rocephin 01/29/2023 1 g [facility] [phone] -11 pt tolerated well/instructed to wait 20 min Medical (General) History Medical History History ICD Code migraine headaches menopause Surgical History Surgery Date(Month/Year) hysterectomy, partial 2000 Hospitalization History Reason Date(Month/Year) hysterectomy 2000
[2025-09-21 11:00] VITALS: BP 161/89; PULSE 60; TEMP 36.8; O2SAT 99; BMI 32.5
[2025-09-21 12:15] VITALS: BP 156/92; PULSE 103; O2SAT 99
[2025-09-21 12:19] LABS: Troponin(5th) Baseline < 6 ng/L (0-10)
[2025-09-21 12:20] LABS: Alanine Aminotransferase 45 U/L (0-33); Albumin Level 4.2 g/dL (3.5-5.2); Alkaline Phosphatase 168 U/L (35-105); Aspartate Amino Transferase 30 U/L (0-32); Blood Urea Nitrogen 13 mg/dL (6-20); Calcium 9.3 mg/dL (8.5-10.5); Carbon Dioxide 23 mmol/L (22-29); Chloride 103 mmol/L (98-107); Creatinine Clr Calc Pharmacy 127.1094; Globulin 2.7 g/dL (1.3-4.6); Glucose 96 mg/dL (65-115); Hematocrit 40.1 % (36-47); Hemoglobin 12.40 g/dL (11.27-16.99); Mean Corpuscular HGB Conc 30.9 g/dL (30-55); Mean Corpuscular Hemoglobin 28.1 pg (27-33); Mean Corpuscular Volume 90.9 fl (85-98); Nucleated Red Blood Cells % 0 %; Osmolality Calculated 284 mOsm/kg (285-295); Platelet Count 304 10^3/cmm (157-399); Red Blood Count 4.41 10^6/uL (3.85-5.65); Sodium 137 mmol/L (136-145); Total Protein 6.9 g/dL (6.6-8.7); White Blood Count 6.67 10^3/uL (3.29-11.43)
[2025-09-21 12:21] LABS: Slide Review Slide Review Perform
[2025-09-21 12:23] LABS: Anion Gap 15.1 (5-19); Potassium 4.1 mmol/L (3.5-5.1)
--- NOTE | 2025-09-21 12:39 | W.ED.CHESTPA ---
HPI - Chest Pain General: Chief Complaint: Chest Pain Stated Complaint: Tightness in chest dizzy low heart rate Time Seen by Provider: 09/21/25 12:39 History of Present Illness: 45-year-old female presents emergency room complaining of bradycardia some dizziness. She has had some mild chest discomfort as well describes as more of a pressure. She has not had any associated shortness of breath with that she has noticed that her heart rate has been low at times. She has a known history of coronary artery disease. Associated symptoms: Deny abdominal pain, dyspnea or fever(s) Related Data Home Medications ?Medication ?Instructions ?Recorded ?Confirmed gabapentin 300 mg capsule 600 mg PO BID 10/11/22 09/29/25 pantoprazole 40 mg tablet,delayed 40 mg PO BID 04/01/24 09/29/25 release (Protonix) albuterol sulfate 90 mcg/actuation 1 - 2 puff inhalation .Q4-6H PRN 08/13/24 09/29/25 aerosol inhaler Shortness Of Breath Or Wheezing aspirin 81 mg tablet,delayed 81 mg PO DAILY 08/13/24 09/29/25 release venlafaxine 75 mg capsule,extended 75 mg PO DAILY 08/13/24 09/29/25 release 24 hr Previous Rx's ?Medication ?Instructions ?Recorded nitroglycerin 0.4 mg sublingual 0.4 mg sublingual Q5M PRN chest 09/11/24 tablet pain #25 tabs isosorbide mononitrate 30 mg 30 mg PO BID #180 tabs 09/24/24 tablet,extended release 24 hr magnesium oxide 400 mg (241.3 mg 400 mg PO DAILY #90 tabs 02/20/25 magnesium) tablet prasugrel HCl 10 mg tablet 10 mg PO DAILY #90 tabs 03/13/25 (Effient) atorvastatin 40 mg tablet See Rx Instructions .Route 04/29/25 .COMPLEX #90 tabs doxycycline hyclate 100 mg tablet 100 mg PO BID 7 days #14 tabs 08/30/25 isosorbide mononitrate 60 mg 60 mg PO .Twice daily #60 tabs 09/21/25 tablet,extended release 24 hr metoprolol succinate 50 mg 50 mg PO BEDTIME #90 tabs 09/29/25 tablet,extended release 24 hr valsartan 40 mg tablet 40 mg PO DAILY #90 tabs 09/29/25 Allergies Allergy/AdvReac Type Severity Reaction Status Date / Time [place] And Derivatives Allergy Severe ALGY-Anaphy Verified 09/29/25 10:43 laxis grapefruit Allergy ALGY-Anaphy Verified 09/29/25 10:43 laxis orange Allergy ALGY-Anaphy Verified 09/29/25 10:43 laxis pineapple Allergy ALGY-Anaphy Verified 09/29/25 10:43 laxis Review of Systems Const: Denies: fever(s) or chills Card: Denies: chest pain Resp: Denies: dyspnea GI: Denies: abdominal pain : Denies: dysuria, urinary frequency or urinary urgency Musc: Denies: neck pain or back pain Skin/Breast: Denies: rash PFSH ED PFSH: Medical History Suicidal ideation History of nephrolithiasis The patient has never needed a surgical procedure, because she has always passed the kidney stones. Migraine HTN (hypertension), benign Coronary artery disease Chronic back pain Depression Patient states that it was Depression Surgical History History of percutaneous coronary intervention three BERTIN to the mid LAD, Left circumflex and diagnonal one artery in 06/2024. Restenting of the diagonal artery in 08/2024. H/O oophorectomy one ovary. History of hysterectomy Family History Mother CAD (coronary artery disease) Heart disease has one stent Father CAD (coronary artery disease) Heart disease has had 5 heart attacks and has a defibrillator Social History Smoking and tobacco/nicotine status: never used tobacco/nicotine Alcohol intake: never Substance/Drug Use: never Additional social history: started smoking in 2019, after her divorce Female Reproductive History: Spontaneous abortions: No Physical Exam Const: COMMON NORMALS: no acute distress GENERAL APPEARANCE: cooperative and comfortable ORIENTATION/CONSCIOUSNESS: Yes awake, Yes oriented to person, Yes oriented to place and Yes oriented to time HENMT: COMMON NORMALS: normocephalic, atraumatic and hearing grossly normal bilaterally HEAD & SCALP: normocephalic and atraumatic Resp: COMMON NORMALS: normal respiratory effort, No retractions, No use of accessory muscles and clear to auscultation bilaterally AUSCULTATION: clear to auscultation bilaterally Cardio: COMMON NORMALS: regular rate, regular rhythm and No murmurs present (Cardio) RATE: regular rate RHYTHM: regular rhythm GI: COMMON NORMALS: Soft to palpation and No hepatosplenomegaly present AUSCULTATION: Yes normoactive bowel sounds PALPATION: Yes Soft to palpation, No Tenderness to palpation present (GI), No Guarding due to palpation present (GI) and Yes No hepatosplenomegaly present Extremity: COMMON NORMALS: normal to inspection, capillary refill normal, no clubbing, cyanosis or edema, no calf tenderness and no pedal edema Neuro: SENSORIUM/ORIENTATION: Yes oriented to person, Yes oriented to place and Yes oriented to time Skin: COMMON NORMALS: no rashes or lesions noted GENERAL SKIN EXAM: no rashes or lesions noted Course Vital Signs: Vital signs: Vital Signs Temperature 98.2 F 09/21/25 11:00 Pulse Rate 60 09/21/25 15:07 Blood Pressure 168/87 09/21/25 15:07 Pulse Oximetry 100 09/21/25 15:07 Oxygen Delivery Me thod Room Air 09/21/25 15:07 MDM - Chest Pain Medical Decision Making Labs and imaging reviewed as found in chart discussed with patient cardiac enzymes are negative patient is bradycardic but blood pressure is well-preserved she has no further symptoms. Continue same medications and follow-up with cardiology. Patient had a cardiac stress test 11/14/2024 reviewed on the chart. Stress testing at that time did not show any signs of ischemia. Discussed with on-call cardiology. Will add isosorbide however follow-up with cardiology clinic. Medical Records I reviewed the patient's medical records. Lab Data I reviewed the patient's lab results. 09/21/25 11:43 09/21/25 11:43 Radiology Impressions Chest X-Ray 09/21/25 10:54 Impression: Negative chest. Laboratory Results WBC 6.67 10^3/uL (3.29-11.43) 09/21/25 11:43 RBC 4.41 10^6/uL (3.85-5.65) 09/21/25 11:43 Hgb 12.40 g/dL (11.27-16.99) 09/21/25 11:43 Hct 40.1 % (36-47) 09/21/25 11:43 MCV 90.9 fl (85-98) 09/21/25 11:43 MCH 28.1 pg (27-33) 09/21/25 11:43 MCHC 30.9 g/dL (30-55) 09/21/25 11:43 RDW 13.4 % (12.1-15.1) 09/21/25 11:43 Plt Count 304 10^3/cmm (157-399) 09/21/25 11:43 MPV 9.9 fL (7.4-10.4) 09/21/25 11:43 Neut % (Auto) 60.1 % 09/21/25 11:43 Lymph % (Auto) 29.8 % 09/21/25 11:43 [place] % (Auto) 6.1 % 09/21/25 11:43 Eos % (Auto) 3.3 % 09/21/25 11:43 Baso % (Auto) 0.6 % 09/21/25 11:43 Neut # (Auto) 4.00 10^3/uL (1.8-7.7) 09/21/25 11:43 Lymph # (Auto) 2.0 10^3/uL (0.8-4.8) 09/21/25 11:43 [place] # (Auto) 0.4 10^3/uL (0.2-0.9) 09/21/25 11:43 Eos # (Auto) 0.2 10^3/uL (0.0-0.8) 09/21/25 11:43 Baso # (Auto) 0.0 10^3/uL (0.0-0.1) 09/21/25 11:43 Nucleated RBC % (auto) 0 % 09/21/25 11:43 Nucleated RBCs # 0.0 /100WBC 09/21/25 11:43 Sodium 137 mmol/L (136-145) 09/21/25 11:43 Potassium 4.1 mmol/L (3.5-5.1) 09/21/25 11:43 Chloride 103 mmol/L (98-107) 09/21/25 11:43 Carbon Dioxide 23 mmol/L (22-29) 09/21/25 11:43 Anion Gap 15.1 (5-19) 09/21/25 11:43 BUN 13 mg/dL (6-20) 09/21/25 11:43 Creatinine 0.6 mg/dL (0.5-0.9) 09/21/25 11:43 GFR Calculation 108.6 mL/min (90-130) 09/21/25 11:43 Glucose 96 mg/dL (65-115) 09/21/25 11:43 Calculated Osmolality 284 mOsm/kg (285-295) L 09/21/25 11:43 Calcium 9.3 mg/dL (8.5-10.5) 09/21/25 11:43 Total Bilirubin 0.4 mg/dL (0.15-1.2) 09/21/25 11:43 AST 30 U/L (0-32) 09/21/25 11:43 ALT 45 U/L (0-33) H 09/21/25 11:43 Alkaline Phosphatase 168 U/L (35-105) H 09/21/25 11:43 Troponin T Baseline < 6 ng/L (0-10) 09/21/25 11:43 Troponin T 120 Minute < 6.0 ng/L (0-10) 09/21/25 13:40 Delta Troponin T 0 ABS# (0-10) 09/21/25 13:40 Total Protein 6.9 g/dL (6.6-8.7) 09/21/25 11:43 Albumin 4.2 g/dL (3.5-5.2) 09/21/25 11:43 Globulin 2.7 g/dL (1.3-4.6) 09/21/25 11:43 All radiology interpretation(s) finalized by discharge EKG Data EKG 1: I personally reviewed and interpreted this EKG as follows: Interpretation: EKG 09/21/2025 11:05 AM sinus bradycardia rate of 59 CT interval 149 QTc [address] changes noted no ST elevation no STEMI. Compared to EKG 11/13/2024 EKG 2: I personally reviewed and interpreted this EKG as follows: Interpretation: EKG 09/21/2025 1258 sinus bradycardia rate 54. [place] 154 QTc [address] changes noted compared to EKG done earlier same day no significant changes no STEMI Discharge Plan Discharge Patient Disposition: Home Clinical Impression: Atypical chest pain, HTN (hypertension), benign, S/P coronary artery stent placement Condition: Stable Prescriptions: New isosorbide mononitrate 60 mg tablet extended release 24 hr 60 mg PO .Twice daily Qty: 60 0RF No Action gabapentin 300 mg capsule 600 mg PO BID pantoprazole [Protonix] 40 mg tablet,delayed release (DR/EC) 40 mg PO BID nitroglycerin 0.4 mg tablet, sublingual 0.4 mg sublingual Q5M PRN (Reason: chest pain) Qty: 25 2RF Rx Instructions: do not exceed 3 doses per episode isosorbide mononitrate 30 mg tablet extended release 24 hr 30 mg PO BID Qty: 180 3RF magnesium oxide 400 mg (241.3 mg magnesium) tablet 400 mg PO DAILY Qty: 90 3RF doxycycline hyclate 100 mg tablet 100 mg PO BID 7 Days Qty: 14 0RF valsartan 40 mg tablet 40 mg PO DAILY Qty: 90 3RF metoprolol succinate 50 mg tablet extended release 24 hr 50 mg PO BEDTIME Qty: 90 3RF prasugrel HCl [Effient] 10 mg tablet 10 mg PO DAILY Qty: 90 3RF atorvastatin 40 mg tablet See Rx Instructions .ROUTE .COMPLEX Qty: 90 3RF Dose Instruction: TAKE 2 TABLETS BY MOUTH AT BEDTIME Rx Instructions: TAKE 2 TABLETS BY MOUTH AT BEDTIME (totally 80 mg) aspirin 81 mg Tablet,Delayed Release (Dr/Ec) 81 mg PO DAILY albuterol sulfate 90 mcg/actuation HFA aerosol inhaler 1 - 2 puff INHALATION .Q4-6H PRN (Reason: Shortness Of Breath Or Wheezing) venlafaxine 75 mg capsule,extended release 24hr 75 mg PO DAILY Discharge Orders: Discharge ED (Routine); Ordered 09/21/25 Ordered By: Narciso Harris Referrals: Christianson,BAL DesaiN [Primary Care Provider, Nurse Practitioner] Discharge Activity: Limit activity as instructed Patient Instructions: Opioid Safety, Pain Management, Patient Portal & [place] Instructions Activity Restrictions/Additional Instructions: Thank you for choosing [facility] for your healthcare needs today. It is very important that you follow up as instructed or that you return to the Emergency Department should you have concerns or if your condition changes or worsens in any way. Emergency department visits are focused on emergent conditions, in some cases you may require further evaluation on an outpatient basis. You were seen in the emergency room with complaints of chest discomfort your cardiac enzymes and your EKGs were normal. Recommend you increase your isosorbide mononitrate to 60 mg twice a day. Case management make arrangements for you to follow-up with the cardiology clinic as well as an outpatient Lexiscan sestamibi stress test. (Please note that included in your discharge packet is information concerning opioid safety and pain management. This information is given to all patients were discharged from the ER regardless of their discharge diagnosis or the medicines they usually take or are prescribed.) Print Language: Qatari Coding Level of Care Code ED [employer] for Chg Fwd Heart Score HEART Score Components History: Slightly Suspicous EKG: Normal Age: Less than 45 yrs Risk Factors: >/=3 Risk Factors Troponin: Baseline Trop <16 ng/L HEART Score RESULT HEART Score: 2
--- NOTE | 2025-09-21 12:58 | ECG_ITS ---
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 Measurements Intervals [place] Rate: 54 P: 63 MI: 154 QRS: 51 QRSD: 83 T: 60 QT: 428 QTc: 406 Interpretive Statements SINUS BRADYCARDIA Compared to ECG 09/21/2025 11:05:34 No significant changes Electronically Signed On 09-22-2025 22:30:28 ICT BUSINESS ANALYST by Galina Muller M.D. [email or web address]
[2025-09-21 13:00] VITALS: BP 139/76; PULSE 54; O2SAT 100
[2025-09-21 13:45] VITALS: BP 158/89; PULSE 53; O2SAT 100
[2025-09-21 14:49] LABS: Troponin 5 2HR < 6.0 ng/L (0-10); Troponin 5 2HR Delta 0 ABS# (0-10)
[2025-09-21 15:07] VITALS: BP 168/87; PULSE 60; O2SAT 100
== END 2025-09-21 15:36 | disposition home or self-care (01) ==
PROVIDERS: Physician Assistant; Emergency Provider Family Medicine; PCP Nurse Practitioner Family
DX: R07.89 Other chest pain (principal); I10 Essential (primary) hypertension; Z95.5 Presence of coronary angioplasty implant and graft; Z79.82 Long term (current) use of aspirin; I25.10 Atherosclerotic heart disease of native coronary artery without angina pectoris
CPT/HCPCS: 36415; 71045; 80053; 84484; 85025; 93005; 99285

== ENCOUNTER → 2025-09-29 13:54 | Outpatient (BNVA) | payer OTHER, SELFPAY | PROVIDERS: PCP Nurse Practitioner Family; Visit Provider Internal Medicine Cardiovascular Disease | DX: R58 Hemorrhage, not elsewhere classified (principal); R07.9 Chest pain, unspecified; I10 Essential (primary) hypertension; I25.118 Atherosclerotic heart disease of native coronary artery with other forms of angina pectoris | CPT/HCPCS: 36415; 80048; 85025; 85610 ==

== ENCOUNTER 2025-10-06 14:40 | Inpatient (IN) | payer OTHER, SELFPAY ==
--- NOTE | 2025-10-06 14:42 | XRR_ITS ---
PROCEDURE INFORMATION: Exam: XR Chest Exam date and time: 10/06/2025 3:52 PM Age: 45 years old Clinical indication: Pain; Angina pectoris; Additional info: Chest pain TECHNIQUE: Imaging protocol: Radiologic exam of the chest. Views: 1 view. COMPARISON: CR XR chest 1V portable [id number] 09/21/2025 11:09 AM FINDINGS: Lungs: Unremarkable. No consolidation. Pleural spaces: Unremarkable. No pleural effusion. No pneumothorax. Heart/Mediastinum: Unremarkable. No cardiomegaly. Bones/joints: Unremarkable. XR/XR chest 1V portable [id number] IMPRESSION: No acute findings.
--- NOTE | 2025-10-06 14:46 | ECG_ITS ---
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 Measurements Intervals [place] Rate: 74 P: 78 MS: 146 QRS: 57 QRSD: 81 T: 63 QT: 351 QTc: 391 Interpretive Statements SINUS RHYTHM NONSPECIFIC ST & T-WAVE ABNORMALITY Compared to ECG 09/21/2025 12:58:37 T-wave abnormality now present Sinus bradycardia no longer present Electronically Signed On 10-07-2025 08:49:49 POST OFFICE MANAGER by Galina Muller M.D. [email or web address]
[2025-10-06 14:47] VITALS: BP 144/93; PULSE 85; RESP 20; TEMP 36.4; O2SAT 100
[2025-10-06 15:44] LABS: Hematocrit 40.5 % (36-47); Hemoglobin 12.90 g/dL (11.27-16.99); Mean Corpuscular HGB Conc 31.9 g/dL (30-55); Mean Corpuscular Hemoglobin 28.2 pg (27-33); Mean Corpuscular Volume 88.6 fl (85-98); Nucleated Red Blood Cells % 0 %; Platelet Count 366 10^3/cmm (157-399); Red Blood Count 4.57 10^6/uL (3.85-5.65); White Blood Count 7.20 10^3/uL (3.29-11.43)
--- NOTE | 2025-10-06 15:51 | ED_ITS ---
HPI - Chest Pain 2 General: Chief Complaint: Chest Pain Stated Complaint: chest tightness, back pain Time Seen by Provider: 10/06/25 15:45 History of Present Illness: 45-year-old female with history of coron leyla artery disease status post 4 stents, migraines, hypertension, depression, chronic back pain and obesity who presents to the emergency room with chest pain. She was seen in cardiology clinic today and Dr. Land felt that she needed to come to the ER for admission and possible repeating of stents. She says pain/tightness is similar to when she had stents before. Says a tightness in her center chest. Related Data Home Medications ?Medication ?Instructions ?Recorded ?Confirmed pantoprazole 40 mg tablet,delayed 40 mg PO BID 4 10/06/25 release (Protonix) aspirin 81 mg tablet,delayed 81 mg PO DAILY 08/13/24 1 12/06/24 release venlafaxine 75 mg capsule,extended 75 mg PO DAILY 07/2110/06/25 release 24 hr Previous Rx's ?Medication ?Instructions ?Recorded nitroglycerin 0.4 mg sublingual 0.4 mg sublingual Q5M PRN chest 09/11/24 tablet pain #25 tabs magnesium oxide 400 mg (241.3 mg 400 mg PO DAILY #90 t abs 02/20/25 magnesium) tablet prasugrel HCl 10 mg tablet 10 mg PO DAILY #90 tabs (Effient) atorvastatin 40 mg tablet See Rx Instructions .Route 0 04/29/25 .COMPLEX #90 tabs isosorbide mononitrate 60 mg 60 mg PO .Twice daily #60 tabs 09/21/25 tablet,extended release 24 hr metoprolol succinate 50 mg 50 mg PO BEDTIME #90 tabs 1 11/29/24 tablet,extended release 24 hr valsartan 40 mg tablet 40 mg PO DAILY #90 tabs 09/19 12/13 Allergies Allergy/AdvReac Type Severity Reaction Status Date / Time [place] And Derivatives Allergy Severe ALGY-Anaphy Verified 09/29/25 10:43 laxis grapefruit Allergy ALGY-Anaphy Verified 09/29/25 10:43 laxis orange Allergy ALGY-Anaphy Verified 09/29/25 10:43 laxis pineapple Allergy ALGY-Anaphy Verified 11/11/25 10:43 laxis Review of Systems 2 Narrative: Constitutional symptoms: Negative except as documented in HPI. Skin symptoms: Negative except as documented in HPI. Eye symptoms: Negative except as documented in HPI. ENMT symptoms: Negative except as documented in HPI. Respiratory symptoms: Negative except as documented in HPI. Cardiovascular symptoms: Negative except as documented in HPI. Gastrointestinal symptoms: Negative except as documented in HPI. Genitourinary symptoms: Negative except as documented in HPI. Musculoskeletal symptoms: Negative except as documented in HPI. Neurologic symptoms: Negative except as documented in HPI. Psychiatric symptoms: Negative except as documented in HPI. Endocrine symptoms: Negative except as documented in HPI. PFS ED 2 PFSH: Medical History (Updated 10/06/25 @ 18:39 by Alicia Skelton MD) Suicidal ideation History of nephrolithiasis The patient has never needed a surgical procedure, because she has always passed the kidney stones. Migraine HTN (hypertension), benign Coronary artery disease Chronic back pain Depression Patient states that it was Depression Surgical History History of percutaneous coronary intervention three BERTIN to the mid LAD, Left circumflex and diagnonal one artery in 06/2024. Restenting of the diagonal artery in 08/2024. H/O oophorectomy one ovary. History of hysterectomy Family History Mother CAD (coronary artery disease) Heart disease has one stent Father CAD (coronary artery disease) Heart disease has had 5 heart attacks and has a defibrillator Social History Smoking and tobacco/nicotine status: never used tobacco/nicotine Alcohol intake: never Substance/Drug Use: never Additional social history: started smoking in 2019, after her divorce Female Reproductive History: Spontaneous abortions: No Physical Exam 2 Narrative: EXAM NARRATIVE: General: Alert, no acute distress. Skin: Warm, dry. Head: Normocephalic, atraumatic. Neck: Supple, trachea midline. Eye: Extraocular movements are intact. Ears, nose, mouth and throat: mucosa moist. Cardiovascular: Regular, Normal peripheral perfusion. Respiratory: Lungs are clear to auscultation, respirations are non-labored, breath sounds are equal, Symmetrical chest wall expansion. Gastrointestinal: Soft, Nontender, Non distended Musculoskeletal: Normal ROM, no deformity. Neurological: Alert and oriented, No focal neurological deficit observed. Psychiatric: Cooperative, appropriate mood & affect. 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 I reviewed the patient's medical record. 45-year-old female with history of coronary artery disease status post 4 stents, migraines, hypertension, depression, chronic back pain and obesity. Patient was seen in cardiology clinic on 09/29/2025. Valsartan was started on that day. Decrease of metoprolol. At that time they were to try to arrange an urgent left heart cath and an echo. I reviewed the patient's current home meds Patient is on prasugrel Alternate historians: None Differential diagnosis for patient with chest pain includes but is not limited to and based on the above HPI, review of systems and physical exam: Pneumonia. unstable angina. angina. Acute coronary syndrome / [place]. Pulmonary embolism. Costochondritis / musculoskeletal. Pleurisy. Pericarditis. Esophageal spasm. Pancreatitis. Cholecystitis. Orders placed to evaluate differential diagnosis based on the above differential, HPI and physical exam EKG: Time 1446. Normal sinus rhythm, nonspecific ST changes, no ectopy, normal NM & QRS intervals, This was reviewed and interpreted by the ER physician at 1450 Repeat EKG: Time 1653. Rate 65. Normal sinus rhythm, nonspecific ST changes, no ectopy, normal NM & QRS intervals, This was reviewed and interpreted by myself the ER physician at 1659 Chest x-ray: No acute process. No infiltrate. No pneumothorax. This was reviewed and interpreted by myself the emergency room physician. I also reviewed the radiology report. Lab Review: Laboratory results were reviewed and interpreted by myself the emergency room physician. No leukocytosis. No anemia. No renal failure. Initial troponin is negative. Assessment of risk: Level of risk: Moderate risk patient. Chest discomfort with history of multiple stents Hospitalization considerations: Patient is being admitted Clinical decision support: Patient has heart score 5. Reexamination: Patient remained stable. No increased work of breathing. No altered mental status. No focal motor deficits. Consultation: I spoke with Dr. Muller who is on-call for cardiology who agrees with admission. Recommends Lovenox. Consultation: I spoke with Dr. Dr. Aguiar who is on-call for the hospital service who agrees to admission Assessment and plan: Unstable angina Coronary artery disease ?Lovenox in the emergency room -I discussed the patient with the hospitalist on-call who is admitting the patient. - Discussed findings and plan with patient. Answered any questions. - All laboratory values were reviewed and interpreted personally by myself, the ER physician - All imaging was reviewed and interpreted personally by myself, the ER physician. - Evaluation and treatment of this problem were appropriate in the emergency setting Lab Data 10/06/25 15:32 10/06/25 15:32 Radiology Impressions Chest X-Ray 10/06/25 14:42 IMPRESSION: No acute findings. Laboratory Results WBC 7.20 10^3/uL (3.29-11.43) 10/06/25 15:32 RBC 4.57 10^6/uL (3.85-5.65) 10/06/25 15:32 Hgb 12.90 g/dL (11.27-16.99) 10/06/25 15:32 Hct 40.5 % (36-47) 10/06/25 15:32 MCV 88.6 fl (85-98) 10/06/25 15:32 MCH 28.2 pg (27-33) 10/06/25 15:32 MCHC 31.9 g/dL (30-55) 10/06/25 15:32 RDW 13.6 % (12.1-15.1) 10/06/25 15:32 Plt Count 366 10^3/cmm (157-399) 10/06/25 15:32 MPV 9.4 fL (7.4-10.4) 10/06/25 15:32 Neut % (Auto) 55.0 % 10/06/25 15:32 Lymph % (Auto) 34.3 % 10/06/25 15:32 [place] % (Auto) 8.3 % 10/06/25 15:32 Eos % (Auto) 1.7 % 10/06/25 15:32 Baso % (Auto) 0.4 % 10/06/25 15:32 Neut # (Auto) 3.96 10^3/uL (1.8-7.7) 10/06/25 15:32 Lymph # (Auto) 2.5 10^3/uL (0.8-4.8) 10/06/25 15:32 [place] # (Auto) 0.6 10^3/uL (0.2-0.9) 10/06/25 15:32 Eos # (Auto) 0.1 10^3/uL (0.0-0.8) 10/06/25 15:32 Baso # (Auto) 0.0 10^3/uL (0.0-0.1) 10/06/25 15:32 Nucleated RBC % (auto) 0 % 10/06/25 15:32 Nucleated RBCs # 0.0 /100WBC 10/06/25 15:32 Sodium 138 mmol/L (136-145) 10/06/25 15:32 Potassium 4.0 mmol/L (3.5-5.1) 10/06/25 15:32 Chloride 103 mmol/L (98-107) 10/06/25 15:32 Carbon Dioxide 27 mmol/L (22-29) 10/06/25 15:32 Anion Gap 12.0 (5-19) 10/06/25 15:32 BUN 15 mg/dL (6-20) 10/06/25 15:32 Creatinine 0.7 mg/dL (0.5-0.9) 10/06/25 15:32 GFR Calculation 90.9 mL/min (90-130) 10/06/25 15:32 Glucose 87 mg/dL (65-115) 10/06/25 15:32 Calculated Osmolality 286 mOsm/kg (285-295) 10/06/25 15:32 Calcium 9.5 mg/dL (8.5-10.5) 10/06/25 15:32 Total Bilirubin 0.3 mg/dL (0.15-1.2) 10/06/25 15:32 AST 16 U/L (0-32) 10/06/25 15:32 ALT 21 U/L (0-33) 10/06/25 15:32 Alkaline Phosphatase 163 U/L (35-105) H 10/06/25 15:32 Troponin T Baseline < 6 ng/L (0-10) 10/06/25 15:32 Total Protein 7.6 g/dL (6.6-8.7) 10/06/25 15:32 Albumin 4.4 g/dL (3.5-5.2) 10/06/25 15:32 Globulin 3.2 g/dL (1.3-4.6) 10/06/25 15:32 All radiology interpretation(s) finalized by discharge Clincial Decision Support The following clinical decision support tools were used to aid in care of the patient HEART Score -> History: Highly Suspicious, EKG: Non-specific Changes, Age: Less than 45 yrs, Risk Factors: >/=3 Risk Factors, Troponin: Baseline Trop <16 ng/L. Resulting HEART Score: 5. Discharge Plan Discharge Patient Disposition: Admitted As Inpatient Admit Provider: Kris Aguiar Clinical Impression: Unstable angina, Coronary artery disease Condition: Stable Coding Level of Care Code ED Local Delivery Truck Driver for Chg Fwd Heart Score HEART Score Components History: Highly Suspicious EKG: Non-specific Changes Age: Less than 45 yrs Risk Factors: >/=3 Risk Factors Troponin: Baseline Trop <16 ng/L HEART Score RESULT HEART Score: 5
[2025-10-06 16:11] LABS: Troponin(5th) Baseline < 6 ng/L (0-10)
[2025-10-06 16:13] LABS: Alanine Aminotransferase 21 U/L (0-33); Albumin Level 4.4 g/dL (3.5-5.2); Alkaline Phosphatase 163 U/L (35-105); Aspartate Amino Transferase 16 U/L (0-32); Blood Urea Nitrogen 15 mg/dL (6-20); Calcium 9.5 mg/dL (8.5-10.5); Carbon Dioxide 27 mmol/L (22-29); Chloride 103 mmol/L (98-107); Globulin 3.2 g/dL (1.3-4.6); Glucose 87 mg/dL (65-115); Osmolality Calculated 286 mOsm/kg (285-295); Sodium 138 mmol/L (136-145); Total Protein 7.6 g/dL (6.6-8.7)
[2025-10-06 16:15] LABS: Anion Gap 12.0 (5-19); Potassium 4.0 mmol/L (3.5-5.1)
--- NOTE | 2025-10-06 16:43 | ECG_ITS ---
[facility] Test Date: 2025-10-06 Pat Name: Sejal Arias Department: Room: Gender: Female Neuro Psych Sales Specialist: : 1980 Requested By: Teresita Gao Order Number: [id number] Burt MD: Galina Muller M.D. Measurements Intervals [place] Rate: 65 P: 62 ID: 144 QRS: 49 QRSD: 80 T: 58 QT: 391 QTc: 407 Interpretive Statements SINUS RHYTHM NONSPECIFIC T-WAVE ABNORMALITY Compared to ECG 10/06/2025 14:46:44 No significant changes Electronically Signed On 10-07-2025 09:53:39 AUCTION CLERK by Galina Muller M.D. [email or web address] [id number]
--- NOTE | 2025-10-06 17:30 | PM.CONSULT ---
Providers/Reason For Consult Consulting Physician/Specialty*: MICHAEL Muller MD/cardiology Reason for Consult*: Patient with a history of multivessel PCI, presenting with accelerated angina Requesting Physician: Dr. Aguiar Attending Physician: Kris Aguiar MD Primary Care Provider: Giselle Christianson APN History of Present Illness History of Present Illness Sejal Arias is a 45 year old female is admitted to the hospital through the emergency room, where she presented with complaints of increasing episodes of chest tightness, shortness of breath, dizziness and weakness. She is known to have coronary artery disease and multivessel PCI's in the past. Cardiology comes and is requested for further cardiac evaluation and recommendations. This patient apparently has been to be okay up until 3 weeks ago when she started having pressure-like feeling in the chest associate with shortness of breath. She had these episodes several times a day. She been taking sublingual nitroglycerin on a as needed basis. She was seen [facility] last week by Dr. Land. She has a history of coronary artery disease and recently underwent multi-vessel percutaneous coronary intervention with drug-eluting stents placed in the left anterior descending (LAD), circumflex, and diagonal branches in June 2024. In August 2024, she presented with recurrence of chest pain and unstable angina symptoms. At that time the angiogram revealed high-grade lesion in the ostium of the first diagonal. She underwent a PCI of this lesion. In October 2024, she had a Myocardial perfusion imaging which was essentially unremarkable. Apparently the patient has been doing okay since then up until 3 weeks ago when she started having symptoms similar to what she had prior to the PCI's. She was seen in the emergency room at that time. Myocardial infarction was ruled out. Subsequently she was seen at the [facility] by Dr. Land. Her medications were adjusted. She was advised to come back to the hospital, if there is any worsening of the symptoms. She has been compliant with medications. However she continues to smoke. No alcohol abuse or any other substance abuse. No fever, chills or cough. No other specific complaints. Review of Systems Narrative: CONSTITUTIONAL: No fever or chills. EYES: No blurring of vision or other visual disturbances lately. ENT: No hoarseness of voice, auditory disturbances or sore throat. CARDIOVASCULAR: As mentioned above. RESPIRATORY: No significant cough. GASTROINTESTINAL: No hematemesis or melena. GENITOURINARY: No dysuria or hematuria. INTEGUMENTARY: No skin rashes or history of skin cancer. NEURO: No transient ischemic attacks or amaurosis. PSYCHIATRIC: No history of psychosis or major depression. HEMATOLOGIC: No bleeding disorders or significant anemia. ENDOCRINE: No history of polyuria or polydipsia. MUSCULOSKELETAL: No recent joint pain or swelling. ALLERGY/IMMUNOLOGY: As mentioned above. Medications/Allergies Home Medications ?Medication ?Instructions ?Recorded ?Confirmed ?Last Taken ?Type pantoprazole 40 mg tablet,delayed 40 mg PO BID 04/01/24 10/06/25 10/06/25 08:00 History release (Protonix) aspirin 81 mg tablet,delayed 81 mg PO DAILY 08/13/24 10/06/25 10/06/25 09:00 History release venlafaxine 75 mg capsule,extended 75 mg PO DAILY 08/13/24 10/06/25 10/06/25 09:00 History release 24 hr nitroglycerin 0.4 mg sublingual 0.4 mg sublingual Q5M PRN chest 09/11/24 10/06/25 Unknown Rx tablet pain #25 tabs magnesium oxide 400 mg (241.3 mg 400 mg PO DAILY #90 tabs 02/20/25 10/06/25 10/06/25 08:00 Rx magnesium) tablet prasugrel HCl 10 mg tablet 10 mg PO DAILY #90 tabs 03/13/25 10/06/25 10/06/25 09:00 Rx (Effient) atorvastatin 40 mg tablet See Rx Instructions .Route 04/29/25 10/06/25 10/05/25 19:00 Rx .COMPLEX #90 tabs isosorbide mononitrate 60 mg 60 mg PO .Twice daily #60 tabs 09/21/25 10/06/25 10/06/25 08:00 Rx tablet,extended release 24 hr metoprolol succinate 50 mg 50 mg PO BEDTIME #90 tabs 09/29/25 10/06/25 10/05/25 19:00 Rx tablet,extended release 24 hr valsartan 40 mg tablet 40 mg PO DAILY #90 tabs 09/29/25 10/06/25 10/06/25 09:00 Rx Allergies Allergy/AdvReac Type Severity Reaction Status Date / Time [place] And Derivatives Allergy Severe ALGY-Anaphy Verified 09/29/25 10:43 laxis grapefruit Allergy ALGY-Anaphy Verified 09/29/25 10:43 laxis orange Allergy ALGY-Anaphy Verified 09/29/25 10:43 laxis pineapple Allergy ALGY-Anaphy Verified 09/29/25 10:43 laxis PFSH Acute PFSH: Medical History Suicidal ideation History of nephrolithiasis The patient has never needed a surgical procedure, because she has always passed the kidney stones. Migraine HTN (hypertension), benign Coronary artery disease Chronic back pain Depression Patient states that it was Depression Surgical History History of percutaneous coronary intervention three BERTIN to the mid LAD, Left circumflex and diagnonal one artery in 06/2024. Restenting of the diagonal artery in 08/2024. H/O oophorectomy one ovary. History of hysterectomy Family History Mother CAD (coronary artery disease) Heart disease has one stent Father CAD (coronary artery disease) Heart disease has had 5 heart attacks and has a defibrillator Social History Smoking and tobacco/nicotine status: never used tobacco/nicotine Alcohol intake: never Substance/Drug Use: never Additional social history: started smoking in 2019, after her divorce Female Reproductive History: Spontaneous abortions: No Vitals/I&O/Wt Last Vital Signs Temp 97.6 F 10/06/25 14:47 Pulse 85 10/06/25 14:47 Resp 20 H 10/06/25 14:47 BP 144/93 10/06/25 14:47 Pulse Ox 100 10/06/25 14:47 O2 Del Method Room Air 10/06/25 14:47 Weight last 48 hrs Weight 190 lb Physical Exam Narrative: GENERAL: The patient is alert and oriented times three. Not in any acute distress. HEENT: No significant pallor, icterus or lymphadenopathy.Oral cavity: There are no mucous membrane lesions. NECK: Trachea appears to be central. No masses noted. No JVD or thyromegaly appreciated. RESPIRATORY: Chest is symmetrical. No intercostals muscle retraction or any accessory muscle activation. There is no chest wall tenderness. Breath sounds are heard bilaterally. No rales or rhonchi heard. No evidence of any consolidation. BREASTS: Deferred. HEART: The heart sounds are normal. No S3 or S4. No significant murmurs. No pericardial rub ABDOMEN: No vessel pulsations or distention. No tenderness. No organomegaly appreciated. Bowel sounds are normally heard. : Deferred. RECTAL: Deferred. LYMPHATIC: No lymphadenopathy noted in the neck. EXTREMITIES: No edema or cyanosis. No clubbing. MUSCULOSKELETAL: No acute joint deformities or swelling SKIN: There are no significant rashes or ecchymosis NEUROPSYCHIATRIC: The patient is alert and oriented x3. Appears to be in a good mood. No tremors or rigidity noted. Data 10/06/25 15:32 10/06/25 15:32 Other Labs: Laboratory Last Values WBC 7.20 10^3/uL (3.29-11.43) 10/06/25 15:32 RBC 4.57 10^6/uL (3.85-5.65) 10/06/25 15:32 Hgb 12.90 g/dL (11.27-16.99) 10/06/25 15:32 Hct 40.5 % (36-47) 10/06/25 15:32 MCV 88.6 fl (85-98) 10/06/25 15:32 MCH 28.2 pg (27-33) 10/06/25 15:32 MCHC 31.9 g/dL (30-55) 10/06/25 15:32 RDW 13.6 % (12.1-15.1) 10/06/25 15:32 Plt Count 366 10^3/cmm (157-399) 10/06/25 15:32 MPV 9.4 fL (7.4-10.4) 10/06/25 15:32 Neut % (Auto) 55.0 % 10/06/25 15:32 Lymph % (Auto) 34.3 % 10/06/25 15:32 [place] % (Auto) 8.3 % 10/06/25 15:32 Eos % (Auto) 1.7 % 10/06/25 15:32 Baso % (Auto) 0.4 % 10/06/25 15:32 Neut # (Auto) 3.96 10^3/uL (1.8-7.7) 10/06/25 15:32 Lymph # (Auto) 2.5 10^3/uL (0.8-4.8) 10/06/25 15:32 [place] # (Auto) 0.6 10^3/uL (0.2-0.9) 10/06/25 15:32 Eos # (Auto) 0.1 10^3/uL (0.0-0.8) 10/06/25 15:32 Baso # (Auto) 0.0 10^3/uL (0.0-0.1) 10/06/25 15:32 Nucleated RBC % (auto) 0 % 10/06/25 15:32 Nucleated RBCs # 0.0 /100WBC 10/06/25 15:32 Sodium 138 mmol/L (136-145) 10/06/25 15:32 Potassium 4.0 mmol/L (3.5-5.1) 10/06/25 15:32 Chloride 103 mmol/L (98-107) 10/06/25 15:32 Carbon Dioxide 27 mmol/L (22-29) 10/06/25 15:32 Anion Gap 12.0 (5-19) 10/06/25 15:32 BUN 15 mg/dL (6-20) 10/06/25 15:32 Creatinine 0.7 mg/dL (0.5-0.9) 10/06/25 15:32 GFR Calculation 90.9 mL/min (90-130) 10/06/25 15:32 Glucose 87 mg/dL (65-115) 10/06/25 15:32 Calculated Osmolality 286 mOsm/kg (285-295) 10/06/25 15:32 Calcium 9.5 mg/dL (8.5-10.5) 10/06/25 15:32 Total Bilirubin 0.3 mg/dL (0.15-1.2) 10/06/25 15:32 AST 16 U/L (0-32) 10/06/25 15:32 ALT 21 U/L (0-33) 10/06/25 15:32 Alkaline Phosphatase 163 U/L (35-105) H 10/06/25 15:32 Troponin T Baseline < 6 ng/L (0-10) 10/06/25 15:32 Total Protein 7.6 g/dL (6.6-8.7) 10/06/25 15:32 Albumin 4.4 g/dL (3.5-5.2) 10/06/25 15:32 Globulin 3.2 g/dL (1.3-4.6) 10/06/25 15:32 A&P Assessment and plan 1. Atherosclerotic heart disease of [place] coronary artery with other forms of angina pectoris: Patient with multivessel PCI a year ago, now is presenting with unstable angina symptoms. Possibility of restenosis versus progression of disease in the other vessels are considerations In view of her ongoing symptoms, she may benefit from a repeat cardiac catheterization. 2. Dyspnea on exertion: Most likely from the coronary ischemia. 3. HTN (hypertension), benign: The blood pressure is fairly under control. May continue on the current medications. 4. Hyperlipidemia, unspecified hyperlipidemia type: May continue on the current medications Plan: Patient may be treated with subcu Lovenox, continue the prasugrel and aspirin. Started on topical nitrates. Other medications may be continued She requires a repeat cardiac catheterization. Risks and benefits were discussed The risk of bleeding, hematoma, vascular injury, myocardial infarction, myocardial perforation, malignant cardiac arrhythmias ,CVA, renal failure and other concomitant complications were explained in detail. Patient understood this well and consented to proceed Will keep her n.p.o. after midnight Possible cardiac catheterization tomorrow PDMP PDMP Reviewed: Not Reviewed Consult Attestations Medical Necessity Statement: Patient requires continued hospital stay for close monitoring and further management Coding Level of Care Code 38946 Diagnoses Atherosclerotic heart disease of [place] coronary artery with other forms of angina pectoris I25.118 Dyspnea on exertion R06.09 HTN (hypertension), benign I10 Hyperlipidemia, unspecified hyperlipidemia type E78.5 Hyperlipidemia type: unspecified
--- NOTE | 2025-10-06 17:52 | PC.NURSE ---
Patient transferred from ED to CSU at 1750.
--- NOTE | 2025-10-06 17:53 | USCV_ITS ---
Sejal Arias Age: 45 Gender: F : 1980 Exam Date: 10/06/2025 19:15 Ordering Phys: Lisy Sánchez NP Technologist: VAUGHN [place]am Location[place] [facility] [place] Indication: unstable angina, history of CAD s/p PCI, HTN BP: 144 / 93 HR: 61 Rhythm: Sinus Technical Quality: Adequate MEASUREMENTS (Male / Female) Normal Values 2D ECHO LV Diastolic Diameter PLAX 4.1 cm 4.2 - 5.9 / 3.9 - 5.3 cm IVS Diastolic Thickness 1.2 cm 0.6 - 1.0 / 0.6 - 0.9 cm IVS Systolic Thickness 1.5 cm LVPW Diastolic Thickness 1.3 cm 0.6 - 1.0 / 0.6 - 0.9 cm LVPW Systolic Thickness 1.5 cm LVOT Diameter 1.9 cm LV Ejection Fraction 2D Teich 64.1 % LV Ejection Fraction MOD 4C 62.7 % LV Ejection Fraction MOD 2C 56.4 % LV Ejection Fraction 2C AL 57.5 % LA Diameter 2.6 cm Aorta at Sinotubular Diameter 2.8 cm IVC Diameter 0.7 cm M-MODE LA Ao Ratio MM 1.1 AV Cusp Separation MM 2.2 cm DOPPLER AV Peak Velocity 143.0 cm/s LVOT Peak Velocity 139.0 cm/s AV Area Cont Eq vti 2.7 cm squared AV Area Cont Eq pk 2.9 cm squared MV Peak Velocity 109.0 cm/s MV Area PHT 2.3 cm squared Mitral E to A Ratio 1.8 TV Peak E Velocity 60.0 cm/s PV Peak Velocity 89.0 cm/s FINDINGS Left Ventricle Normal left ventricular size and systolic function, EF 62%.no regional wall motion abnormalities. Mild left ventricular hypertrophy. Right Ventricle Normal right ventricular size and systolic function. Right Atrium Normal right atrial size. Left Atrium Normal left atrial size. IA Septum Normal interatrial septum. Mitral Valve No gross abnormalities noted Aortic Valve No gross abnormalities noted Tricuspid Valve No gross abnormalities noted Pulmonic Valve No gross abnormalities noted Pericardium No pericardial effusion. Aorta Normal aortic annulus size. IVC Normal inferior vena cava. CONCLUSIONS Normal left ventricular size and systolic function, EF 62%.no regional wall motion abnormalities. Mild left ventricular hypertrophy. No gross valvular abnormalities Normal chamber sizes There is no pericardial effusion. Compared to the study from 11/13/2024, there may not be a significant change. Dr Galina Muller MD FACC (Electronically Signed) Final Date: 06 October 2025 20:32 S
--- NOTE | 2025-10-06 17:54 | P.HP_ITS ---
Providers/Chief Complaint 2 Admitting Physician: Kris Aguiar MD Primary Care Provider: Giselle Christianson APN Chief Complaint: chest tightness, back pain History of Present Illness Sejal Arias is a 45 year old female with history of coronary artery disease, cardiac stent x 4 in 2023, GERD, hyperlipidemia, hypertension, and obesity who presented to the ER after being seen by her manufacturing inspector for unstable angina. Patient was seen and treated the ER by provider Dr. Skelton. Patient continues to endorse chest pain that feels like squeezing and pressure in the center of her chest, states that this is intermittently happening off and on x 3 days. Patient states dizziness with movement, but is fine at rest. Patient denies current shortness of breath, nausea, vomiting, diarrhea, abdominal pain, recent falls or injuries, dark or tarry stools, any type of bleeding, recent illness, rash, or fever. Contacted on-call manufacturing inspector who graciously agree's to see patient, asked patient to be NPO with full dose lovenox. Admitting WBC 7.20, hemoglobin 12.90, BUN 15, creatinine 0.7, Troponin T, <6. Admitting blood pressure 144/93, oxygen saturation 100% on room air. Review of Systems 2 General: Reports: 10 or more systems reviewed and unremarkable except in HPI and below Card: Reports: chest pain Neuro: Reports: headache(s) and dizziness (With movement) Medications/Allergies Home Medications ?Medication ?Instructions ?Recorded ?Confirmed ?Last Taken ?Type pantoprazole 40 mg tablet,delayed 40 mg PO BID 4 10/06/25 10/06/25 08:00 History release (Protonix) aspirin 81 mg tablet,delayed 81 mg PO DAILY 08/13/24 1 12/06/24 10/06/25 09:00 History release venlafaxine 75 mg capsule,extended 75 mg PO DAILY 07/2110/06/25 10/06/25 09:00 History release 24 hr nitroglycerin 0.4 mg sublingual 0.4 mg sublingual Q5M PRN chest 09/11/24 10/06/25 Unknown Rx tablet pain #25 tabs magnesium oxide 400 mg (241.3 mg 400 mg PO DAILY #90 t abs 02/20/25 10/06/25 10/06/25 08:00 Rx magnesium) tablet prasugrel HCl 10 mg tablet 10 mg PO DAILY #90 tabs 10/06/25 10/06/25 09:00 Rx (Effient) atorvastatin 40 mg tablet See Rx Instructions .Route 0 04/29/25 10/06/25 10/05/25 19:00 Rx .COMPLEX #90 tabs isosorbide mononitrate 60 mg 60 mg PO .Twice daily #60 tabs 09/21/25 10/06/25 10/06/25 08:00 Rx tablet,extended release 24 hr metoprolol succinate 50 mg 50 mg PO BEDTIME #90 tabs 1 11/29/24 10/06/25 10/05/25 19:00 Rx tablet,extended release 24 hr valsartan 40 mg tablet 40 mg PO DAILY #90 tabs 09/1910/06/25 10/06/25 09:00 Rx Allergies Allergy/AdvReac Type Severity Reaction Status Date / Time [place] And Derivatives Allergy Severe ALGY-Anaphy Verified 09/29/25 10:43 laxis grapefruit Allergy ALGY-Anaphy Verified 09/29/25 10:43 laxis orange Allergy ALGY-Anaphy Verified 09/29/25 10:43 laxis pineapple Allergy ALGY-Anaphy Verified 09/29/25 10:43 laxis PFSH Acute 2 PFSH: Medical History (Updated 10/06/25 @ 18:05 by Lisy Sánchez NP) Suicidal ideation History of nephrolithiasis The patient has never needed a surgical procedure, because she has always passed the kidney stones. Migraine HTN (hypertension), benign Coronary artery disease Chronic back pain Depression Patient states that it was Depression Surgical History History of percutaneous coronary intervention three BERTIN to the mid LAD, Left circumflex and diagnonal one artery in 06/2024. Restenting of the diagonal artery in 08/2024. H/O oophorectomy one ovary. History of hysterectomy Family History Mother CAD (coronary artery disease) Heart disease has one stent Father CAD (coronary artery disease) Heart disease has had 5 heart attacks and has a defibrillator Social History Smoking and tobacco/nicotine status: never used tobacco/nicotine Alcohol intake: never Substance/Drug Use: never Additional social history: started smoking in 2019, after her divorce Female Reproductive History: Spontaneous abortions: No Vitals/I&O/Wt Last Vital Signs Temp 97.6 F 10/06/25 14:47 Pulse 85 10/06/25 14:47 Resp 20 H 10/06/25 14:47 BP 144/93 10/06/25 14:47 Pulse Ox 100 10/06/25 14:47 O2 Del Method Room Air 10/06/25 14:47 Weight last 48 hrs Weight 86.183 kg Physical Exam 2 Const: GENERAL APPEARANCE: cooperative and comfortable NUTRITIONAL APPEARANCE: overweight ORIENTATION/CONSCIOUSNESS: Yes awake, Yes oriented to person, Yes oriented to place and Yes oriented to time HENMT: COMMON NORMALS: normocephalic, atraumatic, external ears normal and Normal external nose present HEAD & SCALP: normocephalic and atraumatic N OSE: Normal external nose present EXTERNAL EAR: Yes external ears normal M OUTH: Normal oral and palatal mucosa present THROAT: posterior oropharynx normal Eye: COMMON NORMALS: Equal, round and reactive pupils present and conjunctivae normal CONJUNCTIVA: Yes conjunctivae normal PUPIL: Yes Equal, round and reactive pupils present EOM: No EOM abnormal Neck/C-Spine: COMMON NORMALS: Thyroid normal GENERAL: Yes normal visual inspection and Yes trachea midline THYROID: Thyroid normal CAROTIDS: No bruit CERVICAL SPINE: Yes cervical ROM normal Lymph: OTHER: No cervical or supraclavicular LAD. Resp: OTHER: CTAB w/ no w/r/r. Cardio: OTHER: RRR, no m/r/g GI: OTHER: BS+, NT, ND, no rigidity, no guarding, no rebound tenderness, no hepatosplenomegaly. Extremity: GENERAL: No clubbing, No cyanosis and No edema Neuro: SENSORIUM/ORIENTATION: Yes oriented to person, Yes oriented to place and Yes oriented to time CRANIAL NERVES: Yes CN normal except as noted S PEECH: speech normal SENSORY EXAM: No sensory level loss detected MOTOR EXAM: 5/5 motor strength present throughout and Normal motor muscle tone present throughout Psych: COMMON NORMALS: Normal thought process present and speech normal A PPEARANCE: Yes grossly normal ATTITUDE: Yes calm and Yes engaged A CTIVITY/MOTOR BEHAVIOR: Yes appropriate eye contact SPEECH: Yes normal speech MOOD & AFFECT: Yes euthymic mood THOUGHT PROCESS: Normal thought process present THOUGHT CONTENT: Yes Normal thought content present A TTENTION/CONCENTRATION: Yes attention grossly intact MEMORY/COGNITION: Yes memory grossly intact Skin: COMMON NORMALS: no rashes or lesions noted GENERAL SKIN EXAM: no rashes or lesions noted Data 10/06/25 15:32 10/06/25 15:32 A&P Assessment and plan 1. Unstable angina: 2. HTN (hypertension), benign: 3. Coronary artery disease: 4. Tobacco abuse: 5. Hyperlipidemia: 6. GERD (gastroesophageal reflux disease): Plan: Unstable angina Coronary artery disease - History of cardiac stent x 4 (3 stents 06/23/24, 1 stent 09/11/24) - Troponin <6, pending repeat - Telemetry monitoring - NPO status - Greatly appreciate cardiology consultation and management with Dr. Muller - Full dose Lovenox - Echo pending - Cardiology to consider heart catheterization - PRN Morphine Essential hypertension - Admitting blood pressure 144/93 - Continue home medication valsartan, metoprolol Hyperlipidemia - Pending Lipid panel - Continue atorvastatin GERD - PPI Tobacco abuse - Patient no longer smokes cigarettes but does vape multiple times per day - Total cessation advised given patient's cardiac history - As needed nicotine patch Depression - Continue home dosing venlafaxine VTE PPx: Lovenox GI PPx: PPI CODE STATUS: Full code PDMP PDMP Reviewed: Not Reviewed Attestations 2 Medical Necessity Statement*: Admit inpatient expected greater than 2 midnight stay due to unstable angina, need for cardiology consultation and intervention, continue cardiac monitoring, and medical management. and Moderate Time for a total of 65 minutes, includes reviewing past or interval history, examining/interviewing patient, placing orders, counseling patient/family/other support, updating patient/family/other support, discussing plan of care with staff, communicating with other healthcare providers, documenting encounter and coordinating care Diagnoses Unstable angina I20.0 HTN (hypertension), benign I10 Coronary artery disease I25.10 Tobacco abuse Z72.0 Hyperlipidemia E78.5 GERD (gastroesophageal reflux disease) K21.9
[2025-10-06 17:59] VITALS: BP 152/65; PULSE 65; RESP 13; O2SAT 99
[2025-10-06 18:00] VITALS: BMI 33.0
[2025-10-06 20:00] VITALS: BP 118/69; PULSE 88; RESP 19; TEMP 36.6; O2SAT 100
--- NOTE | 2025-10-06 20:43 | ECG_ITS ---
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 Measurements Intervals [place] Rate: 66 P: 66 SC: 149 QRS: 49 QRSD: 85 T: 65 QT: 408 QTc: 428 Interpretive Statements SINUS RHYTHM NONSPECIFIC T-WAVE ABNORMALITY Compared to ECG 10/06/2025 16:53:32 No significant changes Electronically Signed On 10-07-2025 09:52:53 BOARD STACKER by Galina Muller M.D. [id number]
[2025-10-06 20:48] LABS: Troponin 5 2HR < 6.0 ng/L (0-10); Troponin 5 2HR Delta 0 ABS# (0-10)
[2025-10-06 21:53] VITALS: PULSE 68
[2025-10-06] MEDS: pantoprazole 40 mg SDV IVP (22:59)
[2025-10-06 23:15] LABS: Troponin 5 6HR < 6.0 ng/L (0-10); Troponin 5 6HR Delta 0 ng/L (0-12)
[2025-10-07] VITALS (20 sets, daily range): BP systolic 106–164; BP diastolic 60–93; PULSE 55–78; RESP 11–27; TEMP 36.5–36.8; O2SAT 95–100
[2025-10-07 04:26] LABS: Hematocrit 36.6 % (36-47); Hemoglobin 11.40 g/dL (11.27-16.99); Mean Corpuscular HGB Conc 31.1 g/dL (30-55); Mean Corpuscular Hemoglobin 28.0 pg (27-33); Mean Corpuscular Volume 89.9 fl (85-98); Nucleated Red Blood Cells % 0 %; Platelet Count 308 10^3/cmm (157-399); Red Blood Count 4.07 10^6/uL (3.85-5.65); White Blood Count 6.52 10^3/uL (3.29-11.43)
[2025-10-07 04:56] LABS: Alanine Aminotransferase 21 U/L (0-33); Albumin Level 3.7 g/dL (3.5-5.2); Alkaline Phosphatase 142 U/L (35-105); Anion Gap 14.7 (5-19); Aspartate Amino Transferase 20 U/L (0-32); Blood Urea Nitrogen 15 mg/dL (6-20); Calcium 8.3 mg/dL (8.5-10.5); Carbon Dioxide 24 mmol/L (22-29); Chloride 106 mmol/L (98-107); Globulin 2.8 g/dL (1.3-4.6); Glucose 114 mg/dL (65-115); Magnesium 1.9 mg/dL (1.7-2.3); Osmolality Calculated 294 mOsm/kg (285-295); Potassium 3.7 mmol/L (3.5-5.1); Sodium 141 mmol/L (136-145); Thyroid Stimulating Hormone 3.54 uIU/mL (0.27-4.20); Total Protein 6.5 g/dL (6.6-8.7)
--- NOTE | 2025-10-07 07:13 | P.PN_ITS ---
Subjective 2 Subjective: Patient is a very pleasant 45-year-old female seen and examined at bedside on hospital rounds today. Patient sitting up in bed stating that chest pain has resolved, denies shortness of breath, nausea or vomiting, or new or worsening symptoms. Patient is currently n.p.o. with planned heart catheterization later this morning. Echo with a preserved ejection fraction 62%. Troponins have remained flat, CBC WNL, vital signs very stable this morning. Will continue current interventions inpatient, awaiting results of heart catheterization, and we will continue medical management. Greatly appreciate cardiology consultation and management with Dr. Muller, discussed case with him this morning and will await heart cath results/interventions. All questions and concerns addressed with the patient and her family at the bedside this morning. Vitals/I&O/Wt Last Vital Signs Temp 98.0 F 10/07/25 04:00 Pulse 63 10/07/25 04:00 Resp 16 10/07/25 04:00 BP 107/71 10/07/25 04:00 Pulse Ox 96 10/07/25 04:00 O2 Del Method Room Air 10/06/25 18:00 Weight last 48 hrs Weight 87.18 kg Weight 87.4 kg Weight 87 kg Weight 86.183 kg Physical Exam 2 Const: GENERAL APPEARANCE: cooperative and comfortable NUTRITIONAL APPEARANCE: overweight ORIENTATION/CONSCIOUSNESS: Yes awake, Yes oriented to person, Yes oriented to place and Yes oriented to time HENMT: COMMON NORMALS: normocephalic, atraumatic, external ears normal and Normal external nose present HEAD & SCALP: normocephalic and atraumatic N OSE: Normal external nose present EXTERNAL EAR: Yes external ears normal M OUTH: Normal oral and palatal mucosa present THROAT: posterior oropharynx normal Eye: COMMON NORMALS: Equal, round and reactive pupils present and conjunctivae normal CONJUNCTIVA: Yes conjunctivae normal PUPIL: Yes Equal, round and reactive pupils present EOM: No EOM abnormal Neck/C-Spine: COMMON NORMALS: Thyroid normal GENERAL: Yes normal visual inspection and Yes trachea midline THYROID: Thyroid normal CAROTIDS: No bruit CERVICAL SPINE: Yes cervical ROM normal Lymph: OTHER: No cervical or supraclavicular LAD. Resp: OTHER: CTAB w/ no w/r/r. Cardio: OTHER: RRR, no m/r/g GI: OTHER: BS+, NT, ND, no rigidity, no guarding, no rebound tenderness, no hepatosplenomegaly. Extremity: GENERAL: No clubbing, No cyanosis and No edema Neuro: SENSORIUM/ORIENTATION: Yes oriented to person, Yes oriented to place and Yes oriented to time CRANIAL NERVES: Yes CN normal except as noted S PEECH: speech normal SENSORY EXAM: No sensory level loss detected MOTOR EXAM: 5/5 motor strength present throughout and Normal motor muscle tone present throughout Psych: COMMON NORMALS: Normal thought process present and speech normal A PPEARANCE: Yes grossly normal ATTITUDE: Yes calm and Yes engaged A CTIVITY/MOTOR BEHAVIOR: Yes appropriate eye contact SPEECH: Yes normal speech MOOD & AFFECT: Yes euthymic mood THOUGHT PROCESS: Normal thought process present THOUGHT CONTENT: Yes Normal thought content present A TTENTION/CONCENTRATION: Yes attention grossly intact MEMORY/COGNITION: Yes memory grossly intact Skin: COMMON NORMALS: no rashes or lesions noted GENERAL SKIN EXAM: no rashes or lesions noted Data 10/07/25 04:07 10/07/25 04:07 A&P Assessment and plan 1. Unstable angina: 2. HTN (hypertension), benign: 3. Coronary artery disease: 4. Tobacco abuse: 5. Hyperlipidemia: 6. GERD (gastroesophageal reflux disease): Plan: Unstable angina Coronary artery disease - History of cardiac stent x 4 (3 stents 06/23/24, 1 stent 09/11/24) - Troponin <6, <6, 6.0 - Telemetry monitoring - NPO status - Greatly appreciate cardiology consultation and management with Dr. Muller - Full dose Lovenox - Echo with EF 62% - Awaiting heart cath this morning - PRN Morphine Essential hypertension - Blood pressure 128/78 - Continue home medication valsartan, metoprolol Hyperlipidemia - Continue atorvastatin GERD - PPI Tobacco abuse - Patient no longer smokes cigarettes but does vape multiple times per day - Total cessation advised given patient's cardiac history - As needed nicotine patch Depression - Continue home dosing venlafaxine VTE PPx: Lovenox GI PPx: PPI CODE STATUS: Full code PDMP PDMP Reviewed: Not Reviewed Attestations 2 Medical Necessity Statement*: Admit inpatient expected greater than 2 midnight stay due to unstable angina, need for cardiology consultation and intervention, heart case, and close cardiac monitoring, and medical management. Coding Level of Care Code 21801 Diagnoses Unstable angina I20.0 HTN (hypertension), benign I10 Coronary artery disease I25.10 Tobacco abuse Z72.0 Hyperlipidemia E78.5 GERD (gastroesophageal reflux disease) K21.9
--- NOTE | 2025-10-07 08:22 | P.PN_ITS ---
Subjective 2 Subjective: Patient has been fairly stable through the night. Has not had any significant chest pain. Vital signs remaining stable. No new symptoms. Medications: Medication Review Details: L Current Medications Acetaminophen (Acetaminophen 325 Mg Tablet) 650 mg PO Q6H PRN PRN Reason: Mild/Mod Pain Or Temp >/= 101 Al Hydrox/Mg Hydrox/Simethicone (Fwrt-Mcc-Vhwbtojdd-Mohan 30 Ml Udc) 15 ml PO Q6H PRN PRN Reason: INDIGESTION Aspirin (Aspirin 81 Mg Ec Tablet) 81 mg PO DAILY [facility] Atorvastatin Calcium (Atorvastatin 40 Mg Tablet) 80 mg PO DAILY [facility] Bisacodyl (Bisacodyl 5 Mg Tablet) 10 mg PO DAILY PRN; Protocol PRN Reason: Constipation (see protocol) Enoxaparin Sodium (Enoxaparin 100 Mg/Ml Syringe) 90 mg 1 mg/kg (90 mg) SUBCUT Q12H [facility] Last Admin: 10/07/25 02:50 Dose: Not Given Isosorbide Mononitrate (Isosorbide Mononitrate Er 60 Mg Tablet) 60 mg PO BID [facility] Last Admin: 10/07/25 08:00 Dose: 60 mg Losartan Potassium (Losartan 25 Mg Tablet) 25 mg PO DAILY [facility] Magnesium Hydroxide (Magnesium Hydroxide 30 Ml Udc) 30 ml PO DAILY PRN; Protocol PRN Reason: Constipation (see protocol) Metoprolol Succinate (Metoprolol Succinate Er (24 Hr) 50 Mg Tablet) 50 mg PO BEDTIME JORGE Morphine Sulfate (Morphine 4 Mg/Ml Sdv 1 Ml) 2 mg IVP Q4H PRN PRN Reason: SEVERE PAIN Naloxone HCl (Naloxone 0.4 Mg/Ml Sdv) 0.1 mg IVP Q2M PRN PRN Reason: OPIATERV Nitroglycerin (Nitroglycerin 0.4 Mg Sublingual Tablet) 0.4 mg SUBLINGUAL Q5M PRN PRN Reason: CHEST PAIN Ondansetron HCl (Ondansetron 2 Mg/Ml Sdv 2 Ml) 4 mg IVP Q8H PRN PRN Reason: vomiting, or N/V if npo Pantoprazole Sodium (Pantoprazole 40 Mg Sdv) 40 mg IVP Q24H [facility] Last Admin: 10/06/25 22:59 Dose: 40 mg Prasugrel (Prasugrel 10 Mg Tablet) 10 mg PO DAILY [facility] Venlafaxine HCl (Venlafaxine Er (24hr) 75 Mg Capsule) 75 mg PO DAILY JORGE Vitals/I&O/Wt Last Vital Signs Temp 97.7 F 10/07/25 08:00 Pulse 67 10/07/25 08:00 Resp 19 H 10/07/25 08:00 BP 128/78 10/07/25 08:00 Pulse Ox 98 10/07/25 08:00 O2 Del Method Room Air 10/06/25 18:00 Weight last 48 hrs Weight 192 lb 3.2 oz Weight 192 lb 10.944 oz Weight 191 lb 12.835 oz Weight 190 lb Physical Exam 2 Narrative: GENERAL: The patient is alert and oriented times three. Not in any acute distress. HEENT: No significant pallor, icterus or lymphadenopathy.Oral cavity: There are no mucous membrane lesions. NECK: Trachea appears to be central. No masses noted. No JVD or thyromegaly appreciated. RESPIRATORY: Chest is symmetrical. No intercostals muscle retraction or any accessory muscle activation. There is no chest wall tenderness. Breath sounds are heard bilaterally. No rales or rhonchi heard. No evidence of any consolidation. BREASTS: Deferred. HEART: The heart sounds are normal. No S3 or S4. No significant murmurs. No pericardial rub ABDOMEN: No vessel pulsations or distention. No tenderness. No organomegaly appreciated. Bowel sounds are normally heard. : Deferred. RECTAL: Deferred. LYMPHATIC: No lymphadenopathy noted in the neck. EXTREMITIES: No edema or cyanosis. No clubbing. MUSCULOSKELETAL: No acute joint deformities or swelling SKIN: There are no significant rashes or ecchymosis NEUROPSYCHIATRIC: The patient is alert and oriented x3. Appears to be in a good mood. No tremors or rigidity noted. Data 10/07/25 04:07 10/07/25 04:07 Other Labs: Laboratory Last Values WBC 6.52 10^3/uL (3.29-11.43) 10/07/25 04:07 RBC 4.07 10^6/uL (3.85-5.65) 10/07/25 04:07 Hgb 11.40 g/dL (11.27-16.99) 10/07/25 04:07 Hct 36.6 % (36-47) 10/07/25 04:07 MCV 89.9 fl (85-98) 10/07/25 04:07 MCH 28.0 pg (27-33) 10/07/25 04:07 MCHC 31.1 g/dL (30-55) 10/07/25 04:07 RDW 13.5 % (12.1-15.1) 10/07/25 04:07 Plt Count 308 10^3/cmm (157-399) 10/07/25 04:07 MPV 9.7 fL (7.4-10.4) 10/07/25 04:07 Neut % (Auto) 44.6 % 10/07/25 04:07 Lymph % (Auto) 44.3 % 10/07/25 04:07 Evangeline % (Auto) 7.8 % 10/07/25 04:07 Eos % (Auto) 2.6 % 10/07/25 04:07 Baso % (Auto) 0.5 % 10/07/25 04:07 Neut # (Auto) 2.91 10^3/uL (1.8-7.7) 10/07/25 04:07 Lymph # (Auto) 2.9 10^3/uL (0.8-4.8) 10/07/25 04:07 Evangeline # (Auto) 0.5 10^3/uL (0.2-0.9) 10/07/25 04:07 Eos # (Auto) 0.2 10^3/uL (0.0-0.8) 10/07/25 04:07 Baso # (Auto) 0.0 10^3/uL (0.0-0.1) 10/07/25 04:07 Nucleated RBC % (auto) 0 % 10/07/25 04:07 Nucleated RBCs # 0.0 /100WBC 10/07/25 04:07 Sodium 141 mmol/L (136-145) 10/07/25 04:07 Potassium 3.7 mmol/L (3.5-5.1) 10/07/25 04:07 Chloride 106 mmol/L (98-107) 10/07/25 04:07 Carbon Dioxide 24 mmol/L (22-29) 10/07/25 04:07 Anion Gap 14.7 (5-19) 10/07/25 04:07 BUN 15 mg/dL (6-20) 10/07/25 04:07 Creatinine 0.6 mg/dL (0.5-0.9) 10/07/25 04:07 GFR Calculation 108.6 mL/min (90-130) 10/07/25 04:07 Glucose 114 mg/dL (65-115) 10/07/25 04:07 Calculated Osmolality 294 mOsm/kg (285-295) 10/07/25 04:07 Calcium 8.3 mg/dL (8.5-10.5) L 10/07/25 04:07 Magnesium 1.9 mg/dL (1.7-2.3) 10/07/25 04:07 Total Bilirubin 0.2 mg/dL (0.15-1.2) 10/07/25 04:07 AST 20 U/L (0-32) 10/07/25 04:07 ALT 21 U/L (0-33) 10/07/25 04:07 Alkaline Phosphatase 142 U/L (35-105) H 10/07/25 04:07 Troponin T Baseline < 6 ng/L (0-10) 10/06/25 15:32 Troponin T 120 Minute < 6.0 ng/L (0-10) 10/06/25 19:52 Delta Troponin T 0 ABS# (0-10) 10/06/25 19:52 Troponin T Hi Sens 6Hr < 6.0 ng/L (0-10) 10/06/25 22:45 Troponin T Hi Sens 6Hr Delta 0 ng/L (0-12) 10/06/25 22:45 Total Protein 6.5 g/dL (6.6-8.7) L 10/07/25 04:07 Albumin 3.7 g/dL (3.5-5.2) 10/07/25 04:07 Globulin 2.8 g/dL (1.3-4.6) 10/07/25 04:07 TSH 3.54 uIU/mL (0.27-4.20) 10/07/25 04:07 A&P Assessment and plan 1. Atherosclerotic heart disease of [place] coronary artery with other forms of angina pectoris: Patient with multivessel PCI a year ago, now is presenting with unstable angina symptoms. Possibility of restenosis versus progression of disease in the other vessels are considerations. Myocardial infarction is ruled out In view of her ongoing symptoms, she may benefit from a repeat cardiac catheterization. The risks and benefits were discussed. The risk of bleeding, hematoma, vascular injury, myocardial infarction, myocardial perforation, malignant cardiac arrhythmias ,CVA, renal failure and other concomitant complications were explained in detail. Patient understood this well and consented to proceed 2. Dyspnea on exertion: Most likely from the coronary ischemia. 3. HTN (hypertension), benign: The blood pressure is fairly under control. May continue on the current medications. 4. Hyperlipidemia, unspecified hyperlipidemia type: May continue on the current medications Plan: Patient may continue on the current medications. Scheduled for the cardiac catheterization this morning. Based on the results, further recommendations will be made PDMP PDMP Reviewed: Not Reviewed Attestations 2 Medical Necessity Statement*: Patient requires continued hospital stay for close monitoring and further management Coding Level of Care Code 85855 Diagnoses Atherosclerotic heart disease of [place] coronary artery with other forms of angina pectoris I25.118 Dyspnea on exertion R06.09 HTN (hypertension), benign I10 Hyperlipidemia, unspecified hyperlipidemia type E78.5 Hyperlipidemia type: unspecified
--- NOTE | 2025-10-07 09:26 | PC.CHAP ---
Pastoral Care Encounter/Spiritual Assessment Type of Contact [] Declined user experience designer visit [] Patient/Family/Request visit [] Outpatient visit [] Follow-up visit [] Physician referral [] Code/Alert [x] Routine visit [] Staff referral [] Actively dying [] Patient sleeping [x] Family support [] [] Out of room [] Palliative care [] [] Receiving care in room [] Pre-surgical visit [] Trauma [] Long length of stay [] ICU visit [] Other: Relational/Emotional Strength [x] Patient feels connected with others/family/visitors/staff [] Distress [] Loneliness/isolation [] Abandonment Spirituality of Patient [x] Person of Kait [] Attends Congregation of their Kait [x] Believes in Prayer [] Reads Bible or Pentecostal materials [] There are Spiritual issues to be addressed Assistant Manager Retail Interventions [x] Prayer [x] Active listening [] Non-anxious presence [x] Spiritual/emotional support [] Crisis/trauma care [] Spiritual counseling [] Bereavement support [] Provided bereavement packet [] Provided Bible/devotional materials [] Provided toy/stuffed animal, coloring book to patient or family member [] Provided Communion [] Anointing/[place] [] Salvation [x] Completed spiritual assessment [] Other: Impact on Illness or Injury [] Angry [] Fearful [] Anxious [] Often cries [] Exhaustion [] Unable to work [] Unable to attend confucianism [] Unable to walk/stand [] Unable to read [] Unable to drive [] Unable to eat/drink [] Unable to sleep [] Unable to be with family [] Patient intubated [] Other: Summary Time spent with patient 5 min
--- NOTE | 2025-10-07 09:52 | PC.NURSE ---
to cardiac skilled laborer at this time
--- NOTE | 2025-10-07 10:24 | W.PM.OPSUD ---
Surgery/Procedure H&P Update DATE OF PROCEDURE: October 07, 2025 DATE H&P PERFORMED: 10/06/25 H&P UPDATE INFORMATION: I have reviewed H&P completed within last 30 days, I have examined patient prior to procedure and No changes to prior documentation PREOP DIAGNOSIS: Worsening angina PRIMARY INDICATION FOR PROCEDURE: Worsening angina PLANNED PROCEDURE: Left heart cath with possible percutaneous coronary intervention PATIENT REASSESSED PRIOR TO SEDATION, WITH NO CHANGE NOTED: Yes PHYSICAL EXAM: alert, oriented x 3, clear to auscultation bilaterally and regular rate & rhythm AIRWAY EVAL/ANESTHESIA PLAN: normal airway, ASA III and Patient agrees to continue as planned ADDITIONAL INFORMATION: Moderate sedation
--- NOTE | 2025-10-07 11:17 | PM.PROC ---
Procedure Note: Date of procedure: 10/07/25 Pre-procedure diagnosis: Worsening angina Post-procedure diagnosis: other (Severe mid LAD stenosis s/p PCI with 1 stent) Procedure: Severe mid LAD stenosis. iFR value of 0.85. Status post PCI with 1 stent. Patent prior stents in LAD, Left circumflex artery and diagonal artery Dual antiplatelet therapy with aspirin and effient High intensity statin therapy Performing Provider: Jerry Aaron Estimated blood loss (mL): 10 Complications: None Condition: stable Disposition: floor Coding [facility]
--- NOTE | 2025-10-07 11:53 | PC.NURSE ---
received from cardiac laboratory tech via w/c at 1120.report received.pt is drowsy but easily awakened.sr on monitor.denies pain at present.right wrist with tr band on and inflated.right hand is warm to touch and with brisk capillary refill.palpable radial pulse noted distal to tr band.no hemtoma noted.pt instructed in activity restrictions s/p radial artery procedure and instructed to notify staff for any bleeding,pain,sob,numbness,or for any concerns at all.pt verb understanding of instructions
--- NOTE | 2025-10-07 15:24 | PC.NURSE ---
tr band slowly deflated and eventually removed at 1415.no hematoma noted.right hand remains warm to touch and with brisk capillary refill.palpable radial pulse noted.site dressed with 2x2 gauze and secured with biocclusive drsg.pt instructed in activity restrictions s/p tr band removal..and instructed to notify staff for any bleeding,pain,numbness,or for any concerns at all.pt verb understanding of instructions
[2025-10-07] MEDS: pantoprazole 40 mg SDV IVP (17:01)
[2025-10-07] MEDS: metoprolol succinate ER (24 HR) 50 mg Tablet PO (20:01)
[2025-10-08 04:00] VITALS: BP 120/62; PULSE 71; RESP 16; TEMP 36.8; O2SAT 97
[2025-10-08 04:08] LABS: Hematocrit 34.8 % (36-47); Hemoglobin 11.10 g/dL (11.27-16.99); Mean Corpuscular HGB Conc 31.9 g/dL (30-55); Mean Corpuscular Hemoglobin 28.3 pg (27-33); Mean Corpuscular Volume 88.8 fl (85-98); Nucleated Red Blood Cells % 0 %; Platelet Count 290 10^3/cmm (157-399); Red Blood Count 3.92 10^6/uL (3.85-5.65); White Blood Count 5.81 10^3/uL (3.29-11.43)
[2025-10-08 04:28] LABS: Alanine Aminotransferase 22 U/L (0-33); Albumin Level 3.6 g/dL (3.5-5.2); Alkaline Phosphatase 132 U/L (35-105); Anion Gap 9.9 (5-19); Aspartate Amino Transferase 23 U/L (0-32); Blood Urea Nitrogen 11 mg/dL (6-20); Calcium 8.4 mg/dL (8.5-10.5); Carbon Dioxide 27 mmol/L (22-29); Chloride 107 mmol/L (98-107); Globulin 2.6 g/dL (1.3-4.6); Glucose 97 mg/dL (65-115); Magnesium 2.0 mg/dL (1.7-2.3); Osmolality Calculated 289 mOsm/kg (285-295); Potassium 3.9 mmol/L (3.5-5.1); Sodium 140 mmol/L (136-145); Total Protein 6.2 g/dL (6.6-8.7)
[2025-10-08] MEDS: venlafaxine ER (24HR) 75 mg Capsule PO (05:42)
[2025-10-08] MEDS: LOSARTAN 25 MG TABLET PO (05:42)
[2025-10-08 07:13] VITALS: BP 136/71; PULSE 54; RESP 17; TEMP 36.6; O2SAT 98
--- NOTE | 2025-10-08 07:25 | PM.DCS ---
Discharge Providers Date of Admission: 10/06/25 17:15 Date of Discharge: October 08, 2025 Attending Provider at Admission: Kris Aguiar MD Attending Provider at Discharge: Lisy Sánchez NP Primary Care Provider: Giselle Christianson APN Diagnoses at Discharge Discharge Diagnosis 1. Unstable angina: 2. HTN (hypertension), benign: 3. Coronary artery disease of [place] artery of [place] heart with stable angina pectoris: 4. Tobacco abuse: 5. Hyperlipidemia, unspecified hyperlipidemia type: 6. GERD (gastroesophageal reflux disease): Reason for Visit Reason for Visit: chest tightness, back pain Brief History: Admission: Sejal Arias is a 45 year old female with history of coronary artery disease, cardiac stent x 4 in 2023, GERD, hyperlipidemia, hypertension, and obesity who presented to the ER after being seen by her oven baker for unstable angina. Patient was seen and treated the ER by provider Dr. Skelton. Patient continues to endorse chest pain that feels like squeezing and pressure in the center of her chest, states that this is intermittently happening off and on x 3 days. Patient states dizziness with movement, but is fine at rest. Patient denies current shortness of breath, nausea, vomiting, diarrhea, abdominal pain, recent falls or injuries, dark or tarry stools, any type of bleeding, recent illness, rash, or fever. Contacted on-call oven baker who graciously agree's to see patient, asked patient to be NPO with full dose lovenox. Admitting WBC 7.20, hemoglobin 12.90, BUN 15, creatinine 0.7, Troponin T, <6. Admitting blood pressure 144/93, oxygen saturation 100% on room air. Hospital Course Hospital Course Unstable angina Coronary artery disease - History of cardiac stent x 4 (3 stents 06/23/24, 1 stent 09/11/24) - Troponin <6, <6, 6.0 - Telemetry monitoring - Greatly appreciate cardiology consultation and management with Dr. Muller - Full dose Lovenox - Echo with EF 62% - Per : Post-procedure diagnosis: other (Severe mid LAD stenosis s/p PCI with 1 stent) Procedure: Severe mid LAD stenosis. iFR value of 0.85. Status post PCI with 1 stent. Patent prior stents in LAD, Left circumflex artery and diagonal artery. Dual antiplatelet therapy with aspirin and effient, High intensity statin therapy Essential hypertension - Blood pressure 128/78 - Continue home medication valsartan, metoprolol Hyperlipidemia - Continue atorvastatin GERD - PPI Tobacco abuse - Patient no longer smokes cigarettes but does vape multiple times per day - Total cessation advised given patient's cardiac history - As needed nicotine patch Depression - Continue home dosing venlafaxine VTE PPx: Lovenox GI PPx: PPI CODE STATUS: Full code Patient did very well overall, no chest pain or dyspnea, discharges is in stable condition in care of family. Patient will follow-up with her primary care in 1 to 2 days of discharge and follow-up with cardiology at the next available appointment. All questions and concerns addressed with the patient at time of discharge. Physical Exam Const: GENERAL APPEARANCE: cooperative and comfortable NUTRITIONAL APPEARANCE: overweight ORIENTATION/CONSCIOUSNESS: Yes awake, Yes oriented to person, Yes oriented to place and Yes oriented to time HENMT: COMMON NORMALS: normocephalic, atraumatic, external ears normal and Normal external nose present HEAD & SCALP: normocephalic and atraumatic NOSE: Normal external nose present EXTERNAL EAR: Yes external ears normal MOUTH: Normal oral and palatal mucosa present THROAT: posterior oropharynx normal Eye: COMMON NORMALS: Equal, round and reactive pupils present and conjunctivae normal CONJUNCTIVA: Yes conjunctivae normal PUPIL: Yes Equal, round and reactive pupils present EOM: No EOM abnormal Neck/C-Spine: COMMON NORMALS: Thyroid normal GENERAL: Yes normal visual inspection and Yes trachea midline THYROID: Thyroid normal CAROTIDS: No bruit CERVICAL SPINE: Yes cervical ROM normal Lymph: OTHER: No cervical or supraclavicular LAD. Resp: OTHER: CTAB w/ no w/r/r. Cardio: OTHER: RRR, no m/r/g GI: OTHER: BS+, NT, ND, no rigidity, no guarding, no rebound tenderness, no hepatosplenomegaly. Extremity: GENERAL: No clubbing, No cyanosis and No edema Neuro: SENSORIUM/ORIENTATION: Yes oriented to person, Yes oriented to place and Yes oriented to time CRANIAL NERVES: Yes CN normal except as noted SPEECH: speech normal SENSORY EXAM: No sensory level loss detected MOTOR EXAM: 5/5 motor strength present throughout and Normal motor muscle tone present throughout Psych: COMMON NORMALS: Normal thought process present and speech normal APPEARANCE: Yes grossly normal ATTITUDE: Yes calm and Yes engaged ACTIVITY/MOTOR BEHAVIOR: Yes appropriate eye contact SPEECH: Yes normal speech MOOD & AFFECT: Yes euthymic mood THOUGHT PROCESS: Normal thought process present THOUGHT CONTENT: Yes Normal thought content present ATTENTION/CONCENTRATION: Yes attention grossly intact MEMORY/COGNITION: Yes memory grossly intact Skin: COMMON NORMALS: no rashes or lesions noted GENERAL SKIN EXAM: no rashes or lesions noted Discharge Data Studies Completed and Pending Completed Studies During Hospitalization Category Date Time Status XR chest 1V portable [id number] Urgent Exams 10/06/25 14:42 Completed US echo complete [CV. echo complete* [id number]] Routine Ultrasound 10/06/25 17:53 Completed Pending at discharge Category Date Time Status BLOWER INSULATOR request for service Routine Exams 10/07/25 10:16 Taken Complete Blood Count w/Auto AM LABS Lab 10/09/25 04:00 Ordered Comprehensive Metabolic Panel AM LABS Lab 10/09/25 04:00 Ordered Magnesium AM LABS Lab 10/09/25 04:00 Ordered Radiology Impressions Chest X-Ray 10/06/25 14:42 IMPRESSION: No acute findings. Laboratory Results WBC 5.81 10^3/uL (3.29-11.43) 10/08/25 03:37 RBC 3.92 10^6/uL (3.85-5.65) 10/08/25 03:37 Hgb 11.10 g/dL (11.27-16.99) L 10/08/25 03:37 Hct 34.8 % (36-47) L 10/08/25 03:37 MCV 88.8 fl (85-98) 10/08/25 03:37 MCH 28.3 pg (27-33) 10/08/25 03:37 MCHC 31.9 g/dL (30-55) 10/08/25 03:37 RDW 13.7 % (12.1-15.1) 10/08/25 03:37 Plt Count 290 10^3/cmm (157-399) 10/08/25 03:37 MPV 9.5 fL (7.4-10.4) 10/08/25 03:37 Neut % (Auto) 53.5 % 10/08/25 03:37 Lymph % (Auto) 37.0 % 10/08/25 03:37 [place] % (Auto) 6.5 % 10/08/25 03:37 Eos % (Auto) 2.4 % 10/08/25 03:37 Baso % (Auto) 0.3 % 10/08/25 03:37 Neut # (Auto) 3.10 10^3/uL (1.8-7.7) 10/08/25 03:37 Lymph # (Auto) 2.2 10^3/uL (0.8-4.8) 10/08/25 03:37 [place] # (Auto) 0.4 10^3/uL (0.2-0.9) 10/08/25 03:37 Eos # (Auto) 0.1 10^3/uL (0.0-0.8) 10/08/25 03:37 Baso # (Auto) 0.0 10^3/uL (0.0-0.1) 10/08/25 03:37 Nucleated RBC % (auto) 0 % 10/08/25 03:37 Nucleated RBCs # 0.0 /100WBC 10/08/25 03:37 Sodium 140 mmol/L (136-145) 10/08/25 03:37 Potassium 3.9 mmol/L (3.5-5.1) 10/08/25 03:37 Chloride 107 mmol/L (98-107) 10/08/25 03:37 Carbon Dioxide 27 mmol/L (22-29) 10/08/25 03:37 Anion Gap 9.9 (5-19) 10/08/25 03:37 BUN 11 mg/dL (6-20) 10/08/25 03:37 Creatinine 0.6 mg/dL (0.5-0.9) 10/08/25 03:37 GFR Calculation 108.6 mL/min (90-130) 10/08/25 03:37 Glucose 97 mg/dL (65-115) 10/08/25 03:37 Calculated Osmolality 289 mOsm/kg (285-295) 10/08/25 03:37 Calcium 8.4 mg/dL (8.5-10.5) L 10/08/25 03:37 Magnesium 2.0 mg/dL (1.7-2.3) 10/08/25 03:37 Total Bilirubin 0.3 mg/dL (0.15-1.2) 10/08/25 03:37 AST 23 U/L (0-32) 10/08/25 03:37 ALT 22 U/L (0-33) 10/08/25 03:37 Alkaline Phosphatase 132 U/L (35-105) H 10/08/25 03:37 Troponin T Baseline < 6 ng/L (0-10) 10/06/25 15:32 Troponin T 120 Minute < 6.0 ng/L (0-10) 10/06/25 19:52 Delta Troponin T 0 ABS# (0-10) 10/06/25 19:52 Troponin T Hi Sens 6Hr < 6.0 ng/L (0-10) 10/06/25 22:45 Troponin T Hi Sens 6Hr Delta 0 ng/L (0-12) 10/06/25 22:45 Total Protein 6.2 g/dL (6.6-8.7) L 10/08/25 03:37 Albumin 3.6 g/dL (3.5-5.2) 10/08/25 03:37 Globulin 2.6 g/dL (1.3-4.6) 10/08/25 03:37 TSH 3.54 uIU/mL (0.27-4.20) 10/07/25 04:07 Vitals Last Vital Signs Temp 97.8 F 10/08/25 07:13 Pulse 54 L 10/08/25 07:13 Resp 17 10/08/25 07:13 BP 136/71 10/08/25 07:13 Pulse Ox 98 10/08/25 07:13 O2 Del Method Room Air 10/08/25 07:13 Discharge Plan Discharge Patient Disposition: Home Condition: Stable Prescriptions: Continued pantoprazole [Protonix] 40 mg tablet,delayed release (DR/EC) 40 mg PO BID nitroglycerin 0.4 mg tablet, sublingual 0.4 mg sublingual Q5M PRN (Reason: chest pain) Qty: 25 2RF Rx Instructions: do not exceed 3 doses per episode magnesium oxide 400 mg (241.3 mg magnesium) tablet 400 mg PO DAILY Qty: 90 3RF valsartan 40 mg tablet 40 mg PO DAILY Qty: 90 3RF metoprolol succinate 50 mg tablet extended release 24 hr 50 mg PO BEDTIME Qty: 90 3RF prasugrel HCl [Effient] 10 mg tablet 10 mg PO DAILY Qty: 90 3RF atorvastatin 40 mg tablet See Rx Instructions .ROUTE .COMPLEX Qty: 90 3RF Dose Instruction: TAKE 2 TABLETS BY MOUTH AT BEDTIME Rx Instructions: TAKE 2 TABLETS BY MOUTH AT BEDTIME (totally 80 mg) isosorbide mononitrate 60 mg tablet extended release 24 hr 60 mg PO .Twice daily Qty: 60 0RF aspirin 81 mg Tablet,Delayed Release (Dr/Ec) 81 mg PO DAILY venlafaxine 75 mg capsule,extended release 24hr 75 mg PO DAILY Discharge Order = DC NOW: Discharge Order (Routine); Ordered 10/08/25 Ordered By: Lisy Sánchez Referrals: Tasha Fuentes FNP [Nurse Practitioner, Cardiology] - 10/29/25 2:30 pm Christianson,MARILEE Desai [Primary Care Provider, Nurse Practitioner] - 10/19/25 4:00 pm Referral Note: faxed DC summary to office 10/08/2025 @ 09:47 Discharge Diet: Cardiac Discharge Activity: Resume usual activity Patient Instructions: Coronary Artery Disease (DC), How to Stop Smoking (DC), Cardiac Rehabilitation (DC), Coronary Intravascular Stent Placement (DC), After Radial Heart Catheterization (GEN), Chest Pain Stoplight, Opioid Safety, Post Angiogram Home Care Instructions, Patient Portal & [facility] Instructions Discharge Attestations Time Spent in Discharge Care*: greater than 30 min Status at Discharge: Cognitive status at discharge: cognitively intact, Behavioral status at discharge: cooperative, Quality Metrics Clinical Quality Measures [ No reported AMI, CVA or VTE this stay] Coding Level of Care Code 06831 Diagnoses Unstable angina I20.0 HTN (hypertension), benign I10 Coronary artery disease of [place] artery of [place] heart with stable angina pectoris I25.118 Associated angina: with stable angina Coronary Disease-Associated Artery/Lesion type: [place] artery [place] vs. transplanted heart: [place] heart Tobacco abuse Z72.0 Hyperlipidemia, unspecified hyperlipidemia type E78.5 Hyperlipidemia type: unspecified GERD (gastroesophageal reflux disease) K21.9
--- NOTE | 2025-10-08 07:30 | PM.PN ---
Subjective Subjective: Patient underwent a cardiac catheterization yesterday. She was found to have a high-grade lesion in-stent stenosis in the LAD. She underwent the PCI of this lesion. Currently she is remaining stable with no recurrence of chest pain. No other specific symptoms. Telemetry shows sinus rhythm. Her heart rate went down to the 50s while sleeping. She has a history of sleep apnea but has not been using the CPAP lately. Medications: Medication Review Details: Current Medications Acetaminophen (Acetaminophen 325 Mg Tablet) 650 mg PO Q6H PRN PRN Reason: Mild/Mod Pain Or Temp >/= 101 Al Hydrox/Mg Hydrox/Simethicone (Fahi-Phg-Ygcrassle-Mohan 30 Ml Udc) 15 ml PO Q6H PRN PRN Reason: INDIGESTION Aspirin (Aspirin 81 Mg Ec Tablet) 81 mg PO DAILY [facility] Last Admin: 10/08/25 05:41 Dose: 81 mg Atorvastatin Calcium (Atorvastatin 40 Mg Tablet) 80 mg PO DAILY [facility] Last Admin: 10/08/25 05:41 Dose: 80 mg Bisacodyl (Bisacodyl 5 Mg Tablet) 10 mg PO DAILY PRN; Protocol PRN Reason: Constipation (see protocol) Enoxaparin Sodium (Enoxaparin 100 Mg/Ml Syringe) 90 mg 1 mg/kg (90 mg) SUBCUT Q12H [facility] Last Admin: 10/08/25 05:42 Dose: 90 mg Isosorbide Mononitrate (Isosorbide Mononitrate Er 60 Mg Tablet) 60 mg PO BID [facility] Last Admin: 10/08/25 05:41 Dose: 60 mg Losartan Potassium (Losartan 25 Mg Tablet) 25 mg PO DAILY [facility] Last Admin: 10/08/25 05:42 Dose: 25 mg Magnesium Hydroxide (Magnesium Hydroxide 30 Ml Udc) 30 ml PO DAILY PRN; Protocol PRN Reason: Constipation (see protocol) Metoprolol Succinate (Metoprolol Succinate Er (24 Hr) 50 Mg Tablet) 50 mg PO BEDTIME [facility] Last Admin: 10/07/25 20:01 Dose: 50 mg Morphine Sulfate (Morphine 4 Mg/Ml Sdv 1 Ml) 2 mg IVP Q4H PRN PRN Reason: SEVERE PAIN Naloxone HCl (Naloxone 0.4 Mg/Ml Sdv) 0.1 mg IVP Q2M PRN PRN Reason: OPIATERV Nitroglycerin (Nitroglycerin 0.4 Mg Sublingual Tablet) 0.4 mg SUBLINGUAL Q5M PRN PRN Reason: CHEST PAIN Ondansetron HCl (Ondansetron 2 Mg/Ml Sdv 2 Ml) 4 mg IVP Q8H PRN PRN Reason: vomiting, or N/V if npo Pantoprazole Sodium (Pantoprazole 40 Mg Sdv) 40 mg IVP Q24H [facility] Last Admin: 10/07/25 17:01 Dose: 40 mg Prasugrel (Prasugrel 10 Mg Tablet) 10 mg PO DAILY [facility] Last Admin: 10/08/25 05:42 Dose: 10 mg Venlafaxine HCl (Venlafaxine Er (24hr) 75 Mg Capsule) 75 mg PO DAILY [facility] Last Admin: 10/08/25 05:42 Dose: 75 mg Vitals/I&O/Wt Last Vital Signs Temp 97.8 F 10/08/25 07:13 Pulse 54 L 10/08/25 07:13 Resp 17 10/08/25 07:13 BP 136/71 10/08/25 07:13 Pulse Ox 98 10/08/25 07:13 O2 Del Method Room Air 10/08/25 07:13 10/07/25 10/08/25 10/08/25 22:59 06:59 14:59 Intake Total 1360 / 1600 480 / 2080 Balance 1360 / 1600 480 / 2080 Weight last 48 hrs Weight 198 lb 6.656 oz Weight 192 lb 3.2 oz Weight 192 lb 10.944 oz Weight 191 lb 12.835 oz Weight 190 lb Physical Exam Narrative: GENERAL: The patient is alert and oriented times three. Not in any acute distress. HEENT: No significant pallor, icterus or lymphadenopathy.Oral cavity: There are no mucous membrane lesions. NECK: Trachea appears to be central. No masses noted. No JVD or thyromegaly appreciated. RESPIRATORY: Chest is symmetrical. No intercostals muscle retraction or any accessory muscle activation. There is no chest wall tenderness. Breath sounds are heard bilaterally. No rales or rhonchi heard. No evidence of any consolidation. BREASTS: Deferred. HEART: The heart sounds are normal. No S3 or S4. No significant murmurs. No pericardial rub ABDOMEN: No vessel pulsations or distention. No tenderness. No organomegaly appreciated. Bowel sounds are normally heard. : Deferred. RECTAL: Deferred. LYMPHATIC: No lymphadenopathy noted in the neck. EXTREMITIES: No edema or cyanosis. No clubbing. The arterial puncture site has no hematoma bleeding MUSCULOSKELETAL: No acute joint deformities or swelling SKIN: There are no significant rashes or ecchymosis NEUROPSYCHIATRIC: The patient is alert and oriented x3. Appears to be in a good mood. No tremors or rigidity noted. Data 10/08/25 03:37 10/08/25 03:37 Other Labs: Laboratory Last Values WBC 5.81 10^3/uL (3.29-11.43) 10/08/25 03:37 RBC 3.92 10^6/uL (3.85-5.65) 10/08/25 03:37 Hgb 11.10 g/dL (11.27-16.99) L 10/08/25 03:37 Hct 34.8 % (36-47) L 10/08/25 03:37 MCV 88.8 fl (85-98) 10/08/25 03:37 MCH 28.3 pg (27-33) 10/08/25 03:37 MCHC 31.9 g/dL (30-55) 10/08/25 03:37 RDW 13.7 % (12.1-15.1) 10/08/25 03:37 Plt Count 290 10^3/cmm (157-399) 10/08/25 03:37 MPV 9.5 fL (7.4-10.4) 10/08/25 03:37 Neut % (Auto) 53.5 % 10/08/25 03:37 Lymph % (Auto) 37.0 % 10/08/25 03:37 [place] % (Auto) 6.5 % 10/08/25 03:37 Eos % (Auto) 2.4 % 10/08/25 03:37 Baso % (Auto) 0.3 % 10/08/25 03:37 Neut # (Auto) 3.10 10^3/uL (1.8-7.7) 10/08/25 03:37 Lymph # (Auto) 2.2 10^3/uL (0.8-4.8) 10/08/25 03:37 [place] # (Auto) 0.4 10^3/uL (0.2-0.9) 10/08/25 03:37 Eos # (Auto) 0.1 10^3/uL (0.0-0.8) 10/08/25 03:37 Baso # (Auto) 0.0 10^3/uL (0.0-0.1) 10/08/25 03:37 Nucleated RBC % (auto) 0 % 10/08/25 03:37 Nucleated RBCs # 0.0 /100WBC 10/08/25 03:37 Sodium 140 mmol/L (136-145) 10/08/25 03:37 Potassium 3.9 mmol/L (3.5-5.1) 10/08/25 03:37 Chloride 107 mmol/L (98-107) 10/08/25 03:37 Carbon Dioxide 27 mmol/L (22-29) 10/08/25 03:37 Anion Gap 9.9 (5-19) 10/08/25 03:37 BUN 11 mg/dL (6-20) 10/08/25 03:37 Creatinine 0.6 mg/dL (0.5-0.9) 10/08/25 03:37 GFR Calculation 108.6 mL/min (90-130) 10/08/25 03:37 Glucose 97 mg/dL (65-115) 10/08/25 03:37 Calculated Osmolality 289 mOsm/kg (285-295) 10/08/25 03:37 Calcium 8.4 mg/dL (8.5-10.5) L 10/08/25 03:37 Magnesium 2.0 mg/dL (1.7-2.3) 10/08/25 03:37 Total Bilirubin 0.3 mg/dL (0.15-1.2) 10/08/25 03:37 AST 23 U/L (0-32) 10/08/25 03:37 ALT 22 U/L (0-33) 10/08/25 03:37 Alkaline Phosphatase 132 U/L (35-105) H 10/08/25 03:37 Troponin T Baseline < 6 ng/L (0-10) 10/06/25 15:32 Troponin T 120 Minute < 6.0 ng/L (0-10) 10/06/25 19:52 Delta Troponin T 0 ABS# (0-10) 10/06/25 19:52 Troponin T Hi Sens 6Hr < 6.0 ng/L (0-10) 10/06/25 22:45 Troponin T Hi Sens 6Hr Delta 0 ng/L (0-12) 10/06/25 22:45 Total Protein 6.2 g/dL (6.6-8.7) L 10/08/25 03:37 Albumin 3.6 g/dL (3.5-5.2) 10/08/25 03:37 Globulin 2.6 g/dL (1.3-4.6) 10/08/25 03:37 TSH 3.54 uIU/mL (0.27-4.20) 10/07/25 04:07 A&P Assessment and plan 1. Atherosclerotic heart disease of [place] coronary artery with other forms of angina pectoris: Patient with multivessel PCI a year ago, now is presenting with unstable angina symptoms. Possibility of restenosis versus progression of disease in the other vessels are considerations. Myocardial infarction is ruled out Repeat cardiac catheter in yesterday revealing high-grade lesion in the mid LAD. Patient underwent PCI. Currently seems to be stable. 2. Dyspnea on exertion: Most likely from the coronary ischemia. She is feeling much better now. May continue on the current management. 3. HTN (hypertension), benign: The blood pressure is fairly under control. May continue on the current medications. 4. Hyperlipidemia, unspecified hyperlipidemia type: May continue on the current medications, I may increase the dose of the Lipitor to 80 mg p.o. daily Plan: Is a patient continues to remain stable, may be discharged home today. Patient will be [facility] at [facility] 1-2 weeks. Patient will be seen by in the office as scheduled Patient is advised to continue the medications as mentioned above. The importance of compliance to diet, medications and exercise were discussed. Strongly advised to quit vaping/smoking In the event of the patient developing chest pain ,unusual palpitations or any new symptoms, is advised to contact me or come to the hospital. PDMP PDMP Reviewed: Not Reviewed Attestations Medical Necessity Statement*: Possible discharge home today Coding Level of Care Code 05694 Diagnoses Atherosclerotic heart disease of [place] coronary artery with other forms of angina pectoris I25.118 Dyspnea on exertion R06.09 HTN (hypertension), benign I10 Hyperlipidemia, unspecified hyperlipidemia type E78.5 Hyperlipidemia type: unspecified
[2025-10-08 09:27] VITALS: BP 125/80; PULSE 68; O2SAT 92
--- NOTE | 2025-10-08 09:48 | PC.NURSE ---
Discharge Note Patient discharged to home via private vehicle accompanied by friend/cousin. Discharge instructions reviewed with patient and/or sales and merchandising representative. Mobile pharmacy medications and/or prescriptions provided. Belongings/home medications returned. Education provided on enrollment of cardiac rehab and finding ways to quit smoking. discharge packet provided.
== END 2025-10-08 09:29 | disposition home or self-care (01) | DRG 322 ==
LOC: ER 15:51 → CSU 17:21
PROVIDERS: Internal Medicine; Physician Assistant; Admitting Provider Family Medicine; Emergency Provider Emergency Medicine; PCP Nurse Practitioner Family; Visit Provider Registered Nurse
PROC: 027034Z Dilation of Coronary Artery, One Artery with Drug-eluting Intraluminal Device, Percutaneous Approach (ICD-10-PCS; principal; 2025-10-07 10:00)
PROC: 027034Z Dilation of Coronary Artery, One Artery with Drug-eluting Intraluminal Device, Percutaneous Approach (ICD-10-PCS; 2025-10-07 10:00)
DX: I25.110 Atherosclerotic heart disease of native coronary artery with unstable angina pectoris (principal); G47.30 Sleep apnea, unspecified; I10 Essential (primary) hypertension; E78.5 Hyperlipidemia, unspecified; G43.909 Migraine, unspecified, not intractable, without status migrainosus; F32.A Depression, unspecified; G89.29 Other chronic pain; E66.9 Obesity, unspecified; Z68.34 Body mass index [BMI] 34.0-34.9, adult; F17.290 Nicotine dependence, other tobacco product, uncomplicated; K21.9 Gastro-esophageal reflux disease without esophagitis; Z79.82 Long term (current) use of aspirin
CPT/HCPCS: 36415; 71045; 80053; 83735; 84443; 84484; 85025; 85347; 93005; 93306; 93454; 93571; 96372; 99152; 99153; C1725; C1769; C1874; C1887; C1894; C9600; J1200; J1644; J1650; J2250; J2470; J3010; J3490; J7030; J9999; Q9967

== ENCOUNTER 2025-10-30 07:07 | Outpatient (CLI) | payer OTHER, SELFPAY ==
[2025-10-30 08:00] LABS: Cholesterol 119 mg/dL (0-200); HDL Cholesterol 36 mg/dL (60-100); Triglycerides 83 mg/dL (0-150)
== END 2025-10-30 07:08 | disposition home or self-care (01) ==
PROVIDERS: PCP Nurse Practitioner Family; Visit Provider Nurse Practitioner Family
DX: I25.10 Atherosclerotic heart disease of native coronary artery without angina pectoris (principal)
CPT/HCPCS: 36415; 80061